=== PATIENT | female | born 1945 | race Caucasian/White ===

== ENCOUNTER 2018-07-13 00:43 | Outpatient (CLI) | payer BC, SELFPAY ==
--- NOTE | 2018-07-13 13:26 | DI.RAD_ITS ---
SYMPTOMS/DIAGNOSIS: RIGHT HIP PAIN, DJD FLUOROSCOPIC-GUIDED JOINT INJECTION: Fluoroscopy Time: 1 sec A frontal image of the right hip demonstrates needle placement in the right hip joint in conjunction with a joint injection carried out by Dr. Cummings. Please see the procedure report for further information.
--- NOTE | 2018-07-13 17:22 | ROE_ITS ---
DATE OF PROCEDURE: July 13, 2018 PROCEDURE: Injection right hip under fluoroscopy. SURGEON: Robert Cummings M.D. INDICATIONS: This patient has had chronic problems with her lower back as well as pain in her right hip area radiating occasionally into her groin. Radiographs showed significant degenerative arthriti s of the spine, but also some evidence of early degenerative changes in the right hip joint. It was very difficult to separate out the symptom complex coming from her back versus from her hip. In orde r to try to define this I recommended an injection of the right hip under fluoroscopy. If the patien t had a good result from the Marcaine anesthetic and/or the Depo-Medrol then I would think that a hip replacement would benefit her. If she had only limited relief or incomplete relief then I would con tinue to focus her efforts at getting her back better. I reviewed this with her in detail in the [facility] oroscopy suite. PROCEDURE: The patient was placed in the supine position. The anterolateral portion of her thigh wa s exposed. Betadine was used to prep the skin. Lidocaine 1% was used to create an anesthetic wheal over the proposed injection site. After waiting an appropriate amount of time, a 22 gauge spinal nee dle was inserted under fluoroscopic control without difficulty into the right hip. The needle was fe lt to penetrate the capsule and then hit lightly the bone of the femoral head. This was confirmed wi th fluoroscopy. I then injected the hip joint with 5 cc's of 0.5% Marcaine plain and 80 mg of Depo-M edrol. The patient tolerated the procedure well. She noted immediately that she could do things suc h as warp picker her right leg while standing on her left and it didn't cause pain. She is encouraged to keep a pain diary for the next 5 to 12 hours while the Marcaine is in effect. She is informed that she can anticipate some groin and hip discomfort for 24-48 hours after the Marcaine has worn off and before the Depo-Medrol has taken effect. If this is effective for her then she may benefit from a to mayda hip arthroplasty. cc: Joycelyn Will M.D.
== END 2018-07-13 01:03 ==
PROVIDERS: PCP Family Medicine; Visit Provider Orthopaedic Surgery
DX: M25.551 Pain in right hip (principal); M16.11 Unilateral primary osteoarthritis, right hip
CPT/HCPCS: 20610; 77002

== ENCOUNTER 2018-08-08 18:26 | Emergency (ER) | payer BC, SELFPAY ==
[2018-08-08 18:38] VITALS: BP 159/69; PULSE 72; RESP 16; TEMP 36.6; O2SAT 99
[2018-08-08] MEDS: Cyclobenzaprine 10 MG TAB PO ×2 (19:01)
--- NOTE | 2018-08-08 19:02 | ED.GENADUL_ITS ---
Discharge Plan Disposition Patient Disposition: HOME Condition: Stable Discharge Details Chief Complaint: Orthopedic Clinical Impression: Left leg pain Primary Care Provider: Joycelyn Will ED Provider: Adalberto Lin Home Meds and New Rx's Prescriptions: New cyclobenzaprine 10 mg tablet 10 mg PO TID PRN (Reason: pain) Qty: 20 RF: 0 Continue aspirin [Aspirin Low-Strength] 81 MG tablet,chewable 81 mg PO DAILY RF: 0 estradiol [Estring] 1 EACH ring 1 ea VG Q3MOS Qty: 1 RF: 4 acetaminophen [Tylenol] 325 MG tablet 650 mg PO Q6H PRN RF: 0 ibuprofen 200 MG tablet 400 mg PO BID PRNRF: 0 cholecalciferol (vitamin D3) 1,000 UNIT capsule 1,000 unit PO DAILY RF: 0 atenolol 25 MG tablet 25 mg PO DAILY Qty: 90 RF: 4 esomeprazole magnesium [Nexium] 20 MG capsule,delayed release(DR/EC) 20 mg PO DAILY Qty: 90 RF: 12 rosuvastatin [Crestor] 5 MG tablet 5 mg PO DAILY Qty: 90 RF: 12 multivitamin 1 EACH capsule 1 ea PO DAILY RF: 0 glucosam-chondr msm6-manganese 467-438-0.7 mg Capsule 2 tab PO DAILY RF: 0 turmeric 400 mg Capsule 1 tab PO DAILY RF: 0 gabapentin 300 MG capsule 600 mg PO HS RF: 0 Discharge Instructions Additional Instructions: Your pain is likely from a muscle spasm or strain. It could also be nerve pain from your chronic arthritis you should be contacted with an appointment for an ultrasound tomorrow. follow up with your primary care provider within a week you can take 1000mg tylenol and 600mg ibuprofen every 6 hours for pain as needed if you have fevers, inability to urinate or feel the leg is becoming cold to touch return to the emergency department Discharge Data Discharge Physician: Adalberto Lin Medical Decision Making 73 yo female with hx of chronic back pain and right leg pain comes in with diffsue left leg pain since yesterday. Denies any trauma or falls. HAs no fevers or leg swelling on exam HAs no crepitus, warmth or reddness, no difficulty urinating and no saddle anesthesia with normal distal pulses on exam and sensation. I suspect the patient's pain is likely from a muscle spasm, less likely sciatica. No evidnece at this time to suggest infectious etiology or nec fasc, no findings to suggest cauda equina or sea. Given the diffuse pain and despite her leg not appearing swollen she feels it is more swollen than normal so will order an u/s for tomorrow morning to eval for dvt. Normal pulses and sensation so doubt dissection or arterial occlusion. Return precautions given, will d/c home with muscle relaxers Differential Diagnosis muscle spasm, sciatica, dvt HPI General Mode of arrival: wheelchair . Date/Time Provider Initiated Documentation: 08/08/18 18:41 . Limitations to Documentation: no limitations . Information obtained by: patient . History of Present Illness 73 year old F presents to the emergency department with the chief complaint of left leg pain, described as moderate, with intensity rated at 7. Quality is described as aching and sharp, and is localized to the left. Patient reports no radiation. Patient started experiencing this day(s) (1) and it has been constant. No relieving factors improve symptom(s), No exacerbating factors reported . Patient notes no other symptoms.. Patient did receive the following treatments prior to arrival, none Related Data Home Medications Medication Instructions Recorded Confirmed aspirin [Aspirin Low-Strength] 81 mg PO DAILY tab-cap 01/06/13 08/08/18 multivitamin 1 ea PO DAILY 08/31/14 08/08/18 estradiol [Estring] 1 ea VG Q3MOS #1 vag.ring 08/18/17 08/08/18 acetaminophen [Tylenol] 650 mg PO Q6H PRN tab-cap 12/03/17 08/08/18 ibuprofen 400 mg PO BID PRN tab-cap 12/03/17 08/08/18 cholecalciferol (vitamin D3) 1,000 unit PO DAILY 01/06/18 08/08/18 atenolol 25 mg PO DAILY #90 tab 04/02/18 08/08/18 esomeprazole magnesium [Nexium] 20 mg PO DAILY #90 tab-cap 04/02/18 08/08/18 rosuvastatin [Crestor] 5 mg PO DAILY #90 tab-cap 04/02/18 08/08/18 cyclobenzaprine 10 mg PO TID PRN #20 tab 08/08/18 gabapentin 600 mg PO HS 08/08/18 08/08/18 glucosam-chondr msm6-manganese 2 tab PO DAILY 08/08/18 08/08/18 turmeric 1 tab PO DAILY 08/08/18 08/08/18 Previous Rx's Medication Instructions Recorded estradiol [Estring] 1 ea VG Q3MOS #1 vag.ring 08/18/17 atenolol 25 mg PO DAILY #90 tab 04/02/18 esomeprazole magnesium [Nexium] 20 mg PO DAILY #90 tab-cap 04/02/18 rosuvastatin [Crestor] 5 mg PO DAILY #90 tab-cap 04/02/18 cyclobenzaprine 10 mg PO TID PRN #20 tab 08/08/18 Allergies Allergy/AdvReac Type Severity Reaction Status Date / Time Penicillins Allergy RASH/BREATHING Unverified 08/08/18 18:42 PROBLEMS atorvastatin calcium AdvReac Intermediate LEG CRAMPS Unverified 08/08/18 18:42 [From Lipitor] General Stated Complaint: Orthopedic NESS: 3 Review of Systems Review of Systems All systems reviewed & are unremarkable except as noted in HPI and below Constitutional Denies chills, Denies fever(s) and Denies weakness Eyes Denies loss of vision ENT Denies change in voice Cardiovascular Denies chest pain and Denies dyspnea Respiratory Denies dyspnea Gastrointestinal Denies abdominal pain, Denies nausea and Denies vomiting Genitourinary Denies dysuria Musculoskeletal Denies joint swelling Integumentary/Breasts Denies rash Neurologic Denies loss of vision and Denies weakness Psychiatric Denies depression Endocrine Denies cold intolerance and Denies heat intolerance Allergic/Immunologic Reports urticaria PFSH Family History Mother Alzheimer's disease Heart disease Neoplasm Father Neoplasm Sister Heart disease Hyperlipidemia Neoplasm Sister Neoplasm Brother Essential hypertension Heart disease Hyperlipidemia Brother Essential hypertension Heart disease Hyperlipidemia Brother Neoplasm Grandfather Heart disease Grandfather Neoplasm Grandmother No problems noted. Grandmother Heart disease Neoplasm FAMILY HISTORY Aneurysm Hyperlipidemia Neoplasm IBS (irritable bowel syndrome) Medical History Anxiety Esophagitis Essential hypertension GERD (gastroesophageal reflux disease) Hiatal hernia Hyperlipidemia Nasal congestion Peripheral neuralgia Sleep apnea Vitamin D deficiency supraventricular reflux disease Social History Smoking/Tobacco Use Status: Former Tobacco Use Surgical History CYSTECTOMY (~1971) Cholecystectomy (~2004) EGD - IV Sedation (08/17/13) EGD - MAC (06/02/17) ENDOMETRIAL SURGERY PROCEDURES Reduction mammoplasty (~2001) colonoscopy Exam Const General: no acute distress Orientation: alert HENAZ Head: normal to inspection Ears: external ears normal General nose exam: external nose normal Mouth: moist mucous membranes Eyes General: appearance normal, both eyes and all related structures Neck Neck: normal visual inspection Resp Effort & Inspection: normal respiratory effort and able to speak in complete sentences Cardio Rate: regular rate Skin General skin exam: no rashes or lesions noted Neuro General: alert and oriented x3 Extrem General: normal to inspection Psych Mental Status: mental status grossly normal Course Vital Signs Temperature 36.6 C 08/08/18 18:38 Pulse 72 08/08/18 18:38 Respiratory Rate 16 08/08/18 18:38 Blood Pressure 159/69 H 08/08/18 18:38 Pulse Oximetry 99 08/08/18 18:38 Temperature 36.6 C 08/08/18 18:38 Temperature Source Temporal Artery Scan 08/08/18 18:38 Pulse 72 08/08/18 18:38 Respiratory Rate 16 08/08/18 18:38 Respiratory Effort Non-Labored 08/08/18 18:40 Blood Pressure 159/69 H 08/08/18 18:38 Blood Pressure Position Sitting 08/08/18 18:38 Pulse Oximetry 99 08/08/18 18:38 Oxygen Delivery Method Room Air 08/08/18 18:38 Oxygen Flow Rate 0 08/08/18 18:38 Pain Level 10 08/08/18 18:38
== END 2018-08-08 19:15 | disposition home or self-care (01) ==
LOC: ER 19:13
PROVIDERS: Emergency Provider Emergency Medicine; PCP Family Medicine
DX: M79.662 Pain in left lower leg (principal)
CPT/HCPCS: 99283

== ENCOUNTER 2018-08-09 10:44 | Outpatient (CLI) | payer BC, SELFPAY ==
--- NOTE | 2018-08-09 12:48 | DI.US_ITS ---
SYMPTOM/DIAGNOSIS: LT LEG PAIN DUPLEX VENOUS ULTRASOUND LEFT LOWER EXTREMITY: The study was carried out according to the usual protocol. The superficial, femoral, popliteal and proximal trifurcation in the superior portion of the leg are well seen. Good compressibility is noted throughout. Flow is demonstrated and flow augmentation was easily elicited with calf compression. SUMMARY: There is no evidence of DVT.
== END 2018-08-09 11:04 ==
PROVIDERS: PCP Family Medicine; Visit Provider Emergency Medicine
DX: M79.605 Pain in left leg (principal)
CPT/HCPCS: 93971

== ENCOUNTER 2018-08-09 13:13 | Emergency (ER) | payer BC, SELFPAY ==
[2018-08-09 13:27] VITALS: BP 149/60; PULSE 54; RESP 16; TEMP 36.5; O2SAT 98
[2018-08-09] MEDS: predniSONE 20 MG TAB 60 MG PO (14:29)
--- NOTE | 2018-08-09 14:31 | ED.GENADUL_ITS ---
Discharge Plan Disposition Patient Disposition: HOME Condition: Improving Discharge Details Chief Complaint: Recheck Clinical Impression: Left sided sciatica Reason For Visit: left leg pain Primary Care Provider: Joycelyn Will ED Provider: Tucker Jones Home Meds and New Rx's Prescriptions: New prednisone 20 mg tablet 40 mg PO DAILY 5 Days Qty: 10 RF: 0 Continue aspirin [Aspirin Low-Strength] 81 MG tablet,chewable 81 mg PO DAILY RF: 0 estradiol [Estring] 1 EACH ring 1 ea VG Q3MOS Qty: 1 RF: 4 acetaminophen [Tylenol] 325 MG tablet 650 mg PO Q6H PRN RF: 0 ibuprofen 200 MG tablet 400 mg PO BID PRNRF: 0 cholecalciferol (vitamin D3) 1,000 UNIT capsule 1,000 unit PO DAILY RF: 0 atenolol 25 MG tablet 25 mg PO DAILY Qty: 90 RF: 4 esomeprazole magnesium [Nexium] 20 MG capsule,delayed release(DR/EC) 20 mg PO DAILY Qty: 90 RF: 12 rosuvastatin [Crestor] 5 MG tablet 5 mg PO DAILY Qty: 90 RF: 12 multivitamin 1 EACH capsule 1 ea PO DAILY RF: 0 glucosam-chondr msm6-manganese 467-438-0.7 mg Capsule 2 tab PO DAILY RF: 0 turmeric 400 mg Capsule 1 tab PO DAILY RF: 0 gabapentin 300 MG capsule 600 mg PO HS RF: 0 Discontinued cyclobenzaprine 10 mg tablet 10 mg PO TID PRN (Reason: pain) Qty: 20 RF: 0 Discharge Instructions Instructions: Sciatica (ED) Additional Instructions: Please follow-up in clinic with Dr Will for recheck. Continue the previously prescribed gabapentin as well as Tylenol, ibuprofen, and to julio. Continue your other regular medications. Take prednisone as prescribed. Return to the emergency department for any acute concerns Medical Decision Making 73yof seen yesterday for atraumatic L leg pain. She was referred back for ultrasound this morning after visit in the ED last night. The ultrasound is unremarkable. Her exam today is consistent with acute left-sided sciatica. She does not have motor or sensory compromise. We will place on a burst of steroids. She did not have any improvement from the previous prescribed cyclobenzaprine and we will stop this medication. She will follow-up with Dr. Dobbertin for recheck. HPI General Mode of arrival: ambulatory . Date/Time Provider Initiated Documentation: 08/09/18 14:02 . Limitations to Documentation: no limitations . Information obtained by: patient . History of Present Illness described as moderate and similar to prior episodes, and is localized to the left and lower extremity. Patient started experiencing this day(s) and it has been constant. Rest improves symptom(s), Movement worsens symptoms . HPI Narrative: This is a 73-year-old female who was seen last night for atraumatic left lower extremity pain. She was worked up without finding and referred back for outpatient ultrasound today. Related Data Home Medications Medication Instructions Recorded Confirmed aspirin [Aspirin Low-Strength] 81 mg PO DAILY tab-cap 01/06/13 08/09/18 multivitamin 1 ea PO DAILY 08/31/14 08/09/18 estradiol [Estring] 1 ea VG Q3MOS #1 vag.ring 08/18/17 08/09/18 acetaminophen [Tylenol] 650 mg PO Q6H PRN tab-cap 12/03/17 08/09/18 ibuprofen 400 mg PO BID PRN tab-cap 12/03/17 08/09/18 cholecalciferol (vitamin D3) 1,000 unit PO DAILY 01/06/18 08/09/18 atenolol 25 mg PO DAILY #90 tab 04/02/18 08/09/18 esomeprazole magnesium [Nexium] 20 mg PO DAILY #90 tab-cap 04/02/18 08/09/18 rosuvastatin [Crestor] 5 mg PO DAILY #90 tab-cap 04/02/18 08/09/18 gabapentin 600 mg PO HS 08/08/18 08/09/18 glucosam-chondr msm6-manganese 2 tab PO DAILY 08/08/18 08/09/18 turmeric 1 tab PO DAILY 08/08/18 08/09/18 prednisone 40 mg PO DAILY 5 Days #10 tab 08/09/18 Previous Rx's Medication Instructions Recorded estradiol [Estring] 1 ea VG Q3MOS #1 vag.ring 08/18/17 atenolol 25 mg PO DAILY #90 tab 04/02/18 esomeprazole magnesium [Nexium] 20 mg PO DAILY #90 tab-cap 04/02/18 rosuvastatin [Crestor] 5 mg PO DAILY #90 tab-cap 04/02/18 prednisone 40 mg PO DAILY 5 Days #10 tab 08/09/18 Allergies Allergy/AdvReac Type Severity Reaction Status Date / Time Penicillins Allergy RASH/BREATHING Unverified 08/09/18 13:33 PROBLEMS atorvastatin calcium AdvReac Intermediate LEG CRAMPS Unverified 08/09/18 13:33 [From Lipitor] General Stated Complaint: Recheck NESS: 3 Review of Systems Review of Systems 6 systems reviewed and otherwise neg PFSH Family History Mother Alzheimer's disease Heart disease Neoplasm Father Neoplasm Sister Heart disease Hyperlipidemia Neoplasm Sister Neoplasm Brother Essential hypertension Heart disease Hyperlipidemia Brother Essential hypertension Heart disease Hyperlipidemia Brother Neoplasm Grandfather Heart disease Grandfather Neoplasm Grandmother No problems noted. Grandmother Heart disease Neoplasm FAMILY HISTORY Aneurysm Hyperlipidemia Neoplasm IBS (irritable bowel syndrome) Medical History Anxiety Esophagitis Essential hypertension GERD (gastroesophageal reflux disease) Hiatal hernia Hyperlipidemia Nasal congestion Peripheral neuralgia Sleep apnea Vitamin D deficiency supraventricular reflux disease Social History Smoking/Tobacco Use Status: Former Tobacco Use Surgical History CYSTECTOMY (~1971) Cholecystectomy (~2004) EGD - IV Sedation (08/17/13) EGD - MAC (06/02/17) ENDOMETRIAL SURGERY PROCEDURES Reduction mammoplasty (~2001) colonoscopy Exam Narrative Exam Narrative: GEN: awake, alert, oriented 3. Pleasant, well groomed, interactive. HEAD: Normocephalic, atraumatic NECK: Full ROM, no ANALY, no menigismus EXT: Full ROM, no edema, no rash. Tender at sciatic notch left side. Patient' s motor is 5 out of 5. Saddle distribution sensation as is sensation throughout is intact. Palpable DP bilaterally Neuro: Grossly normal neurologic exam, conversant, interactive. Psych: Speech fluent, thoughts congruent, affect normal Course Vital Signs Temperature 36.5 C 08/09/18 13:27 Pulse 54 L 08/09/18 13:27 Respiratory Rate 16 08/09/18 13:27 Blood Pressure 149/60 H 08/09/18 13:27 Pulse Oximetry 98 08/09/18 13:27 Temperature 36.5 C 08/09/18 13:27 Temperature Source Temporal Artery Scan 08/09/18 13:27 Pulse 54 L 08/09/18 13:27 Respiratory Rate 16 08/09/18 13:27 Respiratory Effort 08/09/18 13:32 Blood Pressure 149/60 H 08/09/18 13:27 Blood Pressure Position Sitting 08/09/18 13:27 Pulse Oximetry 98 08/09/18 13:27 Oxygen Delivery Method Room Air 08/09/18 13:27 Oxygen Flow Rate 0 08/09/18 13:27
== END 2018-08-09 14:50 | disposition home or self-care (01) ==
PROVIDERS: Emergency Provider Emergency Medicine; PCP Family Medicine
DX: M54.32 Sciatica, left side (principal); I10 Essential (primary) hypertension
CPT/HCPCS: 99283; 99282; J7512

== ENCOUNTER 2018-09-22 00:55 | Outpatient (CLI) | payer BC, SELFPAY ==
--- NOTE | 2018-09-22 08:30 | DI.MAMMO_ITS ---
SYMPTOM/DIAGNOSIS: SCREENING, Z12.31 MAMMOGRAMS: Mammograms were interpreted according to the usual protocol including computer analysis with CAD system, tomosynthesis and C view imaging. Comparison is made with exams from 3440-1453. The breasts are composed of scattered fibroglandular densities. No suspicious masses or suspicious microcalcifications are seen. There has been no significant change. IMPRESSION: Category 1B, negative mammogram. Yearly screening mammography is recommended. SA ASSESSMENT OF FINDINGS: Negative. Category 1. Patient will receive a letter notifying them of these results. BI-RADS category B. There are scattered areas of fibroglandular density.
[2018-09-22 10:27] LABS: ALT 15 U/L (12-78); AST 15 U/L (15-37); Albumin 3.5 g/dL (3.4-5.0); Alkaline Phosphatase 103 U/L (46-116); Anion Gap 9.9 mmol/L (3-11); BUN 20 mg/dL (7-18); Bilirubin, Total 0.3 mg/dL (0.2-1.0); CO2 27.1 mmol/L (21.0-32.0); CREATININE 0.85 mg/dL (0.55-1.02); Calcium 9.4 mg/dL (8.5-10.1); Chloride 104 mmol/L (98-107); Cholesterol 185 mg/dL (50-200); Glucose 93 mg/dL (70-100); HDL Cholesterol 62 mg/dL (40-60); LDL CHOLESTEROL 102 mg/dL (<100); Potassium 4.3 mmol/L (3.5-5.1); Sodium 141 mmol/L (136-145); TSH (W/Ref FT4) 2.33 uIU/mL (0.358-3.74); Triglyceride 123 mg/dL (30-150)
== END 2018-09-22 01:15 ==
PROVIDERS: PCP Family Medicine; Visit Provider Family Medicine
DX: E78.00 Pure hypercholesterolemia, unspecified (principal); Z12.31 Encounter for screening mammogram for malignant neoplasm of breast; I47.1 Supraventricular tachycardia; I10 Essential (primary) hypertension; R73.09 Other abnormal glucose; E78.5 Hyperlipidemia, unspecified
CPT/HCPCS: 36415; 77063; 77067; 80053; 80061; 83721; 83036; 84443

== ENCOUNTER → 2019-01-04 | Outpatient (CLI) | payer BC, SELFPAY ==
--- NOTE | 2019-01-04 07:19 | DI.RAD_ITS ---
SYMPTOMS/DIAGNOSIS: RT HIP PAIN, M16.11, DEGENERATIVE JOINT DISEASE RT HIP RIGHT HIP INJECTION: Fluoroscopy Time: 1 sec Fluoroscopy was utilized by Dr. Cummings during the performance of a right hip injection. Please refer to the procedure report for complete details.
--- NOTE | 2019-01-04 16:02 | ROE_ITS ---
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 SURGEON: Robert Cummings M.D. INDICATIONS: This patient was treated by me approximately four months ago with an intraarticular inj ection of Depo-Medrol into her right hip. She had some subtle signs of osteoarthritis on her plain r adiographs manifested by a small osteophyte over the inferomedial aspect of the femoral head and a sm all cyst over the acetabulum and matching cyst in the femoral head. She was having chronic back pain issues and I could not separate out the source of her pain being primarily hip or back. A lot of he r back pain radiated into her left lower extremity but also into the right side. She had an excellen t result from the injection. However, because she has ongoing back issues and her has ongoin g back, shoulder, and hip issues, she wants to delay total hip arthroplasty if at all possible. I re viewed with the patient her clinical findings and discussed them in the Fluoroscopy Suite. She under stood and wished to proceed. PROCEDURE: The patient was placed supine on the fluoroscopic table. The anterolateral aspect of her right thigh was prepped with ChloraPrep. One percent lidocaine was then used to create an anestheti c wheal over the proposed path of the spinal needle. After waiting two minutes, I placed a 22-gauge spinal needle, under fluoroscopic control, into the right hip joint. I then injected the joint with 5 cc of 0.5% Marcaine and 80 mg of Depo-Medrol. The patient noted immediate pain relief. She was ab le to ambulate without pain, which was in contrast to her coming into the fluoroscopic room. I want her to keep a mental diary of how much her back symptomatology has been relieved over the next hour to two to see if this injection has had any positive improvement in her chronic back pain. If it does, then the patient could anticipate some improvement of her chronic low back discomfort with a hip replacement. On the other hand, if she gets minimal back pain relief, then I do not think a tot al hip arthroplasty is going to relieve all of her symptoms. She understood these instructions. She tolerated the procedure well. She will follow up with me as needed.
== END ==
PROVIDERS: PCP Family Medicine; Visit Provider Orthopaedic Surgery
DX: M25.551 Pain in right hip (principal); M16.11 Unilateral primary osteoarthritis, right hip; M54.5 Low back pain; M47.27 Other spondylosis with radiculopathy, lumbosacral region
CPT/HCPCS: 20610; 77002

== ENCOUNTER 2019-02-21 16:51 | Outpatient (CLI) | payer BC, SELFPAY ==
--- NOTE | 2019-02-21 14:40 | DI.RAD_ITS ---
SYMPTOMS/DIAGNOSIS: NECK PAIN, CERVICALGIA, M54.2 CERVICAL SPINE: Odontoid, AP, lateral and bilateral oblique views. The odontoid is intact. The lateral masses appear well aligned. There is straightening of the normal cervical lordosis. There is 1-2 mm of anterior listhesis of C 2 on C 3 and C 3 on C 4. There dis space narrowing at C 5 - 6 and C 6 - 7. Endplate osteophytes are present from C 4 - 5 through C 6 - 7. No acute fractures or subluxations are seen. There is mild neural foraminal narrowing bilaterally at C 5 - 6 and C 6 - 7 left greater than right. The prevertebral soft tissues are unremarkable. IMPRESSION: Degenerative changes of the cervical spine, most marked at C 5 - 6 and C 6 - 7.
== END 2019-02-21 17:11 ==
PROVIDERS: PCP Family Medicine; Visit Provider Nurse Practitioner Family
DX: M54.2 Cervicalgia (principal); M50.322 Other cervical disc degeneration at C5-C6 level; M50.323 Other cervical disc degeneration at C6-C7 level
CPT/HCPCS: 72050

== ENCOUNTER 2019-03-08 07:41 | Outpatient (CLI) | payer BC, SELFPAY ==
[2019-03-08 07:54] VITALS: BP 159/71; PULSE 65; RESP 16; TEMP 35.5; O2SAT 98
--- NOTE | 2019-03-08 08:39 | DI.RAD_ITS ---
SYMPTOMS/DIAGNOSIS: CERVICAL SPONDYLOSIS, CERVICAL MEDIAL BRANCH BLOCK RT C-ARM FLUOROSCOPY OF THE CERVICAL SPINE: Fluoroscopy Time: 29.5 sec 2.48 mGy Fluoroscopy was provided for guidance with cervical spine pain clinic injection. Please see procedure note for details.
--- NOTE | 2019-03-08 08:42 | PDOC.PAIN ---
Pain Clinic Procedure Note Current Active Problems Problem Status Onset Cervical spondylosis without myelopathy Acute CERVICAL MEDIAL BRANCH BLOCKS #1 JULIET NORTON has been referred to the [facility] for cervical medial branch blocks. COMMENTS: I did review the Pain Clinic note from Ms. De La Paz. I added the C3 medial branch to the requested left C4-C6 levels as she has upper neck pain on the leftt as well as middle and lower neck pain and pain into the upper left trapezius muscle area. CIERRA was interviewed and the medical record reviewed. There were no medical, pharmacologic, radiographic or other structural contraindications to attempting fluoroscopically guided local anesthetic cervical medial branch blocks. Risks and expected side effects as well as potential benefit of the procedure were reviewed with CIERRA, and CIERRA's voiced concerns addressed. The printed consent form was signed and witnessed. Standard time-out procedure was performed. CIERRAwas placed in the right lateral decubitus position on the fluoroscopy table and automated blood pressure cuff and pulse oximeter applied. The skin entry points for approaching the anatomic target points of the segmental medial branches of left C3-C6 were identified with fluoroscopy and marked. Following thorough Chlorhexadine preparation of the skin and draping , a 1.5 25 gauge spinal needle was placed under fluoroscopic guidance down on to the target point for each respective segmental medial branch. Position was confirmed in A/P and leteral views with 0.25ml of omnipaque 240 injected at each level. At each point 0.3ml 0.5% bupivicaine was injected. Noemy vital signs were stable throughout the procedure and were as recorded in the docflowsheet by the nursing staff. Follow up plans and appointments were discussed with CIERRA. CIERRA was instructed to keep careful note of how the usual pain was modified by these injections. Specifically, the patient was asked to keep a pain diary for the next 24 hours using a numeric pain scale of 0-10 and report these results at the follow-up visit. Post procedure instruction was given as documented in the nursing documentation and having met discharge criteria, Noemy was discharged from the [facility]. Based on the medial branches blocked today, if they patient has adequate relief and we are able to proceed to radiofrequency ablation, the treatment should result in the denervation of the left C3-C4, C4-C5, and C5-C6 FACET JOINTS. We would expect to denervate a total of 3 facets during the radiofrequency ablation. COMMENTS: She will call back with her 1-4 hour post-procedure pain scores. CC: Joycelyn Will MD, DC
[2019-03-08 08:53] VITALS: BP 156/60; PULSE 71; RESP 13; O2SAT 100
[2019-03-08] MEDS: Bupivacaine 0.5% Pres-Free 10 ML VIAL IJ (08:54)
[2019-03-08] MEDS: Omnipaque 240 MG/ML 50 ML BTL IJ (08:55)
== END 2019-03-08 08:01 ==
PROVIDERS: PCP Family Medicine; Visit Provider Preventive Medicine Occupational Medicine
DX: M47.812 Spondylosis without myelopathy or radiculopathy, cervical region (principal)
CPT/HCPCS: 64490; 64491; 72040; Q9967

== ENCOUNTER 2019-03-22 09:59 | Outpatient (CLI) | payer BC, SELFPAY ==
[2019-03-22 10:55] VITALS: BP 156/72; PULSE 60; RESP 20; TEMP 36.1; O2SAT 99
--- NOTE | 2019-03-22 11:25 | DI.RAD_ITS ---
SYMPTOMS/DIAGNOSIS: CERVICAL SPONDYLOSIS PAIN CLINIC CERVICAL SPINE: Fluoroscopy Time: 44.9 sec Fluoroscopy was utilized by Dr. Villaseñor during the performance of a cervical medial branch block. Please refer to the procedure report for complete details.
[2019-03-22 11:36] VITALS: BP 149/57; PULSE 62; RESP 16; O2SAT 100
[2019-03-22] MEDS: Lidocaine 2% Pres-Free 5 ML VIAL IJ (11:37)
[2019-03-22] MEDS: Omnipaque 240 MG/ML 50 ML BTL IJ (11:37)
--- NOTE | 2019-05-03 09:34 | PDOC.PAIN_ITS ---
Pain Clinic Procedure Note This is for date of service 03/22/2019 Satish Villaseñor DO, MPH CERVICAL MEDIAL BRANCH BLOCKS #2 at left C3-C6 JULIET NORTON has been referred to the [facility] for cervical medial branch blocks. COMMENTS: She did very well with CMBB #1 at left C3-C6 DX: Cervical spondylosis without myelopathy CIERRA was interviewed and the medical record reviewed. There were no medical, pharmacologic, radiographic or other structural contraindications to attempting fluoroscopically guided local anesthetic cervical medial branch blocks. Risks and expected side effects as well as potential benefit of the procedure were reviewed with CIERRA, and CIERRA's voiced concerns addressed. The printed c onsent form was signed and witnessed. Standard time-out procedure was performed. CIERRAwas placed in the Right lateral decubitus position on the fluoroscopy table and automated blood pressure cuff and pulse oximeter applied. The skin entry points for approaching the anatomic target points of the segmental medial branches of Left C3-C6 were identified with fluoroscopy and marked. Following thorough Chlorhexadine preparation of the skin and draping and 1% lidocaine infiltration of the skin entry points and subcutaneous tissues, a 25 gauge spinal needle was placed under fluoroscopic guidance down on to the target point for each respective segmental medial branch. Position was confirmed in A/P and leteral views with 0.25ml of omnipaque 240 injected at each level. At each point 0.3ml 2% Lidocaine was injected. Noemy vital signs were stable throughout the procedure and were as recorded in the docflowsheet by the nursing staff. Follow up plans and appointments were discussed with CIERRA. CIERRA was instructed to keep careful note of how the usual pain was modified by these injections. Specifically, the patient was asked to keep a pain diary for the next 24 hours using a numeric pain scale of 0-10 and report these results at the follow-up visit. Post procedure instruction was given as documented in the nursing documentation and having met discharge criteria, Noemy was discharged from the [facility]. Based on the medial branches blocked today, if they patient has adequate relief and we are able to proceed to radiofrequency ablation, the treatment should result in the denervation of the left C3-C6 FACET JOINTS. We would expect to denervate a total of 3 facets during the radiofrequency ablation. COMMENTS: She will call back with her 1-4 hour post-procedure pain scores for the left side of her neck. CC: Joycelyn Will MD, DC
== END 2019-03-22 10:19 ==
PROVIDERS: PCP Family Medicine; Visit Provider Preventive Medicine Occupational Medicine
DX: M47.812 Spondylosis without myelopathy or radiculopathy, cervical region (principal)
CPT/HCPCS: 64490; 64491; 64492; 72040; Q9967

== ENCOUNTER 2019-03-31 08:02 | Outpatient (CLI) | payer BC, SELFPAY ==
[2019-03-31 07:50] VITALS: BP 133/75; PULSE 62; RESP 20; TEMP 35.7; O2SAT 98
[2019-03-31] MEDS: fentaNYL 100 MCG/2 ML VIAL IVP (08:29)
[2019-03-31] MEDS: Midazolam 2 MG/2 ML VIAL IVP (08:29)
[2019-03-31] MEDS: Lactated Ringers 1,000 ML 80 ML IV (08:31)
[2019-03-31 09:11] VITALS: BP 121/67; PULSE 61; RESP 11; O2SAT 100
--- NOTE | 2019-03-31 09:16 | DI.RAD_ITS ---
SYMPTOM/DIAGNOSIS: CERVICAL SPONDYLOSIS PAIN CLINIC: Fluoroscopy Time: 75.1 sec, 8.16 mGy Fluoroscopy was utilized by Dr. Villaseñor during the performance of a cervical radiofrequency ablation. Please refer to the procedure report for complete details.
--- NOTE | 2019-03-31 09:17 | PDOC.PAIN ---
Pain Clinic Procedure Note Current Active Problems Problem Status Onset Cervical spondylosis without myelopathy Acute CERVICAL MEDIAL BRANCH RADIOFREQUENCY USING THE [employer] MACHINE JULIET NORTON has been referred to the [facility] for radiofrequency treatment of chronic axial neck pain. @caphe@ has had long standing cervical pain thought to be facet joint generated and which has been refractory to other therapies. Local anesthetic medial branch blocks resulted in @m@ @lname@ reporting a greater than 80% reduction of the usual axial component of pain and improved function for at least the duration of the local anesthetic effect. COMMENTS: She did great with the left C3-C6 medial branch blocks.: CIERRA was interviewed and the medical record reviewed. There were no medical, pharmacologic, radiographic or other structural contraindications to attempting fluoroscopically guided radiofrequency treatment. Risks and expected side effects as well as potential benefit of the procedure were reviewed with CIERRA, and CIERRA's voiced concerns addressed. The printed consent form was signed and witnessed. Standard time-out procedure was performed. CIERRA was placed in the prone position on the fluoroscopy table and automated blood pressure cuff and pulse oximeter applied. The skin entry points for approaching the anatomic target points of the segmental medial branches of left C3-C6 were identified with fluoroscopic guidence. Following thorough Chlorhexadine preparation of the skin and draping and 1% lidocaine infiltration of the skin entry points and subcutaneous tissues, a 10cm, 17 guage, 5 mm active tip radiofrequency cannula was placed under fluoroscopic guidance at the anatomic course of each respective segmental medial branch. Each placement was stimulated at 50Hz and up to 1v in attempt to reproduce some component of CIERRA?s usual pain. If this response was accomplished, the cannula was left in place. If it could not be accomplished after multiple attempts, the cannula was placed at what was felt to be the closest anatomic approximation to the segmental medial branch. Each placement was stimulated at 2Hz and up to 3v without any evidence of distal myotomal stimulation. At each placement a continuous mode radiofrequency treatment was done at 80 degrees C for 90secs. I did ablate above and below the left C2-C3 facet joint to maximize the ablation of the left C3 medial branch nerve. This radiofrequency treatment should result in the denervation of the left C3-C4, C4-C5, and C5-C6 FACET JOINTS. A total of 3 facets were expected to be denervated from today's treatment. NORTON's vital signs were stable throughout the procedure and were as recorded in the docflowsheet by the nursing staff. Follow up plans and appointments were discussed with CIERRA. Post procedure instruction was given as documented in the nursing documentation and having met discharge criteria, Noemy was discharged from the [facility]. COMMENTS: If this procedure is effective for at least 6 months, she can have it repeated without repeating the CMBBs. CC: Joycelyn Will MD, DC
[2019-03-31] MEDS: Lidocaine 2% Pres-Free 5 ML VIAL IJ (09:19)
[2019-03-31] MEDS: Bupivacaine 0.5% Pres-Free 10 ML VIAL IJ (09:20)
--- NOTE | 2019-03-31 09:21 | PDOC.PAIN_ITS ---
Pain Clinic Procedure Note Current Active Problems Problem Status Onset Cervical spondylosis without myelopathy Acute CERVICAL MEDIAL BRANCH RADIOFREQUENCY USING THE [employer] MACHINE JULIETVIKAS NORTON has been referred to the [facility] for radiofrequency treatment of chronic axial neck pain. @caphe@ has had long standing cervical pain thought to be facet joint generated and which has been refractory to other therapies. Local anesthetic medial branch blocks resulted in @m@ @lname@ reporting a greater than 80% reduction of the usual axial component of pain and improved function for at least the duration of the local anesthetic effect. COMMENTS: She did great with the left C3-C6 medial branch blocks.: CIERRA was interviewed and the medical record reviewed. There were no medical, pharmacologic, radiographic or other structural contraindications to attempting fluoroscopically guided radiofrequency treatment. Risks and expected side effects as well as potential benefit of the procedure were reviewed with CIERRA, and CIERRA's voiced concerns addressed. The printed consent form was signed and witnessed. Standard time-out procedure was performed. CIERRA was placed in the prone position on the fluoroscopy table and automated blood pressure cuff and pulse oximeter applied. The skin entry points for approaching the anatomic target points of the segmental medial branches of left C3-C6 were identified with fluoroscopic guidence. Following thorough Chlorhexadine preparation of the skin and draping and 1% lidocaine infiltration of the skin entry points and subcutaneous tissues, a 10cm, 17 guage, 5 mm active tip radiofrequency cannula was placed under fluoroscopic guidance at the anatomic course of each respective segmental medial branch. Each placement was stimulated at 50Hz and up to 1v in attempt to reproduce some component of CIERRA?s usual pain. If this response was accomplished, the cannula was left in place. If it could not be accomplished after multiple attempts, the cannula was placed at what was felt to be the closest anatomic approximation to the segmental medial branch. Each placement was stimulated at 2Hz and up to 3v without any evidence of distal myotomal stimulation. At each placement a continuous mode radiofrequency treatment was done at 80 degrees C for 90secs. I did ablate above and below the left C2-C3 facet joint to maximize the ablation of the left C3 medial branch nerve. This radiofrequency treatment should result in the denervation of the left C3- C4, C4-C5, and C5-C6 FACET JOINTS. A total of 3 facets were expected to be d enervated from today's treatment. NORTON's vital signs were stable throughout the procedure and were as recorded in the docflowsheet by the nursing staff. Follow up plans and appointments were discussed with CIERRA. Post procedure instruction was given as documented in the nursing documentation and having met discharge criteria, Noemy was discharged from the [facility]. COMMENTS: If this procedure is effective for at least 6 months, she can have it repeated without repeating the CMBBs. CC: Joycelyn Will MD, DC
[2019-03-31] MEDS: Dexamethasone 10 MG/ML VIAL 15 MG IJ (09:43)
== END 2019-03-31 08:22 ==
PROVIDERS: PCP Family Medicine; Visit Provider Preventive Medicine Occupational Medicine
DX: M47.812 Spondylosis without myelopathy or radiculopathy, cervical region (principal)
CPT/HCPCS: 64633; 64634 ×2; 72040; J1100; J2250; J3010

== ENCOUNTER 2019-07-07 00:56 | Outpatient (CLI) | payer BC, SELFPAY ==
--- NOTE | 2019-07-07 15:50 | DI.RAD_ITS ---
SYMPTOM/DIAGNOSIS: BILATERAL KNEE PAIN LEFT KNEE: The femoral tibial joint spaces are well maintained. There is mild narrowing of the patellofemoral joint near the apex. No joint effusion is seen. IMPRESSION: Mild patellofemoral joint degenerative changes.
--- NOTE | 2019-07-07 15:50 | DI.RAD_ITS ---
SYMPTOM/DIAGNOSIS: HIP PAIN, RT WORSE THAN LT PELVIS: There is mild acetabular spurring of the left hip. The left hip joint space is well maintained. There is moderate joint space narrowing and periarticular spurring at the right hip. There is also periarticular sclerosis. Subchondral cyst is seen in the superior acetabulum. There is mild spurring of both S-I joints. IMPRESSION: Moderate degenerative changes of the right hip.
--- NOTE | 2019-07-07 15:50 | DI.RAD_ITS ---
SYMPTOM/DIAGNOSIS: BILATERAL KNEE PAIN RIGHT KNEE: The femoral tibial joint spaces are well maintained. There is no significant periarticular spurring. The patellofemoral joint also is well maintained and shows no significant spurring. No joint effusion is seen. IMPRESSION: Negative right knee.
== END 2019-07-07 01:16 ==
PROVIDERS: PCP Family Medicine; Visit Provider Chiropractor Orthopedic
DX: M25.551 Pain in right hip (principal); M25.552 Pain in left hip; M16.11 Unilateral primary osteoarthritis, right hip; M53.3 Sacrococcygeal disorders, not elsewhere classified; M25.561 Pain in right knee; M25.562 Pain in left knee; M17.12 Unilateral primary osteoarthritis, left knee
CPT/HCPCS: 72170; 73564

== ENCOUNTER 2019-11-28 01:36 | Outpatient (CLI) | payer BC, MEDICARE, SELFPAY ==
--- NOTE | 2019-11-28 10:06 | DI.MAMMO_ITS ---
EXAM: MG MAMMO SCREENING CLINICAL HISTORY: screening Z12.39. TECHNIQUE: Bilateral full field digital CC and MLO mammographic images were obtained with 3D tomosyn thesis and utilizing computer aided detection (CAD). COMPARISON: Available for comparison. FINDINGS: Masses/Architectural Distortion: None seen. Stable nodular densities are seen in the breasts. Microcalcifications: No suspicious pleomorphic-type are seen. Skin Thickening/Nipple Retraction: None. IMPRESSION: 1. No significant interval change with no specific features of malignancy noted. 2. Unless there is more urgent need, screening mammography is recommended, as per [employer] guidelines. ACR BI-RAD Category- 1 Negative Breast Density - Category B - Scattered areas of fibroglandular density A negative radiographic report should not delay biopsy if a dominant or clinically suspicious mass is present. Up to ten percent of cancers are not identified on mammography. A negative report may reinforce clinical impression. Adenosis and dense breasts may obscure an underlying neoplasm. False positive reports average 6 to 10%. Patient will receive a letter notifying them of these results.
== END 2019-11-28 01:56 ==
PROVIDERS: PCP Family Medicine; Visit Provider Family Medicine
DX: Z12.31 Encounter for screening mammogram for malignant neoplasm of breast (principal)
CPT/HCPCS: 77063; 77067

== ENCOUNTER 2019-11-29 09:25 | Outpatient (CLI) | payer BC, SELFPAY ==
--- NOTE | 2019-11-29 09:46 | DI.RAD_ITS ---
EXAM: XR PELVIS AP INDICATION: PREOPERATIVE EXAM. COMPARISON: XR pelvis AP from 07/07/2019 TECHNIQUE: 2D digital imaging was performed. FINDINGS: There are stable degenerative changes of the right hip. Findings include joint space narrowing, subc hondral sclerosis and subchondral cyst formation. Stable mild degenerative changes are seen in the l eft hip. No acute fracture or dislocation is seen. Soft tissues are unremarkable.
== END 2019-11-29 09:45 ==
PROVIDERS: PCP Family Medicine; Visit Provider Physician Assistant
DX: M16.0 Bilateral primary osteoarthritis of hip (principal)
CPT/HCPCS: 72170

== ENCOUNTER 2019-11-30 10:58 | Outpatient (CLI) | payer BC, SELFPAY ==
[2019-11-30 13:34] LABS: HCT 37.1 % (36.0-46.0); HGB 12.2 g/dL (12.0-15.5); Mean Corp. HGB Concentration 32.9 g/dL (32.0-36.0); Mean Corpuscular Hemoglobin 30.5 pg (27.0-33.0); Mean Corpuscular Volume 92.8 fL (80-95); Mean Platelet Volume 10.3 fL (8.0-11.0); Platelet Count 276 x1000/uL (130-400); RBC Distribution Width 12.4 % (11.7-14.6); White Blood Cell Count 6.19 k/cumm (4.4-10.8)
[2019-11-30 13:35] LABS: Anion Gap 6.9 mmol/L (3-11); BUN 19 mg/dL (7-18); CO2 29.1 mmol/L (21.0-32.0); CREATININE 0.89 mg/dL (0.55-1.02); Calcium 8.9 mg/dL (8.5-10.1); Chloride 105 mmol/L (98-107); Glucose 85 mg/dL (74-106); Potassium 4.3 mmol/L (3.5-5.1); Sodium 141 mmol/L (136-145)
== END 2019-11-30 11:18 ==
PROVIDERS: PCP Family Medicine; Visit Provider Student in an Organized Health Care Education/Training Program
DX: M25.551 Pain in right hip (principal); M16.11 Unilateral primary osteoarthritis, right hip; Z01.818 Encounter for other preprocedural examination; Z01.812 Encounter for preprocedural laboratory examination; I10 Essential (primary) hypertension; K21.9 Gastro-esophageal reflux disease without esophagitis
CPT/HCPCS: 36415; 80048; 85027; 86850; 86900; 86901; 93005; 93010

== ENCOUNTER 2019-12-06 05:54 | Inpatient (IN) | payer MEDICARE, BC, SELFPAY ==
[2019-11-29 09:00] VITALS: BP 120/54
[2019-11-30 11:05] VITALS: BP 126/62; PULSE 62; RESP 18; TEMP 36.6; O2SAT 98
[2019-12-06] VITALS (25 sets, daily range): BP systolic 94–142; BP diastolic 41–76; PULSE 44–63; RESP 10–22; TEMP 35.3–36.9; O2SAT 91–100
[2019-12-06] MEDS: Celecoxib 200 MG CAP 400 MG PO (06:35)
[2019-12-06] MEDS: Acetaminophen 500 MG TAB 1000 MG PO ×3 (06:35→20:16)
[2019-12-06] MEDS: Lactated Ringers 1,000 ML 80 ML IV ×3 (06:42→21:47)
--- NOTE | 2019-12-06 07:25 | HOME_ITS ---
Home Ventilator Equipment Home care [employer] [facility] Reason: Make: Respironics Model: REMStar Mask type: Nasal mask Mask size: Mode: CPAP Settings: Auto Min10/ Max 16 on RA Oxygen bleed in (lpm): Condition: Good Date last checked: 12/06/19 Year of last sleep study: Compliance Daily Comments: Pt uses H2O with machine, has sleep apnea
[2019-12-06] MEDS: ceFAZolin 2 GM/50 ML BAG IVPB (07:57)
[2019-12-06] MEDS: Ketorolac 30 MG/ML VIAL (08:46)
[2019-12-06] MEDS: Bupivacaine 0.25% Pres-Free 30 ML VIAL (08:46)
--- NOTE | 2019-12-06 09:50 | DI.RAD_ITS ---
EXAM: XR HIP RT IN OR CLINICAL HISTORY: right total hip in OR. TECHNIQUE: 2D and realtime digital imaging was performed. COMPARISON: No exams were available for comparison FINDINGS: Fluoroscopy was provided in the OR. Hard copy images show placement of a right hip prosthesis. The components appear satisfactorily aligned. FLUORO TIME: 40.3 seconds
--- NOTE | 2019-12-06 09:53 | ROE_ITS ---
Date of service: 12/06/19 Time of Service: 09:53 Operative Note Operative Note DATE OF PROCEDURE: 12/06/19 PRE-OP DIAGNOSIS: Right Hip Osteoarthritis POST-OP DIAGNOSIS: same PROCEDURE: Right Anterior Total Hip Arthroplasty SURGEON: Jonn Parsons MULTIGRAPHER: Sandra Joy ANESTHESIA: GETA ESTIMATED BLOOD LOSS: 300 PATHOLOGY: none sent COMPLICATIONS: None Patient was transported to: PACU Patient's condition: stable Implants: 1. Depuy Alexander Acetabular Component, 48mm 2. Depuy Acetabular Liner, [id number] 3. Depuy Corail Standard Collared Femoral Stem, Size 11 4. Depuy Altrx Ceramic Femoral Head, Size 32+1mm Indications: I have seen Vicky in clinic for symptoms of hip arthritis, confirmed with radiographic findings. She has exhausted nonoperative methods and was having significant limitations in daily function and desired better function and less pain. I discussed the technical details of a hip replacement. I explained the risks of the procedure to include, but not limited to, bleeding, infection, pain, stiffness, fracture, damage to nerves and vessels, damage to muscles and tendons, loosening, instability, leg length inequality, need for repeat procedure, blood clot and cardiopulmonary demise. Despite these risks, Vicky elected to proceed. Findings: There was significant signs of arthritis throughout the hip. There were lateral neck osteophytes and complete loss of femoral head cartilage. Procedure Description: Vicky was greeted in the preoperative holding area where the correct side was identified and marked. The consent was reviewed with the patient and signed. The history and physical was updated. All questions were answered. She was taken back to the operating room. A general anesthetic was administered. The patient was placed into the supine position on the operating room table. The patient was then positioned onto the ARCH table. Both feet were wrapped with Webrill cotton wrap along with Coban. The feet were placed in specialized boots for the ARCH table, well seated within the boot and secured. SCDs were applied. The patient was then slid down onto a peroneal post and the nonoperative leg was secured in a leg petit attached to the table. The operative side was placed into the ARCH table attachment and bed height and positioning was secured. A preoperative AP pelvis was obtained to serve as a reference for determining leg lengths. Prophylactic antibiotics in the form of Cefazolin were administered. 1g of Tranxemic Acid was given intravenously within 30 minutes of incision. The right leg was then prepped with Chloraprep and draped in a standard fashion. A second prep with Chloraprep was performed prior to placement of a shower-curtain type drape with Iodine impregnated skin protection. A timeout to confirm correct identity, side and site, procedure, allergies, anesthesia, and medical concerns was performed. An obliquely oriented incision was made starting lateral to the ASIS and running distal over the Tensor Fascia Tonya (TFL) muscle belly toward the fibular head, approximately 10cm. The skin and soft tissue was dissected sharply, through Debora?s fascia, and to the fascia of the TFL. With the fascia and superior border of the IT band identified, the fascia was incised with a new knife just above any perforators from the IT band. The TFL muscle belly was bluntly dissected away from the fascia and moved laterally. The fat between TFL and rectus was identified to ensure the dissection was not within the TFL. Blunt dissection created space between abductors and the capsule and retractor was shena justin over the lateral femoral neck. The fibers of the rectus femoris tendon were identified and these were freed from the anterior capsule. A second cobra retractor was placed around the medial femoral neck. The TFL was further retracted laterally to show the deep fascia. Careful dissection through this layer identified three main crossing vessels of the lateral femoral circumflex. These were cauterized in multiple locations and then cut without any noticeable bleeding. The TFL was further released bluntly from the deep fascia to expose anterior hip capsule and fat The Yan orthopaedic retractor was then placed beneath the TFL and against sartorius and medial soft tissues to protect and retract the soft tissues. A T-capsulotomy was then performed starting at the superior lateral acetabulum and moving distally to the intertrochanteric ridge. These capsular flaps were tagged with a No. 1 Ethibond and elevated from within. The capsular flaps were released to the shoulder of the lateral neck and to the lesser trochanter to give excellent visualization of the proximal femur. A neck osteotomy was performed using an oscillating saw based on preoperative templates. This cut started in the shoulder and of the lateral neck and exited medially. The saw was at all times directed medially to avoid injury to the greater trochanter. 6cm of traction was applied to the leg and the osteotomy opened. The femoral head was removed with a corkscrew, making sure to protect the TFL on its exit. This was measured on the back table to determing the starting reamer size. Portions of the rectus obscuring visualization were minimally elevated off the superior acetabulum. An anterior retractor was placed over the anterior wall between capsule and labrum and attached to the Gripper retraction system. A posterior retractor was placed similarly. This provided excellent visualization. The contents of the cotyloid fossa were removed with electrocautery and the labrum was removed with a knife. There was a notable floor osteophyte. Acetabular reaming began with a 44mm reamer. This first reaming was directed anterior to posterior and medial to get down to the true floor. This was inspected and reamed until the true floor was reached. I then reamed sequentially up to a 48mm reamer where good fit was obtained. The larger reamers were oriented based on anatomical reference of the anterior and lateral julien to ensure proper abduction and anteversion. Positioning and size was confirmed with the fluoroscopy. A 48mm Depuy Alexander acetabular component was selected. The acetabulum was reamed around the periphery with the selected acetabular size to prevent a rim fit. The deep tissues were irrigated. The acetabular component was then impacted in a position of about 40-45 degrees of abduction and 15-20 degrees of anteversion, using the patient?s anatomy as the ultimate landmark. Fluoroscopy was used to confirm this. There was excellent washer off of the acetabular component and the inserting handle was removed. The acetabular liner, Depuy [id number] polyethylene liner, was inserted and lined up with the tines of the acetabular component. There was no soft tissue interposition. The liner was then impacted into position and confirmed to be well-seated. A portion of the kami-articular cocktail was then injected around the acetabulum into the capsule and periosteum. This cocktail consisted of 50cc of 0.25% Bupivicaine and 20cc of Exparel, expanded to a total of 120cc. Traction was released from the femur. The leg was rotated to 120 degrees. Any remaining medial capsule was released until the lesser trochanter was easily palpable. A Vinson retractor was placed medially. The lateral capsule was further released into the shoulder to allow access to the greater trochanter. A Vinson retractor was placed over the greater trochanter which allowed the trochanter to flip in front of the capsule for excellent exposure. The leg was brought down into maximal extension and 20 degrees of adduction while ensuring there was no impingement on the acetabulum. Any remnant capsule within the trochanter was released. Piriformis and obturator externis were identified and protected. There was excellent access to the proximal femur. The lateral neck remnant was removed with a rongeur. A blunt canal probe was used to identify the canal and trajectory for later broaching. A box osteotome initiated the broach course. A small curved rasp and a curved curette were used to work laterally. Broaching then began with a size 8 Corail broach. This was inserted manually around the trochanter and into the canal before mallet blows. The broach was seated to a few millimeters below the cut level based on the neck cut and the preoperative template. Sequential broaching was continued using the [employer] pneumatic broaching device until a tight fit was obtained with good rotational control of the femur. A trial standard neck was inserted along with a +1 trial head. The leg was brought out of extension and adduction and then reduced with traction and internal rotation. The leg was stable anteriorly in a position of 30 degrees of extension and 90 degrees of external rotation. Fluoroscopy was used to ensure there was no fracture and the stem was seated well. Leg lengths were checked with an AP pelvis and pelvic reference points. Once content with the desired offset and leg lengths, the leg was brought back into extension, external rotation and adduction. The periosteum and surrounding tissue was injected with remaining portion of the kami-articular cocktail. The proximal femur was irrigated as well as the deep tissues. The Depuy Corail standard collared stem, size 11, was then manually inserted into the proximal femur making sure to control rotation. It was then malleted into position with light blows, giving breaks to allow bone expansion and decrease risk of fracture. The selected Depuy Altrx Ceramic Head, size 32+1mm, was then placed onto the clean and dry trunnion and secured with impaction onto the tapered fit. The leg was brought back out of extension and adduction and reduced with traction and internal rotation. Stability was confirmed with no shuck at 90 degrees of external rotation and 30 degrees of extension. No impingement through range of motion arc. Final x-ray images were obtained with fluoroscopy to confirm adequate positioning and no intraoperative fracture. The deep tissues were thoroughly irrigated with Irrisept chlorhexadine solution. The second dose of TXA 1g was administered intravenously.The capsule was then reapproximated with the previously placed Ethibond sutures. The TFL fascia was finally closed with a No. 2 Stratafix, barbed suture. Deep tissues were then reapproximated with 0 Vicryl and a running 2-0 Vicryl. The skin was closed with a running 4-0 Monocryl in a subcuticular fashion. This was reinforced with skin glue. A Mepilex silver dressing was applied. At the end of the case, all counts were correct. Vicky was transferred to the hospital bed without difficulty and suffering no apparent complication. Vicky has a good prognosis. Physical therapy will start today and without restrictions, weight-bearing as tolerated. Aspirin 81mg BID will be used for DVT prophylaxis.
[2019-12-06] MEDS: fentaNYL 100 MCG/2 ML VIAL IVP ×2 (10:10→10:25)
--- NOTE | 2019-12-06 12:10 | IN_ITS ---
Date of service: 12/06/19 Time of Service: 12:10 PT Notes Visit Reasons: (R) HIP DJD Physical Therapy Inpatient Initial Evaluation Date: 12/06/2019 Referring Doctor: Jonn Parsons M.D. PT Orders: PT CONSULT: s/p ortho surgery Precautions: Fall. Standard. Activity as tolerated. Patient Profile/Admitting Diagnosis: Pt is a 74-year-old female presenting status post right total hip arthroplasty on post-operative day 0. 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 Frederick GUZMAN Elevated erythrocyte sedimentation rate (Inactive 01/17/09) Esophagitis Essential hypertension Fatigue (Inactive 07/01/11) GERD (gastroesophageal reflux disease) Hiatal hernia (Chronic 08/17/13) 2005 EGD showing HH, polyps and gastric fundi, non-obstructing ring in the GI junction History of echocardiogram (Inactive) Hyperlipidemia Impacted cerumen of both ears (Inactive) Irritable bowel syndrome (IBS) (Chronic) Pt reported Not on immune modulating medications Mantoux: positive (Chronic) Nasal congestion Nasal obstruction (Inactive 09/12/15) Osteopenia (Chronic) T scores of -1.2, -1.4 Pain of left breast (Inactive 01/05/17) Peripheral neuralgia (Chronic) EMG-01/29; mild slowing of right ulnar @elbow Reflux esophagitis (Chronic 06/02/17) MILD-DR. TEZ GUZMAN Shoulder pain, right (Chronic 08/17/14) Sleep apnea, unspecified (Chronic 09/12/15) supraventricular reflux disease Supraventricular tachycardia (Chronic) on atenolol Trochanteric bursitis, right hip (Acute) Vitamin D deficiency Surgical History (Updated 11/29/19 @ 08:19 by Sandra Joy) Cholecystectomy (~2004) colonoscopy CYSTECTOMY (~1971) EGD - IV Sedation (08/17/13) HIATAL HERNIA EGD - MAC (06/02/17) ENDOMETRIAL SURGERY 1992 History of esophagogastroduodenoscopy (Inactive) History of lumpectomy of both breasts (Acute) PROCEDURES EMG 01/29 with mild swelling of the right ulnar nerve of the elbow Echocardiogram 03/31 showing an ejection fraction of 65% and an upper septal hypertrophy grade 1, Diastolic dysfunction. Repeat echo showing an ejection fraction of 60% and mild MRTR Reduction mammoplasty (~2001) B/L Social History/Home Situation: Retired. Lives at home with her in [place]. Reports that there are 4-5 stairs to enter the home. notes that there is on step that is about 4 inches high to get into the first-floor bedroom. There is an upstairs, but she is not required to use the second floor. Equipment Owned/DME: cane, shower chair, four-wheeled walker, standard walker, raised toilet seat. Subjective: Pt reports that prior to her surgery she was using a cane to walk when she was out of her house. Objective: General Observation: O2 on 1 L/min via nasal cannula. Mepilex dressing over incision. Thromboembolic pumps on bilateral LEs. Ledezma catheter in place. IV line in RUE. Mental Status: alert and oriented x4 Pain: 6/10 ROM: Right Upper Extremity: Shoulder Flexion WFL. Shoulder abduction WFL. Elbow flexion WFL. Wrist flexion WFL. Opening and closing of hand WFL. Left Upper Extremity: Shoulder Flexion WFL. Shoulder abduction WFL. Elbow flexion WFL. Wrist flexion WFL. Opening and closing of hand WFL. Right Lower Extremity: Hip flexion WFL. Hip abduction WFL. Knee flexion WFL. Ankle dorsiflexion WFL. Ankle plantarflexion WFL. Left Lower Extremity: Hip flexion allows up to 90 degrees. Hip abduction allows up to 20 degrees. Knee flexion WFL. Ankle dorsiflexion WFL. Ankle plantarflexion WFL. Strength: Right Upper Extremity: Shoulder flexors 5/5. Shoulder abductors 5/5. Elbow flex ors 5/5. Elbow extensors 5/5. Show Operations Supervisor strong. Left Upper Extremity: Shoulder flexors 5/5. Shoulder abductors 5/5. Elbow flexors 5/5. Elbow extensors 5/5. Show Operations Supervisor strong. Right Lower Extremity: Hip flexors 4/5 (pain in R hip). Hip abductors 5/5. Knee flexors 5/5. Knee extensors 5/5. Ankle dorsiflexors 5/5. Ankle plantarflexors 5/5. Left Lower Extremity: Hip flexors 2+/5. Hip abductors 3-/5. Knee flexors 4-/5. Knee extensors 4-/5. Ankle dorsiflexors 5/5. Ankle plantarflexors 5/5. Sensation: Intact as to pain and pressure on bilateral lower extremities. Bed Mobility/Transfers: Rolling Min A Supine to sit Min A Sit to supine Min A Sit to stand CGA Stand to sit CGA Bed to chair CGA Chair to bed CGA Gait: Pt was able to ambulate 60 feet, WBAT on the R LE, using a front-wheeled walker. CGA provided by PT student with wheelchair follow provided by PT. No oxygen required. Step to gait with decreased step length and height. Pt complained of muscle pain in the her R anterior thigh. Balance: Static Sitting: Normal Dynamic Sitting: Normal Static Standing: Fair Dynamic Standing: Fair Special Tests: Mobility Limitations Standardized Measure [facility]-PAC 6 clicks Basic Mobility Inpatient Short Form: Raw Score: 19 CMS Score: 42% deficit Informed Consent/Education: Patient instructed in purpose of PT consult and plan of care. Assessment: Pt is a 74-year-old female presenting status post right total hip arthroplasty on post-operative day zero. She presents to physical therapy with impairment level findings and functional limitations as listed below. Pt would continue to benefit from skilled physical therapy at this time. Patient presents with clinical signs and symptoms consistent with current/admitting diagnoses that have resulted to mobility limitations, gait instability, generalized weakness, and impairment of motor control as demonstrated by the following impairment level findings: 1. Decreased strength to R hip major muscle groups 2. Impaired standing balance 3. Impaired activity tolerance 4. Limitation of joint range of motion in R hip Impairments are contributing to the following functional limitations: 1. Dependent bed mobility skills 2. Increased dependence with transfers 3. Inability to safely ambulate without assistive device and physical assistance 4. Increase completion time for mobility ADL performance 5. Increased fall risk 6. Inability to negotiate steps alone safely Patient is assessed as a 10432 moderate complexity based on the following: History: She presents to physical therapy with impairment level findings and functional limitations as listed below. AM-PAC raw score of 19 with 42% deficit. Examination: Demonstrable impairment in strength, balance, and range of motion with underlying impairments and functional limitations as documented above Presentation: Evolving Decision Makin moderate complexity Goals: Goals X1 week 1. Supine-Sit independent 2. Sit-Supine independent 3. Sit-Stand independent 4. Stand-Sit independent 5. Bed-Chair independent 6. Chair-Bed independent 7. Independent gait on level surface with use of least restrictive device for at least 300 feet without report of pain nor dyspnea 8. Independent stair negotiation while holding onto bilateral rails for at least 5 steps without report of pain nor dyspnea 9. Independent with home exercise program 10. Good static and dynamic standing balance/tolerance Plan of Care/Treatment Plan: 1-2x/day, 7 days/week x 1 week. Plan of care has been reviewed with the [employer]PER[employer] SPECIALIST providing the service under Physical Therapy direction. Initiate Physical Therapy intervention for strengthening, bed mobility, transfers, gait, stairs, balance training, use of assistive device. DISCHARGE RECOMMENDATIONS: Discharge to home with front-wheeled walker for ambulation. TREATMENT CODE/TIME: 40941 x 25 minutes beginning at 12:10 P.M. Thank you very much for this referral. Kiana Samuels, ТАТЬЯНА Doctor of Physical Therapy Student [facility] Supervision provided by Molly Raines PT, DPT, CLT [facility] [place], [place]
[2019-12-06] MEDS: ceFAZolin 1 GM/50 ML BAG IVPB ×2 (13:13→20:16)
[2019-12-06] MEDS: oxyCODONE 5 MG TAB PO (15:34)
--- NOTE | 2019-12-06 15:37 | PT.INTREAT ---
Date of service: 12/06/19 Time of Service: 15:37 PT Notes Visit Reasons: (R) HIP DJD 12/06/2019 SUBJECTIVE: Pt stating she is feeling quite good. Minimal discomfort seated and upon movement. OBJECTIVE: Seated in recliner. Agreeable to PT treatment. TRANSFERS Sit to stand: CGA Stand to sit: CGA GAIT Device: FWW Weight bearing: AT R Assist: CGA Distance: 60' Deviation: Step to pattern ASSESSMENT: Pt doing well s/p R URIEL performed today. Pain is well controlled. Continue skilled PT treatment for continued gait training and stair management. PLAN: Continue per POC. Treatment time: [id number] Keri Barfield PTA
--- NOTE | 2019-12-06 16:19 | W.PM.DS.N ---
Documented by User: Jonn Parsons MD 12/09/19 07:36 DS: Diagnosis Discharge Diagnosis (1) Degenerative joint disease of right hip: Status: Chronic Discharge Plan Disposition Patient Disposition: HOME Condition: Good Discharge Details Reason For Visit: (R) HIP DJD Admit Date/Time: 12/06/19 05:54 Admit Provider: Jonn Parsons Attending Provider: Jonn Parsons Primary Care Provider: Joycelyn Will [facility] Course Hospital Course: Patient was admitted to the medical/surgical floor following the procedure. It was tolerated well without any notable medical, surgical, or anesthetic complications. Mobilization began postoperatively. The cates catheter was removed and voiding spontaneously. Vitals were stable. Physical therapy worked with the patient and was cleared for discharge home. No acute medical issues. Home Meds and New Rx's Prescriptions: New aspirin 81 mg tablet,delayed release (DR/EC) 81 mg PO BID Qty: 60 RF: 0 acetaminophen 500 mg tablet 1,000 mg PO Q8H PRN (Reason: pain) Qty: 90 RF: 3 oxycodone 5 mg tablet 2.5 - 5 mg PO Q4H Qty: 10 RF: 0 celecoxib 100 mg capsule 100 mg PO BID Qty: 60 RF: 0 Continued esomeprazole magnesium 40 mg capsule,delayed release(DR/EC) 40 mg PO DAILY Qty: 90 RF: 4 Estring 2 mg (7.5 mcg /24 hour) ring 1 vag ring VG Q3MOS Qty: 1 RF: 4 rosuvastatin [Crestor] 5 mg tablet 5 mg PO DAILY Qty: 90 RF: 12 joint repair 2 each PO BID RF: 0 cholecalciferol (vitamin D3) 1,000 unit capsule 1,000 unit PO DAILY RF: 0 atenolol 25 mg tablet 25 mg PO DAILY Qty: 90 RF: 4 gabapentin 300 mg capsule 600 mg PO HS Qty: 180 RF: 4 multivitamin 1 EACH capsule 1 ea PO DAILY RF: 0 Discontinued flu 2018 [id number](PF) 45 mcg (15 mcg x 3)/0.5 mL syringe 45 mcg IM ONCE Qty: 0.5 RF: 0 ibuprofen 200 mg tablet 400 mg PO BID PRNRF: 0 aspirin [Aspirin Low-Strength] 81 MG tablet,chewable 81 mg PO DAILY RF: 0 Discharge Instructions Additional Instructions: Dr. Parsons?s Total Hip Discharge Instructions Activity: The most important activity is to walk. You should try to take short walks a few times a day. You have no restrictions on movement or positioning, but do not try to force what you do. You will find some stiffness and weakness with hip flexion (lifting your knee). Do not try to strengthen this too early, continue to practice walking and stairs and this will come. - Outpatient physical therapy can be helpful to help return you to a normal gait and improve your flexibility and strength. This can start around 2 weeks. For some patients, it?s not necessary. Usually this is determined at the time of discharge or at the first post-operative visit. - You should wear the BLUE hose on both legs for 2 weeks. Dressing: Keep the surgical dressing in place for at least one week. After the first week it may be removed and replace with light gauze and tape or nothing. It may get wet after 3 days but avoid soaking the dressing. If it gets wet, just lightly pat dry. It is important to always keep some gauze between skin folds, especially when you are sitting. Spend some time with the wound exposed when you are lying flat as the incision does wrinkle onto itself. Medications: - You should take Tylenol and an anti-inflammatory Celebrex as your primary pain control medications - You have been prescribed a stronger pain medication Oxycodone for breakthrough pain, take as needed as prescribed. - You will continue your stomach acid reduction agent Esomeprazole to help reduce stomach acid and reflux. - You will be taking Aspirin 81mg twice a day for DVT prevention unless instructed otherwise. - If you have constipation you should take Colace or Miralax (both [id number]). It takes most people 3-4 days to have a bowel movement. Follow-up: 2 weeks Stand Alone Forms: Nursing Discharge Form Referrals: Jonn Parsons MD [ [facility] STAFF PHYSICIAN] - 12/22/19 8:45 am Activity:: Activity as Tolerated Equipment/Supplies:: Walker Diet:: As Tolerated Discharge Orders Discharge Orders: Discharge Order (Routine); Ordered 12/07/19 Ordered By: Sandra Joy Discharge Data Discharge Date/Time-TO BE ENTERED AT DEPARTURE: 12/07/19 16:08 Exam Narrative Exam Narrative: Comfortable. NAD. AAOx3. Right hip dressing is c/d/i. Sensation is intact to the femoral and sciatic nerve. +ADF/APF/EHL/FHL. Foot WWP. DS: Data Vitals/I&O Vitals and I&O: Vital Signs Temperature 36.4 C L 12/06/19 15:12 Temperature Source Tympanic 12/06/19 15:12 Pulse 51 L 12/06/19 15:12 Pulse Rhythm Regular 12/06/19 11:36 Respiratory Rate 17 12/06/19 15:12 Respiratory Effort Non-Labored 12/06/19 11:36 Respiratory Depth Normal 12/06/19 11:36 Respiratory Pattern Normal 12/06/19 11:36 Blood Pressure 129/56 L 12/06/19 15:12 Pulse Oximetry 98 12/06/19 15:12 Respiratory End-tidal CO2 36 12/06/19 10:50 Oxygen Delivery Method Room Air 12/06/19 15:12 Oxygen Flow Rate 0 12/06/19 15:12 Fraction of Inspired Oxygen (FIO2) 21 12/06/19 11:40 Pain Level 6 12/06/19 15:34 Intake & Output 12/05/19 12/06/19 12/06/19 23:59 11:59 23:59 Intake Total 1100.667 / 1100.667 Output Total 300 / 700 400 / 700 Balance 800.667 / 400.667 -400 / 400.667 Weight 78.3 kg Intake: IV 1080.667 / 1080.667 Oral Output: Urine 400 / 400 Estimated Blood Loss 300 / 300 Other: Urine Color Yellow Yellow Urine Appearance Clear Clear Emesis Description None PFSH Medical History Abdominal pain (Inactive) Anxiety Atrophy of vagina (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 Frederick GUZMAN Elevated erythrocyte sedimentation rate (Inactive 01/17/09) Esophagitis Essential hypertension Fatigue (Inactive 07/01/11) GERD (gastroesophageal reflux disease) Hiatal hernia (Chronic 08/17/13) 2005 EGD showing HH, polyps and gastric fundi, non-obstructing ring in the GI junction History of echocardiogram (Inactive) Hyperlipidemia Impacted cerumen of both ears (Inactive) Irritable bowel syndrome (IBS) (Chronic) Pt reported Not on immune modulating medications Mantoux: positive (Chronic) 1999 Nasal congestion Nasal obstruction (Inactive 09/12/15) Osteopenia (Chronic) T scores of -1.2, -1.4 Pain of left breast (Inactive 01/05/17) Peripheral neuralgia (Chronic) EMG-01/29; mild slowing of right ulnar @elbow Reflux esophagitis (Chronic 06/02/17) MILD-DR. TEZ GUZMAN Shoulder pain, right (Chronic 08/17/14) Sleep apnea, unspecified (Chronic 09/12/15) supraventricular reflux disease Supraventricular tachycardia (Chronic) on atenolol Trochanteric bursitis, right hip (Acute) Vitamin D deficiency Surgical History Cholecystectomy (~2004) colonoscopy CYSTECTOMY (~1971) EGD - IV Sedation (08/17/13) HIATAL HERNIA EGD - MAC (06/02/17) ENDOMETRIAL SURGERY 1992 History of esophagogastroduodenoscopy (Inactive) History of lumpectomy of both breasts (Acute) PROCEDURES EMG 01/29 with mild swelling of the right ulnar nerve of the elbow Echocardiogram 03/31 showing an ejection fraction of 65% and an upper septal hypertrophy grade 1, Diastolic dysfunction. Repeat echo showing an ejection fraction of 60% and mild MRTR Reduction mammoplasty (~2001) B/L Family History Mother , age 87 Alzheimer's disease Heart disease Uterine cancer Father , age 67 Leukemia Sister Heart disease Hyperlipidemia Breast cancer Sister , BACTERIAL DISEASE at age 3. Cancer Brother , age 43 Essential hypertension Heart disease Hyperlipidemia Brother , age 67 Essential hypertension Heart disease Hyperlipidemia Brother , age 66 Pancreatic cancer Maternal Grandfather Heart disease Paternal Grandfather Pancreatic cancer Maternal Grandmother No problems noted. Paternal Grandmother Heart disease Cancer FAMILY HISTORY Aneurysm Hyperlipidemia Neoplasm IBS (irritable bowel syndrome) Social History Smoking/Tobacco Use Status: Former Tobacco Use Quit Date: 10/26/69 Second Hand Exposure: Yes Alcohol Intake: never Drug use: Never Caregiver/Support person: Yes Household members: spouse Housing: house Pets and animals: Yes Pets and animals: dog(s) Do you think of yourself as: straight/heterosexual Current gender identity: female What is your relationship status?: How often do you talk on the phone with friends or family?: decline to answer How often do you get together with friends or relatives?: decline to answer How often do you attend taoist or voodoo services?: decline to answer Do you belong to any clubs or organized social groups?: decline to answer Panel score (0-1 are the most socially isolated patients): 1 What type of physical activity do you participate in: decline to answer Duration: decline to answer Frequency: decline to answer Radha/Hindu: Oriental Orthodox Special radha needs: No Seatbelt use: always Drive intox 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 scoop driver: No Do you feel safe in your relationship?: Yes Documented by User: Sandra Joy 12/07/19 14:47 Discharge Plan Disposition Patient Disposition: HOME Condition: Good Discharge Details Reason For Visit: (R) HIP DJD Admit Date/Time: 12/06/19 05:54 Admit Provider: Jonn Parsons Attending Provider: Jonn Parsons Primary Care Provider: Joycelyn Will Hospital Course Hospital Course: Patient was admitted to the medical/surgical floor following the procedure. It was tolerated well without any notable medical, surgical, or anesthetic complications. Mobilization began postoperatively. The cates catheter was removed and voiding spontaneously. Vitals were stable. Physical therapy worked with the patient and was cleared for discharge home. No acute medical issues. Home Meds and New Rx's Prescriptions: New aspirin 81 mg tablet,delayed release (DR/EC) 81 mg PO BID Qty: 60 RF: 0 acetaminophen 500 mg tablet 1,000 mg PO Q8H PRN (Reason: pain) Qty: 90 RF: 3 oxycodone 5 mg tablet 2.5 - 5 mg PO Q4H Qty: 10 RF: 0 celecoxib 100 mg capsule 100 mg PO BID Qty: 60 RF: 0 Continued esomeprazole magnesium 40 mg capsule,delayed release(DR/EC) 40 mg PO DAILY Qty: 90 RF: 4 Estring 2 mg (7.5 mcg /24 hour) ring 1 vag ring VG Q3MOS Qty: 1 RF: 4 rosuvastatin [Crestor] 5 mg tablet 5 mg PO DAILY Qty: 90 RF: 12 joint repair 2 each PO BID RF: 0 cholecalciferol (vitamin D3) 1,000 unit capsule 1,000 unit PO DAILY RF: 0 atenolol 25 mg tablet 25 mg PO DAILY Qty: 90 RF: 4 gabapentin 300 mg capsule 600 mg PO HS Qty: 180 RF: 4 multivitamin 1 EACH capsule 1 ea PO DAILY RF: 0 Discontinued flu vac 2019 [id number](PF) 45 mcg (15 mcg x 3)/0.5 mL syringe 45 mcg IM ONCE Qty: 0.5 RF: 0 ibuprofen 200 mg tablet 400 mg PO BID PRNRF: 0 aspirin [Aspirin Low-Strength] 81 MG tablet,chewable 81 mg PO DAILY RF: 0 Discharge Instructions Additional Instructions: Dr. Parsons?s Total Hip Discharge Instructions Activity: The most important activity is to walk. You should try to take short walks a few times a day. You have no restrictions on movement or positioning, but do not try to force what you do. You will find some stiffness and weakness with hip flexion (lifting your knee). Do not try to strengthen this too early, continue to practice walking and stairs and this will come. - Outpatient physical therapy can be helpful to help return you to a normal gait and improve your flexibility and strength. This can start around 2 weeks. For some patients, it?s not necessary. Usually this is determined at the time of discharge or at the first post-operative visit. - You should wear the BLUE hose on both legs for 2 weeks. Dressing: Keep the surgical dressing in place for at least one week. After the first week it may be removed and replace with light gauze and tape or nothing. It may get wet after 3 days but avoid soaking the dressing. If it gets wet, just lightly pat dry. It is important to always keep some gauze between skin folds, especially when you are sitting. Spend some time with the wound exposed when you are lying flat as the incision does wrinkle onto itself. Medications: - You should take Tylenol and an anti-inflammatory Celebrex as your primary pain control medications - You have been prescribed a stronger pain medication Oxycodone for breakthrough pain, take as needed as prescribed. - You will continue your stomach acid reduction agent Esomeprazole to help reduce stomach acid and reflux. - You will be taking Aspirin 81mg twice a day for DVT prevention unless instructed otherwise. - If you have constipation you should take Colace or Miralax (both [id number]). It takes most people 3-4 days to have a bowel movement. Follow-up: 2 weeks Stand Alone Forms: Nursing Discharge Form Referrals: Jonn Parsons MD [ [facility] STAFF PHYSICIAN] - 12/22/19 8:45 am Activity:: Activity as Tolerated Equipment/Supplies:: Walker Diet:: As Tolerated Discharge Orders Discharge Orders: Discharge Order (Routine); Ordered 12/07/19 Ordered By: Sandra Joy Discharge Data Discharge Date/Time-TO BE ENTERED AT DEPARTURE: 12/07/19 16:08 DS: Summary Status at Discharge Functional status at discharge: uses cane/walker Overall status at discharge: patient is back to baseline Mental Status: mental status grossly normal Speech and Movement: speech and movement normal Mood: congruent mood Affect: normal affect Exam Psych Mental Status: mental status grossly normal Speech and Movement: speech and movement normal Mood: congruent mood Affect: normal affect [facility] Medical History Abdominal pain (Inactive) Anxiety 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 Frederick GUZMAN Elevated erythrocyte sedimentation rate (Inactive 01/17/09) Esophagitis Essential hypertension Fatigue (Inactive 07/01/11) GERD (gastroesophageal reflux disease) Hiatal hernia (Chronic 08/17/13) 2005 EGD showing HH, polyps and gastric fundi, non-obstructing ring in the GI junction History of echocardiogram (Inactive) Hyperlipidemia Impacted cerumen of both ears (Inactive) Irritable bowel syndrome (IBS) (Chronic) Pt reported Not on immune modulating medications Mantoux: positive (Chronic) 1999 Nasal congestion Nasal obstruction (Inactive 09/12/15) Osteopenia (Chronic) T scores of -1.2, -1.4 Pain of left breast (Inactive 01/05/17) Peripheral neuralgia (Chronic) EMG-01/29; mild slowing of right ulnar @elbow Reflux esophagitis (Chronic 06/02/17) MILD-DR. TEZ GUZMAN Shoulder pain, right (Chronic 08/17/14) Sleep apnea, unspecified (Chronic 09/12/15) supraventricular reflux disease Supraventricular tachycardia (Chronic) on atenolol Trochanteric bursitis, right hip (Acute) Vitamin D deficiency Surgical History Cholecystectomy (~2004) colonoscopy CYSTECTOMY (~1971) EGD - IV Sedation (08/17/13) HIATAL HERNIA EGD - MAC (06/02/17) ENDOMETRIAL SURGERY 1992 History of esophagogastroduodenoscopy (Inactive) History of lumpectomy of both breasts (Acute) PROCEDURES EMG 01/29 with mild swelling of the right ulnar nerve of the elbow Echocardiogram 03/31 showing an ejection fraction of 65% and an upper septal hypertrophy grade 1, Diastolic dysfunction. Repeat echo 07 showing an ejection fraction of 60% and mild MRTR Reduction mammoplasty (~2001) B/L Family History Mother , age 87 Alzheimer's disease Heart disease Uterine cancer Father , age 67 Leukemia Sister Heart disease Hyperlipidemia Breast cancer Sister , BACTERIAL DISEASE at age 3. Cancer Brother , age 43 Essential hypertension Heart disease Hyperlipidemia Brother , age 67 Essential hypertension Heart disease Hyperlipidemia Brother , age 66 Pancreatic cancer Maternal Grandfather Heart disease Paternal Grandfather Pancreatic cancer Maternal Grandmother No problems noted. Paternal Grandmother Heart disease Cancer FAMILY HISTORY Aneurysm Hyperlipidemia Neoplasm IBS (irritable bowel syndrome) Social History Smoking/Tobacco Use Status: Former Tobacco Use Quit Date: 10/26/69 Second Hand Exposure: Yes Alcohol Intake: never Drug use: Never Caregiver/Support person: Yes Household members: spouse Housing: house Pets and animals: Yes Pets and animals: dog(s) Do you think of yourself as: straight/heterosexual Current gender identity: female What is your relationship status?: How often do you talk on the phone with friends or family?: decline to answer How often do you get together with friends or relatives?: decline to answer How often do you attend taoist or voodoo services?: decline to answer Do you belong to any clubs or organized social groups?: decline to answer Panel score (0-1 are the most socially isolated patients): 1 What type of physical activity do you participate in: decline to answer Duration: decline to answer Frequency: decline to answer Radha/Hindu: Oriental Orthodox Special radha needs: No Seatbelt use: always Drive intox 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 scoop driver: No Do you feel safe in your relationship?: Yes
[2019-12-06] MEDS: Aspirin E.C. 81 MG TABEC PO (20:17)
[2019-12-06] MEDS: Gabapentin 300 MG CAP 600 MG PO (21:45)
[2019-12-07 03:41] VITALS: BP 125/64; PULSE 65; RESP 16; TEMP 36.9; O2SAT 97
[2019-12-07] MEDS: ceFAZolin 1 GM/50 ML BAG IVPB (03:46)
[2019-12-07 07:29] VITALS: BP 139/67; PULSE 67; RESP 17; TEMP 37; O2SAT 97
[2019-12-07] MEDS: Cholecalciferol (Vitamin D3) 1,000 UNIT TAB 1000 UNITS PO (07:59)
[2019-12-07] MEDS: Rosuvastatin 5 MG TAB PO (07:59)
[2019-12-07] MEDS: Multivitamin TAB 1 TAB PO (07:59)
[2019-12-07] MEDS: Aspirin E.C. 81 MG TABEC PO (08:00)
[2019-12-07] MEDS: Acetaminophen 500 MG TAB 1000 MG PO ×2 (08:00→14:45)
[2019-12-07] MEDS: Atenolol 25 MG TAB PO (08:01)
[2019-12-07] MEDS: Esomeprazole 40 MG CAPCR PO (08:01)
[2019-12-07 08:15] VITALS: O2SAT 99
--- NOTE | 2019-12-07 09:48 | PT.INTREAT ---
Date of service: 12/07/19 Time of Service: 09:48 PT Notes Visit Reasons: (R) HIP DJD 12/07/2019 SUBJECTIVE: Venus stating she is going home today. She has many questions for me which are answered. She is having some discomfort in the hip but very tolerable. She notes stiffness initially that improves with ambulation. OBJECTIVE: Seated in her chair. Agreeable to PT treatment. TRANSFERS Sit to stand: S Stand to sit: S GAIT Device: FWW Weight bearing: AT R Assist: S Distance: 120'x2 Deviation: step through pattern STAIRS: Up and down 3-4 steps, 2-6 steps, step to pattern, bilateral rails, supervision ASSESSMENT: Pt tolerates PT well today. Able to increase her gait distance and manage stairs without difficulty. She has a walker at home although without any wheels. She may benefit from walker with front wheels to improve fluency with her gait. PLAN: Pt to be discharged to home with family. See discharge summary. Treatment time: 30' [id number] Keri Barfield, KARELY
[2019-12-07 11:21] VITALS: BP 134/73; PULSE 64; RESP 18; TEMP 36.5; O2SAT 99
--- NOTE | 2019-12-07 15:49 | CHAPLAIN ---
Vicky told me about her surgery and what led up to it. Her goal is to get dancing again. She attends a New Year's dance in [place] with her daughter each year and next year she hopes to be able to dance at it again. She is impressed with how her pain as already improved.
--- NOTE | 2019-12-07 17:36 | INITIAL_ITS ---
- If Service Date Differs Date of service: 12/07/19 Time of Service: 17:36 Care Management Initial Assess REASON FOR HOSPITALIZATION:: R Hip replacement PAST MEDICAL HISTORY/PAST SURGICAL HISTORY:: Medical History (Updated 11/29/19 @ 08:41 by Sandra Joy). Abdominal pain (Inactive). Anxiety. 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 Cervical pain (neck) (Chronic 08/17/14). xr. Chest pain (Inactive 02/01/09). Chronic cystitis (Chronic 09/24/05). seen by urology 2006 due to chronic UTI's. Estrogen [place]. Cough due to bronchospasm (Chronic 02/24/17). Degenerative joint disease of right hip (Chronic). Injections under fluoroscopy x2: 12/2017; 06/2019. Deviated nasal septum (Acute). Diverticula of colon (Chronic). 12/26/15; DR. Frederick GUZMAN. Elevated erythrocyte sedimentation rate (Inactive 01/17/09). Esophagitis. Essential hypertension. Fatigue (Inactive 07/01/11). GERD (gastroesophageal reflux disease). Hiatal hernia (Chronic 08/17/13). 2006 EGD showing HH, polyps and gastric fundi, non- obstructing ring in the GI junction. History of echocardiogram (Inactive). Hyperlipidemia. Impacted cerumen of both ears (Inactive). Irritable bowel syndrome (IBS) (Chronic). Pt reported. Not on immune modulating medications. Mantoux: positive (Chronic). Nasal congestion. Nasal obstruction (Inactive 09/12/15). Osteopenia (Chronic). T scores of -1.2, -1.4. Pain of left breast (Inactive 01/05/17). Peripheral neuralgia (Chronic). EMG-01/29; mild slowing of right ulnar @elbow. Reflux esophagitis (Chronic 06/02/17). MILD-DR. TEZ GUZMAN. Shoulder pain, right (Chronic 08/17/14). Sleep apnea, unspecified (Chronic 09/12/15). supraventricular reflux disease. Supraventricular tachycardia (Chronic). on atenolol. Trochanteric bursitis, right hip (Acute). Vitamin D deficiency. Surgical History (Updated 11/29/19 @ 08:19 by Sandra Joy). Cholecystectomy (~2004). colonoscopy. CYSTECTOMY (~1971). EGD - IV Sedation (08/17/13). HIATAL HERNIA. EGD - MAC (06/02/17). ENDOMETRIAL SURGERY. 1992. History of esophagogastroduodenoscopy (Inactive). History of lumpectomy of both breasts (Acute). PROCEDURES. EMG 01/29 with mild swelling of the right ulnar nerve of the elbow. Echocardiogram 03/31 showing an ejection fra ction of 65% and an upper septal. hypertrophy grade 1, Diastolic dysfunction. Repeat echo showing an ejection fraction of 60% and mild MRTR. Reduction mammoplasty (~2001). B/L. PREVIOUS FUNCTIONAL STATUS/SOCIAL/FAMILY SUPPORTS:: iVcky lives in [place] with her , Tom. They have one adult daughter, Marcia, who lives in [place]. They are very supportive of Vicky. They have 4-5 steps to get into the house, but have a bedroom on the first level. 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 She is independent at baseline and enjoys restoring her home with her . CURRENT FUNCTIONAL STATUS:: Vicky was sitting up in her chair when CM met with her. She reported that she was feeling good today and that she worked well with PT. Per provider, she will be discharged home today. Per PT, she will need a FWW upon discharge. Vicky was very pleasant and engaged during conversation. Her and daughter were in the room, who were also very pleasant. Vicky is agreeable to the plan of returning home today. CM will continue to follow. ADVANCE DIRECTIVES:: On file, Tom listed as agent. Marcia listed as co agent. Has patient been provided with information about the portal?: No Did the patient sign up for the portal?: No CODE STATUS:: Full Code INSURANCE COVERAGE / FINANCIAL ISSUES:: [facility]/ BCBS CURRENT HOME/COMMUNITY SERVICES/EQUIPMENT:: Vicky has a cane, shower chair, 4WW, standard walker and a raised toilet seat. PRIMARY CARE PHYSICIAN:: Joycelyn Will POTENTIAL DISCHARGE NEEDS:: FWW, follow up appointment PATIENT/FAMILY EDUCATION NEEDS:: Review discharge instructions regarding activity levels and medications, discussion of self care including Ask Me Three ANTICIPATED BARRIERS TO DISCHARGE:: None identified at this time. TRANSPORTATION:: Vicky will be driven home via private vehicle by family. PLAN:: Anticipate Vicky will return home when medically cleared with no additional services. CM will coordinate a FWW for her to use at home. Her family will drive her home via private vehicle. She will follow up with Ortho, as recommended. She is agreeable to the plan.
--- NOTE | 2019-12-07 18:12 | PDOC.CMDIS ---
- If Service Date Differs Date of service: 12/07/19 Time of Service: 18:12 LACE Index Scoring Tool - Questions: Length of Stay (in days): 2 Acuity (Admit via E.D.?): No E.D. Visits: 0 - Answers: Total Score: 2 Risk of Readmission: Low Risk Care Management Discharge Reason for Hospitalization: R Hip replacement Discharge Plan: Vicky will return home with no additional services at this time. She has a new FWW, coordinated by CM. She will follow up with Ortho, as recommneded. She is being driven home by family via private vehicle. She is agreeable to the plan. Patient/Family Education Needs: Review discharge instructions regarding activity levels and medications, discussion of self care needs including ask me three
--- NOTE | 2019-12-08 11:12 | PT.INDS ---
Date of service: 12/08/19 Time of Service: 11:12 PT Notes Visit Reasons: (R) HIP DJD Physical Therapy Inpatient Discharge Summary Date: 12/07/2019 Dates of Service: 12/06/2019 through 12/07/2019 This is a clinical summary of care provided on the duration of dates listed above. No charge was made in the completion of this documentation. Referring Doctor: Jonn Parsons M.D. PT Orders: PT CONSULT: s/p ortho surgery Precautions: Fall. Standard. Activity as tolerated. Patient Profile/Admitting Diagnosis: Pt is a 74-year-old female presenting status post right total hip arthroplasty on post-operative day 0. 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 Frederick GUZMAN Elevated erythrocyte sedimentation rate (Inactive 01/17/09) Esophagitis Essential hypertension Fatigue (Inactive 07/01/11) GERD (gastroesophageal reflux disease) Hiatal hernia (Chronic 08/17/13) 2005 EGD showing HH, polyps and gastric fundi, non-obstructing ring in the GI junction History of echocardiogram (Inactive) Hyperlipidemia Impacted cerumen of both ears (Inactive) Irritable bowel syndrome (IBS) (Chronic) Pt reported Not on immune modulating medications Mantoux: positive (Chronic) Nasal congestion Nasal obstruction (Inactive 09/12/15) Osteopenia (Chronic) T scores of -1.2, -1.4 Pain of left breast (Inactive 01/05/17) Peripheral neuralgia (Chronic) EMG-01/29; mild slowing of right ulnar @elbow Reflux esophagitis (Chronic 06/02/17) MILD-DR. TEZ GUZMAN Shoulder pain, right (Chronic 08/17/14) Sleep apnea, unspecified (Chronic 09/12/15) supraventricular reflux disease Supraventricular tachycardia (Chronic) on atenolol Trochanteric bursitis, right hip (Acute) Vitamin D deficiency Surgical History (Updated 11/29/19 @ 08:19 by Sandra Joy) Cholecystectomy (~2004) colonoscopy CYSTECTOMY (~1971) EGD - IV Sedation (08/17/13) HIATAL HERNIA EGD - MAC (06/02/17) ENDOMETRIAL SURGERY 1992 History of esophagogastroduodenoscopy (Inactive) History of lumpectomy of both breasts (Acute) PROCEDURES EMG 01/29 with mild swelling of the right ulnar nerve of the elbow Echocardiogram 03/31 showing an ejection fraction of 65% and an upper septal hypertrophy grade 1, Diastolic dysfunction. Repeat echo showing an ejection fraction of 60% and mild MRTR Reduction mammoplasty (~2001) B/L Social History/Home Situation: Retired. Lives at home with her in [place]. Reports that there are 4-5 stairs to enter the home. notes that there is on step that is about 4 inches high to get into the first-floor bedroom. There is an upstairs, but she is not required to use the second floor. Equipment Owned/DME: cane, shower chair, four-wheeled walker, standard walker, raised toilet seat. Objective: General Observation: O2 on 1 L/min via nasal cannula. Mepilex dressing over incision. Thromboembolic pumps on bilateral LEs. Ledezma catheter in place. IV line in RUE. Pain: 6/10 ROM: Right Upper Extremity: Shoulder Flexion WFL. Shoulder abduction WFL. Elbow flexion WFL. Wrist flexion WFL. Opening and closing of hand WFL. Left Upper Extremity: Shoulder Flexion WFL. Shoulder abduction WFL. Elbow flexion WFL. Wrist flexion WFL. Opening and closing of hand WFL. Right Lower Extremity: Hip flexion WFL. Hip abduction WFL. Knee flexion WFL. Ankle dorsiflexion WFL. Ankle plantarflexion WFL. Left Lower Extremity: Hip flexion WFL. Hip abduction WFL. Knee flexion WFL. Ankle dorsiflexion WFL. Ankle plantarflexion WFL. Strength: Right Upper Extremity: Shoulder flexors 5/5. Shoulder abductors 5/5. Elbow flexors 5/5. Elbow extensors 5/5. Forge Operator Helper strong. Left Upper Extremity: Shoulder flexors 5/5. Shoulder abductors 5/5. Elbow flexors 5/5. Elbow extensors 5/5. Forge Operator Helper strong. Right Lower Extremity: Hip flexors 4/5 (pain in R hip). Hip abductors 5/5. Knee flexors 5/5. Knee extensors 5/5. Ankle dorsiflexors 5/5. Ankle plantarflexors 5/5. Left Lower Extremity: Hip flexors 2+/5. Hip abductors 3-/5. Knee flexors 4-/5. Knee extensors 4-/5. Ankle dorsiflexors 5/5. Ankle plantarflexors 5/5. Sensation: Intact as to pain and pressure on bilateral lower extremities. Bed Mobility/Transfers: Rolling Min A Supine to sit Min A Sit to supine Min A Sit to stand supervision Stand to sit supervision Bed to chair CGA Chair to bed CGA Gait: Pt was able to ambulate 120 feet x 2, WBAT on the R LE, using a front-wheeled walker. Supervision provided by RADIOLOGIST PHYSICIAN. Step to gait with decreased step length and height. Stairs: Pt was able to ascend and descend the 4-inch step x3 and 6-inch step x2 using one rail and single point cane. Step to gait pattern. Supervision provided by RADIOLOGIST PHYSICIAN. Balance: Static Sitting: Normal Dynamic Sitting: Normal Static Standing: Fair Dynamic Standing: Fair Assessment: Pt is a 74-year-old female presenting status post right total hip arthroplasty on post-operative day zero. She presented to physical therapy with impairment level findings and functional limitations as listed below. Pt demonstrated improvements in walking ability as demonstrated through her ability to ambulate a greater distance. She was able to tolerate negotiating stairs with only supervision. She would continue to bene Patient presented with clinical signs and symptoms consistent with current/admitting diagnoses that have resulted to mobility limitations, gait instability, generalized weakness, and impairment of motor control as demonstrated by the following impairment level findings: 1. Decreased strength to R hip major muscle groups 2. Impaired standing balance 3. Impaired activity tolerance 4. Limitation of joint range of motion in R hip Impairments continue to contribute to the following functional limitations: 1. Dependent bed mobility skills 2. Increased dependence with transfers 3. Inability to safely ambulate without assistive device and physical assistance 4. Increase completion time for mobility ADL performance 5. Increased fall risk 6. Inability to negotiate steps alone safely Patient is assessed as a 69223 moderate complexity based on the following: History: She presents to physical therapy with impairment level findings and functional limitations as listed below. AM-PAC raw score of 19 with 42% deficit. Examination: Demonstrable impairment in strength, balance, and range of motion with underlying impairments and functional limitations as documented above Presentation: Evolving Decision Makin moderate complexity Goals: Goals X1 week 1. Supine-Sit independent -NOT MET 2. Sit-Supine independent-NOT MET 3. Sit-Stand independent-NOT MET 4. Stand-Sit independent-NOT MET 5. Bed-Chair independent-NOT MET 6. Chair-Bed independent-NOT MET 7. Independent gait on level surface with use of least restrictive device for at least 300 feet without report of pain nor dyspnea-NOT MET 8. Independent stair negotiation while holding onto bilateral rails for at least 5 steps without report of pain nor dyspnea -MET 9. Independent with home exercise program --NOT MET 10. Good static and dynamic standing balance/tolerance-NOT MET DISCHARGE RECOMMENDATIONS: Discharge to home with family. Recommend a front-wheeled walker for ambulation. Thank you very much for this referral. Kiana Samuels, SPT Doctor of Physical Therapy Student [facility] Supervision provided by Molly Raines PT, DPT, CLT [facility] [place], [place]
== END 2019-12-07 16:08 | disposition home or self-care (01) | DRG 470 ==
LOC: PDS 05:54 → MS 10:40
PROVIDERS: Admitting Provider Student in an Organized Health Care Education/Training Program; PCP Family Medicine; Visit Provider Student in an Organized Health Care Education/Training Program
PROC: 0SR904A Replacement of Right Hip Joint with Ceramic on Polyethylene Synthetic Substitute, Uncemented, Open Approach (ICD-10-PCS; CPT 27130; principal; 2019-12-06 08:15)
DX: M16.11 Unilateral primary osteoarthritis, right hip (principal); M25.551 Pain in right hip; Z96.641 Presence of right artificial hip joint; I50.83 High output heart failure; I10 Essential (primary) hypertension; E78.5 Hyperlipidemia, unspecified; K21.9 Gastro-esophageal reflux disease without esophagitis; G47.33 Obstructive sleep apnea (adult) (pediatric); M85.80 Other specified disorders of bone density and structure, unspecified site
CPT/HCPCS: 27130; 97162; 97530; NC; 73501; J0690; J1100; J1885; J2001; J2250; J2405; J2704; J2710; J3010; J3490

== ENCOUNTER 2019-12-22 08:57 | Outpatient (CLI) | payer BC, SELFPAY ==
--- NOTE | 2019-12-22 08:45 | DI.RAD_ITS ---
EXAM: XR HIP RT COMPLETE AP PELVIS INDICATION: 1ST POST OP R URIEL. COMPARISON: XR PELVIS AP from 11/29/2019 XR HIP RT IN OR from 12/06/2019 TECHNIQUE: 2D digital imaging was performed. FINDINGS: A right hip prosthesis is seen. The alignment is satisfactory. A subchondral cyst is seen in the bravo perior acetabulum which pre-existed the prosthesis. There are moderate degenerative changes in the l eft hip. DATA REPOSITORY: RADIATION DOSE DELIVERED:
== END 2019-12-22 09:17 ==
PROVIDERS: PCP Family Medicine; Visit Provider Student in an Organized Health Care Education/Training Program
DX: Z96.641 Presence of right artificial hip joint (principal); M16.12 Unilateral primary osteoarthritis, left hip; Z47.1 Aftercare following joint replacement surgery
CPT/HCPCS: 73502

== ENCOUNTER 2020-01-01 19:00 | Observation (INO) | payer BC, SELFPAY ==
[2020-01-01 19:27] VITALS: BP 140/54; PULSE 70; RESP 16; TEMP 36.5; O2SAT 98
[2020-01-01 20:15] LABS: Bilirubin Negative (Negative); Blood Small (Negative); Clarity Clear (Clear); Glucose Negative (Negative); Ketones Negative (Negative); Leukocyte Esterase Negative (Negative); Nitrite Negative (Negative); Specific Gravity 1.015 (1.005-1.025); Urobilinogen 0.2 EU/dL (Up TO 0.2)
[2020-01-01] MEDS: Meclizine 25 MG TAB PO (20:30)
[2020-01-01] MEDS: Normal Saline 1,000 ML 1000 ML IV (20:30)
--- NOTE | 2020-01-01 20:30 | DI.RAD_ITS ---
EXAM: XR CHEST 2V PA LATERAL CLINICAL HISTORY: DIZZINESS TECHNIQUE: 2D digital imaging was performed. COMPARISON: CHEST 2 VIEWS PA,LAT from 02/23/2017 FINDINGS: MEDIASTINUM: Normal. Stable calcified right paratracheal lymph node. HEART: Normal. PULMONARY VASCULATURE: Normal. LUNGS: Clear. PLEURAL SPACE: No pleural effusion or pneumothorax. BONE:Normal. OTHER FINDINGS:Normal. IMPRESSION: No acute pulmonary findings. DATA REPOSITORY: RADIATION DOSE DELIVERED:
[2020-01-01 20:32] LABS: Absolute Basophil Count 0.02 k/cumm (0.0-0.2); Absolute Monocyte Count 0.42 k/cumm (0.11-0.7); Absolute Neutrophil Count 2.69 k/cumm (1.2-6.7); Basophils % 0.3; Eosinophils % 3.5; HCT 35.4 % (36.0-46.0); HGB 11.3 g/dL (12.0-15.5); Lymphocytes % 41.9; Mean Corp. HGB Concentration 31.9 g/dL (32.0-36.0); Mean Corpuscular Hemoglobin 30.2 pg (27.0-33.0); Mean Corpuscular Volume 94.7 fL (80-95); Mean Platelet Volume 9.6 fL (8.0-11.0); Monocytes % 7.3; Platelet Count 302 x1000/uL (130-400); RBC 3.74 m/cumm (4.00-5.20); RBC Distribution Width 12.8 % (11.7-14.6); White Blood Cell Count 5.73 k/cumm (4.4-10.8)
[2020-01-01 20:49] LABS: PTT Activated 22.9 sec (21.0-31.4); Prothrombin Time 9.8 sec (9.3-11.0)
[2020-01-01 20:57] LABS: Bacteria Rare HPF (Negative); C & S Indicated? No; Casts Negative LPF (Negative); Crystals Negative HPF (Negative); Epithelial Cells Moderate HPF (Negative); Mucus Negative (Negative); Other Cells Negative (Negative); RBC 0-2 HPF (0-2); WBC 0-2 HPF (0-5)
[2020-01-01 20:59] LABS: ALT 28 U/L (14-59); AST 29 U/L (15-37); Albumin 3.6 g/dL (3.4-5.0); Alkaline Phosphatase 134 U/L (46-116); Anion Gap 8.5 mmol/L (3-11); BUN 19 mg/dL (7-18); Bilirubin, Total 0.3 mg/dL (0.2-1.0); CO2 29.5 mmol/L (21.0-32.0); CREATININE 0.83 mg/dL (0.55-1.02); Calcium 9.1 mg/dL (8.5-10.1); Chloride 106 mmol/L (98-107); Glucose 105 mg/dL (74-106); Magnesium 2.1 mg/dL (1.8-2.4); Potassium 3.8 mmol/L (3.5-5.1); Sodium 144 mmol/L (136-145); TSH 1.37 uIU/mL (0.36-3.74); Total Protein 7.2 g/dL (6.4-8.2)
[2020-01-01 21:00] LABS: Troponin I < 0.05 ng/Ml (<0.06)
--- NOTE | 2020-01-01 21:25 | DI.CT_ITS ---
EXAM: CT HEAD WO CLINICAL HISTORY: ATAXIA. TECHNIQUE: Imaging Protocol: Axial computed tomography images with coronal and sagittal reformatted images were created and reviewed COMPARISON: No exams were available for comparison FINDINGS: Ventricles and Extra axial spaces: Normal in size and morphology for the patient's age. Hemorrhage: None. Cerebral parenchyma: Normal. No evidence of acute territorial infarct. Midline shift: None. Brainstem/Cerebellum: Normal. Calvarium: Normal. Visualized Paranasal sinuses/Mastoids: Clear. IMPRESSION: No acute intracranial process. RADIATION DOSE DELIVERED: DATA REPOSITORY: All CT scans at this facility are submitted to the National Radiology Data Registry (NRDR) Dose Index Registry (DIR) with the [employer] (ACR). RADIATION OPTIMIZATION: All CT scans at this facility use at least one of these dose optimization te chniques: automated exposure control; mA and/or kV adjustment per patient size (includes targeted exa ms where dose is matched to clinical indication); or iterative reconstruction.
--- NOTE | 2020-01-01 21:57 | DI.VRAD_ITS ---
PROCEDURE INFORMATION: Exam: CT Head Without Contrast Exam date and time: 01/01/2020 8:03 PM Age: 74 years old Clinical indication: Patient HX: Dizziness, ataxia TECHNIQUE: Imaging protocol: Computed tomography of the head without contrast. Radiation optimization: All CT scans at this facility use at least one of these dose optimization techniques: automated exposure control; mA and/or kV adjustment per patient size (includes targeted exams where dose is matched to clinical indication); or iterative reconstruction. COMPARISON: No relevant prior studies available. FINDINGS: Brain: There is mild diffuse cerebral atrophy. No acute hemorrhage. No mass, mass effect or midline shift. No extra-axial collection.There are physiologic basal ganglia calcifications. Ventricles: No hydrocephalus. Bones/joints: No acute fracture. No destructive bone lesion. Sinuses: Visualized sinuses are unremarkable. No fluid levels. Mastoid air cells: Visualized mastoid air cells are well aerated. Soft tissues: Unremarkable. Vasculature: There are atherosclerotic vascular calcifications. IMPRESSION: No acute intracranial abnormality. Dictated and Authenticated by: Mark Julian MD. Ordering:JANKI Smith MD
--- NOTE | 2020-01-01 21:59 | DI.VRAD_ITS ---
PROCEDURE INFORMATION: Exam: XR Chest, 2 Views Exam date and time: 01/01/2020 9:31 PM Age: 74 years old Clinical indication: Other: Dizziness TECHNIQUE: Imaging protocol: XR of the chest Views: 2 views. COMPARISON: No relevant prior studies available. FINDINGS: Lungs: No consolidation. Pleural space: No pleural effusion. No pneumothorax. Heart/Mediastinum: Unremarkable. No cardiomegaly. Bones/joints: No acute bony abnormality. IMPRESSION: No acute cardiopulmonary disease. Dictated and Authenticated by: Mark Julian MD. Ordering:JANKI Smith MD
[2020-01-01 22:20] VITALS: BP 147/56; PULSE 59; RESP 16; TEMP 36.6; O2SAT 97
[2020-01-01] MEDS: Aspirin 81 MG CHEW 162 MG CH (22:32)
[2020-01-01] MEDS: Aspirin 81 MG CHEW PO (22:32)
--- NOTE | 2020-01-01 22:37 | W.ED.GENAD ---
Discharge Plan Disposition Patient Disposition: OTHER Condition: Serious Discharge Details Chief Complaint: Dizzy/Sync Clinical Impression: Ataxia Primary Care Provider: Joycelyn Will ED Provider: Luis Pinedo Home Meds and New Rx's Prescriptions: No Action esomeprazole magnesium 40 mg capsule,delayed release(DR/EC) 40 mg PO DAILY Qty: 90 RF: 4 Estring 2 mg (7.5 mcg /24 hour) ring 1 vag ring VG Q3MOS Qty: 1 RF: 4 rosuvastatin [Crestor] 5 mg tablet 5 mg PO DAILY Qty: 90 RF: 12 cholecalciferol (vitamin D3) 1,000 unit capsule 1,000 unit PO DAILY RF: 0 atenolol 25 mg tablet 25 mg PO DAILY Qty: 90 RF: 4 gabapentin 300 mg capsule 600 mg PO HS Qty: 180 RF: 4 multivitamin 1 EACH capsule 1 ea PO DAILY RF: 0 aspirin 81 mg tablet,delayed release (DR/EC) 81 mg PO BID Qty: 60 RF: 0 acetaminophen 500 mg tablet 1,000 mg PO Q8H PRN (Reason: pain) Qty: 90 RF: 3 celecoxib 100 mg capsule 100 mg PO BID Qty: 60 RF: 0 Medical Decision Making This is a 74-year-old female with multiple comorbidities, recent hip replacement last month, presenting to the ER for what she describes as dizziness and feeling off balance all day. Went to bed last night asymptomatic. Woke up around 630 this morning. Has not fallen secondary to her ataxic sensation. Neurologically she is intact, no obvious deficit. I was able to visualize her ambulate, she ambulates slowly but steadily. She and family report that this is not her baseline, she is typically able to ambulate better than this. She does not veer in any direction. Given her age, presentation, and comorbidities, will initiate a cardiac work-up, and obtain a head CT without contrast. Certainly she is outside of any window for active therapy. Differential includes but not excluded to infectious process, TIA, CVA, vertigo, dizziness, dehydration, arrhythmia, thyroid abnormality. Will provide 1 L IV fluid and 25 p.o. meclizine in the meantime CT unremarkable. Laboratory values revealed mild anemia, no obvious infectious process. Upon reevaluation she was noted to ambulate to the restroom although slowly and steadily she reports that she remains ataxic and her symptoms have not been significantly changed with the meclizine. I am concerned about the possibility of a posterior CVA. She was given 3 baby aspirin as she already took one today. Discussed options with patient and family. We discussed their comfort level being discharged home and may setting them up with a outpatient MRI through their primary care provider tomorrow versus the potential of observation admission to our facility. Patient remains anxious, does not feel safe going home in her current condition, and would prefer to be admitted to our facility. She actually brought to my attention that she is concerned that if she is discharged tomorrow under observation status that her insurance will not cover her admission. I explained her that I have no control over this and will certainly work to expedite outpatient care if that is what she chose. She would rather stay in the hospital overnight. Her is in agreement as he reports his mother had similar symptoms, subsequently discharged home, and then had a stroke a short time later. I do believe this to be a reasonable plan. I will discuss the case with our hospitalist team for observation admission and likely MRI tomorrow. Medical Records Medical records reviewed: Yes I reviewed the patient's medical records. Imaging Data Radiologic Study: Imaging: X-Ray Radiologist's impression: Chest x-ray read by virtual radiology as negative Radiologic Study #2: Imaging: CT Scan Radiologist's impression: Head CT without contrast read by virtual radiology as negative Lab Data Lab results reviewed: Yes I reviewed the patient's lab results. Lab results narrative: Laboratory Tests Range/Units 01/01/20 01/01/20 01/01/20 20:00 20:25 20:25 WBC (4.4-10.8) k/cumm 5.73 RBC (4.00-5.20) m/cumm 3.74 L Hgb (12.0-15.5) g/dL 11.3 L Hct (36.0-46.0) % 35.4 L MCV (80-95) fL 94.7 MCH (27.0-33.0) pg 30.2 MCHC (32.0-36.0) g/dL 31.9 L RDW (11.7-14.6) % 12.8 Plt Count (130-400) x1000/uL 302 MPV (8.0-11.0) fL 9.6 Immature Gran % % 0.0 Neutrophils % 47.0 Lymphocytes % 41.9 Monocytes % 7.3 Eosinophils % 3.5 Basophils % 0.3 Absolute Neutrophils (1.2-6.7) k/cumm 2.69 Absolute Lymphocytes (1.2-3.4) k/cumm 2.40 Absolute Monocytes (0.11-0.7) k/cumm 0.42 Absolute Eosinophils (0.0-0.7) k/cumm 0.20 Absolute Basophils (0.0-0.2) k/cumm 0.02 PT (9.3-11.0) sec INR (0.9-1.1) APTT (21.0-31.4) sec Sodium (136-145) mmol/L 144 Potassium (3.5-5.1) mmol/L 3.8 Chloride (98-107) mmol/L 106 Carbon Dioxide (21.0-32.0) mmol/L 29.5 Anion Gap (3-11) mmol/L 8.5 BUN (7-18) mg/dL 19 H Creatinine (0.55-1.02) mg/dL 0.83 Estimated GFR/1.73 m2 (mL/min/1.73m2) >= 60.00 Glucose (74-106) mg/dL 105 Calcium (8.5-10.1) mg/dL 9.1 Magnesium (1.8-2.4) mg/dL 2.1 Total Bilirubin (0.2-1.0) mg/dL 0.3 AST (15-37) U/L 29 ALT (14-59) U/L 28 Alkaline Phosphatase (46-116) U/L 134 H Troponin I (<0.06) ng/Ml < 0.05 Total Protein (6.4-8.2) g/dL 7.2 Albumin (3.4-5.0) g/dL 3.6 TSH (0.36-3.74) uIU/mL 1.37 Urine Color (Yellow) Yellow Urine Clarity (Clear) Clear Urine pH (5-8) 6.0 Ur Specific [place] (1.005-1.025) 1.015 Urine Protein (Negative) mg/dL Negative Urine Ketones (Negative) mg/dL Negative Urine Blood (Negative) Small H Urine Nitrite (Negative) Negative Urine Bilirubin (Negative) Negative Urine Urobilinogen (Up TO 0.2) EU/dL 0.2 Ur Leukocyte Esterase (Negative) Negative Urine RBC (0-2) HPF 0-2 Urine WBC (0-5) HPF 0-2 Ur Epithelial Cells (Negative) HPF Moderate Urine Crystals (Negative) HPF Negative Urine Bacteria (Negative) HPF Rare Urine Casts (Negative) LPF Negative Urine Mucus (Negative) Negative Urine Other (Negative) Negative Ur Culture Indicated? No Urine Glucose (Negative) mg/dL Negative Range/Units 01/01/20 20:25 WBC (4.4-10.8) k/cumm RBC (4.00-5.20) m/cumm Hgb (12.0-15.5) g/dL Hct (36.0-46.0) % MCV (80-95) fL MCH (27.0-33.0) pg MCHC (32.0-36.0) g/dL RDW (11.7-14.6) % Plt Count (130-400) x1000/uL MPV (8.0-11.0) fL Immature Gran % % Neutrophils % Lymphocytes % Monocytes % Eosinophils % Basophils % Absolute Neutrophils (1.2-6.7) k/cumm Absolute Lymphocytes (1.2-3.4) k/cumm Absolute Monocytes (0.11-0.7) k/cumm Absolute Eosinophils (0.0-0.7) k/cumm Absolute Basophils (0.0-0.2) k/cumm PT (9.3-11.0) sec 9.8 INR (0.9-1.1) 1.0 APTT (21.0-31.4) sec 22.9 Sodium (136-145) mmol/L Potassium (3.5-5.1) mmol/L Chloride (98-107) mmol/L Carbon Dioxide (21.0-32.0) mmol/L Anion Gap (3-11) mmol/L BUN (7-18) mg/dL Creatinine (0.55-1.02) mg/dL Estimated GFR/1.73 m2 (mL/min/1.73m2) Glucose (74-106) mg/dL Calcium (8.5-10.1) mg/dL Magnesium (1.8-2.4) mg/dL Total Bilirubin (0.2-1.0) mg/dL AST (15-37) U/L ALT (14-59) U/L Alkaline Phosphatase (46-116) U/L Troponin I (<0.06) ng/Ml Total Protein (6.4-8.2) g/dL Albumin (3.4-5.0) g/dL TSH (0.36-3.74) uIU/mL Urine Color (Yellow) Urine Clarity (Clear) Urine pH (5-8) Ur Specific [place] (1.005-1.025) Urine Protein (Negative) mg/dL Urine Ketones (Negative) mg/dL Urine Blood (Negative) Urine Nitrite (Negative) Urine Bilirubin (Negative) Urine Urobilinogen (Up TO 0.2) EU/dL Ur Leukocyte Esterase (Negative) Urine RBC (0-2) HPF Urine WBC (0-5) HPF Ur Epithelial Cells (Negative) HPF Urine Crystals (Negative) HPF Urine Bacteria (Negative) HPF Urine Casts (Negative) LPF Urine Mucus (Negative) Urine Other (Negative) Ur Culture Indicated? Urine Glucose (Negative) mg/dL ECG Data Attestation: I personally reviewed and interpreted this ECG (s) as follows: Interpretation: EKG performed at 1943 reveals sinus rhythm, ventricular of 60. No acute ST elevation or depression segments. HPI General Mode of arrival: ambulatory. Date/Time Provider Initiated Documentation: 01/01/20 19:20. Limitations to Documentation: no limitations. Information obtained by: patient and family. HPI Narrative: This is a 77-year-old female with a history of a total right hip replacement on 12-06-19, anxiety, hypertension, hyperlipidemia, GERD, esophagitis, SVT, peripheral neuralgia, osteopenia, chronic neck pain, and chronic balance issue who presents with her for ataxia and dizziness that began upon awakening this morning around 6:30 AM. She went to bed last night asymptomatic. She does report that occasionally she does have balance issues and has been worked up for this in the past but this presentation today is much different. She needed to hold onto furniture in order to get around however she did not fall. She reports that her head felt heavy but denied a headache. She reports that last night she had mild GERD but denies any true chest pain or shortness of breath. She denies any visual changes, numbness, tingling, weakness, nausea or vomiting. Patient reports that her symptoms are more of an off-balance feeling rather than the room spinning. She denies recent illness or trauma. She reports that she typically took a baby aspirin daily but since her hip surgery she now takes a baby aspirin in the morning and at night. Denies history of CVA or TIA. She initially tells me that nothing makes her symptoms better or worse but later tells me that bending over or leaning forward does seem to make her symptoms increase. Rapid movement of her eyes does not make symptoms worse Related Data Home Medications Medication Instructions Recorded Confirmed multivitamin 1 ea PO DAILY 08/31/14 01/01/20 atenolol 25 mg tablet 25 mg PO DAILY #90 tab 04/14/19 01/01/20 gabapentin 300 mg capsule 600 mg PO HS #180 cap 08/11/19 01/01/20 cholecalciferol (vitamin D3) 25 1,000 unit PO DAILY 09/08/19 01/01/20 mcg (1,000 unit) capsule esomeprazole magnesium 40 mg 40 mg PO DAILY #90 tab-cap 09/15/19 01/01/20 capsule,delayed release estradiol 1 vag ring VG Q3MOS #1 each 09/15/19 01/01/20 rosuvastatin 5 mg tablet 5 mg PO DAILY #90 tab-cap 09/15/19 01/01/20 acetaminophen 1,000 mg PO Q8H PRN #90 tab 12/06/19 01/01/20 aspirin 81 mg PO BID #60 tab 12/06/19 01/01/20 celecoxib 100 mg PO BID #60 cap 12/06/19 01/01/20 Previous Rx's Medication Instructions Recorded atenolol 25 mg tablet 25 mg PO DAILY #90 tab 04/14/19 gabapentin 300 mg capsule 600 mg PO HS #180 cap 08/11/19 esomeprazole magnesium 40 mg 40 mg PO DAILY #90 tab-cap 09/15/19 capsule,delayed release estradiol 1 vag ring VG Q3MOS #1 each 09/15/19 rosuvastatin 5 mg tablet 5 mg PO DAILY #90 tab-cap 09/15/19 acetaminophen 1,000 mg PO Q8H PRN #90 tab 12/06/19 aspirin 81 mg PO BID #60 tab 12/06/19 celecoxib 100 mg PO BID #60 cap 12/06/19 Allergies Allergy/AdvReac Type Severity Reaction Status Date / Time Penicillins Allergy RASH/BREATHING Verified 01/01/20 20:29 PROBLEMS atorvastatin calcium AdvReac Intermediate LEG CRAMPS Verified 01/01/20 20:29 [From Lipitor] General Stated Complaint: Dizzy/Sync NESS: 3 Review of Systems Constitutional Constitutional: Denies chills, Denies fever(s) and Denies weakness Eyes Eyes: Denies change in vision ENT Ears, Nose, Mouth, and Throat: Denies otalgia Cardiovascular Cardiovascular: Denies chest pain and Denies dyspnea Respiratory Respiratory: Denies cough and Denies dyspnea Gastrointestinal Gastrointestinal: Denies abdominal pain, Denies nausea and Denies vomiting Genitourinary Genitourinary: Denies dysuria Musculoskeletal Musculoskeletal: Denies back pain, Denies muscle weakness, Denies numbness and Denies tingling Integumentary/Breasts Skin/Breast: Denies rash Neurologic Neurologic: Denies numbness, Denies tingling and Denies weakness Hematologic/Lymphatic Hematologic/Lymphatic: Denies easy bleeding [facility] Medical History Abdominal pain (Inactive) Anxiety 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 Frederick GUZMAN Elevated erythrocyte sedimentation rate (Inactive 01/17/09) Esophagitis Essential hypertension Fatigue (Inactive 07/01/11) GERD (gastroesophageal reflux disease) Hiatal hernia (Chronic 08/17/13) 2005 EGD showing HH, polyps and gastric fundi, non-obstructing ring in the GI junction History of echocardiogram (Inactive) Hyperlipidemia Impacted cerumen of both ears (Inactive) Irritable bowel syndrome (IBS) (Chronic) Pt reported Not on immune modulating medications Mantoux: positive (Chronic) 1999 Nasal congestion Nasal obstruction (Inactive 09/12/15) Osteopenia (Chronic) T scores of -1.2, -1.4 Pain of left breast (Inactive 01/05/17) Peripheral neuralgia (Chronic) EMG-01/29; mild slowing of right ulnar @elbow Reflux esophagitis (Chronic 06/02/17) MILD-DR. LUIS GUZMAN Shoulder pain, right (Chronic 08/17/14) Sleep apnea, unspecified (Chronic 09/12/15) supraventricular reflux disease Supraventricular tachycardia (Chronic) on atenolol Trochanteric bursitis, right hip (Acute) Vitamin D deficiency Surgical History Cholecystectomy (~2004) colonoscopy CYSTECTOMY (~1971) EGD - IV Sedation (08/17/13) HIATAL HERNIA EGD - MAC (06/02/17) ENDOMETRIAL SURGERY 1992 History of esophagogastroduodenoscopy (Inactive) History of lumpectomy of both breasts (Acute) PROCEDURES EMG 01/29 with mild swelling of the right ulnar nerve of the elbow Echocardiogram 03/31 showing an ejection fraction of 65% and an upper septal hypertrophy grade 1, Diastolic dysfunction. Repeat echo showing an ejection fraction of 60% and mild MRTR Reduction mammoplasty (~2001) B/L Status post total replacement of right hip (Acute 12/06/19) Family History Mother , age 87 Alzheimer's disease Heart disease Uterine cancer Father , age 67 Leukemia Sister Heart disease Hyperlipidemia Breast cancer Sister , BACTERIAL DISEASE at age 3. Cancer Brother , age 43 Essential hypertension Heart disease Hyperlipidemia Brother , age 67 Essential hypertension Heart disease Hyperlipidemia Brother , age 66 Pancreatic cancer Maternal Grandfather Heart disease Paternal Grandfather Pancreatic cancer Maternal Grandmother No problems noted. Paternal Grandmother Heart disease Cancer FAMILY HISTORY Aneurysm Hyperlipidemia Neoplasm IBS (irritable bowel syndrome) Social History Smoking/Tobacco Use Status: Former Tobacco Use Quit Date: 10/26/69 Second Hand Exposure: Yes Alcohol Intake: never Drug use: Never Caregiver/Support person: Yes Household members: spouse Housing: house Pets and animals: Yes Pets and animals: dog(s) Do you think of yourself as: straight/heterosexual Current gender identity: female What is your relationship status?: How often do you talk on the phone with friends or family?: decline to answer How often do you get together with friends or relatives?: decline to answer How often do you attend holiness or baptist services?: decline to answer Do you belong to any clubs or organized social groups?: decline to answer Panel score (0-1 are the most socially isolated patients): 1 What type of physical activity do you participate in: decline to answer Duration: decline to answer Frequency: decline to answer Radha/Christianity: Jehovah'S Witness Special radha needs: No Seatbelt use: always Drive intox 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 lifter/driver: No Do you feel safe in your relationship?: Yes Exam Const General: cooperative, healthy appearing, comfortable and anxious Orientation: alert, awake and oriented x3 HENMT Head: normal to inspection, no palpable skull fracture, normocephalic and atraumatic Ears: external ears normal, TM's normal bilaterally and EAC's normal Mouth: moist mucous membranes Throat: posterior oropharynx normal Eyes General: appearance normal, both eyes and all related structures Alignment and Position: alignment normal Periorbital: periorbital findings normal Eyelids: eyelids normal Conjunctivae: conjunctivae normal Sclera: sclerae normal Cornea: corneas normal Pupils: PERRL EOM: EOM intact bilaterally and No nystagmus Direct ophthalmoscopy: normal light reflex Neck Neck: normal visual inspection, full ROM, no lymphadenopathy, no meningeal signs, trachea midline and supple Chest Chest: normal palpation of entire chest wall Resp Effort & Inspection: normal respiratory effort and able to speak in complete sentences Auscultation: clear to auscultation bilaterally Cardio Rate: regular rate Rhythm: regular rhythm GI Palpation: soft and nontender Back/Spine/Pelvis Back: No back tenderness Skin General skin exam: no rashes or lesions noted Neuro General: alert, awake, oriented x3, moves all extremities and no focal motor deficits Cranial Nerves: CN's II-XI intact bilaterally and no nystagmus Cognition: normal cognition Speech: speech normal Gait: ataxic (Patient ambulates slowly and steadily. Subjectively she reports ataxia) Motor: muscle tone normal throughout, strength 5/5 throughout and no pronator drift Sensory Exam: no sensory deficits noted Coordination: [id number] test normal Extrem General: normal to inspection, full ROM and normal capillary refill Psych Appearance: grossly normal Mental Status: mental status grossly normal Course Vital Signs Vital signs: Vital Signs Temperature 36.5 C 01/01/20 19:27 Pulse 70 01/01/20 19:27 Respiratory Rate 16 01/01/20 19:27 Blood Pressure 140/54 L 01/01/20 19:27 Pulse Oximetry 98 01/01/20 19:27 Temperature 36.6 C 01/01/20 22:20 Temperature Source Temporal Artery Scan 01/01/20 19:27 Pulse 59 L 01/01/20 22:20 Respiratory Rate 16 01/01/20 22:20 Respiratory Effort 01/01/20 20:33 Respiratory Pattern Normal 01/01/20 20:33 Blood Pressure 147/56 H 01/01/20 22:20 Blood Pressure Position Supine 01/01/20 19:27 Pulse Oximetry 97 01/01/20 22:20 Oxygen Delivery Method Room Air 01/01/20 22:20 Oxygen Flow Rate 0 01/01/20 22:20 Pain Level 0 01/01/20 22:20 Lab/Test Results Lab/Test Results: Laboratory Tests Range/Units 01/01/20 01/01/20 01/01/20 20:00 20:25 20:25 WBC (4.4-10.8) k/cumm 5.73 RBC (4.00-5.20) m/cumm 3.74 L Hgb (12.0-15.5) g/dL 11.3 L Hct (36.0-46.0) % 35.4 L MCV (80-95) fL 94.7 MCH (27.0-33.0) pg 30.2 MCHC (32.0-36.0) g/dL 31.9 L RDW (11.7-14.6) % 12.8 Plt Count (130-400) x1000/uL 302 MPV (8.0-11.0) fL 9.6 Immature Gran % % 0.0 Neutrophils % 47.0 Lymphocytes % 41.9 Monocytes % 7.3 Eosinophils % 3.5 Basophils % 0.3 Absolute Neutrophils (1.2-6.7) k/cumm 2.69 Absolute Lymphocytes (1.2-3.4) k/cumm 2.40 Absolute Monocytes (0.11-0.7) k/cumm 0.42 Absolute Eosinophils (0.0-0.7) k/cumm 0.20 Absolute Basophils (0.0-0.2) k/cumm 0.02 PT (9.3-11.0) sec INR (0.9-1.1) APTT (21.0-31.4) sec Sodium (136-145) mmol/L 144 Potassium (3.5-5.1) mmol/L 3.8 Chloride (98-107) mmol/L 106 Carbon Dioxide (21.0-32.0) mmol/L 29.5 Anion Gap (3-11) mmol/L 8.5 BUN (7-18) mg/dL 19 H Creatinine (0.55-1.02) mg/dL 0.83 Estimated GFR/1.73 m2 (mL/min/1.73m2) >= 60.00 Glucose (74-106) mg/dL 105 Calcium (8.5-10.1) mg/dL 9.1 Magnesium (1.8-2.4) mg/dL 2.1 Total Bilirubin (0.2-1.0) mg/dL 0.3 AST (15-37) U/L 29 ALT (14-59) U/L 28 Alkaline Phosphatase (46-116) U/L 134 H Troponin I (<0.06) ng/Ml < 0.05 Total Protein (6.4-8.2) g/dL 7.2 Albumin (3.4-5.0) g/dL 3.6 TSH (0.36-3.74) uIU/mL 1.37 Urine Color (Yellow) Yellow Urine Clarity (Clear) Clear Urine pH (5-8) 6.0 Ur Specific [place] (1.005-1.025) 1.015 Urine Protein (Negative) mg/dL Negative Urine Ketones (Negative) mg/dL Negative Urine Blood (Negative) Small H Urine Nitrite (Negative) Negative Urine Bilirubin (Negative) Negative Urine Urobilinogen (Up TO 0.2) EU/dL 0.2 Ur Leukocyte Esterase (Negative) Negative Urine RBC (0-2) HPF 0-2 Urine WBC (0-5) HPF 0-2 Ur Epithelial Cells (Negative) HPF Moderate Urine Crystals (Negative) HPF Negative Urine Bacteria (Negative) HPF Rare Urine Casts (Negative) LPF Negative Urine Mucus (Negative) Negative Urine Other (Negative) Negative Ur Culture Indicated? No Urine Glucose (Negative) mg/dL Negative Range/Units 01/01/20 20:25 WBC (4.4-10.8) k/cumm RBC (4.00-5.20) m/cumm Hgb (12.0-15.5) g/dL Hct (36.0-46.0) % MCV (80-95) fL MCH (27.0-33.0) pg MCHC (32.0-36.0) g/dL RDW (11.7-14.6) % Plt Count (130-400) x1000/uL MPV (8.0-11.0) fL Immature Gran % % Neutrophils % Lymphocytes % Monocytes % Eosinophils % Basophils % Absolute Neutrophils (1.2-6.7) k/cumm Absolute Lymphocytes (1.2-3.4) k/cumm Absolute Monocytes (0.11-0.7) k/cumm Absolute Eosinophils (0.0-0.7) k/cumm Absolute Basophils (0.0-0.2) k/cumm PT (9.3-11.0) sec 9.8 INR (0.9-1.1) 1.0 APTT (21.0-31.4) sec 22.9 Sodium (136-145) mmol/L Potassium (3.5-5.1) mmol/L Chloride (98-107) mmol/L Carbon Dioxide (21.0-32.0) mmol/L Anion Gap (3-11) mmol/L BUN (7-18) mg/dL Creatinine (0.55-1.02) mg/dL Estimated GFR/1.73 m2 (mL/min/1.73m2) Glucose (74-106) mg/dL Calcium (8.5-10.1) mg/dL Magnesium (1.8-2.4) mg/dL Total Bilirubin (0.2-1.0) mg/dL AST (15-37) U/L ALT (14-59) U/L Alkaline Phosphatase (46-116) U/L Troponin I (<0.06) ng/Ml Total Protein (6.4-8.2) g/dL Albumin (3.4-5.0) g/dL TSH (0.36-3.74) uIU/mL Urine Color (Yellow) Urine Clarity (Clear) Urine pH (5-8) Ur Specific [place] (1.005-1.025) Urine Protein (Negative) mg/dL Urine Ketones (Negative) mg/dL Urine Blood (Negative) Urine Nitrite (Negative) Urine Bilirubin (Negative) Urine Urobilinogen (Up TO 0.2) EU/dL Ur Leukocyte Esterase (Negative) Urine RBC (0-2) HPF Urine WBC (0-5) HPF Ur Epithelial Cells (Negative) HPF Urine Crystals (Negative) HPF Urine Bacteria (Negative) HPF Urine Casts (Negative) LPF Urine Mucus (Negative) Urine Other (Negative) Ur Culture Indicated? Urine Glucose (Negative) mg/dL
--- NOTE | 2020-01-01 22:40 | W.PM.HP.N ---
Date of service: 01/01/20 Time of Service: 22:40 Assessment and Plan Assessment and plan (1) Vertigo: Status: Acute Assessment and plan: Probably benign paroxysmal positional vertigo. I attempted to perform a modified Barany maneuver but was unable to reproduce nystagmus or vertigo although subjectively she felt a little lightheaded with the maneuver. I will ask P.T. to evaluate her gait, balance and perform vestibular evaluation in the morning. Because of her concerns for stroke and d/t family hx of brain aneursym (sister), I will check MRI of brain to re-assure her that she does not have any posterior circulation abnormalities or strokes. 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 History of Present Illness History of Present Illness Chief Complaint: Dizziness Narrative: 74-year-old female with a past medical history of essential hypertension, hyperlipidemia, obstructive sleep apnea treated with CPAP who recently underwent right total hip replacement December 06, [address] Jonn Parsons. Patient been recovering well from her surgery ambulating with a walker without gait instability. This morning she woke up with acute onset of dizziness. This occurred around 6:30 in the morning. The dizziness she describes as a feeling like her head is spinning. This is not associate with a headache nausea or vomiting no diplopia and no paresthesias or paraparesis. She says it was worse when she tried to sit up in bed or when she change position from sitting up to lying down. She has had no fever chills no chest pain or palpitations and no dyspnea. She thought this was a temporary thing and that it would pass and she waited and did seem to get a little bit better as long as she was lying still. However it is so she tried getting up and ambulating even with the assistance of her she felt off balance. She had trouble walking without her walker and had to hold onto the julien or her to maintain her balance. Evaluation emergency department included a CT scan of her head that showed no acute intracranial abnormalities. CT of the brain show mild diffuse cerebral atrophy. She has physiologic basal ganglier calcifications no hydrocephalus and no hemorrhage or mass or midline shift. Vasculature has atherosclerotic vascular calcifications. Laboratory studies were fairly unremarkable. She has a mild anemia hemoglobin 11.3 g hematocrit 35%. No leukocytosis no leftward shift. CMP is unremarkable. Troponin was less than 0.05. Urinalysis was unremarkable and coag studies were unremarkable. She was treated emergency department with 3 and 24 mg of aspirin and given meclizine 25 mg and given a bolus of saline x1 L. She did get some symptomatic improvement in her vertigo but when the ER staff attempted to ambulate her she felt recurrent lightheadedness although she did not demonstrate any truncal or limb ataxia. Patient did not feel comfortable going home as she has had multiple family members who have had cerebral aneurysms or strokes. Patient is being hospitalized overnight for monitoring of her blood pressure and heart rhythm as well as evaluation by physical therapy in the morning for vertigo. Of note patient's been suffering from intermittent tinnitus for the last several months and her is noticed some appreciable hearing loss. Patient is a client of Dr. Rodriguez but has not been able to get any audiology evaluation since there is been no replacement certified hyperbaric technologist here in [place]. Patient denies any earache or sore throat although said she woke up with some symptoms of stuffiness in her nose like she was getting a cold. 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 Frederick GUZMAN Elevated erythrocyte sedimentation rate (Inactive 01/17/09) Esophagitis Essential hypertension Fatigue (Inactive 07/01/11) GERD (gastroesophageal reflux disease) Hiatal hernia (Chronic 08/17/13) 2005 EGD showing HH, polyps and gastric fundi, non-obstructing ring in the GI junction History of echocardiogram (Inactive) Hyperlipidemia Impacted cerumen of both ears (Inactive) Irritable bowel syndrome (IBS) (Chronic) Pt reported Not on immune modulating medications Mantoux: positive (Chronic) 2000 Nasal congestion Nasal obstruction (Inactive 09/12/15) Osteopenia (Chronic) T scores of -1.2, -1.4 Pain of left breast (Inactive 01/05/17) Peripheral neuralgia (Chronic) EMG-01/29; mild slowing of right ulnar @elbow Reflux esophagitis (Chronic 06/02/17) MILD-DR. LUIS GUZMAN Shoulder pain, right (Chronic 08/17/14) Sleep apnea, unspecified (Chronic 09/12/15) supraventricular reflux disease Supraventricular tachycardia (Chronic) on atenolol Trochanteric bursitis, right hip (Acute) Vitamin D deficiency Surgical History Cholecystectomy (~2004) colonoscopy CYSTECTOMY (~1971) EGD - IV Sedation (08/17/13) HIATAL HERNIA EGD - MAC (06/02/17) ENDOMETRIAL SURGERY 1992 History of esophagogastroduodenoscopy (Inactive) History of lumpectomy of both breasts (Acute) PROCEDURES EMG 01/29 with mild swelling of the right ulnar nerve of the elbow Echocardiogram 03/31 showing an ejection fraction of 65% and an upper septal hypertrophy grade 1, Diastolic dysfunction. Repeat echo showing an ejection fraction of 60% and mild MRTR Reduction mammoplasty (~2001) B/L Status post total replacement of right hip (Acute 12/06/19) Family History Mother , age 87 Alzheimer's disease Heart disease Uterine cancer Father , age 67 Leukemia Sister Heart disease Hyperlipidemia Breast cancer Sister , BACTERIAL DISEASE at age 3. Cancer Brother , age 43 Essential hypertension Heart disease Hyperlipidemia Brother , age 67 Essential hypertension Heart disease Hyperlipidemia Brother , age 66 Pancreatic cancer Maternal Grandfather Heart disease Paternal Grandfather Pancreatic cancer Maternal Grandmother No problems noted. Paternal Grandmother Heart disease Cancer FAMILY HISTORY Aneurysm Hyperlipidemia Neoplasm IBS (irritable bowel syndrome) Social History Smoking/Tobacco Use Status: Former Tobacco Use Quit Date: 10/26/69 Second Hand Exposure: Yes Alcohol Intake: never Drug use: Never Caregiver/Support person: Yes Household members: spouse Housing: house Pets and animals: Yes Pets and animals: dog(s) Do you think of yourself as: straight/heterosexual Current gender identity: female What is your relationship status?: How often do you talk on the phone with friends or family?: decline to answer How often do you get together with friends or relatives?: decline to answer How often do you attend amish or bahai services?: decline to answer Do you belong to any clubs or organized social groups?: decline to answer Panel score (0-1 are the most socially isolated patients): 1 What type of physical activity do you participate in: decline to answer Duration: decline to answer Frequency: decline to answer Radha/Orthodox: Tenriism Special radha needs: No Seatbelt use: always Drive intox 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 Do you feel safe in your relationship?: Yes Meds Home Medications and Allergies Home Medications Medication Instructions Recorded Confirmed Type multivitamin 1 ea PO DAILY 08/31/14 01/01/20 History atenolol 25 mg tablet 25 mg PO DAILY #90 tab 04/14/19 01/01/20 Rx gabapentin 300 mg capsule 600 mg PO HS #180 cap 08/11/19 01/01/20 Rx cholecalciferol (vitamin D3) 25 1,000 unit PO DAILY 09/08/19 01/01/20 History mcg (1,000 unit) capsule esomeprazole magnesium 40 mg 40 mg PO DAILY #90 tab-cap 09/15/19 01/01/20 Rx capsule,delayed release estradiol 1 vag ring VG Q3MOS #1 each 09/15/19 01/01/20 Rx rosuvastatin 5 mg tablet 5 mg PO DAILY #90 tab-cap 09/15/19 01/01/20 Rx acetaminophen 1,000 mg PO Q8H PRN #90 tab 12/06/19 01/01/20 Rx aspirin 81 mg PO BID #60 tab 12/06/19 01/01/20 Rx celecoxib 100 mg PO BID #60 cap 12/06/19 01/01/20 Rx Allergies Allergy/AdvReac Type Severity Reaction Status Date / Time Penicillins Allergy RASH/BREATHING Verified 01/01/20 20:29 PROBLEMS atorvastatin calcium AdvReac Intermediate LEG CRAMPS Verified 01/01/20 20:29 [From Lipitor] Exam Narrative Exam Narrative: Older female lying in semi-fuchs position on [employer] in the emergency department. She is not currently dizzy. HEENT is unremarkable except for some excess cerumen in her left ear canal. Notably there is no nystagmus. Extra ocular motions intact. Visual coles grossly intact. Hearing is intact to whisper as well as to the sound of the ticking of a watch. She has no facial asymmetry no dysarthric speech no numbness over her face. Neck is supple nontender with normal carotid pulses no bruits. There is prominent jugular venous distention to about two thirds of the way up the neck to the angle of her jaw. No thyromegaly no cervical lymphadenopathy. Lungs are clear to auscultation. Heart is regular rate and rhythm with no appreciable murmur rub or gallop. Abdomen soft and nontender with normal active bowel sounds no palpable masses no guarding or tenderness. Lower extremities right hip wound appears to be healing quite well with no erythema or induration. Wound is intact. There is no calf tenderness or swelling. She has normal pedal pulses. Neurologic exam is nonfocal with no gross cranial nerve abnormalities no appreciable motor weakness or sensory loss. Babinski's are absent bilaterally. [id number] testing was intact with no ataxia. Left heel over her right bee revealed no ataxia. She cannot perform this with the right leg because of her right hip replacement. She has normal facial mimetic muscle movement and normal extraocular motion intact. Results Labs Result diagrams: 01/01/20 20:25 01/01/20 20:25 Labs: Laboratory Results - last 24 hr 01/01/20 01/01/20 01/01/20 20:00 20:25 20:25 WBC 5.73 RBC 3.74 L Hgb 11.3 L Hct 35.4 L MCV 94.7 MCH 30.2 MCHC 31.9 L RDW 12.8 Plt Count 302 MPV 9.6 Immature Gran % 0.0 Neutrophils % 47.0 Lymphocytes % 41.9 Monocytes % 7.3 Eosinophils % 3.5 Basophils % 0.3 Absolute Neutrophils 2.69 Absolute Lymphocytes 2.40 Absolute Monocytes 0.42 Absolute Eosinophils 0.20 Absolute Basophils 0.02 PT INR APTT Sodium 144 Potassium 3.8 Chloride 106 Carbon Dioxide 29.5 Anion Gap 8.5 BUN 19 H Creatinine 0.83 Estimated GFR/1.73 m2 >= 60.00 Glucose 105 Calcium 9.1 Magnesium 2.1 Total Bilirubin 0.3 AST 29 ALT 28 Alkaline Phosphatase 134 H Troponin I < 0.05 Total Protein 7.2 Albumin 3.6 TSH 1.37 Urine Color Yellow Urine Clarity Clear Urine pH 6.0 Ur Specific Steele 1.015 Urine Protein Negative Urine Ketones Negative Urine Blood Small H Urine Nitrite Negative Urine Bilirubin Negative Urine Urobilinogen 0.2 Ur Leukocyte Esterase Negative Urine RBC 0-2 Urine WBC 0-2 Ur Epithelial Cells Moderate Urine Crystals Negative Urine Bacteria Rare Urine Casts Negative Urine Mucus Negative Urine Other Negative Ur Culture Indicated? No Urine Glucose Negative 01/01/20 20:25 WBC RBC Hgb Hct MCV MCH MCHC RDW Plt Count MPV Immature Gran % Neutrophils % Lymphocytes % Monocytes % Eosinophils % Basophils % Absolute Neutrophils Absolute Lymphocytes Absolute Monocytes Absolute Eosinophils Absolute Basophils PT 9.8 INR 1.0 APTT 22.9 Sodium Potassium Chloride Carbon Dioxide Anion Gap BUN Creatinine Estimated GFR/1.73 m2 Glucose Calcium Magnesium Total Bilirubin AST ALT Alkaline Phosphatase Troponin I Total Protein Albumin TSH Urine Color Urine Clarity Urine pH Ur Specific Steele Urine Protein Urine Ketones Urine Blood Urine Nitrite Urine Bilirubin Urine Urobilinogen Ur Leukocyte Esterase Urine RBC Urine WBC Ur Epithelial Cells Urine Crystals Urine Bacteria Urine Casts Urine Mucus Urine Other Ur Culture Indicated? Urine Glucose Last Vital Signs Temp 36.6 C 01/01/20 22:20 Pulse 59 L 01/01/20 22:20 Resp 16 01/01/20 22:20 BP 147/56 H 01/01/20 22:20 Pulse Ox 97 01/01/20 22:20
[2020-01-02 00:05] VITALS: BP 158/71; PULSE 54; RESP 16; TEMP 36.2; O2SAT 97
[2020-01-02 00:15] LABS: Troponin I < 0.05 ng/Ml (<0.06)
[2020-01-02 03:30] VITALS: BP 145/63; PULSE 55; RESP 12; TEMP 37.5; O2SAT 97
--- NOTE | 2020-01-02 06:06 | NUR.NOTE ---
Addendum entered by Nereida Willams 01/02/20 06:08: Original Note: Nursing Note: This nurse has been unable to round on the patient due to 1:1 care in another room
--- NOTE | 2020-01-02 06:09 | NUR.NOTE ---
Nursing Note: Charge nurse aware this nurse has been unable to round.
[2020-01-02 06:42] LABS: Platelet Count 265 x1000/uL (130-400)
[2020-01-02 07:45] VITALS: BP 133/65; PULSE 60; RESP 17; TEMP 36.8; O2SAT 96
[2020-01-02] MEDS: Atenolol 25 MG TAB PO (07:48)
[2020-01-02] MEDS: Esomeprazole 40 MG CAPCR PO (07:48)
[2020-01-02] MEDS: Multivitamin w/Minerals TAB 1 TAB PO (07:48)
[2020-01-02] MEDS: Celecoxib 100 MG CAP PO (07:48)
[2020-01-02] MEDS: Aspirin E.C. 81 MG TABEC PO (07:49)
[2020-01-02] MEDS: Cholecalciferol (Vitamin D3) 1,000 UNIT TAB 1000 UNITS PO (07:49)
[2020-01-02] MEDS: Enoxaparin 40 MG/0.4 ML SYR SC (07:49)
--- NOTE | 2020-01-02 10:10 | DI.MRI_ITS ---
EXAM: MR ANGIO BRAIN WO CLINICAL HISTORY: vertigo; family hx of aneurysms. TECHNIQUE: Multiplanar multisequence MRA of the brain was performed. COMPARISON: None. FINDINGS: Carotid Arteries: No aneurysm, occlusion or significant stenosis. Anterior Cerebral Arteries: Right: No aneurysm, occlusion or significant stenosis. Left: No aneurysm, occlusion or significant stenosis. Middle Cerebral Arteries: Right: No aneurysm, occlusion or significant stenosis. Left: No aneurysm, occlusion or significant stenosis. Posterior Cerebral Arteries: Right: No aneurysm, occlusion or significant stenosis. Left: No aneurysm, occlusion or significant stenosis. origin of the left posterior cerebral ar con. Vertebral Arteries: Right: No aneurysm, occlusion or significant stenosis. Left: No aneurysm, occlusion or significant stenosis. Dominant left vertebral artery. Basilar Artery: No aneurysm, occlusion or significant stenosis. IMPRESSION: No evidence of an intracranial aneurysm. DATA REPOSITORY:
--- NOTE | 2020-01-02 10:11 | DI.MRI_ITS ---
EXAM: MR BRAIN WO CLINICAL HISTORY: vertigo TECHNIQUE: Multiplanar multisequence MRI of the brain was performed. COMPARISON: CT HEAD WO from 01/01/2020 FINDINGS: VENTRICLES AND EXTRA AXIAL SPACES: There is prominence of the ventricles and sulci consistent with th e patient's age. MIDLINE SHIFT: None. CEREBRAL PARENCHYMA: No focus of restricted diffusion to suggest acute infarct. No space-occupying le bi identified. There are foci of hyperintense signal in the white matter most consistent with small vessel ischemic disease. HEMORRHAGE: None. BRAINSTEM/CEREBELLUM: Normal. CALVARIUM: Normal. VISUALIZED PARANASAL SINUSES/MASTOIDS:Clear. [place]: Normal flow void. PITUITARY GLAND: Unremarkable. OTHER FINDINGS: None. IMPRESSION: 1. Age-appropriate cerebral atrophy and small vessel ischemic disease. 2. No evidence of intracranial hemorrhage or an acute infarct. DATA REPOSITORY:
--- NOTE | 2020-01-02 12:59 | PT.INIE ---
Date of service: 01/02/20 Time of Service: 10:25 PT Notes Visit Reasons: Vertigo Inpatient Physical Therapy Evaluation Date: 01/02/2020 Referring Doctor: Dr. Tesfaye PT Orders: PT CONSULT: evaluate and treat dizziness; fall safety assessment Precautions: fall, standard Patient Profile/Admitting Diagnosis: Patient admitted on observation status for evaluation of sudden onset dizziness. CT scan and brain MRI were both negative. 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 Frederick GUZMAN Elevated erythrocyte sedimentation rate (Inactive 01/17/09) Esophagitis Essential hypertension Fatigue (Inactive 07/01/11) GERD (gastroesophageal reflux disease) Hiatal hernia (Chronic 08/17/13) 2005 EGD showing HH, polyps and gastric fundi, non-obstructing ring in the GI junction History of echocardiogram (Inactive) Hyperlipidemia Impacted cerumen of both ears (Inactive) Irritable bowel syndrome (IBS) (Chronic) Pt reported Not on immune modulating medications Mantoux: positive (Chronic) 1999 Nasal congestion Nasal obstruction (Inactive 09/12/15) Osteopenia (Chronic) T scores of -1.2, -1.4 Pain of left breast (Inactive 01/05/17) Peripheral neuralgia (Chronic) EMG-01/29; mild slowing of right ulnar @elbow Reflux esophagitis (Chronic 06/02/17) MILD-DR. TEZ GUZMAN Shoulder pain, right (Chronic 08/17/14) Sleep apnea, unspecified (Chronic 09/12/15) supraventricular reflux disease Supraventricular tachycardia (Chronic) on atenolol Trochanteric bursitis, right hip (Acute) Vitamin D deficiency Social History/Home Situation: Patient lives in a multi-level home with her . She is retired. Typically ambulates without AD, although has been using a FWW since anterior URIEL peformed 4 weeks ago. Equipment Owned/DME: FWW, cane Subjective: Venus states that she awoke with sudden onset dizziness yesterday morning. She denies any preceding illness or change in activity. She awoke with a room spinning sensation, which began before she moved to get up out of bed. This persisted throughout the day, largely unaffected by rest, positional change, etc. She admits to chronic tinnitus, as well as a burning sensation and feeling of fullness in her left ear. She also describes a feeling of being off balance, which seems better today. She has not had any episodes of spinning sensation today. Denies visual changes or oscillopsia. Denies hearing loss, nausea and vomiting. Objective: General Observation: Resting comfortably in chair with legs elevated. Telemetry in place, but otherwise, no lines. Mental Status: A&Ox3. Pleasant and cooperative. Pain: denies ROM: Right Upper Extremity: WNL Left Upper Extremity: WNL Right Lower Extremity: Hip ROM not assessed,although she demonstrates full functional ROM of the RLE Left Lower Extremity: grossly WFL Strength: Right Upper Extremity: WFL Left Upper Extremity: WFL Right Lower Extremity: WFL Left Lower Extremity: WFL Bed Mobility/Transfers: Supine-Sit : supervision Sit-Supine : supervision Sit-Stand : supervision Stand-Sit : supervision Bed-Chair : supervision with FWW Chair-Bed : supervision with FWW Gait: Patient ambulates 6' x 2 with supervision and FWW. No ataxia or antalgia noted, although she does report mild light-headedness on second set. Balance: Static Sitting: Normal Dynamic Sitting: normal Static Standing: good Dynamic Standing: fair Special Tests: Patient demonstrates increased posterior sway with rhomberg testing, although she remains standing independently for full test. Tragal test is (-). She has difficulty maintaining visual fixation during thrust testing to the left. Upward gaze is intact. Visual tracking is normal. Coordination is intact with rapid alternating movements of both upper and lower extremities. Oral-Halpike testing is (-) bilaterally. Sustained endrange rotation is non-symptom provoking. Vertebral artery testing is (-). Mobility Limitations Standardized Measure [employer] AM-PAC 6 clicks Basic Mobility Inpatient Short Form: Raw Score: 23 CMS Score: 11% deficit Informed Consent/Education: Patient instructed in purpose of PT consult and plan of care. Assessment: Patient is a 74 year old female referred to physical therapy services with the diagnosis of dizziness. Patient presents with clinical signs and symptoms consistent with acute onset vertigo. Testing for BPPV is (-), and symptoms are suspicious for vestibular neuronitis. Her symptoms have significantly improved since admission, and she's demonstrating good independence with bed mobility and transfers. She does have some limitations in her balance, likely due to a combination of her vestibular dysfunction and her recent hip replacement. She demonstrates sufficient mobility to allow for safe transition back home once medically stable, although would benefit from outpatient PT intervention to address limitations in balance and activity tolernace. She currently demonstrates the following impairment level findings: 1. sudden onset dizziness 2. Decreased activity tolerance Impairments are contributing to the following functional limitations: 1. Decreased tolerance to community distance ambulation 2. decreased balance Patient is assessed as a Moderate [id number] complexity based on the following: History: 74 year old female presenting with sudden onset dizziness. Extensive medical history, and currently undergoing workup to rule out central source of symptoms in acute care setting. Additionally, patient is 4 weeks s/p right URIEL, with associated limitations in mobility. Examination: Functional imitations as noted above Presentation: Evolving Decision Making: Moderate complexity Plan of Care/Treatment Plan: No further PT intervention indicated in acute care setting. Discussed with patient the option of outpatient intervention to address balance deficits and limitations in activity tolerance. She will be considering this. DISCHARGE RECOMMENDATIONS: Home once medically cleared TREATMENT CODE/TIME: 10:25?10:55 ([id number]) Vonda Pereyra, PT, DPT [facility]
--- NOTE | 2020-01-02 13:24 | DSE_ITS ---
Date of service: 01/02/20 Time of Service: 13:24 DS: Diagnosis Discharge Diagnosis (1) Vertigo: Start date: 01/02/20 Start time: 13:24 Status: Acute Asessment and Plan: Tinnitus evidenced by muffling whistling sound in ear. Imaging negative, teley with VARGHESE BETH in 50's. Worked with PT, recommend outpatient PT to help with gait stability. Will discharge home with meclizine, follow up with PCP in 2 weeks. Discharge Plan Disposition Patient Disposition: HOME Condition: Improving Discharge Details Chief Complaint: Dizzy/Sync Clinical Impression: Ataxia Reason For Visit: VERTIGO Admit Date/Time: 01/01/20 22:32 Admit Provider: Luis Tesfaye Attending Provider: Luis Tesfaye Primary Care Provider: Joycelyn Will ED Provider: Luis Pinedo Hospital Course Hospital Course: 74 y.o female with PMH HLD, s/p right hip replacement in [facility] admitted to m/s obs overnight for c/o dizziness. She woke up in the morning feeling dizzy, describing the sensation as though her head is spinning. She did not have a SIFUENTES, or nausea. Family history for stroke, due to this she was kept overnight for imaging. MRI revealing no acute abnormality. Normal aging. MRA negative. CT of the head is negative, CXR negative. PT evaluated her, given her recent hip surgery they recommend outpatient PT for gait stability and balance. She is being discharged home with PT/OT. Take meclizine as needed and follow up with PCP in 2 weeks. Home Meds and New Rx's Prescriptions: New meclizine 25 mg tablet 25 mg PO TID PRN (Reason: dizziness) Qty: 20 RF: 0 ondansetron HCl [Zofran] 4 mg tablet 4 mg PO Q6H PRN (Reason: nausea and vomiting) Qty: 14 RF: 0 Continued esomeprazole magnesium 40 mg capsule,delayed release(DR/EC) 40 mg PO DAILY Qty: 90 RF: 4 Estring 2 mg (7.5 mcg /24 hour) ring 1 vag ring VG Q3MOS Qty: 1 RF: 4 rosuvastatin [Crestor] 5 mg tablet 5 mg PO DAILY Qty: 90 RF: 12 cholecalciferol (vitamin D3) 1,000 unit capsule 1,000 unit PO DAILY RF: 0 atenolol 25 mg tablet 25 mg PO DAILY Qty: 90 RF: 4 gabapentin 300 mg capsule 600 mg PO HS Qty: 180 RF: 4 multivitamin 1 EACH capsule 1 ea PO DAILY RF: 0 aspirin 81 mg tablet,delayed release (DR/EC) 81 mg PO BID Qty: 60 RF: 0 acetaminophen 500 mg tablet 1,000 mg PO Q8H PRN (Reason: pain) Qty: 90 RF: 3 celecoxib 100 mg capsule 100 mg PO BID Qty: 60 RF: 0 Discharge Instructions Instructions: Benign Paroxysmal Positional Vertigo (DC), Dizziness (GEN) Additional Instructions: Take meclizine as needed for dizziness. take zofran if you are feeling nauseated. Follow up with your PCP in 2 weeks. Stand Alone Forms: Nursing Discharge Form Referrals: Joycelyn Will MD, [place] [Primary Care Provider] - Activity:: Activity as Tolerated Equipment/Supplies:: No Equipment Needed Diet:: As Tolerated Discharge Orders Discharge Orders: Discharge Order (Routine); Ordered 01/02/20 Ordered By: Dee Tomlinson DS: Summary Status at Discharge Functional status at discharge: uses cane/walker Overall status at discharge: patient is progressing back to baseline Mental Status: mental status grossly normal Speech and Movement: speech and movement normal Mood: congruent mood Affect: normal affect Exam Narrative Exam Narrative: Older female sitting up in chair. She is not currently dizzy. HEENT is unremarkable except for some excess cerumen in her left ear canal. Notably there is no nystagmus. Extra ocular motions intact. Visual coles grossly intact. Hearing is intact to whisper as well as to the sound of the ticking of a watch. She has no facial asymmetry no dysarthric speech no numbness over her face. Neck is supple nontender with normal carotid pulses no bruits. There is prominent jugular venous distention to about two thirds of the way up the neck to the angle of her jaw. No thyromegaly no cervical lymphadenopathy. Lungs are clear to auscultation. Heart is regular rate and rhythm with no appreciable murmur rub or gallop. Abdomen soft and nontender with normal active bowel sounds no palpable masses no guarding or tenderness. Lower extremities right hip wound appears to be healing quite well with no erythema or induration. Wound is intact. There is no calf tenderness or swelling. She has normal pedal pulses. Neurologic exam is nonfocal with no gross cranial nerve abnormalities no appreciable motor weakness or sensory loss. Babinski's are absent bilaterally. [id number] testing was intact with no ataxia. Left heel over her right bee revealed no ataxia. She cannot perform this with the right leg because of her right hip replacement. She has normal facial mimetic muscle movement and normal extraocular motion intact. Psych Mental Status: mental status grossly normal Speech and Movement: speech and movement normal Mood: congruent mood Affect: normal affect DS: Data Vitals/I&O Vitals and I&O: Vital Signs Temperature 36.8 C 01/02/20 07:45 Temperature Source Tympanic 01/02/20 07:45 Pulse 60 01/02/20 07:45 Pulse Rhythm Regular 01/02/20 08:53 Respiratory Rate 17 01/02/20 07:45 Respiratory Effort 01/02/20 08:53 Respiratory Depth Normal 01/02/20 08:53 Respiratory Pattern Normal 01/02/20 08:53 Blood Pressure 133/65 01/02/20 07:45 Blood Pressure Position Supine 01/01/20 19:27 Pulse Oximetry 96 01/02/20 07:45 Oxygen Delivery Method Room Air 01/02/20 07:45 Oxygen Flow Rate 0 01/02/20 07:45 Pain Level 0 01/02/20 07:45 Intake & Output 01/01/20 01/02/20 01/02/20 23:59 11:59 23:59 Intake Total 240 / 240 Output Total 400 / 400 Balance -400 / -160 240 / -160 Weight 78.471 kg 78.1 kg Intake: Oral 240 / 240 Output: Urine 400 / 400 Other: Urine Color Pale Yellow Urine Appearance Clear Comment Mixed with stool. Voiding Methods Bedside Commode Data Completed and Pending Completed studies during hospitalization [Text1]: Exam(s) PROCEDURE INFORMATION: Exam: CT Head Without Contrast Exam date and time: 01/01/2020 8:03 PM Age: 74 years old Clinical indication: Patient HX: Dizziness, ataxia TECHNIQUE: Imaging protocol: Computed tomography of the head without contrast. Radiation optimization: All CT scans at this facility use at least one of these dose optimization techniques: automated exposure control; mA and/or kV adjustment per patient size (includes targeted exams where dose is matched to clinical indication); or iterative reconstruction. COMPARISON: No relevant prior studies available. FINDINGS: Brain: There is mild diffuse cerebral atrophy. No acute hemorrhage. No mass, mass effect or midline shift. No extra-axial collection.There are physiologic basal ganglia calcifications. Ventricles: No hydrocephalus. Bones/joints: No acute fracture. No destructive bone lesion. Sinuses: Visualized sinuses are unremarkable. No fluid levels. Mastoid air cells: Visualized mastoid air cells are well aerated. Soft tissues: Unremarkable. Vasculature: There are atherosclerotic vascular calcifications. IMPRESSION: No acute intracranial abnormality. PROCEDURE INFORMATION: Exam: XR Chest, 2 Views Exam date and time: 01/01/2020 9:31 PM Age: 74 years old Clinical indication: Other: Dizziness TECHNIQUE: Imaging protocol: XR of the chest Views: 2 views. COMPARISON: No relevant prior studies available. FINDINGS: Lungs: No consolidation. Pleural space: No pleural effusion. No pneumothorax. Heart/Mediastinum: Unremarkable. No cardiomegaly. Bones/joints: No acute bony abnormality. IMPRESSION: No acute cardiopulmonary disease. Exam(s) a MRI:MR angio brain wo EXAM: MR ANGIO BRAIN WO CLINICAL HISTORY: vertigo; family hx of aneurysms. TECHNIQUE: Multiplanar multisequence MRA of the brain was performed. COMPARISON: None. FINDINGS: Carotid Arteries: No aneurysm, occlusion or significant stenosis. Anterior Cerebral Arteries: Right: No aneurysm, occlusion or significant stenosis. Left: No aneurysm, occlusion or significant stenosis. Middle Cerebral Arteries: Right: No aneurysm, occlusion or significant stenosis. Left: No aneurysm, occlusion or significant stenosis. Posterior Cerebral Arteries: Right: No aneurysm, occlusion or significant stenosis. Left: No aneurysm, occlusion or significant stenosis. origin of the left posterior cerebral artery. Vertebral Arteries: Right: No aneurysm, occlusion or significant stenosis. Left: No aneurysm, occlusion or significant stenosis. Dominant left vertebral artery. Basilar Artery: No aneurysm, occlusion or significant stenosis. IMPRESSION: No evidence of an intracranial aneurysm. a MRI:MR brain wo EXAM: MR BRAIN WO CLINICAL HISTORY: vertigo TECHNIQUE: Multiplanar multisequence MRI of the brain was performed. COMPARISON: CT HEAD WO from 01/01/2020 FINDINGS: VENTRICLES AND EXTRA AXIAL SPACES: There is prominence of the ventricles and sulci consistent with the patient's age. MIDLINE SHIFT: None. CEREBRAL PARENCHYMA: No focus of restricted diffusion to suggest acute infarct. No space-occupying lesion identified. There are foci of hyperintense signal in the white matter most consistent with small vessel ischemic disease. HEMORRHAGE: None. BRAINSTEM/CEREBELLUM: Normal. CALVARIUM: Normal. VISUALIZED PARANASAL SINUSES/MASTOIDS:Clear. BURNS PAIUTE OF CHOWDARY: Normal flow void. PITUITARY GLAND: Unremarkable. OTHER FINDINGS: None. IMPRESSION: 1. Age-appropriate cerebral atrophy and small vessel ischemic disease. 2. No evidence of intracranial hemorrhage or an acute infarct Labs on day of discharge: Labs from last 24 hours 01/02/20 01/01/20 01/01/20 06:10 23:45 20:25 WBC RBC Hgb Hct MCV MCH MCHC RDW Plt Count 265 MPV Immature Gran % Neutrophils % Lymphocytes % Monocytes % Eosinophils % Basophils % Absolute Neutrophils Absolute Lymphocytes Absolute Monocytes Absolute Eosinophils Absolute Basophils PT 9.8 INR 1.0 APTT 22.9 Sodium Potassium Chloride Carbon Dioxide Anion Gap BUN Creatinine Estimated GFR/1.73 m2 Glucose Calcium Magnesium Total Bilirubin AST ALT Alkaline Phosphatase Troponin I < 0.05 Total Protein Albumin TSH Urine Color Urine Clarity Urine pH Ur Specific Sneads Urine Protein Urine Ketones Urine Blood Urine Nitrite Urine Bilirubin Urine Urobilinogen Ur Leukocyte Esterase Urine RBC Urine WBC Ur Epithelial Cells Urine Crystals Urine Bacteria Urine Casts Urine Mucus Urine Other Ur Culture Indicated? Urine Glucose 01/01/20 01/01/20 01/01/20 20:25 20:25 20:00 WBC 5.73 RBC 3.74 L Hgb 11.3 L Hct 35.4 L MCV 94.7 MCH 30.2 MCHC 31.9 L RDW 12.8 Plt Count 302 MPV 9.6 Immature Gran % 0.0 Neutrophils % 47.0 Lymphocytes % 41.9 Monocytes % 7.3 Eosinophils % 3.5 Basophils % 0.3 Absolute Neutrophils 2.69 Absolute Lymphocytes 2.40 Absolute Monocytes 0.42 Absolute Eosinophils 0.20 Absolute Basophils 0.02 PT INR APTT Sodium 144 Potassium 3.8 Chloride 106 Carbon Dioxide 29.5 Anion Gap 8.5 BUN 19 H Creatinine 0.83 Estimated GFR/1.73 m2 >= 60.00 Glucose 105 Calcium 9.1 Magnesium 2.1 Total Bilirubin 0.3 AST 29 ALT 28 Alkaline Phosphatase 134 H Troponin I < 0.05 Total Protein 7.2 Albumin 3.6 TSH 1.37 Urine Color Yellow Urine Clarity Clear Urine pH 6.0 Ur Specific Sneads 1.015 Urine Protein Negative Urine Ketones Negative Urine Blood Small H Urine Nitrite Negative Urine Bilirubin Negative Urine Urobilinogen 0.2 Ur Leukocyte Esterase Negative Urine RBC 0-2 Urine WBC 0-2 Ur Epithelial Cells Moderate Urine Crystals Negative Urine Bacteria Rare Urine Casts Negative Urine Mucus Negative Urine Other Negative Ur Culture Indicated? 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 Frederick GUZMAN Elevated erythrocyte sedimentation rate (Inactive 01/17/09) Esophagitis Essential hypertension Fatigue (Inactive 07/01/11) GERD (gastroesophageal reflux disease) Hiatal hernia (Chronic 08/17/13) 2005 EGD showing HH, polyps and gastric fundi, non-obstructing ring in the GI junction History of echocardiogram (Inactive) Hyperlipidemia Impacted cerumen of both ears (Inactive) Irritable bowel syndrome (IBS) (Chronic) Pt reported Not on immune modulating medications Mantoux: positive (Chronic) 1999 Nasal congestion Nasal obstruction (Inactive 09/12/15) Osteopenia (Chronic) T scores of -1.2, -1.4 Pain of left breast (Inactive 01/05/17) Peripheral neuralgia (Chronic) EMG-01/29; mild slowing of right ulnar @elbow Reflux esophagitis (Chronic 06/02/17) MILD-DR. LUIS GUZMAN Shoulder pain, right (Chronic 08/17/14) Sleep apnea, unspecified (Chronic 09/12/15) supraventricular reflux disease Supraventricular tachycardia (Chronic) on atenolol Trochanteric bursitis, right hip (Acute) Vitamin D deficiency Surgical History Cholecystectomy (~2004) colonoscopy CYSTECTOMY (~1971) EGD - IV Sedation (08/17/13) HIATAL HERNIA EGD - MAC (06/02/17) ENDOMETRIAL SURGERY 1992 History of esophagogastroduodenoscopy (Inactive) History of lumpectomy of both breasts (Acute) PROCEDURES EMG 01/29 with mild swelling of the right ulnar nerve of the elbow Echocardiogram 03/31 showing an ejection fraction of 65% and an upper septal hypertrophy grade 1, Diastolic dysfunction. Repeat echo 07 showing an ejection fraction of 60% and mild MRTR Reduction mammoplasty (~2001) B/L Status post total replacement of right hip (Acute 12/06/19) Family History Mother , age 87 Alzheimer's disease Heart disease Uterine cancer Father , age 67 Leukemia Sister Heart disease Hyperlipidemia Breast cancer Sister , BACTERIAL DISEASE at age 3. Cancer Brother , age 43 Essential hypertension Heart disease Hyperlipidemia Brother , age 67 Essential hypertension Heart disease Hyperlipidemia Brother , age 66 Pancreatic cancer Maternal Grandfather Heart disease Paternal Grandfather Pancreatic cancer Maternal Grandmother No problems noted. Paternal Grandmother Heart disease Cancer FAMILY HISTORY Aneurysm Hyperlipidemia Neoplasm IBS (irritable bowel syndrome) Social History Smoking/Tobacco Use Status: Former Tobacco Use Quit Date: 10/26/69 Second Hand Exposure: Yes Alcohol Intake: never Drug use: Never Caregiver/Support person: Yes Household members: spouse Housing: house Pets and animals: Yes Pets and animals: dog(s) Do you think of yourself as: straight/heterosexual Current gender identity: female What is your relationship status?: How often do you talk on the phone with friends or family?: decline to answer How often do you get together with friends or relatives?: decline to answer How often do you attend anglican or confucianism services?: decline to answer Do you belong to any clubs or organized social groups?: decline to answer Panel score (0-1 are the most socially isolated patients): 1 What type of physical activity do you participate in: decline to answer Duration: decline to answer Frequency: decline to answer Radha/Roman Catholic: Nondenominational Special radha needs: No Seatbelt use: always Drive intox 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 truss driver helper: No Do you feel safe in your relationship?: Yes
--- NOTE | 2020-01-02 13:40 | PDOC.HHF2F_ITS ---
Home Health Certification Home Health Certification: 1. Encounter Date and Reason I certify that JULIET NORTON was seen by Dee Tomlinson on 01/02/20 and that I had a [id number] encounter with this patient that meets the physician face to face encounter requirements. 2. Clinical Findings Supporting Skilled Need and Homebound Status I certify that home health services are medically necessary, include either intermittent intermediate and/or physical/speech therapy, and that this rachid ent is homebound in that absences from the home require considerable and taxing effort and are infrequent or of short duration, or are attributable to the need to receive medical care. [X] (a) Attached documentation from encounter provides clinical findings supporting skilled need and homebound status (including what assistance patient requires to leave the home). The encounter with the patient was in whole, or in part, for the following medical condition, which is the primary reason for home health care: VERTIGO Mcc: Physical Therapy: Patient would benefit from PT/OT for gait instability and balance. Speech Therapy: Homebound: Patient is unable to leave house unassisted. 3. Certification and Authentication I certify that I composed the above information based on my clinical judgement relating to this patient's medical condition and, if applicable, clinical findings communicated to me by the NPP or inpatient physician who performed the Home Health Referral. All further orders will be obtained through ____Joycelyn Hemphill (Community Based Physician - PCP)
--- NOTE | 2020-01-02 14:00 | W.NUTCONSULT ---
Date of service: 01/02/20 Time of Service: 14:00 Nutritional Consult ASSESSMENT: 74 year old female admitted with syncope, ataxia, s/p right hip repair (12/06/19). PMH: Vit D Def, GERD, HTN, Hx of diverticulitis. Meds include ASA, Vit D, MVI, MOM, Crestor. Labs indicate mildy elevated BUN (19). Following Heart Healthy Diet with > 75% of meals completed. BUN wnl for age. Not considered at nutritional risk at this time. MONITORING AND EVALUATION: weight, po intake, labs Time Spent in Nutritional Counseling and Treatment: 5 min spent face to face
--- NOTE | 2020-01-02 15:34 | PDOC.CMDIS ---
- If Service Date Differs Date of service: 01/02/20 Time of Service: 15:34 LACE Index Scoring Tool - Questions: Length of Stay (in days): 1 Acuity (Admit via E.D.?): Yes E.D. Visits: 1 - Answers: Total Score: 5 Risk of Readmission: Low Risk Care Management Discharge Reason for Hospitalization: Vertigo Discharge Plan: Vicky will be discharged home with no new services. She will follow up with her PCP and discharge plan of care. CM will continue to support patient, family and discharge planning needs.
--- NOTE | 2020-01-02 15:38 | PDOC.CMIN ---
- If Service Date Differs Date of service: 01/02/20 Time of Service: 10:30 Care Management Initial Assess REASON FOR HOSPITALIZATION:: Vertigo PAST MEDICAL HISTORY/PAST SURGICAL HISTORY:: Medical History . Abdominal pain (Inactive). Anxiety. 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 Cervical pain (neck) (Chronic 08/17/14). xr. Chest pain (Inactive 02/01/09). Chronic cystitis (Chronic 09/24/05). seen by urology 2006 due to chronic UTI's. Estrogen TX. Cough due to bronchospasm (Chronic 02/24/17). Degenerative joint disease of right hip (Resolved). Injections under fluoroscopy x2: 12/2017; 06/2019. s/p Anterior R URIEL: 12/06/19. Deviated nasal septum (Acute). Diverticula of colon (Chronic). 12/26/15; DR. Frederick GUZMAN. Elevated erythrocyte sedimentation rate (Inactive 01/17/09). Esophagitis. Essential hypertension. Fatigue (Inactive 07/01/11). GERD (gastroesophageal reflux disease). Hiatal hernia (Chronic 08/17/13). 2005 EGD showing HH, polyps and gastric fundi, non-obstructing ring in the GI junction. History of echocardiogram (Inactive). Hyperlipidemia. Impacted cerumen of both ears (Inactive). Irritable bowel syndrome (IBS) (Chronic). Pt reported. Not on immune modulating medications. Mantoux: positive (Chronic). 1999. Nasal congestion. Nasal obstruction (Inactive 09/12/15). Osteopenia (Chronic). T scores of -1.2, -1.4. Pain of left breast (Inactive 01/05/17). Peripheral neuralgia (Chronic). EMG-01/29; mild slowing of right ulnar @elbow. Reflux esophagitis (Chronic 06/02/17). MILD-DR. LUIS GUZMAN. Shoulder pain, right (Chronic 08/17/14). Sleep apnea, unspecified (Chronic 09/12/15). supraventricular reflux disease. Supraventricular tachycardia (Chronic). on atenolol. Trochanteric bursitis, right hip (Acute). Vitamin D deficiency. Surgical History . Cholecystectomy (~2004). colonoscopy. CYSTECTOMY (~1971). EGD - IV Sedation (08/17/13). HIATAL HERNIA. EGD - MAC (06/02/17). ENDOMETRIAL SURGERY. 1992. History of esophagogastroduodenoscopy (Inactive). History of lumpectomy of both breasts (Acute). PROCEDURES. EMG 01/29 with mild swelling of the right ulnar nerve of the elbow. Echocardiogram 03/31 showing an ejection fraction of 65% and an upper septal. hypertrophy grade 1, Diastolic dysfunction. Repeat echo showing an ejection fraction of 60% and mild MRTR. Reduction mammoplasty (~2001). B/L. Status post total replacement of right hip (Acute 12/06/19) PREVIOUS FUNCTIONAL STATUS/SOCIAL/FAMILY SUPPORTS:: Alisha lives in [place] with her , Tom. They have one adult daughter, Marcia, who lives in [place]. They are very supportive of Alisha. They have 4-5 steps to get into the house, but have a bedroom on the first level. 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 She is independent at baseline and enjoys restoring her home with her . CURRENT FUNCTIONAL STATUS:: Alisha was sitting up in a chair when CM met with her. She was very pleasant and open to conversation. alisha shared stories of her career and interactions with children and families with challenges. Alisha expects to be discharged home today.
== END 2020-01-02 14:44 | disposition home or self-care (01) ==
LOC: ER 22:57 → MS 23:58
PROVIDERS: Admitting Provider Internal Medicine; Emergency Provider Physician Assistant; PCP Family Medicine; Visit Provider Internal Medicine
DX: R27.0 Ataxia, unspecified (principal); H93.19 Tinnitus, unspecified ear; D64.9 Anemia, unspecified; R42 Dizziness and giddiness; Z96.641 Presence of right artificial hip joint; F41.9 Anxiety disorder, unspecified; I10 Essential (primary) hypertension; E78.5 Hyperlipidemia, unspecified; K21.0 Gastro-esophageal reflux disease with esophagitis; I47.1 Supraventricular tachycardia; M85.80 Other specified disorders of bone density and structure, unspecified site; G89.29 Other chronic pain; M54.2 Cervicalgia; M79.2 Neuralgia and neuritis, unspecified; Z87.440 Personal history of urinary (tract) infections; K44.9 Diaphragmatic hernia without obstruction or gangrene; K58.9 Irritable bowel syndrome, unspecified; G47.30 Sleep apnea, unspecified; E55.9 Vitamin D deficiency, unspecified
CPT/HCPCS: 36415; 70544; 80053; 93005; 96360; 96361; 97162; 99220; 99239; 99285; J1650; 70450; 70551; 71046; 81003; 81015; 83735; 84443; 84484; 85025; 85049; 85610; 85730; 93010; 99217; G0378

== ENCOUNTER 2020-01-03 11:05 | Outpatient (CLI) | payer BC, SELFPAY ==
[2020-01-03 12:49] LABS: ALT 28 U/L (14-59); AST 25 U/L (15-37); Albumin 3.6 g/dL (3.4-5.0); Alkaline Phosphatase 116 U/L (46-116); Anion Gap 8.5 mmol/L (3-11); BUN 20 mg/dL (7-18); Bilirubin, Total 0.4 mg/dL (0.2-1.0); CO2 29.5 mmol/L (21.0-32.0); Calcium 9.3 mg/dL (8.5-10.1); Calculated LDL 92 mg/dL (<100); Chloride 104 mmol/L (98-107); Cholesterol 188 mg/dL (<200); Glucose 81 mg/dL (74-106); HDL Cholesterol 67 mg/dL (40-60); Potassium 4.5 mmol/L (3.5-5.1); Sodium 142 mmol/L (136-145); Triglyceride 147 mg/dL (<150)
[2020-01-03 12:53] LABS: Hemoglobin A1C 5.8 % (3.8-5.6)
== END 2020-01-03 11:25 ==
PROVIDERS: PCP Family Medicine; Visit Provider Family Medicine
DX: E11.9 Type 2 diabetes mellitus without complications (principal); I10 Essential (primary) hypertension
CPT/HCPCS: 36415; 80053; 80061; 83036

== ENCOUNTER 2020-04-04 01:20 | Outpatient (CLI) | payer BC, SELFPAY ==
[2020-04-04 16:01] LABS: Vitamin B12 305 pg/mL (193-986)
[2020-04-04 16:18] LABS: Folate > 20.0 ng/mL (8.6-20.0)
== END 2020-04-04 01:40 ==
PROVIDERS: PCP Family Medicine; Visit Provider Otolaryngology Otolaryngology/Facial Plastic Surgery
DX: R42 Dizziness and giddiness (principal); I10 Essential (primary) hypertension; E55.9 Vitamin D deficiency, unspecified; H90.3 Sensorineural hearing loss, bilateral; H93.13 Tinnitus, bilateral
CPT/HCPCS: 36415; 82607; 82746

== ENCOUNTER 2020-06-13 13:52 | Outpatient (REF) | payer BC, SELFPAY ==
[2020-06-13 14:10] LABS: ALT 17 U/L (14-59); AST 15 U/L (15-37); Albumin 3.7 g/dL (3.4-5.0); Alkaline Phosphatase 103 U/L (46-116); BUN 18 mg/dL (7-18); Bilirubin, Total 0.4 mg/dL (0.2-1.0); CREATININE 0.85 mg/dL (0.55-1.02); Calcium 9.4 mg/dL (8.5-10.1); Chloride 106 mmol/L (98-107); Glucose 100 mg/dL (74-106); Potassium 4.4 mmol/L (3.5-5.1); Sodium 142 mmol/L (136-145); Total Protein 7.2 g/dL (6.4-8.2)
[2020-06-13 14:54] LABS: ESR 38 mm/hr (0-30)
== END 2020-06-13 14:12 ==
LOC: LBN 13:52
PROVIDERS: PCP Family Medicine; Visit Provider Physician Assistant
DX: R60.9 Edema, unspecified (principal); R51 Headache
CPT/HCPCS: 80053; 85652

== ENCOUNTER 2020-10-22 14:02 | Outpatient (CLI) | payer BC, SELFPAY ==
--- NOTE | 2020-10-22 13:45 | DI.RAD_ITS ---
EXAM: XR HIP RT COMPLETE AP PELVIS CLINICAL HISTORY: right anterior thigh discomfort. TECHNIQUE: 2D digital imaging was performed. COMPARISON: CR XR HIP RT COMPLETE AP PELVIS from 12/22/2019 FINDINGS: Again noted is a right hip prosthesis. Components appear to be in satisfactory position alignment. No fracture or loosening. Incidentally noted is barium within multiple diverticuli in the sigmoid an d also within the appendix in the right iliac fossa. The opposite-left hip continues to appear unrem arkable. IMPRESSION: Stable appearance of right hip prosthesis. Sigmoid diverticulosis. Hip unremarkable. DATA REPOSITORY: RADIATION DOSE DELIVERED:
--- NOTE | 2020-10-22 13:45 | DI.RAD_ITS ---
EXAM: XR LUMBAR SPINE COMPLETE CLINICAL HISTORY: right leg weakness. TECHNIQUE: 2D digital imaging was performed. COMPARISON: CR LUMBAR SPINE COMPLETE from 01/14/2013 FINDINGS: Mild scoliosis convex left again noted. There has been progression of disc height loss at L2-3. Als o mild retrolisthesis of L2 upon L3. Also moderate disc space narrowing at L3-4. L4-5 and L5-S1 lev els exhibit normal height. Degenerative changes in the facet joints at lower 3 levels again noted, w ith slight progression. Sacroiliac joints appear unremarkable. No osseous lesions. There is now a right hip prosthesis which was not evident in 2012. IMPRESSION: Mild further progression of disc space narrowing as described above, most evident at L2-3 level. Right hip prosthesis now evident. DATA REPOSITORY: RADIATION DOSE DELIVERED:
== END 2020-10-22 14:22 ==
PROVIDERS: PCP Family Medicine; Referring Provider Family Medicine; Visit Provider Physician Assistant
DX: Z96.641 Presence of right artificial hip joint (principal); M48.061 Spinal stenosis, lumbar region without neurogenic claudication; M43.16 Spondylolisthesis, lumbar region; M51.36 Other intervertebral disc degeneration, lumbar region; K57.30 Diverticulosis of large intestine without perforation or abscess without bleeding; M79.651 Pain in right thigh
CPT/HCPCS: 72110; 73502

== ENCOUNTER 2020-11-14 02:34 | Outpatient (CLI) | payer BC, SELFPAY ==
--- NOTE | 2020-11-14 06:45 | DI.MRI_ITS ---
EXAM: MR LUMBAR SPINE WO CLINICAL HISTORY: RT LEG WEAKNESS,BACK PAIN,LUMBAR RADICULOPATHY,M54.16,R29.898. TECHNIQUE: Multiplanar multisequence MRI of the Lumbar spine was performed. COMPARISON: MR MRI - LUMBAR SPINE WO CONTRAST from 01/11/2018 FINDINGS: Bones: The last intervertebral disc space is designated the L5/S1 level for the numbering purpose of this examination. The vertebral body heights are well maintained. There is stable mild left convex scoliosis. There is hyperintense signal on the T1 and T2 weighted images in several of the visualize d lower thoracic vertebral bodies consistent with hemangioma. Degenerative endplate signal changes a re seen at L1-2 and L2-L3. Cord: The conus tip ends at the L1 level. It is of normal size and signal intensity. T12-L1: No disc herniations or bulges are present. No central spinal canal or neural foraminal stenos is. L1-2: No disc herniations or bulges are present. No central spinal canal or neural foraminal stenosis . L2-3: There is a diffuse disc bulge. There is stable mild narrowing of the central spinal canal. Hy pertrophic changes of the facets are present. There is mild left and moderate right neural foraminal stenosis. L3-4: There is a mild diffuse disc bulge resulting in mild to moderate narrowing of the central spina l canal. Hypertrophic changes of the facets are present. There is mild bilateral neural foraminal n arrowing. L4-5: There is a mild diffuse disc bulge. This results in [id number] narrowing of the central spinal canal. Degenerative changes of the facets are seen with mild hypertrophy of the ligamentum fl avum. There is milder at bilateral neural foraminal narrowing. L5-S1: There is a mild diffuse disc bulge. There are degenerative changes of the facets and ligament um flavum. Very mild narrowing of the central spinal canal is noted. Moderate left and mild right n eural foraminal narrowing is present. Soft tissues: The visualized SI joints and sacrum are well maintained. The paraspinal soft tissues ar e unremarkable. IMPRESSION: No significant change in appearance of the lumbar spine is noted since the prior examination. Multil evel central spinal canal and neural foraminal stenosis is noted as described above. DATA REPOSITORY:
== END 2020-11-14 02:54 ==
PROVIDERS: PCP Family Medicine; Visit Provider Student in an Organized Health Care Education/Training Program
DX: M48.061 Spinal stenosis, lumbar region without neurogenic claudication (principal); M54.16 Radiculopathy, lumbar region; R29.898 Other symptoms and signs involving the musculoskeletal system
CPT/HCPCS: 72148

== ENCOUNTER 2020-11-29 03:59 | Outpatient (CLI) | payer BC, SELFPAY ==
[2020-11-29 10:14] LABS: ALT 15 U/L (14-59); AST 13 U/L (15-37); Albumin 3.3 g/dL (3.4-5.0); Alkaline Phosphatase 97 U/L (46-116); Anion Gap 7.9 mmol/L (3-11); BUN 14 mg/dL (7-18); Bilirubin, Total 0.3 mg/dL (0.2-1.0); CO2 29.1 mmol/L (21.0-32.0); CREATININE 0.9 mg/dL (0.55-1.02); Calcium 9.2 mg/dL (8.5-10.1); Calculated LDL 69 mg/dL (<100); Chloride 106 mmol/L (98-107); Cholesterol 161 mg/dL (<200); Glucose 92 mg/dL (74-106); HDL Cholesterol 69 mg/dL (40-60); Potassium 4.2 mmol/L (3.5-5.1); Sodium 143 mmol/L (136-145); Total Protein 6.7 g/dL (6.4-8.2); Triglyceride 117 mg/dL (<150)
[2020-11-29 10:22] LABS: C-Reactive Protein 0.14 mg/dL (0.0-0.3)
[2020-11-30 07:42] LABS: ESR 35 mm/hr (<30)
== END 2020-11-29 04:00 | disposition home or self-care (01) ==
LOC: LBO 03:59
PROVIDERS: PCP Family Medicine; Visit Provider Student in an Organized Health Care Education/Training Program
DX: I10 Essential (primary) hypertension (principal); R29.898 Other symptoms and signs involving the musculoskeletal system; Z96.641 Presence of right artificial hip joint
CPT/HCPCS: 36415; 80053; 80061; 85652; 86140

== ENCOUNTER 2020-12-13 02:38 | Outpatient (CLI) | payer BC, SELFPAY ==
[2020-12-14 15:34] LABS: COVID-19 RT-PCR UVMMC Result Negative (Negative)
== END 2020-12-13 02:39 | disposition home or self-care (01) ==
LOC: LBO 02:38
PROVIDERS: PCP Family Medicine; Visit Provider Surgery
DX: Z20.822 Contact with and (suspected) exposure to COVID-19 (principal); Z01.818 Encounter for other preprocedural examination
CPT/HCPCS: U0003

== ENCOUNTER 2020-12-17 11:06 | Day surgery (SDC) | payer BC, SELFPAY ==
--- NOTE | 2020-12-17 06:55 | W.COLOREPORT ---
Date of service: 12/17/20 Time of Service: 11:55 Colonoscopy Report Date of procedure: 12/17/20 Pre-op diagnosis general: Hx of colon polyps Post-op diagnosis procedure note: same (diverticulosis and polyps) Procedure: Colonoscopy with polypectomy Surgeon: Imelda Mohr Anesthesia proc note operative: other (General/ASA 2/Satish King, ARI) Estimated blood loss (mL): 3 Pathology: other (cecal polyp, ascending polyp) Complications: None Disposition: same day Indications: The patient is here for Colonoscopy pre-op. 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 She has no family history of colon cancer. She has not had any bowel habit changes. -Discussed colonoscopy bowel prep as well as the procedure. Discussed possible complications of the procedure to include bleeding, pain, perforation, missed small lesion/polyp, sore throat, aspiration and adverse reaction to the medications. Questions were answered to patient?s satisfaction. No guarantees were implied or given Prep: Miralax/Dulcolax Procedure Start Time: 11:55 Procedure End Time: 12:28 Retraction Time: 24 minutes Findings: 2 polyps Diverticulosis Procedure Description: After informed consent was obtained the patient was taken to the procedure room and placed in a left decubitous position. Monitors were applied and a time out was done. The patients name, date of , procedure, allergies to medications and metal in their body was reviewed. The patient was then sedated. Once sedated and comfortable a rectal exam was done. External exam was normal. Internal exam revealed a normal sphincter tone and no palpable masses. The scope was then introduced and retro-flexed. No internal hemorrhoids, polyps or masses were identified on retro-flexion. The scope was then advanced to the cecum with some difficulty. The ileocecal vlave and appendiceal orifice were identified. The prep was adequate. The scope was then slowly retracted over 24 minutes back into the rectum. Polyps were removed with cold forceps in the cecum and ascending colon. There was moderate diverticulosis of the descending and sigmoid colon noted. The scope was removed and the patient was woken up and taken back to Same day surgery in stable condition. The patient tolerated the procedure well and there were no immediate complications. Follow up: The patient should follow up in 3-5 years unless they develop changes in bowel habits or other new gastrointestinal complaints.
--- NOTE | 2020-12-17 06:56 | W.PM.DSUDISC ---
Discharge Plan Disposition Patient Disposition: HOME Condition: Good Discharge Details Reason For Visit: Colonoscopy Attending Provider: Imelda Mohr Primary Care Provider: Joycelyn Will Home Meds and New Rx's Prescriptions: Continued cholecalciferol (vitamin D3) 1,000 unit capsule 1,000 unit PO DAILY RF: 0 gabapentin 300 mg capsule 600 mg PO HS Qty: 180 RF: 4 aspirin [Adult Aspirin Regimen] 81 mg tablet,delayed release (DR/EC) 81 mg PO DAILY RF: 0 alprazolam 0.5 mg tablet 0.5 mg PO ONCE PRN (Reason: claustrophobia) Qty: 2 RF: 0 atenolol 25 mg tablet 25 mg PO DAILY Qty: 90 RF: 4 Estring 2 mg (7.5 mcg /24 hour) ring 1 vag ring VG Q3MOS Qty: 1 RF: 4 esomeprazole magnesium 40 mg capsule,delayed release(DR/EC) 40 mg PO DAILY Qty: 90 RF: 4 rosuvastatin [Crestor] 5 mg tablet 5 mg PO DAILY Qty: 90 RF: 12 multivitamin 1 EACH capsule 1 ea PO DAILY RF: 0 acetaminophen 500 mg tablet 1,000 mg PO Q8H PRN (Reason: pain) Qty: 90 RF: 3 Discontinued polyethylene glycol 3350 17 gram/dose powder 238 g PO ONCE Qty: 238 RF: 0 bisacodyl [Dulcolax (bisacodyl)] 5 mg tablet,delayed release (DR/EC) 5 mg PO ONCE Qty: 4 RF: 0 Discharge Instructions Instructions: Diverticulosis (DC), Colorectal Polyps (DC) Additional Instructions: Findings: diverticulosis and polyps Follow up: 3 to 5 years Please call if you develop: fevers >101.5 Nausea or Vomiting Abdominal pain that is not transient DAY SURGERY UNIT POST ENDOSCOPY INSTRUCTIONS 1. Because there will be medication in your system for the next 24 hours, you may feel a little sleepy. Your coordination will be affected. Therefore: a. Do not drive or operate dangerous equipment for 24 hours. b. Do not drink alcohol beverages for 24 hours (not even beer). c. Plan to go home and rest for the day. 2. Generally there are no restrictions on your activity after a day or so has gone by, but you may feel a bit fatigued for a few days. 3 After you arrive home you may have a light meal and return to a normal diet as you can tolerate it without feeling sick to your stomach. 4. After surgery, you may feel pain or discomfort. This should be only transient, but if it persists please contact your doctor. 5. If there are any questions regarding the findings of your procedure, please feel free to contact your doctor. 6. If you are unable to contact your doctor with a problem, contact the hospital at [phone]. 7. Continue all your regular medications unless directed otherwise. I understand the above instructions and have no questions. Signature of Patient or Responsible Adult Escort Date/Time Name of Responsible Adult Escort Signature of Nurse Date/Time Activity:: Activity as Tolerated Diet:: high fiber diet Discharge Orders Discharge Orders: Discharge Order (Routine); Ordered 12/17/20 Ordered By: Imelda Mohr
[2020-12-17 11:31] VITALS: BP 149/72; PULSE 73; RESP 18; TEMP 36.5; O2SAT 97
[2020-12-17] MEDS: Lactated Ringers 1,000 ML 80 ML IV (11:36)
--- NOTE | 2020-12-17 12:06 | BOWEL_PTH ---
PATIENT: Vicky Goel LOC: [facility] U#:[id number] AGE/SX: 75/F ROOM: RE12/17/[address]: Imelda Mohr MD : 1945 BED: DIS: 12/17/2020 SPEC #: [id number] RECD: 12/17/20 17:43 STATUS: JOSR REAnnette #: [id number] BOBBY: 12/17/20 12:[address]: Imelda Mohr DEPT: Surgical Specimen RECD BY: Sherie Sanchez ENTERED: 12/17/20 17:44 SP TYPE: Bowel OTHR DR: Joycelyn Will MD, DC Tissues: 1 - BIOPSY BOWEL 2 - BIOPSY BOWEL Procedures: GROSS AND MICRO LEVEL 4 Comments: [id number]
[2020-12-17 13:15] VITALS: BP 150/71; PULSE 53; RESP 14; TEMP 36.3; O2SAT 99
== END 2020-12-17 14:15 | disposition home or self-care (01) ==
LOC: SUR 11:06
PROVIDERS: PCP Family Medicine; Visit Provider Surgery
PROC: 0DJD8ZZ Inspection of Lower Intestinal Tract, Via Natural or Artificial Opening Endoscopic (ICD-10-PCS; CPT 45378; principal; 2020-12-17 12:00)
DX: Z12.11 Encounter for screening for malignant neoplasm of colon (principal); D12.2 Benign neoplasm of ascending colon; D12.0 Benign neoplasm of cecum; Z86.010 Personal history of colon polyps
CPT/HCPCS: 45380; 88305; J2001

== ENCOUNTER 2021-01-20 00:10 | Emergency (ER) | payer BC, SELFPAY ==
[2021-01-20] VITALS (19 sets, daily range): BP systolic 135–183; BP diastolic 59–106; PULSE 54–69; RESP 14–27; TEMP 36.5; O2SAT 93–100
--- NOTE | 2021-01-20 00:15 | RT.EKG_ITS ---
APPROVED REPORT Exam: Resting ECG Patient Location: E HR:76 bpm ECG Measurements Heart Rate 76 AXIS VT 189 P 55 QRSd 85 QRS 44 QT 400 T 63 QTc 449 Conclusion Sinus rhythm...normal P axis, V-rate 60- 99 Physician: no stemi
--- NOTE | 2021-01-20 00:30 | DI.CT_ITS ---
EXAM: CT THORAX ABDOMEN CTA CLINICAL HISTORY: chest to back pain, fhx of aneurysm. TECHNIQUE: Imaging Protocol: Axial CT angiography was performed with multi-slice acquisition and m ulti-planar and/or 3D reconstructions. CONTRAST MATERIAL: Intravenous: Omnipaque 350 Contrast volume:100 ml Oral: None COMPARISON: CT CTA THORAX from 01/13/2017 FINDINGS: CHEST: AORTA: The aortic arch anatomy is conventional. Thoracic aortic size is upper normal. No evidence o f aortic dissection. No pericardial effusion. No significant atherosclerotic disease in the ascendi ng thoracic aorta. Descending thoracic aorta exhibits upper limits normal diameter. Is no evidence of abdominal aortic aneurysm. Maximum external diameter of the abdominal aorta in the abdomen is 1.7 cm. This is at the level of the inferior mesenteric artery where there is some atherosclerotic invo lvement. There is a there is no evidence of tight stenosis at the origin of the celiac and superior mesenteric arteries. No embolus within the SMA. There is calcified plaque at the origin of the righ t renal artery. Inferior mesenteric artery is patent. Aortic bifurcation is patent and without sign ificant stenosis. No stenosis nor aneurysmal dilatation of the iliac visualized aspects of both comm on iliac arteries. PULMONARY ARTERIES: There are no intra-arterial filling defects to suggest the presence of acute pulm onary emboli. LUNGS: There is no evidence of pulmonary infarction. There are no pleural effusions. MEDIASTINUM: There is no hilar nor mediastinal adenopathy. Visualized thyroid unremarkable. CARDIAC: Heart size is normal. There is no pericardial effusion. There is no significant shift of t he interventricular septum.Caliber of the thoracic aorta is within normal limits. OSSEOUS: No significant osseous lesions.. ABDOMEN: There is no ascites. LIVER: There are no focal hepatic lesions nor dilatation of intrahepatic ducts. GALLBLADDER/BILIARY: The gallbladder surgically absent. CBD is not dilated. PANCREAS: No evidence of pancreatic mass nor dilatation of the pancreatic duct. SPLEEN: Spleen is multilobulated somewhat peculiar in appearance but unchanged from 2017. ADRENALS: There are no significant adrenal masses. KIDNEYS: No calculi nor hydronephrosis. No solid renal masses. ABDOMINAL AORTA: Abdominal aorta is not enlarged. LYMPH NODES: There is no retroperitoneal or para-aortic adenopathy. ABDOMINAL WALL/GI: There is a fat containing small anterior abdominal wall umbilical hernia. There i s no bowel obstruction. OSSEOUS: No lytic osseous lesions. Intraosseous benign hemangiomas are noted in thoracic vertebrae. IMPRESSION: 1. No evidence of acute pulmonary emboli nor pulmonary infarction. No pulmonary infiltrates nor pleu ral effusions and no intrathoracic adenopathy. 2. No evidence of aortic dissection nor significant aneurysm. No pericardial effusion 3. Gallbladder surgically absent. The biliary tree is not dilated. RADIATION DOSE DELIVERED: 668.24mGy.cm Total DLP 668.24mGy.cm Total DLP DATA REPOSITORY: All CT scans at this facility are submitted to the National Radiology Data Registry (NRDR) Dose Index Registry (DIR) with the [employer] ([employer]). RADIATION OPTIMIZATION: All CT scans at this facility use at least one of these dose optimization te chniques: automated exposure control; mA and/or kV adjustment per patient size (includes targeted exa ms where dose is matched to clinical indication); or iterative reconstruction.
--- NOTE | 2021-01-20 00:35 | ED.GENADUL_ITS ---
Discharge Plan Disposition Patient Disposition: HOME Condition: Good Discharge Details Clinical Impression: Chest pain Primary Care Provider: Joycelyn Will ED Provider: Jeremias Sullivan Home Meds and New Rx's Prescriptions: Continued cholecalciferol (vitamin D3) 1,000 unit capsule 1,000 unit PO DAILY RF: 0 gabapentin 300 mg capsule 600 mg PO HS Qty: 180 RF: 4 aspirin [Adult Aspirin Regimen] 81 mg tablet,delayed release (DR/EC) 81 mg PO DAILY RF: 0 atenolol 25 mg tablet 25 mg PO DAILY Qty: 90 RF: 4 Estring 2 mg (7.5 mcg /24 hour) ring 1 vag ring VG Q3MOS Qty: 1 RF: 4 esomeprazole magnesium 40 mg capsule,delayed release(DR/EC) 40 mg PO DAILY Qty: 90 RF: 4 rosuvastatin [Crestor] 5 mg tablet 5 mg PO DAILY Qty: 90 RF: 12 multivitamin 1 EACH capsule 1 ea PO DAILY RF: 0 acetaminophen 500 mg tablet 1,000 mg PO Q8H PRN (Reason: pain) Qty: 90 RF: 3 Discharge Instructions Instructions: Chest Pain (ED) Additional Instructions: At this time your CAT scan shows no signs of aneurysm or dissection of your aorta. Currently you show no evidence of a heart attack on your work-up or EKG. Your symptoms may be secondary to gastric irritation or muscle spasms. However it is still very important to follow-up closely with your family doctor to set up outpatient stress testing. If you notice any worsening of your symptoms, or any new symptoms such as vomiting, diarrhea, fever, chills, shortness of breath, chest pain, numbness, weakness, or fainting , please return immediately to the emergency department for reevaluation. Please follow up with your primary care provider as soon as possible for reassessment and reevaluation. As always, it was a pleasure participating in your medical care today. Referrals: Joycelyn Will MD, [place] [Primary Care Provider] - Medical Decision Making 75-year-old female with a past medical history of high cholesterol, hypertension, presents today for evaluation of chest and back pain. Patient states that 2 days ago she had notable chest pain which she described as a pressure that radiated to her back. It eventually went away on its own. Then this evening at about 8 PM which was 4 hours prior to arrival she had repeat onset of notable chest pain and pressure while at rest, directly radiating to her back. She denies any tearing or ripping sensation. She felt that it did take her breath away and had some mild shortness of breath with a chronic cough. Symptoms were unchanged with exertion or activity, and symptoms have been unchanged recently for her normal exercise capabilities and she has had no pain with exercise recently. She has had both of her Covid shot so far. Family history is positive for aneurysms, as well as notable cardiac disease and MO. Patient has no history of myocardial infarction. Patient denies any urinary complaints, abdominal pain, or other abnormalities. She did have a colonoscopy a few weeks ago. She has no history of pulmonary emboli. No other complaints at this time. Physical exam is notably unremarkable, capillary refill, pulses, are normal. Lung sounds are clear, no abdominal pain. Vital signs stable. With the patient's family history, differential is certainly concerning for aneurysm versus dissection. Cardiac etiology/ACS is of concern. Will get CTA of the chest abdomen pelvis, monitor closely gently rehydrate and reassess. EKG unremarkable. 3:[address] scan negative for aneurysm dissection or other abnormality per virtual radiology. Laboratory work-up notably unremarkable, serial troponins unremarkable. EKG unremarkable. Renal function good, proBNP shows no signs of significant strain, TSH slightly elevated at 4.55, free T4 is 0.83. Urinalysis unremarkable. Patient has complete resolution of her symptoms and feels well. At this time symptoms are inconsistent with ACS, dissection, or aneurysm. Symptoms appearing consistent clinically with PE. At this time with the patient's resolution of her symptoms, reassuring work-up, feel she can be discharged. Symptoms may be secondary to mild gastric irritation but otherwise appearing consistent at this time with acute life-threatening etiology. With the prolonged duration of her symptoms over the last few days her symptoms appear notably inconsistent with a significant ACS etiology. Will recommend close follow-up with her PCP as well as potential further outpatient stress testing on a nonemergent basis. I have extensively reviewed the treatment plan and discharge instructions with the patient and their family. I have addressed all patient concerns at this time. The patient and family was made aware of what symptoms to monitor for that would warrant a return to the emergency department. Discussed the plan with the patient and family, they demonstrate verbal understanding and agreement with our assessment and plan at this time. The documentation in this chart was dictated using Zondle dictation software. Please excuse any dictation errors. FINDINGS: Pulmonary arteries: There is no evidence for PE. Aorta: There is no evidence for thoracic aortic aneurysm or dissection. Lungs: Unremarkable. No consolidation. No masses. Pleural spaces: Unremarkable. No pneumothorax. No pleural effusion. Heart: Unremarkable. No cardiomegaly. No pericardial effusion. Lymph nodes: Unremarkable. No enlarged lymph nodes. Bones/joints: Unremarkable. No acute fracture. Soft tissues: Unremarkable. IMPRESSION: There is no evidence for thoracic aortic aneurysm or dissection. FINDINGS: Aorta: There is no evidence for abdominal aortic aneurysm or dissection Celiac trunk and mesenteric arteries: No occlusion or significant stenosis. Renal arteries: No occlusion or significant stenosis. Liver: Normal. No mass. Gallbladder and bile ducts: Normal. No calcified stones. No ductal dilation. Pancreas: Normal. No ductal dilation. Spleen: Normal. No splenomegaly. Adrenals: Normal. No mass. Kidneys and ureters: Normal. No hydronephrosis. Stomach and bowel: Unremarkable. No obstruction. No mucosal thickening. Lymph nodes: Unremarkable. No enlarged lymph nodes. Intraperitoneal space: Unremarkable. No free air. No significant fluid collection. Bones/joints: Unremarkable. No acute fracture. No dislocation. Soft tissues: Unremarkable. IMPRESSION: There is no evidence for abdominal aortic aneurysm or dissection Thank you for allowing us to participate in the care of your patient. Dictated and Authenticated by: Codey Vincent MD 01/20/2021 2:25 AM Eastern Time ([place] & [place]) HPI General Date/Time Provider Initiated Documentation: 01/20/21 00:22 . HPI Narrative: 75-year-old female with a past medical history of high cholesterol, hypertension, presents today for evaluation of chest and back pain. Patient states that 2 days ago she had notable chest pain which she described as a pressure that radiated to her back. It eventually went away on its own. Then this evening at about 8 PM which was 4 hours prior to arrival she had repeat onset of notable chest pain and pressure while at rest, directly radiating to her back. She denies any tearing or ripping sensation. She felt that it did take her breath away and had some mild shortness of breath with a chronic cough. Symptoms were unchanged with exertion or activity, and symptoms have been unchanged recently for her normal exercise capabilities and she has had no pain with exercise recently. She has had both of her Covid shot so far. Family history is positive for aneurysms, as well as notable cardiac disease and MO. Patient has no history of myocardial infarction. Patient denies any urinary complaints, abdominal pain, or other abnormalities. She did have a colonoscopy a few weeks ago. She has no history of pulmonary emboli. No other complaints at this time. Related Data Home Medications Medication Instructions Recorded Confirmed multivitamin 1 ea PO DAILY 08/31/14 12/17/20 cholecalciferol (vitamin D3) 25 1,000 unit PO DAILY 09/08/19 12/17/20 mcg (1,000 unit) capsule acetaminophen 1,000 mg PO Q8H PRN #90 tab 12/06/19 12/17/20 atenolol 25 mg tablet 25 mg PO DAILY #90 tab 04/05/20 12/17/20 esomeprazole magnesium 40 mg 40 mg PO DAILY #90 tab-cap 09/14/20 12/17/20 capsule,delayed release estradiol 1 vag ring VG Q3MOS #1 each 09/14/20 12/17/20 rosuvastatin 5 mg tablet 5 mg PO DAILY #90 tab-cap 09/14/20 12/17/20 gabapentin 300 mg capsule 600 mg PO HS #180 cap 09/18/20 12/17/20 aspirin 81 mg tablet,delayed 81 mg PO DAILY 12/06/20 12/17/20 release Previous Rx's Medication Instructions Recorded acetaminophen 1,000 mg PO Q8H PRN #90 tab 12/06/19 atenolol 25 mg tablet 25 mg PO DAILY #90 tab 04/05/20 esomeprazole magnesium 40 mg 40 mg PO DAILY #90 tab-cap 09/14/20 capsule,delayed release estradiol 1 vag ring VG Q3MOS #1 each 09/14/20 rosuvastatin 5 mg tablet 5 mg PO DAILY #90 tab-cap 09/14/20 gabapentin 300 mg capsule 600 mg PO HS #180 cap 09/18/20 Allergies Allergy/AdvReac Type Severity Reaction Status Date / Time Penicillins Allergy RASH/BREATHING Verified 12/26/20 10:00 PROBLEMS atorvastatin calcium AdvReac Intermediate LEG CRAMPS Verified 12/26/20 10:00 [From Lipitor] General NESS: 3 Review of Systems All systems reviewed & are unremarkable except as noted in HPI and below PFSH Medical History Abdominal pain Abnormal auditory perception Anxiety Atrophy of vagina (01/19/17) Cervical pain (neck) (08/17/14) xr Chest pain (02/01/09) Pt. states this wasn't related to her heart but her esophagitis Chronic cystitis (09/24/05) seen by urology 2006 due to chronic UTI's Estrogen [place] Chronic GERD Cough due to bronchospasm (02/24/17) Degenerative joint disease of right hip Injections under fluoroscopy x2: 12/2017; 06/2019 s/p Anterior R URIEL: 12/06/19 Deviated nasal septum Diverticula of colon 12/26/15; DR. Frederick GUZMAN Dry lips Elevated erythrocyte sedimentation rate (01/17/09) Esophagitis Esophagitis Essential hypertension Fatigue (07/01/11) GERD (gastroesophageal reflux disease) Herpes zoster without complication (12/10/15) Hiatal hernia (08/17/13) 2005 EGD showing HH, polyps and gastric fundi, non-obstructing ring in the GI junction History of echocardiogram Hyperlipidemia Impacted cerumen of both ears Irritable bowel syndrome (IBS) Pt reported Not on immune modulating medications Mantoux: positive 1999 Meralgia paresthetica of right side (08/18/17) Nasal congestion Nasal obstruction (09/12/15) Neoplasm of unspecified behavior of bone, soft tissue, and skin saw ENT states was benign Osteopenia T scores of -1.2, -1.4 Pain of left breast (01/05/17) Peripheral neuralgia EMG-01/29; mild slowing of right ulnar @elbow Reflux esophagitis (06/02/17) MILD-DR. TEZ GUZMAN Shoulder pain, right (08/17/14) Skin tags, multiple acquired Sleep apnea, unspecified (09/12/15) supraventricular reflux disease Supraventricular tachycardia on atenolol Trochanteric bursitis, right hip Vitamin D deficiency Surgical History Cholecystectomy (~2004) colonoscopy CYSTECTOMY (~1971) EGD - IV Sedation (08/17/13) HIATAL HERNIA EGD - MAC (06/02/17) ENDOMETRIAL SURGERY 1992 History of esophagogastroduodenoscopy History of lumpectomy of both breasts PROCEDURES EMG 01/29 with mild swelling of the right ulnar nerve of the elbow Echocardiogram 03/31 showing an ejection fraction of 65% and an upper septal hypertrophy grade 1, Diastolic dysfunction. 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 Cancer Brother , age 43 Essential hypertension Heart disease Hyperlipidemia Brother , age 67 Essential hypertension Heart disease Hyperlipidemia Brother , age 66 Pancreatic cancer Maternal Grandfather Heart disease Paternal Grandfather Pancreatic cancer Maternal Grandmother Cerebral hemorrhage Paternal Grandmother Heart disease Cancer FAMILY HISTORY Aneurysm Hyperlipidemia Neoplasm IBS (irritable bowel syndrome) Social History Smoking/Tobacco Use Status: Former Tobacco Use Quit Date: 10/26/69 Tobacco: How many years used: 5 Second Hand Exposure: Yes Smoking risk assessment performed?: Yes Alcohol Intake: never Drug use: Never Substance use type: does not use Caregiver/Support person: No Household members: spouse Housing: house Communication Needs: None Do you need help understanding health information?: Never current occupation: Retired Pets and animals: Yes Pets and animals: dog(s) Do you think of yourself as: straight/heterosexual Current gender identity: female What is your relationship status?: How often do you talk on the phone with friends or family?: twice per week How often do you get together with friends or relatives?: decline to answer How often do you attend bahai or buddhism services?: decline to answer Do you belong to any clubs or organized social groups?: no Panel score (0-1 are the most socially isolated patients): 1 What type of physical activity do you participate in: none and decline to answer Frequency: does not exercise Radha/Alevism: Shinto Special radha needs: No Seatbelt use: always Drive intox 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 dinkey driver: No Do you feel safe at home: Yes Do you feel safe in your relationship?: Yes Would you like helpful sources: No Exam Narrative Exam Narrative: 1.Const: Well-nourished, Well-developed, appearing stated age 2.Eyes: PERRL, no conjunctival injection, and symmetrical lids. 3.ENT: Atraumatic external nose and ears. Moist MM. Neck: Symmetric, trachea midline, No thyromegaly. 4.CVS: +S1/S2, No murmurs or gallops. Peripheral pulses 2+ and equal in all extremities. Brisk capillary refill in all extremities. Radial pulses +2 bilaterally. No reproducible chest pain. No epigastric tenderness. 5.RESP: Unlabored respiratory effort. Clear to auscultation bilaterally. No wheezes rales or rhonchi 6.GI: Soft, Nontender/Nondistended, No hepatosplenomegaly. No guarding or rebound. 7.MSK: Normocephalic/Atraumatic, Extremities w/o deformity or ttp No cyanosis or clubbing, Normal movement of all extremities. Mild medial calf tenderness bilaterally, no significant edema, no asymmetric swelling. Pulses intact 8.Skin: Warm, Dry. No rashes or lesions. 9.Neuro: insulation board head saw operator II-XII grossly intact. Sensation grossly intact, no focal neurologic deficits. 10.Psych: (AAO) x3. Appropriate mood and affect
[2021-01-20 00:49] LABS: Abs Immature Grans 0.03 10^3/uL (0.0-0.06); Absolute Basophil Count 0.04 10^3/uL (0.0-0.2); Absolute Eosinophil Count 0.27 10^3/uL (0.0-0.7); Absolute Lymphocyte Count 2.29 10^3/uL (1.2-3.4); Absolute Monocyte Count 0.71 10^3/uL (0.1-0.8); Absolute Neutrophil Count 4.97 10^3/uL (1.2-6.7); Basophils % 0.5; Eosinophils % 3.2; HGB 12.8 g/dL (11.2-15.7); Immature Grans % 0.4; Lymphocytes % 27.6; MCH 30.2 pg (27.0-33.0); MCHC 32.8 % (32.0-36.0); MPV 9.6 fL (8.0-11.0); Monocytes % 8.5; Neutrophils % 59.8; Nucleated RBC 0 %; Platelet Count 258 10^3/uL (130-400); RBC 4.24 10^6/uL (3.93-5.22); RDW 12.2 % (11.7-14.6); RDW-SD 41.3 fL; WBC 8.31 10^3/uL (4.4-10.8)
[2021-01-20 01:01] LABS: Bilirubin Negative (Negative); Blood Small (Negative); Clarity Clear (Clear); Glucose Negative (Negative); Ketones Negative (Negative); Leukocyte Esterase Trace (Negative); Nitrite Negative (Negative); Specific Gravity <= 1.005 (1.005-1.025); Urobilinogen 0.2 EU/dL (Up TO 0.2); pH 6.5 (5-8)
[2021-01-20 01:05] LABS: Prothrombin Time 9.8 sec (9.3-11.0)
[2021-01-20 01:06] LABS: Bacteria Moderate HPF (Negative); C & S Indicated? No/Sq. Contamination; Casts Negative LPF (Negative); Crystals Negative HPF (Negative); Epithelial Cells Moderate HPF (Negative); Mucus Negative (Negative)
[2021-01-20] MEDS: Normal Saline 500 ML IV (01:06)
[2021-01-20 01:10] LABS: ALT 28 U/L (14-59); AST 21 U/L (15-37); Albumin 3.7 g/dL (3.4-5.0); Alkaline Phosphatase 109 U/L (46-116); Anion Gap 10.2 mmol/L (3-11); BUN 19 mg/dL (7-18); Bilirubin, Total 0.2 mg/dL (0.2-1.0); CO2 26.8 mmol/L (21.0-32.0); CREATININE 0.9 mg/dL (0.55-1.02); Calcium 9.5 mg/dL (8.5-10.1); Chloride 104 mmol/L (98-107); Glucose 108 mg/dL (74-106); Lipase 105 U/L (73-393); NT-proBNP 308 pg/mL (<300); Potassium 3.4 mmol/L (3.5-5.1); Sodium 141 mmol/L (136-145); TSH (W/Ref FT4) 4.55 uIU/mL (0.36-3.74); Total Protein 7.9 g/dL (6.4-8.2); Troponin I < 0.05 ng/mL (<0.06)
[2021-01-20 01:26] LABS: FREE T4 0.83 ng/dL (0.76-1.46)
[2021-01-20] MEDS: Omnipaque 350 MG/ML 100 ML BTL IJ (01:44)
[2021-01-20] MEDS: Normal Saline - Diluent 50 ML VIAL IV (01:44)
--- NOTE | 2021-01-20 02:25 | DI.VRAD_ITS ---
PROCEDURE INFORMATION: Exam: CT Angiography Chest With Contrast Exam date and time: 01/20/2021 12:36 AM Age: 75 years old Clinical indication: Chest pain; Radiating; Other: Fam HX aneurysm; Patient HX: Chest to back pain, fam HX of aneurysm TECHNIQUE: Imaging protocol: Computed tomographic angiography of the chest with contrast. 3D rendering (Not supervised by radiologist): MIP and/or 3D reconstructed images were created by the technologist. COMPARISON: CTA THORAX 01/13/2017 9:21 AM FINDINGS: Pulmonary arteries: There is no evidence for PE. Aorta: There is no evidence for thoracic aortic aneurysm or dissection. Lungs: Unremarkable. No consolidation. No masses. Pleural spaces: Unremarkable. No pneumothorax. No pleural effusion. Heart: Unremarkable. No cardiomegaly. No pericardial effusion. Lymph nodes: Unremarkable. No enlarged lymph nodes. Bones/joints: Unremarkable. No acute fracture. Soft tissues: Unremarkable. IMPRESSION: There is no evidence for thoracic aortic aneurysm or dissection. PROCEDURE INFORMATION: Exam: CT Angiography Abdomen With Contrast Exam date and time: 01/20/2021 12:36 AM Age: 75 years old Clinical indication: Chest pain; Radiating; Other: Fam HX aneurysm; Patient HX: Chest to back pain, fam HX of aneurysm TECHNIQUE: Imaging protocol: Computed tomographic angiography images of the abdomen with intravenous contrast material. 3D rendering (Not supervised by radiologist): MIP and/or 3D reconstructed images were created by the technologist. COMPARISON: CTA THORAX 01/13/2017 9:21 AM FINDINGS: Aorta: There is no evidence for abdominal aortic aneurysm or dissection Celiac trunk and mesenteric arteries: No occlusion or significant stenosis. Renal arteries: No occlusion or significant stenosis. Liver: Normal. No mass. Gallbladder and bile ducts: Normal. No calcified stones. No ductal dilation. Pancreas: Normal. No ductal dilation. Spleen: Normal. No splenomegaly. Adrenals: Normal. No mass. Kidneys and ureters: Normal. No hydronephrosis. Stomach and bowel: Unremarkable. No obstruction. No mucosal thickening. Lymph nodes: Unremarkable. No enlarged lymph nodes. Intraperitoneal space: Unremarkable. No free air. No significant fluid collection. Bones/joints: Unremarkable. No acute fracture. No dislocation. Soft tissues: Unremarkable. IMPRESSION: There is no evidence for abdominal aortic aneurysm or dissection Dictated and Authenticated by: Codey Vincent MD. Ordering:GRACE Mcdowell MD
[2021-01-20 03:36] LABS: Troponin I < 0.05 ng/mL (<0.06)
== END 2021-01-20 04:05 | disposition home or self-care (01) ==
PROVIDERS: Emergency Provider Student in an Organized Health Care Education/Training Program; PCP Family Medicine
DX: R07.89 Other chest pain (principal); M54.6 Pain in thoracic spine; R06.02 Shortness of breath
CPT/HCPCS: 36415; 71275; 74175; 80053; 83690; 93005; 96361; 96374; 99285; 81003; 81015; 83880; 84439; 84443; 84484; 85025; 85610; 85730; 93010; J3490

== ENCOUNTER 2021-01-29 07:40 | Outpatient (CLI) | payer BC, SELFPAY ==
--- NOTE | 2021-01-29 06:00 | DI.RAD_ITS ---
EXAM: XR PAIN CLINIC LUMBAR SP 2V CLINICAL HISTORY: Dx: Lumbar Radiculopathy TECHNIQUE: 2D and realtime digital imaging was performed. COMPARISON: No exams were available for comparison FINDINGS: Vicky isadora is C-arm fluoroscopy on January 29 C-arm fluoroscopy was utilized by Dr. Guerrero during report ed transforaminal injection. Hard copies show transforaminal injection on the right at what appears to be the L 3 4 level. Fluoro time, 36.7 seconds. IMPRESSION: RADIATION DOSE DELIVERED: Total DLP
[2021-01-29 07:56] VITALS: BP 146/62; PULSE 60; RESP 18; TEMP 37; O2SAT 98
--- NOTE | 2021-01-29 08:51 | PDOC.PAIN_ITS ---
Pain Clinic Procedure Note Procedure Note Procedure Note: PROCEDURE NOTE Transforaminal Epidural Steroid Injection with Fluoroscopic Guidance at right L3 TFESI Chief Complaint: right anterior-lateral leg pain. Pre-operative diagnosis: lumbar radiculopathy Post-operative diagnosis: same as above JULIET NORTON has [facility]bar Transforaminal Epidural Steroid Injection right anterior-lateral leg. COMMENTS: Referring provider: Ms Sravanthi De La Paz APRN Allergies: PCN Pre-procedure VAS: 4/10 to the right leg. Follow up plan: if this provides significant pain relief, injection can be repeated up to three times per 12 months, if this fails to achieve any therapeutic pain reduction, then should proceed to follow up with Ms Sravanthi De La Paz to rule out other possible pain generators. Comment: patient is status post right total hip arthroplasty in 11/2019, started to c/o right anterior leg tinging/numbness for the past 3-4 months. MRI L spine reviewed JULIET NORTON was greeted by the nurse who verified patients name and . Patient was then taken to the fluoroscopy suite. JULIET was interviewed and the medical record reviewed. There were no medical, pharmacologic, radiographic or other structural contraindications to attempting fluoroscopically guided transforaminal lumbar epidural steroid injection. The risks, benefits, and potential side effects were reviewed with the patient. Risk include, but not limited to, post dural puncture, headache, infection, nerve injury, allergic reaction, possible increase in symptoms over the ensuing 24 to 48 hours, and paralysis. The patient appeared to understand, questions were answered and the patient agreed to proceed. Once I obtained informed verbal consent, the printed consent form was signed by the patient and myself. Standard time-out procedure was performed. TECHNIQUE: After informed written consent was obtained the patient was placed in the prone position. The lumbar spine was prepped with chloraprep and draped. Sterile technique was observed during the entire procedure ( cap, gloves, and mask were worn). Vitals signs were monitored throughout the procedure. The right side was marked with a radioopaque marker. The skin and subcutaneous structures were anesthetized with lidocaine 1% to a total volume of 3 ML at each level. Under fluoroscopic guidance, in ipsilateral oblique view, co-axial approach, 22 gauge 3.5'' quincke spinal needle(s) were advanced to the base of the L3 pedicle(s). The needle(s) were advanced to the superio-posterior aspect of the neural foramen under lateral view. Oblique and AP views were rechecked. Under AP view Omnipaque 240 1 cc's was injected while visualized with fluoroscopy. There was no evidence of intravascular uptake, the epidural space was delineated. 15 mg Dexamethasone was injected after negative aspiration, at each level, followed by lidocaine 1% 0.5-ML at each level. (49 cc of Omnipaque was wasted) Outcome: The patient tolerated the procedure well and had stable vital signs. The patient noted after getting up after the procedure that their right leg pain was at a 2 out of 10 level. Follow up plans and appointments were discussed with JULIET . The patient was observed in the pain clinic and then discharged after having met discharge criteria to the care of a shag truck driver. The patient received written instructions as documented in nursing records. Disposition: JULIET was discharged from the procedure suite without new ne urological complaints. Follow-up: Follow up with as scheduled or PRN. I personally performed the entire procedure. Yvette Guerrero MD ABPN-subspecialty board certification in Pain Medicine Attending Physician-Pain Management
[2021-01-29 08:55] VITALS: BP 168/64; PULSE 60; RESP 21; O2SAT 100
[2021-01-29] MEDS: Dexamethasone Sod. Phos./Pres-Free 10 MG/ML VIAL IJ (08:56)
[2021-01-29] MEDS: Omnipaque 240 MG/ML 50 ML BTL IJ (08:56)
== END 2021-01-29 07:41 | disposition home or self-care (01) ==
LOC: PC 07:41
PROVIDERS: PCP Family Medicine; Visit Provider Internal Medicine
DX: M54.16 Radiculopathy, lumbar region (principal)
CPT/HCPCS: 64483; 72100; Q9967

== ENCOUNTER 2021-03-06 02:13 | Outpatient (CLI) | payer BC, SELFPAY ==
--- NOTE | 2021-03-06 15:00 | DI.MRI_ITS ---
Exam(s) MR LOWER JOINT LT WO EXAM: MR LOWER JOINT LT WO CLINICAL HISTORY: COMPLEX TEAR MEDIAL MENISCUS LT KNEE,S83.232A TECHNIQUE: Multiplanar multisequence MRI of the knee was performed. COMPARISON: No prior studies of the left knee available. FINDINGS: EFFUSION: There is a moderate-sized joint effusion. There is no Rachel cyst in the popliteal fossa. No obvious loose intra-articular body. MARROW:There is no evidence of fracture but there is bone contusion signal in the medial tibial plate au subjacent to the posterior horn medial meniscus. There is also an adjacent degenerative subarticu lar cyst in the inner aspect of the medial tibial plateau which measures 5 x 4 millimeters.. There i s very mild bone edema noted in the subarticular medial femoral condyle. There are no significant os seous lesions. PATELLOFEMORAL COMPARTMENT: The quadriceps tendon is intact. The patellar ligament is intact. Subcu taneous soft tissue edema is noted anterior to the lower patella and entire length of the patellar li gament. However, there is no tear of this structure. There is significant thinning of the retropatellar cartilage over both facets but full-thickness thin reza over the mid and medial facets with mild subarticular intraosseous signal in the posterior juan la at this level.There is no intraosseous signal to suggest recent patellar dislocation. There are no patellar retinacular tears. CRUCIATE LIGAMENTS: The anterior cruciate ligament is intact.The posterior cruciate ligament is intac t. MEDIAL COMPARTMENT/MEDIAL MENISCUS: There is a complex tear of the posterior horn of the medial menis cus. However, the root appears intact. There is mild meniscal extrusion. Tear extends towards the junction of the anterior posterior horns. There is subarticular edema in the medial tibial plateau s ubjacent to the tear. Also my mild Harrison cartilage loss over the medial femoral condyle. Small m arginal osteophytes off the inner and outer aspects of the medial femoral condyle.. MEDIAL COLLATERAL LIGAMENT: Some increased signal at the menisco capsular junction. No high-grade te ar. LATERAL COMPARTMENT/LATERAL MENISCUS: There is no evidence of lateral meniscal tear.Minimal degenerat kirby changes the Harrison cartilage of the lateral compartment. No osteochondral defects. No osteoph ytes. No subarticular edema. ILIOTIBIAL BAND: Intact LATERAL COLLATERAL LIGAMENT COMPLEX: The fibular collateral ligament is intact. The biceps femoris t endon is intact.Popliteus muscle and tendon are intact. IMPRESSION: 1. There is complex tear of the posterior horn of the medial meniscus with extension towards the ante rior horn and with mild meniscal extrusion. There is mild-moderate loss of Harrison cartilage over t he medial femoral condyle at this level and mild subarticular edema in the femoral condyle. More pro minent intraosseous edema is seen subjacent to the posterior horn tear in the posterior aspect of the medial tibial plateau. Small marginal osteophytes are seen in the medial compartment. 2. There are no tears of the lateral meniscus. Only mild degenerative changes in the lateral compart ment. 3. Cruciate ligaments are intact, as is the iliotibial band. Mild increased signal in the MCL. LCL complex is intact. 4. Significant thinning of the retropatellar cartilage, most prominent central medially where this is almost full-thickness thinning and there is also mild degenerative intraosseous signal in the patients transporter ior subarticular patella at this level. Also noted is subcutaneous edema anterior to the lower patella and patellar ligament but no evidence of patellar fracture nor tear of the patellar ligament. DATA REPOSITORY:
== END 2021-03-06 02:33 ==
PROVIDERS: PCP Family Medicine; Visit Provider Orthopaedic Surgery
DX: M25.562 Pain in left knee (principal); S83.232A Complex tear of medial meniscus, current injury, left knee, initial encounter; R60.0 Localized edema
CPT/HCPCS: 73721

== ENCOUNTER 2021-03-21 01:44 | Outpatient (CLI) | payer BC, SELFPAY ==
--- NOTE | 2021-03-21 06:45 | DI.MAMMO_ITS ---
Exam(s) MAMMO SCREENING EXAM: MAMMO SCREENING CLINICAL HISTORY: screening,Z12.39. TECHNIQUE: Bilateral full field digital CC and MLO mammographic images were obtained with 3D tomosyn thesis and utilizing computer aided detection (CAD). COMPARISON: Prior mammograms dating back to 2011, the most recent being November 2019. This patient has apparently undergone prior reduction surgery. FINDINGS: Unchanged benign-appearing nodules posteriorly in the right breast are again noted. Probably lymph n odes. Asymmetric density lateral central left breast is also unchanged on 3D imaging from the prior studies . There are no new spiculated masses nor malignant appearing microcalcification groups. There is no significant architectural distortion nor skin thickening-retraction. IMPRESSION: Benign findings. No radiographic evidence of malignancy. BI-RADS Category 2 - Benign Findings Breast Density - Category B - Scattered areas of fibroglandular density Breast density Category C or D implies that the patient has dense breast tissue. Dense breast tissue can make it harder to find cancer on a mammogram. Dense breast tissue is also associated with an incr eased risk of breast cancer. This information about the result of the mammogram report was provided to the patient to raise their awareness. Use this report when you speak with the patient about their risks for breast cancer, which includes their family history. At that time, you may recommend additional screening tests (Ultrasoun d or MRI) as these tests may add significant information. A negative radiographic report should not delay biopsy if a dominant or clinically suspicious mass is present. Up to ten percent of cancers are not identified on mammography. A negative report may reinforce clinical impression. Adenosis and dense breasts may obscure an underlying neoplasm. False positive reports average 6 to 10%. Patient will receive a letter notifying them of these results.
== END 2021-03-21 02:04 ==
PROVIDERS: PCP Family Medicine; Visit Provider Family Medicine
DX: Z12.31 Encounter for screening mammogram for malignant neoplasm of breast (principal)
CPT/HCPCS: 77063; 77067

== ENCOUNTER 2021-07-10 02:50 | Outpatient (CLI) | payer BC, SELFPAY ==
[2021-07-10 11:44] LABS: ALT 18 U/L (14-59); AST 13 U/L (15-37); Albumin 3.6 g/dL (3.4-5.0); Alkaline Phosphatase 99 U/L (46-116); Anion Gap 9.5 mmol/L (3-11); BUN 18 mg/dL (7-18); Bilirubin, Total 0.4 mg/dL (0.2-1.0); CO2 27.5 mmol/L (21.0-32.0); Calcium 9.2 mg/dL (8.5-10.1); Calculated LDL 89 mg/dL (<100); Chloride 107 mmol/L (98-107); Cholesterol 186 mg/dL (<200); Estimated GFR 53.91 (mL/min/1.73m2); Glucose 107 mg/dL (74-106); HDL Cholesterol 74 mg/dL (40-60); Potassium 4.1 mmol/L (3.5-5.1); Sodium 144 mmol/L (136-145); TSH (W/Ref FT4) 1.58 uIU/mL (0.36-3.74); Total Protein 7.1 g/dL (6.4-8.2); Triglyceride 118 mg/dL (<150)
== END 2021-07-10 02:51 | disposition home or self-care (01) ==
LOC: LBO 02:50
PROVIDERS: PCP Family Medicine; Visit Provider Family Medicine
DX: F41.9 Anxiety disorder, unspecified; R73.09 Other abnormal glucose; I10 Essential (primary) hypertension
CPT/HCPCS: 36415; 80053; 80061; 84443

== ENCOUNTER 2021-07-12 16:08 | Outpatient (CLI) | payer BC, SELFPAY ==
--- NOTE | 2021-07-12 | DI.RAD_ITS ---
Exam(s) XR SHOULDER LT COMPLETE 2+V EXAM: XR SHOULDER LT COMPLETE 2+V CLINICAL HISTORY: PAIN LT SHOULDER M25.512. TECHNIQUE: 2D digital imaging was performed of the left shoulder. Five images were obtained. AP in ternal rotation, AP external rotation, Grashey, Y-view and axillary views were obtained. COMPARISON: No exams were available for comparison FINDINGS: BONES: No acute fracture is present. No bony destructive lesion is seen. JOINTS: No dislocation present. SOFT TISSUE: Normal. IMPRESSION: Unremarkable radiographs of the left shoulder. DATA REPOSITORY: RADIATION DOSE DELIVERED:
== END 2021-07-12 16:28 ==
PROVIDERS: PCP Family Medicine; Visit Provider Physician Assistant Medical
DX: M25.512 Pain in left shoulder (principal)
CPT/HCPCS: 73030

== ENCOUNTER 2021-09-26 00:11 | Outpatient (CLI) | payer BC, SELFPAY ==
--- NOTE | 2021-09-26 | DI.US_ITS ---
Exam(s) US PAIN CLINIC NEEDLE GUIDANCE EXAM: R L3 RADICULOPATHY VS MERALGIA,PARESTHESIA,ULTRASOUND GUIDED NERVE BLOCK COMPARISON: US US LOWER EXTREMITY VENOUS RT from 12/18/2020 TECHNIQUE: Ultrasound guidance performed or right lateral femoral cutaneous nerve block. FINDINGS: As above. See procedure report for details. IMPRESSION: DATA REPOSITORY:
[2021-09-26 07:59] VITALS: BP 148/71; PULSE 60; RESP 18; TEMP 36.6; O2SAT 97
[2021-09-26 08:38] VITALS: PULSE 64; RESP 18; O2SAT 99
--- NOTE | 2021-09-26 08:38 | PDOC.PAIN ---
Pain Clinic Procedure Note Procedure Note Procedure Note: ULTRASOUND GUIDED RIGHT LATERAL FEMORAL CUTANEOUS NERVE BLOCK Pre-Procedural Evaluation: Vicky Goel has been referred to the [facility] for an Ultrasound Guided right lateral femoral cutaneous nerve block for a chief complaint of right anterior thigh pain. Pre-procedure Pain Score: 3/10 DX: Meralgia Peresthetica Patient was interviewed and the medical record reviewed. There were no medical, pharmacologic, radiographic, or other structural contraindications to preforming an ultrasound guided injection. Risks and expected side effects as well as potential benefits of the procedure were reviewed. The patient consent form was signed and witnessed. Standard time-out procedure was performed. The use of direct ultrasound visualization of the needle (rather than a non-guided injection) was required to increase patient safety by excluding inadvertent intramuscular, intratendinous, or intraneural needle placement and minimizing bleeding by avoiding osteochondral or vascular injury from the needle. Additionally, the increased accuracy of placement may increase clinical effectiveness and will allow higher diagnostic specificity when evaluating effectiveness of this injection. Procedure Description: The patient was placed in the supine position and automated blood pressure cuff and pulse oximeter applied for monitoring during the procedure and recorded in the medical record. Pre-injection ultrasound scanning of the area of interest was performed using a linear transducer, identifying relevant anatomy, landmarks, and neurovascular structures allowing for optimal needle path. The site was then prepared in the usual sterile fashion, using thorough Chlorhexadine preparation of the skin and sterile draping. The same ultrasound transducer was then passed into the sterile field using sterile probe cover and sterile ultrasound gel. The injection target was again visualized. Skin and subcutaneous tissues were anesthetized with 2 mL of 1% Lidocaine. A 21 guage 3.5 Pajunk ultrasound needle was placed under live ultrasound guidance, using an in-plane approach, to the target area. After visualization of the needle tip at the target area, 4 mL Depomedrol ( 40 mg/cc) and flushed with 4 cc of 2% Lidocaine, totaling 5 mL of injectate was delivered after negative aspiration for blood. The needle was removed without difficulty. Ultrasound images were captured and stored for documentation purposes. Post-procedure Pain Score:0/10 Vital signs were stable throughout the procedure and were as recorded in the docflowsheet by the nursing staff. Follow up plans and appointments were discussed with the patient.Post procedure instruction was given as documented in nursing documentation and having met discharge criteria, they were discharged from the [facility] Management [facility]. COMMENTS: She did well with this procedure. This procedure can be completed up to 3 times per 12 months if it is helpful. Satish Villaseñor DO, MPH [facility] - Pain Management
[2021-09-26 08:50] VITALS: BP 154/80; PULSE 58; RESP 18; TEMP 36.6; O2SAT 96
[2021-09-26] MEDS: methylPREDNISolone ACETATE 40 MG/ML VIAL IJ (08:58)
[2021-09-26] MEDS: Lidocaine 2% Pres-Free 5 ML VIAL IJ (08:58)
[2021-09-26 09:05] VITALS: BP 156/79; PULSE 60; RESP 18; TEMP 36.7; O2SAT 98
== END 2021-09-26 00:31 ==
PROVIDERS: PCP Family Medicine; Visit Provider Preventive Medicine Occupational Medicine
DX: G57.11 Meralgia paresthetica, right lower limb (principal)
CPT/HCPCS: 64447; 76942; J1030

== ENCOUNTER 2021-12-13 10:32 | Outpatient (CLI) | payer BC, SELFPAY ==
--- NOTE | 2021-12-13 10:15 | DI.RAD_ITS ---
Exam(s) XR KNEE LT 2V AP,LAT EXAM: XR KNEE LT 2V AP,LAT CLINICAL HISTORY: left knee pain. TECHNIQUE: 2D digital imaging was performed of the left knee. Three images were obtained. AP and l ateral views were obtained. COMPARISON: CR XR knee LT 4V AP,lat,ximena,pat from 07/07/2019 FINDINGS: BONES: No acute fracture is present. No bony destructive lesion is seen. JOINTS: The knee is normally aligned. No joint effusion is seen. Mild joint space narrowing and peria rticular spurring is seen in the medial joint compartment. SOFT TISSUE: Normal. IMPRESSION: Mild degenerative changes of the knee. DATA REPOSITORY: RADIATION DOSE DELIVERED:
== END 2021-12-13 10:33 | disposition home or self-care (01) ==
LOC: DIORS 10:32
PROVIDERS: PCP Family Medicine; Referring Provider Family Medicine; Visit Provider Student in an Organized Health Care Education/Training Program
DX: M25.562 Pain in left knee (principal); M17.12 Unilateral primary osteoarthritis, left knee
CPT/HCPCS: 73560

== ENCOUNTER 2021-12-26 04:23 | Outpatient (CLI) | payer BC, SELFPAY ==
[2021-12-26 11:23] LABS: Abs Immature Grans 0.01 10^3/uL (0.0-0.06); Absolute Basophil Count 0.03 10^3/uL (0.0-0.2); Absolute Eosinophil Count 0.21 10^3/uL (0.0-0.7); Absolute Lymphocyte Count 2.52 10^3/uL (1.2-3.4); Absolute Monocyte Count 0.39 10^3/uL (0.1-0.8); Absolute Neutrophil Count 4.23 10^3/uL (1.2-6.7); Basophils % 0.4; Eosinophils % 2.8; HCT 39.7 % (36.0-46.0); HGB 12.7 g/dL (11.2-15.7); Immature Grans % 0.1; Lymphocytes % 34.1; MCV 93.9 fL (80-95); Monocytes % 5.3; Neutrophils % 57.3; Nucleated RBC 0 %; Platelet Count 238 10^3/uL (130-400); RBC 4.23 10^6/uL (3.93-5.22); RDW 12.3 % (11.7-14.6); RDW-SD 42.8 fL; WBC 7.39 10^3/uL (4.4-10.8)
[2021-12-26 11:27] LABS: ESR 24 mm/hr (0-30)
[2021-12-26 12:30] LABS: ALT 16 U/L (14-59); AST 15 U/L (15-37); Albumin 3.7 g/dL (3.4-5.0); Alkaline Phosphatase 90 U/L (46-116); Anion Gap 8.6 mmol/L (3-11); BUN 16 mg/dL (7-18); Bilirubin, Total 0.3 mg/dL (0.2-1.0); CO2 27.4 mmol/L (21.0-32.0); CREATININE 0.9 mg/dL (0.55-1.02); Calcium 9.2 mg/dL (8.5-10.1); Chloride 105 mmol/L (98-107); Glucose 108 mg/dL (74-106); Potassium 3.8 mmol/L (3.5-5.1); Sodium 141 mmol/L (136-145); TSH (W/Ref FT4) 2.34 uIU/mL (0.36-3.74); Total Protein 7.1 g/dL (6.4-8.2)
== END 2021-12-26 04:24 | disposition home or self-care (01) ==
LOC: LBO 04:23
PROVIDERS: PCP Family Medicine; Visit Provider Family Medicine
DX: R63.4 Abnormal weight loss (principal); E11.9 Type 2 diabetes mellitus without complications
CPT/HCPCS: 36415; 80053; 85652; 83036; 84443; 85025

== ENCOUNTER 2022-01-03 02:43 | Outpatient (CLI) | payer BC, SELFPAY ==
--- NOTE | 2022-01-03 10:15 | DI.RAD_ITS ---
Exam(s) XR CHEST 2V PA LATERAL EXAM: XR CHEST 2V PA LATERAL CLINICAL HISTORY: weight loss,r63.4. TECHNIQUE: 2D digital imaging was performed. COMPARISON: CR,XR XR CHEST 2V PA LATERAL from 01/01/2020 FINDINGS: Heart size is normal. The mediastinum is not widened. Lungs are clear. No infiltrates nor pleural effusions. Calcified right paratracheal azygos lymph node is again noted. IMPRESSION: No acute pulmonary findings.Calcified right paratracheal lymph node is unchanged Incidentally noted is a metallic staple in the lateral left breast, unchanged from 01/01/2020. DATA REPOSITORY: RADIATION DOSE DELIVERED:
== END 2022-01-03 03:03 ==
PROVIDERS: PCP Family Medicine; Visit Provider Family Medicine
DX: R63.4 Abnormal weight loss (principal)
CPT/HCPCS: 71046

== ENCOUNTER 2022-03-12 13:48 | Outpatient (CLI) | payer BC, SELFPAY ==
--- NOTE | 2022-03-12 06:00 | DI.RAD_ITS ---
Exam(s) XR PAIN CLINIC LUMBAR SP 2V EXAM: XR PAIN CLINIC LUMBAR SP 2V CLINICAL HISTORY: DX: Lumbar Spondylosis TECHNIQUE: 2D and realtime digital imaging was performed. Radiologist not present. CONTRAST MATERIAL: None. COMPARISON: No exams were available for comparison FINDINGS: Fluoroscopy was provided for pain management therapy. Please refer to procedure report or details. Cumulative dose: Ka,r=4.97 mGy IMPRESSION: RADIATION DOSE DELIVERED:
[2022-03-12 13:59] VITALS: BP 160/66; PULSE 63; RESP 18; TEMP 36.5; O2SAT 97
--- NOTE | 2022-03-12 14:34 | PDOC.PAIN ---
Pain Clinic Procedure Note Procedure Note Procedure Note: Lumbar/Sacral Medial Branch Blocks Vicky Goel has been referred to the [facility] Management [facility] for lumbar/sacral medial branch blocks. COMMENTS: I previously evaluated her in the clinic. Pre-procedure pain VAS = 6/10. DX: Lumbosacral spondylosis without myelopathy Patient was interviewed and the medical record reviewed. There were no medical, pharmacologic, radiographic or other structural contraindications to attempting fluoroscopically guided local anesthetic lumbar/sacral medial branch blocks. Risks and expected side effects as well as potential benefit of the procedure were reviewed and voiced concerns addressed. The printed consent form was signed and witnessed. Standard time-out procedure was performed. Patient was placed in the prone position on the fluoroscopy table and automated blood pressure cuff and pulse oximeter applied. The skin entry points for approaching the anatomic target points of the segmental medial branches of bilateral L3-L5 were identified with anfluoroscopy and marked. Following thorough Chlorhexadine preparation of the skin and draping and 1% lidocaine infiltration of the skin entry points and subcutaneous tissues, a 22 gauge spinal needle was placed under fluoroscopic guidance down on to the target point for each respective segmental medial branch.Position was confirmed in A/P, oblique and lateral views. At this point I injected 0.5ml of 0.5% Bupivacaine at each segmental nerve. Vital signs were stable throughout the procedure and were as recorded in the docflowsheet by the nursing staff. Follow up plans and appointments were discussed and was instructed to keep careful note of how the usual pain was modified by these injections. Specifically was asked to keep a pain diary for the next 24 hours using a numeric pain scale of 0-10 and report these results at the follow-up visit. Post procedure instruction was given as documented in the nursing documentation and having met discharge criteria. Patient was discharged from the Pain Management Center. Based on the medial branches blocked today, if the patient has adequate relief and we are able to proceed to radiofrequency ablation, the treatment should result in the denervation of the bilateral L4-L5 and L5-S1 FACET JOINTS. We would expect to denervate a total of 4 facets during the radiofrequency ablation. COMMENTS: She tolerated the procedure well. Post procedure pain VAS was 1/10. Satish Villaseñor DO, MPH [facility]-Pain Management [facility] CC: Joycelyn Will MD, DC
[2022-03-12 14:51] VITALS: BP 177/62; PULSE 67; RESP 16; O2SAT 100
[2022-03-12] MEDS: Bupivacaine 0.5% Pres-Free 10 ML VIAL IJ (14:53)
== END 2022-03-12 13:49 | disposition home or self-care (01) ==
LOC: PC 13:48
PROVIDERS: PCP Family Medicine; Visit Provider Preventive Medicine Occupational Medicine
DX: M47.817 Spondylosis without myelopathy or radiculopathy, lumbosacral region (principal)
CPT/HCPCS: 64493; 64494; 72100

== ENCOUNTER 2022-04-01 02:11 | Outpatient (CLI) | payer BC, SELFPAY ==
[2022-04-01] MEDS: Albuterol HFA 18 GM 200 PUFF INH IH (14:20)
[2022-04-01] MEDS: Inhaler, Assist Device 1 EACH MC (14:21)
--- NOTE | 2022-04-02 07:22 | W.PFT ---
Date of service: 04/01/22 Time of Service: 12:53 Pulmonary Function Test Result Requesting Provider Duchene Indications: Chronic cough Interpretation Spirometry: There is no airflow limitation. There is no significant bronchodilator response. Lung Volumes: Lung volumes are within normal limits. Diffusion Capacity: Diffusion is normal. Airway Pressure: Normal airway resistance. Impression Normal pulmonary function testing. Clinical Correlation therefore is recommended.
== END 2022-04-01 02:12 | disposition home or self-care (01) ==
LOC: RT 02:14
PROVIDERS: PCP Family Medicine; Visit Provider Student in an Organized Health Care Education/Training Program
DX: R05.3 Chronic cough (principal)
CPT/HCPCS: 94060; 94726; 94729

== ENCOUNTER 2022-06-19 03:43 | Outpatient (CLI) | payer BC, SELFPAY ==
[2022-06-19] MEDS: Albuterol HFA 18 GM 200 PUFF INH IH (12:19)
[2022-06-19] MEDS: Inhaler, Assist Device 1 EACH MC (12:20)
[2022-06-19] MEDS: Methacholine 100 MG VIAL IH (12:23)
--- NOTE | 2022-06-22 11:56 | W.PFT ---
Date of service: 06/19/22 Time of Service: 10:04 Pulmonary Function Test Result Requesting Provider Zainab Indications: Coughing Interpretation Spirometry: There was a 10% decrease in FEV1% with administration of 16mg/mL methacholine. Impression Negative methacholine challenge test. Clinical Correlation therefore is recommended.
== END 2022-06-19 03:44 | disposition home or self-care (01) ==
LOC: RT 03:43
PROVIDERS: PCP Family Medicine; Visit Provider Student in an Organized Health Care Education/Training Program
DX: R05.8 Other specified cough (principal)
CPT/HCPCS: 94060; 94070; J7674

== ENCOUNTER 2022-07-16 08:03 | Outpatient (CLI) | payer BC, SELFPAY ==
[2022-07-16 08:27] VITALS: BP 145/65; PULSE 56; RESP 14; TEMP 36.7; O2SAT 98
--- NOTE | 2022-07-16 09:10 | PDOC.PAIN_ITS ---
Pain Clinic Procedure Note Procedure Note Procedure Note: Lumbar/Sacral Medial Branch Blocks #2 Vicky Goel has been referred to the Pain Management Center for lumbar/sacral medial branch blocks. COMMENTS: She did well with her first LMBBs. Pre-procedure pain VAS was 6/10. Dx: Lumbosacral spondylosis without myelopathy Patient was interviewed and the medical record reviewed. There were no medical, pharmacologic, radiographic or other structural contraindications to attempting fluoroscopically guided local anesthetic lumbar/sacral medial branch blocks. Risks and expected side effects as well as potential benefit of the procedure were reviewed and voiced concerns addressed. The printed consent form was signed and witnessed. Standard time-out procedure was performed. Patient was placed in the prone position on the fluoroscopy table and automated blood pressure cuff and pulse oximeter applied. The skin entry points for approaching the anatomic target points of the segmental medial branches of the bilateral L3-L5 were identified with anfluoroscopy and marked. Following thorough Chlorhexadine preparation of the skin and draping, a 25 gauge 3.5 spinal needle was placed under fluoroscopic guidance down on to the target point for each respective segmental medial branch.Position was confirmed in A/P, oblique and lateral views with 0.25ml of omnipaque 240. At this point I injected 0.5ml of 0.5% Bupivacaine at each segmental sensory nerve. Vital signs were stable throughout the procedure and were as recorded in the docflowsheet by the nursing staff. Follow up plans and appointments were discussed and was instructed to keep careful note of how the usual pain was modified by these injections. Specifically was asked to keep a pain diary for the next 24 hours using a numeric pain scale of 0-10 and report these results at the follow-up visit. Post procedure instruction was given as documented in the nursing documentation and having met discharge criteria. Patient was discharged from the Pain Management Center. Based on the medial branches blocked today, if the patient has adequate relief and we are able to proceed to radiofrequency ablation, the treatment should result in the denervation of the bilateral L4-L5 and L5-S1. We would expect to denervate a total of 4 facets during the radiofrequency ablation. COMMENTS: Post-procedure pain VAS 0/10. Satish Villaseñor DO, MPH [facility]-Pain Management [facility]-Center for Pain Management CC: Joycelyn Will MD, DC
[2022-07-16 09:14] VITALS: BP 164/60; PULSE 65; RESP 20; O2SAT 99
[2022-07-16] MEDS: Lidocaine 2% Pres-Free 5 ML VIAL IJ (09:29)
[2022-07-16] MEDS: Omnipaque 240 MG/ML 50 ML BTL IJ (09:29)
--- NOTE | 2022-07-16 09:41 | DI.RAD_ITS ---
Exam(s) XR PAIN CLINIC LUMBAR SP 2V EXAM: XR PAIN CLINIC LUMBAR SP 2V CLINICAL HISTORY: Dx: Lumbar Spondylosis TECHNIQUE: 2D and realtime digital imaging was performed. Radiologist not present. CONTRAST MATERIAL: None. COMPARISON: No exams were available for comparison FINDINGS: Fluoroscopy was provided for pain management therapy. Please refer to procedure report or details. Cumulative dose: Ka,r=8.48 mGy IMPRESSION: RADIATION DOSE DELIVERED:
== END 2022-07-16 08:04 | disposition home or self-care (01) ==
LOC: PC 08:04
PROVIDERS: PCP Family Medicine; Visit Provider Preventive Medicine Occupational Medicine
DX: M47.817 Spondylosis without myelopathy or radiculopathy, lumbosacral region (principal)
CPT/HCPCS: 64493; 64494; 72100; Q9967

== ENCOUNTER 2022-07-31 08:49 | Outpatient (CLI) | payer BC, SELFPAY ==
--- NOTE | 2022-07-31 06:00 | DI.RAD_ITS ---
Exam(s) XR PAIN CLINIC LUMBAR SP 2V EXAM: XR PAIN CLINIC LUMBAR SP 2V CLINICAL HISTORY: Dx: Lumbar Spondylosis TECHNIQUE: 2D and realtime digital imaging was performed. COMPARISON: No exams were available for comparison FINDINGS: C-arm fluoroscopy was utilized by Dr. Villaseñor during reported lumbar medial branch block. Hard copy keyshawn w needle placement bilaterally at what appear to be the L3-4, L4-5, and L5-S1 levels. IMPRESSION: RADIATION DOSE DELIVERED: camille Simon= 22.7 mGy
[2022-07-31 09:11] VITALS: BP 159/65; PULSE 59; RESP 20; TEMP 36.5; O2SAT 98
[2022-07-31] MEDS: fentaNYL 100 MCG/2 ML VIAL IVP (09:52)
[2022-07-31] MEDS: Midazolam 2 MG/2 ML VIAL IVP (09:52)
[2022-07-31 10:37] VITALS: BP 139/66; PULSE 60; RESP 20; O2SAT 99
[2022-07-31] MEDS: Lidocaine 2% Pres-Free 5 ML VIAL IJ (10:41)
[2022-07-31] MEDS: Bupivacaine 0.5% Pres-Free 10 ML VIAL IJ (10:42)
[2022-07-31] MEDS: methylPREDNISolone ACETATE 40 MG/ML VIAL IJ (10:42)
--- NOTE | 2022-07-31 10:54 | PDOC.PAIN_ITS ---
Pain Clinic Procedure Note Procedure Note Procedure Note: Bilateral Lumbar Radiofrequency with Coolief Machine PROCEDURE NOTE Date of Service: July 31, 2022 Patient: Vicky Goel Provider: , MPH Pre Operative Diagnosis: Lumbosacral Spondylosis without Myelopathy Post Operative Diagnosis: Same Pre- procedure pain; VAS= 8/10 PROCEDURE: Radiofrequency Ablation of medial branches - Bilateral L3 L4 L5 and lateral branches of bilateral S1. Vicky Goel was brought into the fluoroscopy suite and positioned into the prone position on the fluoroscopy table and allowed to adjust to a position of comfort. A grounding pad was placed on the [right/left] thigh. The lumbar region was widely prepped with a chloraprep solution, allowed to air dry and draped in standard sterile surgical fashion. Local anesthesia was provided by 4 mL of 2% Lidocaine delivered with a 25g needle. A 17g 100 mm radiofrequency introducer needle was placed to the planned anatomic targets guided with intermittent fluoroscopy with a perpendicular approach to terminally place at the junction of the superior articular process and the transverse process of the bilateral L4 L5, the base of the sacral ala on the bilateral for the L5 medial branch nerve and the area between base of the sacral ala to the S1 foramen bilaterally. The stylets were removed and radiofrequency probes with a 4mm active tip were then inserted. Needle tip position of the probes was verified in the AP, oblique, and lateral views. At each site, the medial branch nerve was stimulated at 2 Hz to a maximum 1-2 volts determined to finalize safe needle and electrode placement. The patient was awake and responsive during this portion of the procedure. Each target was anesthetized with 1-2 mL of 2% Lidocaine for anesthesia for lesioning and then each target was lesioned at 80 degrees Celsius for 2 minutes and 30 seconds. Tissue impedences were noted to be between 250 and 500 Ohms. I then injected 1/4 cc of Depomedrol (40 mg/cc) followed by 1 cc of 0.5% Bupivacaine to each segmental sensory nerve. Electrodes and needles were then removed and bandages placed over the needle placement sites, the patient then returned to the supine position on a stretcher and transported to the recovery room without hemodynamic, neurologic, or allergic reactions. Fluoroscopic images were printed for hard copy recording and digitally archived. POST PROCEDURE EVALUATION: IMPRESSION: 1. Summary of procedure. Medication given is documented in the MAR. 2. The patient will be contacted in 1-3 weeks 3. Estimated Blood Loss: <5 mls 4. Fluoroscopy time: Documented in the EMR. Follow up plans and appointments were discussed with the Vicky . Post procedure instruction was given as documented in nursing documentation and having met discharge criteria, Vicky was discharged from the Pain Management Center. COMMENTS: No apparent complications. Post-procedure pain: VAS= 4/10. F/U with our office as needed. Satish Villaseñor DO, MPH [facility]-Pain Management [facility]-Center for Pain Management
== END 2022-07-31 08:50 | disposition home or self-care (01) ==
LOC: PC 08:52
PROVIDERS: PCP Family Medicine; Visit Provider Preventive Medicine Occupational Medicine
DX: M47.817 Spondylosis without myelopathy or radiculopathy, lumbosacral region (principal)
CPT/HCPCS: 64635; 64636; 72100; J1030; J2250; J3010

== ENCOUNTER → 2022-09-02 02:35 | Outpatient (CLI) | payer BC, SELFPAY ==
--- NOTE | 2022-09-02 06:45 | DI.MAMMO_ITS ---
Exam(s) MAMMO SCREENING EXAM: MAMMO SCREENING CLINICAL HISTORY: screening,z12.39 TECHNIQUE: Bilateral full field digital CC and MLO mammographic images were obtained with 3D tomosyn thesis and utilizing computer aided detection (CAD). COMPARISON: Available for comparison. FINDINGS: Masses/Architectural Distortion: No suspicious masses or areas of architectural distortion are seen. The patient has had a prior breast reduction. There is a stable nodule in the posterior right breas t seen on the CC view. Microcalcifications: No suspicious pleomorphic-type are seen. Skin Thickening/Nipple Retraction: None. IMPRESSION: 1. No significant interval change with no specific features of malignancy noted. 2. Unless there is more urgent need, screening mammography is recommended, as per [employer] guidelines. BI-RADS Category 2 - Benign Findings Breast Density - Category B - Scattered areas of fibroglandular density Breast density category C or D implies that the patient has dense breast tissue. Dense breast tissue is very common and is not abnormal but dense breast tissue can make it harder to find cancer on a ma mmogram. Also, dense breast tissue may increase their breast cancer risk. This information about the result of the mammogram report was provided to the patient to raise their awareness. Use this report when you speak with the patient about their risks for breast cancer, which includes their family hist ory. At that time, you may recommend for more screening tests (Ultrasound or MRI) as they might be us eful based on their risk. A negative radiographic report should not delay biopsy if a dominant or clinically suspicious mass is present. Up to ten percent of cancers are not identified on mammography. A negative report may reinforce clinical impression. Adenosis and dense breasts may obscure an underlying neoplasm. False positive reports average 6 to 10%. Patient will receive a letter notifying them of these results.
== END ==
PROVIDERS: PCP Family Medicine; Visit Provider Family Medicine
DX: Z12.31 Encounter for screening mammogram for malignant neoplasm of breast (principal)
CPT/HCPCS: 77063; 77067

== ENCOUNTER 2022-09-28 09:08 | Emergency (ER) | payer BC, SELFPAY ==
[2022-09-28] VITALS (25 sets, daily range): BP systolic 139–154; BP diastolic 49–61; PULSE 50–71; RESP 11–24; TEMP 36.5; O2SAT 95–100
--- NOTE | 2022-09-28 09:00 | RT.EKG_ITS ---
APPROVED REPORT Exam: Resting ECG Reason for Exam: SOB Patient Location: E HR:56 bpm ECG Measurements Heart Rate 56 AXIS NJ 201 P 44 QRSd 92 QRS 36 QT 437 T 62 QTc 421 Conclusion Sinus bradycardia...rate< 60 st elevation inferior leads
--- NOTE | 2022-09-28 09:30 | DI.CT_ITS ---
Exam(s) CT CHEST PE CTA EXAM: CT CHEST PE CTA CLINICAL HISTORY: chest pain, cough. TECHNIQUE: Imaging Protocol: Axial CT angiography was performed with multi-slice acquisition and mu lti-planar and/or 3D reconstructions. CONTRAST MATERIAL: Intravenous: Omnipaque 350 Contrast volume:structured data in ml COMPARISON: CT CT THORAX ABDOMEN CTA from 01/20/2021 FINDINGS: CT angiography of the chest was performed with intravenous infusion of 100 cc of Omnipaque 350. The lungs are clear. No pleural effusion. Tracheobronchial tree appears intact. No evidence of pulmonary embolic disease. Thoracic aorta is of normal diameter, no thoracic aortic an eurysm or dissection, major branch vessels appear intact. No mediastinal or hilar adenopathy. Images obtained through the upper abdomen show unremarkable appearance of the visualized portions of the liver, spleen, pancreas, adrenals, and kidneys. IMPRESSION: Negative CT angiogram of the chest. No evidence of pulmonary embolic disease. RADIATION DOSE DELIVERED: 344.21mGy.cm Total DLP 344.21mGy.cm Total DLP DATA REPOSITORY: All CT scans at this facility are submitted to the National Radiology Data Registry (NRDR) Dose Index Registry (DIR) with the [employer] (A[employer]). RADIATION OPTIMIZATION: All CT scans at this facility use at least one of these dose optimization te chniques: automated exposure control; mA and/or kV adjustment per patient size (includes targeted exa ms where dose is matched to clinical indication); or iterative reconstruction.
[2022-09-28 09:49] LABS: Abs Immature Grans 0.01 10^3/uL (0.0-0.06); Absolute Basophil Count 0.06 10^3/uL (0.0-0.2); Absolute Eosinophil Count 0.52 10^3/uL (0.0-0.7); Absolute Lymphocyte Count 2.16 10^3/uL (1.2-3.4); Absolute Monocyte Count 0.45 10^3/uL (0.1-0.8); Absolute Neutrophil Count 2.72 10^3/uL (1.2-6.7); Eosinophils % 8.8; HCT 36.5 % (36.0-46.0); HGB 11.9 g/dL (11.2-15.7); Immature Grans % 0.2; Lymphocytes % 36.5; MCH 30.1 pg (27.0-33.0); MCHC 32.6 % (32.0-36.0); MCV 92 fL (80-95); MPV 9.8 fL (8.0-11.0); Monocytes % 7.6; Neutrophils % 45.9; Platelet Count 238 10^3/uL (130-400); RBC 3.96 10^6/uL (3.93-5.22); RDW 11.9 % (11.7-14.6); RDW-SD 40.5 fL; WBC 5.92 10^3/uL (4.4-10.8)
[2022-09-28 10:08] LABS: ALT 14 U/L (14-59); AST 17 U/L (15-37); Albumin 3.5 g/dL (3.4-5.0); Alkaline Phosphatase 82 U/L (46-116); Anion Gap 9.8 mmol/L (3-11); BUN 20 mg/dL (7-18); Bilirubin, Total 0.4 mg/dL (0.2-1.0); CO2 27.2 mmol/L (21.0-32.0); CREATININE 0.9 mg/dL (0.55-1.02); Calcium 9.2 mg/dL (8.5-10.1); Chloride 106 mmol/L (98-107); Estimated GFR 65.84 (mL/min/1.73m2); Glucose 99 mg/dL (74-106); Magnesium 1.9 mg/dL (1.8-2.4); NT-proBNP 309 pg/mL (<300); Potassium 4.1 mmol/L (3.5-5.1); Sodium 143 mmol/L (136-145); Total Protein 7.1 g/dL (6.4-8.2); Troponin I < 50 ng/L (<or=60)
[2022-09-28 10:25] LABS: COVID-19 PCR Negative (Negative); Influenza A PCR Negative (Negative); Influenza B PCR Negative (Negative); RSV PCR Negative (Negative)
[2022-09-28 10:30] LABS: Source Nasopharynx
--- NOTE | 2022-09-28 10:48 | W.ED.GENAD ---
Discharge Plan Disposition Patient Disposition: Home Condition: Stable Discharge Details Clinical Impression: Cough, Abnormal ECG, Coronary artery calcification seen on CAT scan Primary Care Provider: Joycelyn Will ED Provider: Yemi Hoang Home Meds and New Rx's Prescriptions: Continued cholecalciferol (vitamin D3) 1,000 unit capsule 1,000 unit PO DAILY Estring 2 mg (7.5 mcg /24 hour) ring 1 vag ring VG Q3MOS Qty: 1 4RF (DME) Aerochamber MV Spacer See Rx Instructions .Route Qty: 2 1RF Rx Instructions: As directed esomeprazole magnesium 40 mg capsule,delayed release(DR/EC) 40 mg PO BID Qty: 180 4RF rosuvastatin [Crestor] 5 mg tablet 5 mg PO DAILY Qty: 90 12RF atenolol 25 mg tablet 25 mg PO DAILY Qty: 90 3RF multivitamin 1 EACH capsule 1 ea PO DAILY acetaminophen 500 mg tablet 1,000 mg PO Q8H PRN (Reason: pain) Qty: 90 3RF aspirin 81 mg Capsule 81 mg PO DAILY Discharge Instructions Instructions: Acute Cough (ED) Additional Instructions: CT imaging today did not reveal any abnormal findings in your lungs. CT imaging did reveal calcifications of your coronary arteries. ECG today revealed findings and were not present on prior ECG. 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 Diagnostic laboratory work-up was unremarkable. New as omeprazole as prescribed. Start Pepcid at night. Dose according to label. Please contact your primary care physician to arrange follow-up. Return to the ER immediately for any worsening or new concerning symptoms. Referrals: Joycelyn Will MD, [place] [Primary Care Provider] - Medical Decision Making 1050 --77-year-old female here with cough for the past 2 months, worse over the past week with intermittent fits. No associated fever. She has had associated unintentional weight loss recently. Patient is saturating well in no respiratory distress. Patient has had pleuritic chest discomfort. No chest pain at this time Consider pneumonia versus neoplasm versus pulmonary embolism versus other. Screening EKG was reviewed and interpreted by me: Very subtle ST elevation noted 1, 2, 3 and aVF. I compared this to prior EKG from 01-20-2021 and this was not present at that time. I will send troponin. -- CTA of the chest with contrast interpreted by radiology: Lungs unremarkable, no consolidation, no masses. Pulmonary arteries with no evidence of pulmonary embolism to the segmental level. Aorta without aneurysm or dissection. Patient does have coronary artery calcifications. Labs reviewed and unremarkable. Unclear etiology for patient's symptoms. I suspect GERD contributing. Patient is on esomeprazole. I have recommended that she take Pepcid at night in addition to this. Coronary artery calcification on CT in addition to EKG changes, I will have her follow-up for stress test and advised her to discuss with her juice packaging machines setter SURESH. Plan for discharge with outpatient follow-up. All results were discussed with the patient as well as discharge treatment plan. Lab Data Lab results reviewed: Yes I reviewed the patient's lab results. Labs: Laboratory Tests Range/Units 09/28/22 09/28/22 09/28/22 09:38 09:38 09:38 WBC (4.4-10.8) 10^3/uL 5.92 RBC (3.93-5.22) 10^6/uL 3.96 Hgb (11.2-15.7) g/dL 11.9 Hct (36.0-46.0) % 36.5 MCV (80-95) fL 92 MCH (27.0-33.0) pg 30.1 MCHC (32.0-36.0) % 32.6 RDW (11.7-14.6) % 11.9 Plt Count (130-400) 10^3/uL 238 MPV (8.0-11.0) fL 9.8 Immature Gran % 0.2 Neutrophils % 45.9 Lymphocytes % 36.5 Monocytes % 7.6 Eosinophils % 8.8 Basophils % 1.0 Nucleated RBC % (0.0-0.3) % 0.0 Absolute Neutrophils (1.2-6.7) 10^3/uL 2.72 Absolute Lymphocytes (1.2-3.4) 10^3/uL 2.16 Absolute Monocytes (0.1-0.8) 10^3/uL 0.45 Absolute Eosinophils (0.0-0.7) 10^3/uL 0.52 Absolute Basophils (0.0-0.2) 10^3/uL 0.06 Sodium (136-145) mmol/L 143 Potassium (3.5-5.1) mmol/L 4.1 Chloride (98-107) mmol/L 106 Carbon Dioxide (21.0-32.0) mmol/L 27.2 Anion Gap (3-11) mmol/L 9.8 BUN (7-18) mg/dL 20 H Creatinine (0.55-1.02) mg/dL 0.9 Est GFR (CKD-EPI 2020) (mL/min/1.73m2) 65.84 Glucose (74-106) mg/dL 99 Calcium (8.5-10.1) mg/dL 9.2 Magnesium (1.8-2.4) mg/dL 1.9 Total Bilirubin (0.2-1.0) mg/dL 0.4 AST (15-37) U/L 17 ALT (14-59) U/L 14 Alkaline Phosphatase (46-116) U/L 82 Troponin I (<or=60) ng/L < 50 NT-Pro-B Natriuret Pep (<300) pg/mL 309 H Total Protein (6.4-8.2) g/dL 7.1 Albumin (3.4-5.0) g/dL 3.5 COVID-19 Source Nasopharynx SARS-CoV-2 (PCR) (Negative) Negative Influenza Type A (PCR) (Negative) Negative Influenza Type B (PCR) (Negative) Negative RSV (PCR) (Negative) Negative Range/Units 09/28/22 12:31 WBC (4.4-10.8) 10^3/uL RBC (3.93-5.22) 10^6/uL Hgb (11.2-15.7) g/dL Hct (36.0-46.0) % MCV (80-95) fL MCH (27.0-33.0) pg MCHC (32.0-36.0) % RDW (11.7-14.6) % Plt Count (130-400) 10^3/uL MPV (8.0-11.0) fL Immature Gran % Neutrophils % Lymphocytes % Monocytes % Eosinophils % Basophils % Nucleated RBC % (0.0-0.3) % Absolute Neutrophils (1.2-6.7) 10^3/uL Absolute Lymphocytes (1.2-3.4) 10^3/uL Absolute Monocytes (0.1-0.8) 10^3/uL Absolute Eosinophils (0.0-0.7) 10^3/uL Absolute Basophils (0.0-0.2) 10^3/uL Sodium (136-145) mmol/L Potassium (3.5-5.1) mmol/L Chloride (98-107) mmol/L Carbon Dioxide (21.0-32.0) mmol/L Anion Gap (3-11) mmol/L BUN (7-18) mg/dL Creatinine (0.55-1.02) mg/dL Est GFR (CKD-EPI 2020) (mL/min/1.73m2) Glucose (74-106) mg/dL Calcium (8.5-10.1) mg/dL Magnesium (1.8-2.4) mg/dL Total Bilirubin (0.2-1.0) mg/dL AST (15-37) U/L ALT (14-59) U/L Alkaline Phosphatase (46-116) U/L Troponin I (<or=60) ng/L Cancelled NT-Pro-B Natriuret Pep (<300) pg/mL Total Protein (6.4-8.2) g/dL Albumin (3.4-5.0) g/dL COVID-19 Source SARS-CoV-2 (PCR) (Negative) Influenza Type A (PCR) (Negative) Influenza Type B (PCR) (Negative) RSV (PCR) (Negative) Sign Out No HPI General Mode of arrival: ambulatory. Date/Time Provider Initiated Documentation: 09/28/22 09:31. Limitations to Documentation: no limitations. Information obtained by: patient. HPI Narrative: 77-year-old female presents with chief complaint of cough. Patient notes dry, harsh cough that she has been experiencing over the past few months. Cough is been worse over the past 1 week. She states last night she was unable to sleep because she was coughing in fits. Patient notes she feels like she has to get something out and has trouble doing it. She was able to produce some phlegm this morning. She does note feeling some crackles in her chest last night. She has some associated chest discomfort when she coughs. No chest pain at this time. Related Data Home Medications Medication Instructions Recorded Confirmed multivitamin 1 ea PO DAILY 08/31/14 09/28/22 cholecalciferol (vitamin D3) 25 1,000 unit PO DAILY 09/08/19 09/28/22 mcg (1,000 unit) capsule acetaminophen 500 mg tablet 1,000 mg PO Q8H PRN pain #90 tabs 12/06/19 09/28/22 esomeprazole magnesium 40 mg 40 mg PO BID #180 tab-caps 10/28/21 09/28/22 capsule,delayed release rosuvastatin 5 mg tablet (Crestor) 5 mg PO DAILY #90 tab-caps 10/28/21 09/28/22 estradiol 2 mg (7.5 mcg/24 hour) 1 vag ring vaginal Q3MOS #1 ea 01/16/22 09/28/22 vaginal ring (Estring) inhalational spacing device #2 ea 02/17/22 09/22/22 (Aerochamber MV spacer) aspirin 81 mg capsule 81 mg PO DAILY 03/12/22 09/28/22 atenolol 25 mg tablet 25 mg PO DAILY #90 tabs 07/30/22 09/28/22 Previous Rx's Medication Instructions Recorded acetaminophen 500 mg tablet 1,000 mg PO Q8H PRN pain #90 tabs 12/06/19 esomeprazole magnesium 40 mg 40 mg PO BID #180 tab-caps 10/28/21 capsule,delayed release rosuvastatin 5 mg tablet (Crestor) 5 mg PO DAILY #90 tab-caps 10/28/21 estradiol 2 mg (7.5 mcg/24 hour) 1 vag ring vaginal Q3MOS #1 ea 01/16/22 vaginal ring (Estring) inhalational spacing device #2 ea 02/17/22 (Aerochamber MV spacer) atenolol 25 mg tablet 25 mg PO DAILY #90 tabs 07/30/22 Allergies Allergy/AdvReac Type Severity Reaction Status Date / Time Penicillins Allergy RASH/BREATHING Verified 09/28/22 09:27 PROBLEMS atorvastatin calcium AdvReac Intermediate LEG CRAMPS Verified 09/28/22 09:27 [From Lipitor] General Stated Complaint: RespSymp NESS: 3 Review of Systems Narrative: recent 20lb weight loss All systems reviewed & are unremarkable except as noted in HPI and below Constitutional Constitutional: Denies fever(s) Respiratory Respiratory: Reports as per HPI PFSH All Active Problems (Updated 09/28/22 @ 11:40 by Yemi Hoang MD) Cough (Acute) Abnormal ECG (Acute) Coronary artery calcification seen on CAT scan (Acute) Breast pain in female (Acute) Vertigo (Acute) Cough (Acute) Post-nasal drip (Acute) Weight loss (Acute) Arthritis of left knee (Acute) DEPO MEDROL 03/20/22 Meralgia paresthetica of right side (Acute) Lumbosacral spondylosis without myelopathy (Acute) Tear of medial meniscus of left knee (Acute) Acute low back pain due to spinal disorder (Acute) Chest pain (Acute) Serrated adenoma of colon (Acute ~11/2020) Leg pain, right (Acute) Anxiety (Chronic 01/17/09) Essential hypertension (Chronic 09/05/13) Hyperlipidemia (Chronic 01/11/09) Vitamin D deficiency (Chronic 07/01/11) 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) Cervical spondylosis without myelopathy (Acute) Temporomandibular joint disorder (Acute 07/24/16) Sacroiliac joint pain (Acute) Balance problem (Acute 09/24/06) Endometriosis (Acute) Tinnitus, bilateral (Acute) Vertigo (Acute) Elevated glucose (Acute) Sensorineural hearing loss of both ears (Acute) Obstructive sleep apnea (adult) (pediatric) (Acute) Disequilibrium (Acute) Globus sensation (Acute) Temporal pain (Acute) Peripheral edema (Acute) Right leg weakness (Acute) Right lumbar radiculopathy (Acute) Status post total replacement of right hip (Acute 12/06/19) Trochanteric bursitis, right hip (Acute) Supraventricular tachycardia (Chronic) on atenolol Sleep apnea, unspecified (Chronic 09/12/15) Shoulder pain, right (Chronic 08/17/14) Reflux esophagitis (Chronic 06/02/17) MILD-DR. TEZ GUZMAN Peripheral neuralgia (Chronic) EMG-01/29; mild slowing of right ulnar @elbow Osteopenia (Chronic) T scores of -1.2, -1.4 Mantoux: positive (Chronic) 1999 Hiatal hernia (Chronic 08/17/13) 2005 EGD showing HH, polyps and gastric fundi, non-obstructing ring in the GI junction Diverticula of colon (Chronic) 12/26/15; DR. 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 states this wasn't related to her heart but her esophagitis Chronic GERD Cough due to bronchospasm (02/24/17) Degenerative joint disease of right hip Injections under fluoroscopy x2: 12/2017; 06/2019 s/p Anterior R URIEL: 12/06/19 Deviated nasal septum Dry lips Elevated erythrocyte sedimentation rate (01/17/09) Esophagitis Esophagitis Essential hypertension Fatigue (07/01/11) GERD (gastroesophageal reflux disease) Herpes zoster without complication (12/10/15) History of echocardiogram Hyperlipidemia Impacted cerumen of both ears Irritable bowel syndrome (IBS) Pt reported Not on immune modulating medications Meralgia paresthetica of right side (08/18/17) Nasal congestion Nasal obstruction (09/12/15) Neoplasm of unspecified behavior of bone, soft tissue, and skin saw ENT states was benign Pain of left breast (01/05/17) Skin tags, multiple acquired supraventricular reflux disease Vitamin D deficiency Surgical History Cholecystectomy (~2004) colonoscopy CYSTECTOMY (~1971) EGD - IV Sedation (08/17/13) HIATAL HERNIA EGD - MAC (06/02/17) ENDOMETRIAL SURGERY 1992 History of esophagogastroduodenoscopy History of lumpectomy of both breasts PROCEDURES EMG 01/29 with mild swelling of the right ulnar nerve of the elbow Echocardiogram 03/31 showing an ejection fraction of 65% and an upper septal hypertrophy grade 1, Diastolic dysfunction. Repeat echo 07 showing an ejection fraction of 60% and mild MRTR Reduction mammoplasty (~2001) B/L Family History Mother , age 87 Alzheimer's disease Heart disease Uterine cancer Father , age 67 Leukemia Sister Heart disease Hyperlipidemia Breast cancer Sister , BACTERIAL DISEASE at age 3. Cancer Brother , age 43 Essential hypertension Heart disease Hyperlipidemia Brother , age 67 Essential hypertension Heart disease Hyperlipidemia Brother , age 66 Pancreatic cancer Maternal Grandfather Heart disease Paternal Grandfather Pancreatic cancer Maternal Grandmother Cerebral hemorrhage Paternal Grandmother Heart disease Cancer FAMILY HISTORY Aneurysm Hyperlipidemia Neoplasm IBS (irritable bowel syndrome) Social History Smoking/Tobacco Use Status: Former Tobacco Use tobacco type: cigarettes Quit Date: 10/26/69 Tobacco: How many years used: 5 Second Hand Exposure: Yes Smoking risk assessment performed?: Yes Alcohol Intake: current Alcohol Intake frequency: holidays/special occasions only Alcohol type: wine Drug use: Never Substance use type: does not use Caregiver/Support person: No Household members: spouse Do you need help understanding health information?: Never current occupation: Retired Pets and animals: No Do you think of yourself as: straight/heterosexual Current gender identity: female What is your relationship status?: How often do you talk on the phone with friends or family?: once per week How often do you get together with friends or relatives?: decline to answer How often do you attend christianity or mormon services?: decline to answer Do you belong to any clubs or organized social groups?: no Panel score (0-1 are the most socially isolated patients): 1 Radha/Christian: Pentecostalism Seatbelt use: always Drive intox 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 auto driver: No Do you feel safe at home: Yes Do you feel safe in your relationship?: Yes Would you like helpful sources: No Exam Const General: cooperative and no acute distress HENMT Mouth: moist mucous membranes Eyes Conjunctivae: normal conjunctivae Sclera: normal sclerae Neck Neck: trachea midline and supple Resp Auscultation: clear to auscultation bilaterally, no rales, no rhonchi and no wheezes Cardio Rate: regular rate and not tachycardic Rhythm: regular rhythm GI Palpation: soft, not firm, no guarding, no masses, not rigid and nontender Skin General skin exam: no rashes or lesions noted Neuro General: patient alert, patient awake and tone normal Extrem General: no edema Psych Appearance: grossly normal Mental Status: mental status grossly normal Course Vital Signs Vital signs: Vital Signs Respiratory Rate 24 09/28/22 09:18 Pulse Oximetry 99 09/28/22 09:18 Temperature 36.5 C 09/28/22 09:23 Temperature Source Skin 09/28/22 09:23 Pulse 50 L 09/28/22 10:32 Pulse 51 L 09/28/22 10:30 Respiratory Rate 12 09/28/22 10:30 Respiratory Effort Non-Labored 09/28/22 09:49 Respiratory Depth Normal 09/28/22 09:49 Blood Pressure 150/49 H 09/28/22 10:32 Blood Pressure Mean 75 09/28/22 10:32 Blood Pressure Position Sitting 09/28/22 09:23 Pulse Oximetry 98 09/28/22 10:30 Oxygen Delivery Method Room Air 09/28/22 09:23 Oxygen Flow Rate 0 09/28/22 09:23 Pain Level 5 09/28/22 09:23 Lab/Test Results Lab/Test Results: Laboratory Tests Range/Units 09/28/22 09/28/22 09/28/22 09:38 09:38 09:38 WBC (4.4-10.8) 10^3/uL 5.92 RBC (3.93-5.22) 10^6/uL 3.96 Hgb (11.2-15.7) g/dL 11.9 Hct (36.0-46.0) % 36.5 MCV (80-95) fL 92 MCH (27.0-33.0) pg 30.1 MCHC (32.0-36.0) % 32.6 RDW (11.7-14.6) % 11.9 Plt Count (130-400) 10^3/uL 238 MPV (8.0-11.0) fL 9.8 Immature Gran % 0.2 Neutrophils % 45.9 Lymphocytes % 36.5 Monocytes % 7.6 Eosinophils % 8.8 Basophils % 1.0 Nucleated RBC % (0.0-0.3) % 0.0 Absolute Neutrophils (1.2-6.7) 10^3/uL 2.72 Absolute Lymphocytes (1.2-3.4) 10^3/uL 2.16 Absolute Monocytes (0.1-0.8) 10^3/uL 0.45 Absolute Eosinophils (0.0-0.7) 10^3/uL 0.52 Absolute Basophils (0.0-0.2) 10^3/uL 0.06 Sodium (136-145) mmol/L 143 Potassium (3.5-5.1) mmol/L 4.1 Chloride (98-107) mmol/L 106 Carbon Dioxide (21.0-32.0) mmol/L 27.2 Anion Gap (3-11) mmol/L 9.8 BUN (7-18) mg/dL 20 H Creatinine (0.55-1.02) mg/dL 0.9 Est GFR (CKD-EPI 2020) (mL/min/1.73m2) 65.84 Glucose (74-106) mg/dL 99 Calcium (8.5-10.1) mg/dL 9.2 Magnesium (1.8-2.4) mg/dL 1.9 Total Bilirubin (0.2-1.0) mg/dL 0.4 AST (15-37) U/L 17 ALT (14-59) U/L 14 Alkaline Phosphatase (46-116) U/L 82 Troponin I (<or=60) ng/L < 50 NT-Pro-B Natriuret Pep (<300) pg/mL 309 H Total Protein (6.4-8.2) g/dL 7.1 Albumin (3.4-5.0) g/dL 3.5 COVID-19 Source Nasopharynx SARS-CoV-2 (PCR) (Negative) Negative Influenza Type A (PCR) (Negative) Negative Influenza Type B (PCR) (Negative) Negative RSV (PCR) (Negative) Negative
--- NOTE | 2022-09-28 11:17 | DI.VRAD_ITS ---
PROCEDURE INFORMATION: Exam: CTA Chest With Contrast Exam date and time: 09/28/2022 10:52 AM Age: 77 years old Clinical indication: Other: Chest pain, cough TECHNIQUE: Imaging protocol: Computed tomographic angiography of the chest with contrast. 3D rendering (Not supervised by radiologist): MIP and/or 3D reconstructed images were created by the technologist. Contrast material: OMNIPAQUE 350; Contrast volume: 100 ml; Contrast route: INTRAVENOUS (IV); COMPARISON: CT THORAX ABDOMEN CTA 01/20/2021 1:20 AM FINDINGS: Pulmonary arteries: No evidence of pulmonary embolus to the segmental level. Aorta: No aneurysm of the aorta. No dissection of the aorta. Lungs: Unremarkable. No consolidation. No masses. Pleural spaces: Unremarkable. No pneumothorax. No pleural effusion. Heart: Coronary artery calcifications may indicate coronary artery disease. Lymph nodes: Unremarkable. No enlarged lymph nodes. Bones/joints: Unremarkable. No acute fracture. Soft tissues: Unremarkable. IMPRESSION: 1. No evidence of pulmonary embolus to the segmental level. 2. No aneurysm of the aorta. 3. No dissection of the aorta. Dictated and Authenticated by: Maxim Zayas MD. Ordering:MASOOD Bragg MD
== END 2022-09-28 11:40 | disposition home or self-care (01) ==
PROVIDERS: Emergency Provider Student in an Organized Health Care Education/Training Program; PCP Family Medicine
DX: I25.10 Atherosclerotic heart disease of native coronary artery without angina pectoris (principal); R05.9 Cough, unspecified; R94.31 Abnormal electrocardiogram [ECG] [EKG]; I10 Essential (primary) hypertension; Z79.82 Long term (current) use of aspirin; Z20.822 Contact with and (suspected) exposure to COVID-19; Z87.891 Personal history of nicotine dependence; Z90.49 Acquired absence of other specified parts of digestive tract
CPT/HCPCS: 71275; 80053; 87637; 93005; 99285; 83735; 83880; 84484; 85025; 93010

== ENCOUNTER 2023-01-05 01:20 | Outpatient (CLI) | payer BC, SELFPAY ==
--- NOTE | 2023-01-05 07:00 | DI.NM_ITS ---
APPROVED REPORT Exam: Exercise Treadmill Patient Location: Out-Patient Room/Bed: Stress Nurse: Sirena Solis RN Ordering Provider:JOSE COOK, Contact Number: [phone] BMI: 26.77 Baseline Rhythm: Sinus Rhythm Comment: PAC's Indications: Chest pain, abnormal EKG Medical History Medical History: HTN, anxiety, HLD, balance problems, ataxia, vertigo, SRINIVAS, peripheral edema, SVT, CA calcification, GERD Cardiac Medications: Atenolol, rosuvastatin, aspirin, rosuvastatin, esomeprazole Allergies: Penicillins, Atorvastatin Cardiac Risk Factors: Family hx, HTN, HLD Previous Cardiac Procedures: None Pretest Chest Pain Characteristics: None Exercise History: Indeterminate Physical Disabilities: right hip replacement, hx knee discomfort Lung Sounds: Clear, Clear to auscultation Heart Sounds: Regular Stress Test Details Test: Exercise stress testing was performed using a Caleb protocol. Reason for pharmacologic stress test: Per physcian order. Nuclear Acquisition: Rest Tc-99m/Stress Tc-99m 1 day Rest Isotope: Tc-99m Sestamibi. Dose: 9.0 Date: 01/05/2023 Injection Time: 0920 Stress Isotope: Tc-99m Sestamibi. Dose: 31 Date: 01/05/2023 Injection Time: 1040 HR Resting HR Supine: 69 bpm Max Heart Rate (APMHR): 143.273913 bpm Resting HR Standin bpm Target HR (85% APMHR): 121.303714 bpm Max HR Achieved: 132 bpm % of APMHR: 92.31 Recovery HR: 81 bpm HR response to stress: Normal HR response to stress Comment: Patient held beta serina per MD order for 72 hours prior to test BP Resting BP Supine: 120/70 mmHg Resting BP Standin/74 mmHg Max BP: 198/90 mmHg Recovery BP: 142/84 mmHg BP response to stress: Normal blood pressure response to stress. ECG Resting ECG: Sinus Rythm with PAC's Ectopy: PAC's Stress ECG: Sinus Tachycardia ST Change: No significant ST segment changes noted Recovery ECG: Sinus rythm with PVC's Recovery ST Change: No significant ST segment changes noted Recovery Arrhythmia: PVC's Clinical Reason for Termination: Fatigue Stress Symptoms: General Fatigue, shoulder blade pain during recovery Exercise duration: 4 min44 sec Highest Stage Reached: Stage 2: 2.5 mph at 12% grade. Exercise capacity: 6.7 METs Angina Score: None Acosta Treadmill Score: 4.4 Rate Pressure Product: [id number] Stress ECG Conclusion 1. Resting electrocardiogram was within normal limits 2. Patient underwent exercise testing using a Caleb protocol and completed a workload of 6.7 METS 3. Normal heart rate and blood pressure response to exercise. The patient achieved 92% of predicted heart rate for age 4. There was no electrocardiographic evidence of myocardial ischemia 5. Atrial and ventricular ectopic beats were noted 6. See MPI report Acosta Treadmill Score is 4.4 which is Moderate risk. Stress Test Summary STAGE Time (mins) Speed (mph) Grade (%) HR BP SpO2 SYMPTOMS METS Supine 69 120/70 Standing 76 140/74 1 3 1.7 10 106 144/80 4.5 2 6 2.5 12 132 7 1 min recovery 103 198/90 Pain between shoulder blades 9/10 when supine 3 min recovery 73 162/68 Pain between shoulder blades 4/10 6 min recovery 81 142/84 Pain 0/10 by 4.5 minutes into recovery Patient asymptomatic during exercise. Post test when returned to stretcher, verbalized pain between s houlder blades 9/10. Patient repositioned, provided with water and engaging in conversation. Within 2 minutes of recovery patient verbalized pain starting to decrease, within 3 minutes into recovery nancy n was 4/10 and by 4.5 minutes pain had resolved. MPI Conclusion Myocardial perfusion is normal. There is no evidence of ischemia or prior infarction EF is 71% with normal wall motion Radiologist Interpretation Radiologist agrees with [employer] Representative's Interpretation. Radiologist Interpretation by: Kim Galeas MD Interpretation Date/Time: 01/06/2023 16:26:38
== END 2023-01-05 01:40 ==
PROVIDERS: PCP Family Medicine; Visit Provider Family Medicine
DX: I25.10 Atherosclerotic heart disease of native coronary artery without angina pectoris (principal); R07.9 Chest pain, unspecified; R94.31 Abnormal electrocardiogram [ECG] [EKG]
CPT/HCPCS: 78452; 93017

== ENCOUNTER 2023-01-12 12:35 | Outpatient (CLI) | payer BC, SELFPAY ==
--- NOTE | 2023-01-12 14:45 | DI.RAD_ITS ---
Exam(s) XR KNEE RT 3V AP,LAT,BRUCE EXAM: XR KNEE RT 3V AP,LAT,BRUCE CLINICAL HISTORY: right knee pain. TECHNIQUE: 2D digital imaging was performed. COMPARISON: CR XR KNEE LT 2V AP,LAT from 12/13/2021 FINDINGS: 3 views No evidence of fracture nor prominent joint effusion. Minimal degenerative changes. Bone density ag e-appropriate. IMPRESSION: As above. DATA REPOSITORY: RADIATION DOSE DELIVERED:
== END 2023-01-12 12:36 | disposition home or self-care (01) ==
LOC: DIORS 06-23 12:36
PROVIDERS: PCP Family Medicine; Visit Provider Student in an Organized Health Care Education/Training Program
DX: M79.604 Pain in right leg (principal)
CPT/HCPCS: 73562

== ENCOUNTER 2023-02-20 00:46 | Outpatient (CLI) | payer BC, SELFPAY ==
--- NOTE | 2023-02-20 06:45 | DI.RAD_ITS ---
Exam(s) XR SHOULDER LT COMPLETE 2+V EXAM: XR SHOULDER LT COMPLETE 2+V CLINICAL HISTORY: l shoulder pain,M25.512. TECHNIQUE: 2D digital imaging was performed. Three views. COMPARISON: CR XR SHOULDER LT COMPLETE 2+V from 07/12/2021 FINDINGS: BONES: No acute fracture is present. No bony destructive lesion is seen. JOINTS: No dislocation present. No significant periarticular spurring. No significant glenohumeral joint space narrowing. SOFT TISSUE: Normal. IMPRESSION: Unremarkable radiographs of the left shoulder. DATA REPOSITORY: RADIATION DOSE DELIVERED:
== END 2023-02-20 01:06 ==
LOC: DI 00:46
PROVIDERS: PCP Family Medicine; Visit Provider Family Medicine
DX: M25.512 Pain in left shoulder (principal)
CPT/HCPCS: 73030

== ENCOUNTER → 2023-07-08 01:22 | Outpatient (CLI) | payer BC, SELFPAY ==
--- NOTE | 2023-07-08 15:04 | DI.RAD_ITS ---
Exam(s) XR FOOT RT COMPLETE EXAM: XR FOOT RT COMPLETE CLINICAL HISTORY: 5th toe Right pain after stubbing it,m79.024. TECHNIQUE: 2D digital imaging was performed. COMPARISON: No exams were available for comparison FINDINGS: No evidence of acute fracture or diastasis of the Lisfranc joint. Bone density age-appropriate. No osseous lesions. No erosions. Mild hallux valgus. No narrowing of the great toe metatarsophalangea l joint evident. No pes planus. No inferior calcaneal spur. No osseous tarsal coalition. There appears to be mild degenerative change at the 3rd tarsometatarsal joint. IMPRESSION: Mild findings as above. DATA REPOSITORY: RADIATION DOSE DELIVERED:
== END ==
PROVIDERS: PCP Family Medicine; Visit Provider Family Medicine
DX: M79.674 Pain in right toe(s) (principal)
CPT/HCPCS: 73630

== ENCOUNTER → 2023-07-16 02:56 | Outpatient (CLI) | payer BC, SELFPAY ==
--- NOTE | 2023-07-16 07:30 | DI.CT_ITS ---
Exam(s) CT ABDOMEN PELVIS W EXAM: CT ABDOMEN PELVIS W CLINICAL HISTORY: chronic abd/pelvic pain,wt loss,hiatal hernia,r63.4,r10.9 TECHNIQUE: Imaging Protocol: Axial computed tomography images with coronal and sagittal reformatted images were created and reviewed CONTRAST MATERIAL: Intravenous: Omnipaque 350 Contrast volume:100 mL Oral: Yes COMPARISON: CT CT THORAX ABDOMEN CTA from 01/20/[address] CHEST PE CTA from 09/28/2022 CT,NM,TMT NM MPI REST STRESS GRP from 01/05/2023 FINDINGS: ABDOMEN: Lung Bases: There is a new 3 mm nodule in the right lower lobe. There is a small pericardial effusio n. Liver: Normal density. No measurable mass. Portal, Superior Mesenteric, and Splenic Veins: Unremarkable. Gallbladder and Biliary Tract: Status post cholecystectomy. No significant biliary ductal dilatation is seen in this post cholecystectomy patient. It is unchanged compared to prior examinations. Pancreas: Normal density, no abnormal calcifications or inflammatory process. Spleen: Normal. Adrenals: No masses seen. Kidneys: Normal size, contour and axis. No radiodense stones or obstructive uropathy. No masses seen. Abdominal Aorta: Abdominal portion non-dilated. Atherosclerosis. Bowel: No obstruction or bowel wall thickening. Appendix is unremarkable. There is diverticulosis of the colon, but no evidence of acute diverticulitis. Peritoneal Cavity: No ascites, collection or mesenteric inflammatory response. No free air. Lymph Nodes: Within normal limits. Bones: Within normal limits for the patient's age. The patient has a right total hip replacement. Soft Tissues: Unremarkable. PELVIS: Bladder: Symmetric distention, no gross wall thickening. Reproductive Organs: Unremarkable as visualized. There is a pessary in place. Lymph Nodes: Within normal limits. Bones: Within normal limits for the patient's age. IMPRESSION: 1. No acute abdominal or pelvic process. 2. No evidence of an abdominal mass or adenopathy. 3. Colonic diverticulosis without evidence of acute diverticulitis. 4. 3 mm right lower lobe pulmonary nodule. Nonemergent CT scan of the chest is recommended for [facility] evaluation. RADIATION DOSE DELIVERED: 816.37mGy.cm Total DLP DATA REPOSITORY: All CT scans at this facility are submitted to the National Radiology Data Registry (NRDR) Dose Index Registry (DIR) with the [employer] (A[employer]). RADIATION OPTIMIZATION: All CT scans at this facility use at least one of these dose optimization te chniques: automated exposure control; mA and/or kV adjustment per patient size (includes targeted exa ms where dose is matched to clinical indication); or iterative reconstruction.
[2023-07-16 08:41] LABS: CREATININE 0.9 mg/dL (0.55-1.02); Estimated GFR 65.44 (mL/min/1.73m2)
[2023-07-16] MEDS: Normal Saline - Diluent 50 ML VIAL IJ (10:19)
[2023-07-16] MEDS: Omnipaque 350 MG/ML 500 ML BTL-Imaging package IJ (10:20)
== END ==
PROVIDERS: PCP Family Medicine; Visit Provider Family Medicine
DX: Z01.812 Encounter for preprocedural laboratory examination (principal); K57.30 Diverticulosis of large intestine without perforation or abscess without bleeding; R91.1 Solitary pulmonary nodule
CPT/HCPCS: 74177; 82565

== ENCOUNTER 2024-01-14 10:47 | Outpatient (REF) | payer BC, SELFPAY ==
[2024-01-14 12:13] LABS: Abs Immature Grans 0.01 10^3/uL (0.0-0.06); Absolute Basophil Count 0.06 10^3/uL (0.0-0.2); Absolute Lymphocyte Count 1.09 10^3/uL (1.2-3.4); Absolute Monocyte Count 0.41 10^3/uL (0.1-0.8); Absolute Neutrophil Count 3.76 10^3/uL (1.2-6.7); Eosinophils % 11.6; HCT 35.9 % (36.0-46.0); HGB 11.8 g/dL (11.2-15.7); Immature Grans % 0.2; Lymphocytes % 18.1; MCH 31.1 pg (27.0-33.0); MCHC 32.9 % (32.0-36.0); MCV 95 fL (80-95); MPV 10.1 fL (8.0-11.0); Monocytes % 6.8; Neutrophils % 62.3; Platelet Count 224 10^3/uL (130-400); RDW 12.8 % (11.7-14.6); RDW-SD 44.5 fL; WBC 6.03 10^3/uL (4.4-10.8)
[2024-01-14 13:28] LABS: Anion Gap 8.5 mmol/L (3-11); BUN 14 mg/dL (7-18); CO2 27.5 mmol/L (21.0-32.0); CREATININE 0.8 mg/dL (0.55-1.02); Calcium 9.1 mg/dL (8.5-10.1); Chloride 108 mmol/L (98-107); Estimated GFR 75.37 (mL/min/1.73m2); Glucose 88 mg/dL (74-106); NT-proBNP 467 pg/mL (<300); Potassium 4.1 mmol/L (3.5-5.1); Sodium 144 mmol/L (136-145)
== END 2024-01-14 10:48 | disposition home or self-care (01) ==
LOC: LBN 10:47
PROVIDERS: PCP Family Medicine; Visit Provider Nurse Practitioner Family
DX: R05.8 Other specified cough (principal); R06.89 Other abnormalities of breathing; R07.81 Pleurodynia
CPT/HCPCS: 80048; 83880; 85025

== ENCOUNTER 2024-02-26 23:01 | Emergency (ER) | payer BC, SELFPAY ==
[2024-02-26] VITALS (9 sets, daily range): BP systolic 177–214; BP diastolic 60–65; PULSE 57–72; RESP 12–17; TEMP 36.4; O2SAT 99–100
--- NOTE | 2024-02-26 23:00 | RT.EKG_ITS ---
APPROVED REPORT Exam: Resting ECG Reason for Exam: chest pain Patient Location: E HR:64 bpm ECG Measurements Heart Rate 64 AXIS MO 200 P 58 QRSd 83 QRS 31 QT 424 T 55 QTc 436 Conclusion Sinus rhythm...normal P axis, V-rate 60- [address] segment or T wave abnormalities to suggest occlusive [place]
[2024-02-26 23:28] LABS: Bilirubin Negative (Negative); Blood Trace-intact (Negative); Clarity Clear (Clear); Glucose Negative (Negative); Ketones Negative (Negative); Leukocyte Esterase Negative (Negative); Nitrite Negative (Negative); Urobilinogen 0.2 mg/dL (Up to 0.2); pH 6.5 (5-8)
[2024-02-26 23:30] LABS: Lactate 0.5 mmol/L (0.6-1.4)
[2024-02-26 23:31] LABS: Abs Immature Grans 0.01 10^3/uL (0.0-0.06); Absolute Basophil Count 0.02 10^3/uL (0.0-0.2); Absolute Lymphocyte Count 3.91 10^3/uL (1.2-3.4); Absolute Monocyte Count 0.55 10^3/uL (0.1-0.8); Absolute Neutrophil Count 3.45 10^3/uL (1.2-6.7); Basophils % 0.2 %; Eosinophils % 3.6 %; Immature Grans % 0.1 %; Lymphocytes % 47.5 %; MCH 31.3 pg (27.0-33.0); MCHC 33.3 % (32.0-36.0); MCV 94 fL (80-95); MPV 9.6 fL (8.0-11.0); Monocytes % 6.7 %; Neutrophils % 41.9 %; Platelet Count 227 10^3/uL (130-400); RBC 3.83 10^6/uL (3.93-5.22); RDW 12.2 % (11.7-14.6); RDW-SD 42.4 fL; WBC 8.24 10^3/uL (4.4-10.8)
[2024-02-26 23:41] LABS: Bacteria Rare HPF (Negative); C & S Indicated? No; Casts Negative LPF (Negative); Crystals Negative HPF (Negative); Epithelial Cells Few HPF (Negative); Mucus Negative (Negative); RBC 0-2 HPF (0-2); WBC Negative HPF (0-5)
[2024-02-26 23:52] LABS: ALT 17 U/L (14-59); AST 14 U/L (15-37); Albumin 3.4 g/dL (3.4-5.0); Alkaline Phosphatase 81 U/L (46-116); Anion Gap 4.4 mmol/L (3-11); BUN 16 mg/dL (7-18); Bilirubin, Total 0.3 mg/dL (0.2-1.0); CO2 31.6 mmol/L (21.0-32.0); CREATININE 0.9 mg/dL (0.55-1.02); Calcium 8.9 mg/dL (8.5-10.1); Chloride 106 mmol/L (98-107); Estimated GFR 65.44 (mL/min/1.73m2); Glucose 82 mg/dL (74-106); Lipase 64 U/L (16-77); Magnesium 2.1 mg/dL (1.8-2.4); Potassium 3.4 mmol/L (3.5-5.1); Sodium 142 mmol/L (136-145); Total Protein 6.8 g/dL (6.4-8.2); Troponin I < 50 ng/L (< or =60)
[2024-02-27] VITALS (30 sets, daily range): BP systolic 156–181; BP diastolic 40–112; PULSE 51–68; RESP 11–25; O2SAT 96–100
--- NOTE | 2024-02-27 | DI.CT_ITS ---
Exam(s) CT THORAX CTA EXAM: CT THORAX CTA CLINICAL HISTORY: chest pain radiating into back, hypertensive. TECHNIQUE: Imaging Protocol: Axial CT angiography was performed with multi-slice acquisition and mu lti-planar reconstructions as well as axial, coronal and sagittal MIP reconstructions. CONTRAST MATERIAL: Intravenous: Omnipaque 350 Contrast volume:100 ml COMPARISON: CT CT CHEST WO from 01/14/[address] ABDOMEN PELVIS W from 02/27/2024 FINDINGS: Pulmonary Arteries: No evidence of filling defect to suggest pulmonary emboli. Tracheobronchial tree: No mucous plugging. Mediastinum and Sue: No dominant adenopathy or fluid collection. Pulmonary parenchyma: Evaluation limited due to expiratory changes no consolidation or dominant measu rable mass. Pleura: No effusion or pneumothorax. Heart: The heart is mildly dilated. No coronary artery calcifications are seen. Aorta: Thoracic aorta non-dilated. No dissection. Minimal atherosclerotic changes. Upper abdomen: No acute findings. Bones: Unremarkable for age. Tubes, Catheters, and Lines: None Soft tissues: Unremarkable. IMPRESSION: No evidence of pulmonary embolism or aortic dissection. No acute pulmonary findings. RADIATION DOSE DELIVERED: Total DLP DATA REPOSITORY: All CT scans at this facility are submitted to the National Radiology Data Registry (NRDR) Dose Index Registry (DIR) with the [employer] (ACR). RADIATION OPTIMIZATION: All CT scans at this facility use at least one of these dose optimization te chniques: automated exposure control; mA and/or kV adjustment per patient size (includes targeted exa ms where dose is matched to clinical indication); or iterative reconstruction.
--- NOTE | 2024-02-27 | DI.CT_ITS ---
Exam(s) CT ABDOMEN PELVIS W EXAM: CT ABDOMEN PELVIS W CLINICAL HISTORY: abdominal pain. TECHNIQUE: Imaging Protocol: Axial computed tomography images with coronal and sagittal reformatted images were created and reviewed CONTRAST MATERIAL: Intravenous: Omnipaque 350 Contrast volume:100 ml Oral: no COMPARISON: CT CT ABDOMEN PELVIS W from 07/16/2023 FINDINGS: ABDOMEN and PELVIS: Lung Bases: No acute findings. Liver: Normal density. No suspicious mass. Gallbladder and biliary tract: Status post cholecystectomy. No radiodense calculus. Stable mild danilo iary dilation. Pancreas: Normal density. No abnormal calcifications or inflammatory process. No evidence of mass. Spleen: Normal. Kidneys: Normal size, contour and axis. No radiodense stones. No obstructive uropathy. No suspicious masses seen. Adrenal glands: No masses seen. Vasculature: Abdominal aorta non-dilated. Soft tissues: Unremarkable. Bladder: No gross wall thickening. No calculi.No focal mass. Bowel: No obstruction. Diverticulosis. No evidence of diverticulitis. Appendix normal. Peritoneal cavity: No ascites. No focal collection. No mesenteric inflammatory response. Bones: Right hip prosthesis creates mild artifact in the level of the pelvis. Reproductive organs: Pessary. Uterus and ovaries unremarkable. Lymph nodes: No pathologically enlarged lymph nodes. IMPRESSION:: No acute abnormality in the abdomen or pelvis. RADIATION DOSE DELIVERED: Total DLP DATA REPOSITORY: All CT scans at this facility are submitted to the National Radiology Data Registry (NRDR) Dose Index Registry (DIR) with the [employer] (ACR). RADIATION OPTIMIZATION: All CT scans at this facility use at least one of these dose optimization te chniques: automated exposure control; mA and/or kV adjustment per patient size (includes targeted exa ms where dose is matched to clinical indication); or iterative reconstruction.
[2024-02-27] MEDS: Omnipaque 350 MG/ML 100 ML BTL IJ (00:19)
[2024-02-27] MEDS: Normal Saline - Diluent 50 ML VIAL IJ (00:19)
--- NOTE | 2024-02-27 00:40 | DI.VRAD_ITS ---
PROCEDURE INFORMATION: Exam: CT Abdomen And Pelvis With Contrast Exam date and time: 02/27/2024 00:00 Age: 78 years old Clinical indication: Abdominal pain TECHNIQUE: Imaging protocol: Computed tomography of the abdomen and pelvis with contrast. Contrast material: OMNI 350; Contrast volume: 100 ml; Contrast route: INTRAVENOUS (IV); COMPARISON: CT ABDOMEN PELVIS W 07/16/2023 10:21 FINDINGS: Liver: No hepatic masses. Gallbladder and bile ducts: Cholecystectomy. Mild intrahepatiic and extrahepatic biliary dilation most compatible with benign so-called reservoir effect in the setting of cholecystectomy. Pancreas: No ductal dilation. No masses. Spleen: No splenomegaly or focal lesions. Adrenal glands: No mass. Kidneys and ureters: Minor prominence of right and left ureter without mackenzie hydronephrosis bilaterally. No renal masses. Stomach and bowel: Colonic diverticulosis without diverticulitis. No focal pathology in the small bowel. Appendix: No evidence of appendicitis. Intraperitoneal space: Sliver free fluid in the pelvic cul-de-sac is new. No abscess or free air. Vasculature: No abdominal aortic aneurysm. Lymph nodes: No significantly enlarged lymph nodes. Urinary bladder: Unremarkable as visualized. Reproductive: Pessary in the vagina. Endometrium appears upper limits of normal for age. Bones/joints: Chronic bony changes with no acute fracture. Right total hip arthroplasty, intact as visualized. Soft tissues: No suspicious lesions. IMPRESSION: 1. Sliver free fluid in the pelvic cul-de-sac is new. 2. Incidental findings as described. Dictated and Authenticated by: Nicolasa Echeverria MD. Ordering:MILES Madera MD
--- NOTE | 2024-02-27 00:40 | DI.VRAD_ITS ---
PROCEDURE INFORMATION: Exam: CTA Chest With Contrast Exam date and time: 02/27/2024 00:00 Age: 78 years old Clinical indication: Other: Chest pain radiating into back, hypertensive TECHNIQUE: Imaging protocol: Computed tomographic angiography of the chest with contrast. Exam focused on the arteries. 3D rendering (Not supervised by radiologist): MIP and/or 3D reconstructed images were created by the technologist. Contrast material: OMNI 350; Contrast volume: 100 ml; Contrast route: INTRAVENOUS (IV); COMPARISON: CT CHEST PE CTA 09/28/2022 10:52 FINDINGS: Pulmonary arteries: No pulmonary emboli. Aorta: No aortic aneurysm. No aortic dissection. Trachea: Scattered air trapping in the lungs likely small airways disease.Scattered microatelectasis. Lungs: No airspace consolidation. Pleural spaces: No pneumothorax. No pleural effusion. Heart: Moderate cardiomegaly appears slightly more pronounced. Lymph nodes: No enlarged lymph nodes. Bones/joints: No acute fracture or subluxation. Soft tissues: No suspicious lesions. IMPRESSION: 1. No pulmonary emboli are seen. 2. Incidental findings as described. Dictated and Authenticated by: Nicolasa Echeverria MD. Ordering:MILES Madera MD
--- NOTE | 2024-02-27 01:05 | W.ED.GENAD ---
Discharge Plan Disposition Patient Disposition: Home Condition: Good Discharge Details Clinical Impression: Chest pain Primary Care Provider: Joycelyn Will ED Provider: Cassy Hickman Home Meds and New Rx's Prescriptions: Continued cholecalciferol (vitamin D3) 1,000 unit capsule 1,000 unit PO DAILY atenolol 25 mg tablet 25 mg PO DAILY Qty: 90 3RF esomeprazole magnesium 40 mg capsule,delayed release(DR/EC) 40 mg PO BID Qty: 180 4RF Estring 2 mg (7.5 mcg /24 hour) ring 1 vag ring VG Q3MOS Qty: 1 4RF rosuvastatin [Crestor] 5 mg tablet 5 mg PO DAILY Qty: 90 12RF benzonatate 200 mg capsule 200 mg PO TID Qty: 30 0RF multivitamin 1 EACH capsule 1 ea PO DAILY acetaminophen 500 mg tablet 1,000 mg PO Q8H PRN (Reason: pain) Qty: 90 3RF aspirin 81 mg Capsule 81 mg PO DAILY Discharge Instructions Instructions: Chest Pain (ED) Additional Instructions: Call your primary care doctor on Thursday to schedule an appointment for early this week to followup on your visit here. Return to the emergency department for new or worsening sytmpoms including new/different/worse chest pain, vomiting, feeling like you are going to pass out, trouble breathing, or if you have any other concerns. Referrals: Joycelyn Will MD, [place] [Primary Care Provider] - [facility] General Date/Time Provider Initiated Documentation: 02/26/24 23:16. Limitations to Documentation: no limitations. Information obtained by: patient. HPI Narrative: 78yo F with hx HTN, HLD, SRINIVAS, SVT, GERD, IBS, resenting for abdominal, chest, and back pain. Abdominal pain started yesterday and has been intermittent since then, dull, diffuse, moderate, non-radiating. Did improve with tylenol but has continued to return intermittently. Back pain is chronic, dull knot, constant but waxing and waning in severity, located in the mid-thoracic region. New this afternoon is chest pain, onset around 4pm, dull, substernal, seems to radiate into her back where the back pain is located. Was at one point severe but has been improving; when pain was severe she had some shortness of breath assoicated with it. Began to improve on the way to the ED and is currently minimal and breathing feels normal. She is otherwise in her usual state of health with no fevers, chills, rash, nausea, vomiting, lightheadedness, numbness, tingling, weakness, dysuria, hematuria, or other concerns. Related Data Home Medications Medication Instructions Recorded Confirmed multivitamin 1 ea PO DAILY 08/31/14 02/26/24 cholecalciferol (vitamin D3) 25 1,000 unit PO DAILY 09/08/19 02/26/24 mcg (1,000 unit) capsule acetaminophen 500 mg tablet 1,000 mg (2 x 500 mg) PO Q8H PRN 12/06/19 02/26/24 pain #90 tabs aspirin 81 mg capsule 81 mg PO DAILY 03/12/22 02/26/24 atenolol 25 mg tablet 25 mg PO DAILY #90 tabs 02/02/24 02/26/24 esomeprazole magnesium 40 mg 40 mg PO BID #180 tab-caps 02/02/24 02/26/24 capsule,delayed release estradiol 2 mg (7.5 mcg/24 hour) 1 vag ring vaginal Q3MOS #1 ea 02/02/24 02/26/24 vaginal ring (Estring) rosuvastatin 5 mg tablet (Crestor) 5 mg PO DAILY #90 tab-caps 02/02/24 02/26/24 benzonatate 200 mg capsule 200 mg PO TID #30 caps 02/17/24 02/26/24 Previous Rx's Medication Instructions Recorded acetaminophen 500 mg tablet 1,000 mg (2 x 500 mg) PO Q8H PRN 12/06/19 pain #90 tabs atenolol 25 mg tablet 25 mg PO DAILY #90 tabs 02/02/24 esomeprazole magnesium 40 mg 40 mg PO BID #180 tab-caps 02/02/24 capsule,delayed release estradiol 2 mg (7.5 mcg/24 hour) 1 vag ring vaginal Q3MOS #1 ea 02/02/24 vaginal ring (Estring) rosuvastatin 5 mg tablet (Crestor) 5 mg PO DAILY #90 tab-caps 02/02/24 benzonatate 200 mg capsule 200 mg PO TID #30 caps 02/17/24 Allergies Allergy/AdvReac Type Severity Reaction Status Date / Time Penicillins Allergy RASH/BREATHING Verified 02/26/24 23:18 PROBLEMS atorvastatin calcium AdvReac Intermediate LEG CRAMPS Verified 02/26/24 23:18 [From Lipitor] General Stated Complaint: Chest Pain NESS: 3 Review of Systems Narrative: see HPI Exam Narrative Exam Narrative: General: Alert, well appearing, well nourished, in no acute distress. Head: Normocephalic, atraumatic Neck: Trachea midline, ?Neck supple. ENT: ?MMM.? No oropharygeal lesions or exudate. Cardiac: ?RRR, no murmurs appreciated Resp: No respiratory distress. CTAB. Abd: ?Soft, non-distended, nontender : ?No suprapubic tenderness. No CVA tenderness. Extremities: ?No deformities.? No peripheral edema. Neurologic: GCS 15. ? Moves all extremities freely against gravity Course Vital Signs Vital signs: Vital Signs Temperature 36.4 C L 02/26/24 23:08 Pulse 72 02/26/24 23:08 Respiratory Rate 16 02/26/24 23:08 Blood Pressure 214/64 H 02/26/24 23:08 Pulse Oximetry 100 02/26/24 23:08 Temperature 36.4 C L 02/26/24 23:08 Temperature Source Temporal Artery Scan 02/26/24 23:08 Pulse 57 L 02/27/24 00:46 Pulse 58 L 02/27/24 00:50 Respiratory Rate 14 02/27/24 00:50 Respiratory Effort Normal, Non-Labored 02/26/24 23:13 Respiratory Depth Normal 02/26/24 23:13 Respiratory Pattern Normal 02/26/24 23:13 Blood Pressure 181/49 H 02/27/24 00:46 Blood Pressure Mean 96 02/27/24 00:46 Blood Pressure Position Sitting 02/26/24 23:08 Pulse Oximetry 99 02/27/24 00:50 Oxygen Delivery Method Room Air 02/26/24 23:08 Oxygen Flow Rate 0 02/26/24 23:08 Pain Level 3 02/26/24 23:13 Lab/Test Results Lab/Test Results: Laboratory Tests Range/Units 02/26/24 02/26/24 23:15 23:25 WBC (4.4-10.8) 10^3/uL 8.24 RBC (3.93-5.22) 10^6/uL 3.83 L Hgb (11.2-15.7) g/dL 12.0 Hct (36.0-46.0) % 36.0 MCV (80-95) fL 94 MCH (27.0-33.0) pg 31.3 MCHC (32.0-36.0) % 33.3 RDW (11.7-14.6) % 12.2 Plt Count (130-400) 10^3/uL 227 MPV (8.0-11.0) fL 9.6 Immature Gran % % 0.1 Neutrophils % % 41.9 Lymphocytes % % 47.5 Monocytes % % 6.7 Eosinophils % % 3.6 Basophils % % 0.2 Nucleated RBC % (0.0-0.3) % 0.0 Absolute Neutrophils (1.2-6.7) 10^3/uL 3.45 Absolute Lymphocytes (1.2-3.4) 10^3/uL 3.91 H Absolute Monocytes (0.1-0.8) 10^3/uL 0.55 Absolute Eosinophils (0.0-0.7) 10^3/uL 0.30 Absolute Basophils (0.0-0.2) 10^3/uL 0.02 VBG Lactate (0.6-1.4) mmol/L 0.5 L Sodium (136-145) mmol/L 142 Potassium (3.5-5.1) mmol/L 3.4 L Chloride (98-107) mmol/L 106 Carbon Dioxide (21.0-32.0) mmol/L 31.6 Anion Gap (3-11) mmol/L 4.4 BUN (7-18) mg/dL 16 Creatinine (0.55-1.02) mg/dL 0.9 Est GFR (CKD-EPI 2020) (mL/min/1.73m2) 65.44 Glucose (74-106) mg/dL 82 Calcium (8.5-10.1) mg/dL 8.9 Magnesium (1.8-2.4) mg/dL 2.1 Total Bilirubin (0.2-1.0) mg/dL 0.3 AST (15-37) U/L 14 L ALT (14-59) U/L 17 Alkaline Phosphatase (46-116) U/L 81 Troponin I (< or =60) ng/L < 50 Total Protein (6.4-8.2) g/dL 6.8 Albumin (3.4-5.0) g/dL 3.4 Lipase (16-77) U/L 64 Urine Color (Yellow) Yellow Urine Clarity (Clear) Clear Urine pH (5-8) 6.5 Ur Specific [place] (1.005-1.025) 1.010 Urine Protein (Neg-Trace) mg/dL Negative Urine Ketones (Negative) mg/dL Negative Urine Blood (Negative) Trace-intact H Urine Nitrite (Negative) Negative Urine Bilirubin (Negative) Negative Urine Urobilinogen (Up to 0.2) mg/dL 0.2 Ur Leukocyte Esterase (Negative) Negative Urine RBC (0-2) HPF 0-2 Urine WBC (0-5) HPF Negative Ur Epithelial Cells (Negative) HPF Few Urine Crystals (Negative) HPF Negative Urine Bacteria (Negative) HPF Rare Urine Casts (Negative) LPF Negative Urine Mucus (Negative) Negative Ur Culture Indicated? No Urine Glucose (Negative) mg/dL Negative Medical Decision Making 78yo F with hx HTN, HLD, SRINIVAS, SVT, GERD, IBS, resenting for abdominal, chest, and back pain. Abdominal pain started yesterday and has been intermittent since then; back pain is chronic, mid-thoracic, waxing and waning in severity; new this afternoon is chest pain, onset around 4pm, dull, substernal, seems to radiate into her back. Began to improve on the way to the ED and is currently minimal and breathing feels normal. Hypertensive on arrival 214/64, vital signs otherwise reassuring. Not septic. Benign physical exam with clear lungs, no edema, and equal radial pulses. EKG on arrival SR, appropriate intervals, no ST segment or T wave abnormalities to suggest occlusive MS. Aortic dissection is possible; will evaluate with CT as well as CT abd for emergent/surgical intraabdominal pathology. No focal lower abdominal/pelvic pain to suggest ovarian or uterine pathology; would not transfer for ultrasound. Labs reviewed as below, CBC reassuring with no leukocytosis or anemia, CMP with very mild hypokalemia (oral replacement ordered) reassuring with no LFT elevations to suggest cholecystitis/choledocolithiasis/etc, lipase normal (not pancreatitis), lactate normal, initial troponin negative UA not suggestive of infection. CTs independently reviewed, no aortic dissection or bowel obstruction on my view, agree with radiology read below. Tiny amount of free fluid in the pelvis non-specific and patient with no tenderness on my exam, unclear significance, appropriate for PCP followup. On reassessment she remains pain free, well appearing, wtih reassuring vital signs. Repeat troponin negative, reassuring against ACS. Unclear etiology of symptoms but with reassuring workup here no indication for hospital admission at this time. Advised close PCP followup. Discharged home; discharge instructions and return precautions were reviewed with patient who verbalized understanding. All questions were answered and she is in full agreement with the plan. Imaging Data Radiologic Study: Imaging: CT Scan Radiologist's impression: Chest; IMPRESSION: 1. No pulmonary emboli are seen. 2. Incidental findings as described. Abd/pelv: IMPRESSION: 1. Sliver free fluid in the pelvic cul-de-sac is new. 2. Incidental findings as described. Lab Data Lab results reviewed: Yes I reviewed the patient's lab results. Labs: Laboratory Tests Range/Units 02/26/24 02/26/24 23:15 23:25 WBC (4.4-10.8) 10^3/uL 8.24 RBC (3.93-5.22) 10^6/uL 3.83 L Hgb (11.2-15.7) g/dL 12.0 Hct (36.0-46.0) % 36.0 MCV (80-95) fL 94 MCH (27.0-33.0) pg 31.3 MCHC (32.0-36.0) % 33.3 RDW (11.7-14.6) % 12.2 Plt Count (130-400) 10^3/uL 227 MPV (8.0-11.0) fL 9.6 Immature Gran % % 0.1 Neutrophils % % 41.9 Lymphocytes % % 47.5 Monocytes % % 6.7 Eosinophils % % 3.6 Basophils % % 0.2 Nucleated RBC % (0.0-0.3) % 0.0 Absolute Neutrophils (1.2-6.7) 10^3/uL 3.45 Absolute Lymphocytes (1.2-3.4) 10^3/uL 3.91 H Absolute Monocytes (0.1-0.8) 10^3/uL 0.55 Absolute Eosinophils (0.0-0.7) 10^3/uL 0.30 Absolute Basophils (0.0-0.2) 10^3/uL 0.02 VBG Lactate (0.6-1.4) mmol/L 0.5 L Sodium (136-145) mmol/L 142 Potassium (3.5-5.1) mmol/L 3.4 L Chloride (98-107) mmol/L 106 Carbon Dioxide (21.0-32.0) mmol/L 31.6 Anion Gap (3-11) mmol/L 4.4 BUN (7-18) mg/dL 16 Creatinine (0.55-1.02) mg/dL 0.9 Est GFR (CKD-EPI 2020) (mL/min/1.73m2) 65.44 Glucose (74-106) mg/dL 82 Calcium (8.5-10.1) mg/dL 8.9 Magnesium (1.8-2.4) mg/dL 2.1 Total Bilirubin (0.2-1.0) mg/dL 0.3 AST (15-37) U/L 14 L ALT (14-59) U/L 17 Alkaline Phosphatase (46-116) U/L 81 Troponin I (< or =60) ng/L < 50 Total Protein (6.4-8.2) g/dL 6.8 Albumin (3.4-5.0) g/dL 3.4 Lipase (16-77) U/L 64 Urine Color (Yellow) Yellow Urine Clarity (Clear) Clear Urine pH (5-8) 6.5 Ur Specific [place] (1.005-1.025) 1.010 Urine Protein (Neg-Trace) mg/dL Negative Urine Ketones (Negative) mg/dL Negative Urine Blood (Negative) Trace-intact H Urine Nitrite (Negative) Negative Urine Bilirubin (Negative) Negative Urine Urobilinogen (Up to 0.2) mg/dL 0.2 Ur Leukocyte Esterase (Negative) Negative Urine RBC (0-2) HPF 0-2 Urine WBC (0-5) HPF Negative Ur Epithelial Cells (Negative) HPF Few Urine Crystals (Negative) HPF Negative Urine Bacteria (Negative) HPF Rare Urine Casts (Negative) LPF Negative Urine Mucus (Negative) Negative Ur Culture Indicated? No Urine Glucose (Negative) mg/dL Negative Quality:SDOH Health Related Social Needs: No Data to Display PFSH All Active Problems (Updated 05/04/24 @ 03:21 by Cassy Hickman MD) Chest pain (Acute) Incidental lung nodule, > 3mm and < 8mm (Acute) Abdominal pain (Acute) Toe pain, right (Acute) Arthritis of left glenohumeral joint (Acute) Shoulder pain, left (Acute) Osteoarthritis of right knee (Acute) Depo-medrol injection: 01/12/23 Breast pain in female (Acute) Vertigo (Acute) Cough (Acute) Post-nasal drip (Acute) Weight loss (Acute) Arthritis of left knee (Acute) DEPO MEDROL 03/20/22 Meralgia paresthetica of right side (Acute) Lumbosacral spondylosis without myelopathy (Acute) Tear of medial meniscus of left knee (Acute) Acute low back pain due to spinal disorder (Acute) Chest pain (Acute) Serrated adenoma of colon (Acute ~11/2020) Leg pain, right (Acute) Anxiety (Chronic 01/17/09) Essential hypertension (Chronic 09/05/13) Hyperlipidemia (Chronic 01/11/09) Vitamin D deficiency (Chronic 07/01/11) 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) Cervical spondylosis without myelopathy (Acute) Temporomandibular joint disorder (Acute 07/24/16) Sacroiliac joint pain (Acute) Balance problem (Acute 09/24/06) Endometriosis (Acute) Tinnitus, bilateral (Acute) Vertigo (Acute) Elevated glucose (Acute) Sensorineural hearing loss of both ears (Acute) Obstructive sleep apnea (adult) (pediatric) (Acute) Disequilibrium (Acute) Globus sensation (Acute) Temporal pain (Acute) Peripheral edema (Acute) Right leg weakness (Acute) Right lumbar radiculopathy (Acute) Status post total replacement of right hip (Acute 12/06/19) Trochanteric bursitis, right hip (Acute) Supraventricular tachycardia (Chronic) on atenolol Sleep apnea, unspecified (Chronic 09/12/15) Shoulder pain, right (Chronic 08/17/14) Reflux esophagitis (Chronic 06/02/17) MILD-DR. TEZ GUZMAN Peripheral neuralgia (Chronic) EMG-01/29; mild slowing of right ulnar @elbow Osteopenia (Chronic) T scores of -1.2, -1.4 Mantoux: positive (Chronic) 2000 Hiatal hernia (Chronic 08/17/13) 2006 EGD showing HH, polyps and gastric fundi, non-obstructing ring in the GI junction Diverticula of colon (Chronic) 12/26/15; DR. 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 states this wasn't related to her heart but her esophagitis Elevated erythrocyte sedimentation rate (01/17/09) Fatigue (07/01/11) Herpes zoster without complication (12/10/15) Meralgia paresthetica of right side (08/18/17) Nasal obstruction (09/12/15) Pain of left breast (01/05/17) Cough due to bronchospasm (02/24/17) supraventricular reflux disease Vitamin D deficiency Esophagitis GERD (gastroesophageal reflux disease) Nasal congestion Hyperlipidemia Anxiety Essential hypertension Surgical History History of lumpectomy of both breasts History of esophagogastroduodenoscopy colonoscopy PROCEDURES EMG 01/29 with mild swelling of the right ulnar nerve of the elbow Echocardiogram 03/31 showing an ejection fraction of 65% and an upper septal hypertrophy grade 1, Diastolic dysfunction. Repeat echo 07 showing an ejection fraction of 60% and mild MRTR ENDOMETRIAL SURGERY 1992 EGD - MAC (06/02/17) EGD - IV Sedation (08/17/13) HIATAL HERNIA Cholecystectomy (~2004) CYSTECTOMY (~1971) Reduction mammoplasty (~2001) B/L Family History Mother , age 87 Alzheimer's disease Heart disease Uterine cancer Father , age 67 Leukemia Sister Heart disease Hyperlipidemia Breast cancer Sister , BACTERIAL DISEASE at age 3. Cancer Brother , age 43 Essential hypertension Heart disease Hyperlipidemia Brother , age 67 Essential hypertension Heart disease Hyperlipidemia Brother , age 66 Pancreatic cancer Maternal Grandfather Heart disease Paternal Grandfather Pancreatic cancer Maternal Grandmother Cerebral hemorrhage Paternal Grandmother Heart disease Cancer FAMILY HISTORY Aneurysm Hyperlipidemia Neoplasm IBS (irritable bowel syndrome) Social History Smoking/Tobacco Use Status: Former Tobacco Use tobacco type: cigarettes Quit Date: 10/26/69 Tobacco: How many years used: 5 Second Hand Exposure: Yes Smoking risk assessment performed?: Yes Alcohol Intake: never Drug use: Never Substance use type: does not use Caregiver/Support person: No Household members: spouse Housing: house Do you need help understanding health information?: Never current occupation: Retired Pets and animals: Yes Pets and animals: dog(s) Do you think of yourself as: straight/heterosexual Current gender identity: female What is your relationship status?: How often do you talk on the phone with friends or family?: once per week How often do you get together with friends or relatives?: decline to answer How often do you attend restorationist or samaritan services?: decline to answer Do you belong to any clubs or organized social groups?: no Panel score (0-1 are the most socially isolated patients): 1 What type of physical activity do you participate in: none Frequency: does not exercise Radha/Mandaen: [employer] Special radha needs: No Seatbelt use: always Drive 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
[2024-02-27] MEDS: Potassium Chloride 20 MEQ TABCR PO (01:34)
[2024-02-27 02:49] LABS: Troponin I < 50 ng/L (< or =60)
== END 2024-02-27 03:31 | disposition home or self-care (01) ==
PROVIDERS: Emergency Provider Student in an Organized Health Care Education/Training Program; PCP Family Medicine
DX: R07.9 Chest pain, unspecified (principal); R10.9 Unspecified abdominal pain; M54.6 Pain in thoracic spine; I10 Essential (primary) hypertension; E78.5 Hyperlipidemia, unspecified; Z79.82 Long term (current) use of aspirin; Z87.891 Personal history of nicotine dependence; Z90.49 Acquired absence of other specified parts of digestive tract
CPT/HCPCS: 71275; 80053; 83690; 93005; 99285; 74177; 81003; 81015; 83605; 83735; 84484; 85025; 93010; 99284; J3490

== ENCOUNTER 2024-04-06 01:47 | Outpatient (CLI) | payer BC, SELFPAY ==
[2024-04-06 09:43] LABS: Hemoglobin A1C 5.9 % (<5.7)
[2024-04-06 09:54] LABS: Calculated LDL 74 mg/dL (<100); Cholesterol 172 mg/dL (<200); HDL Cholesterol 82 mg/dL (40-60); TSH (W/Ref FT4) 2.05 uIU/mL (0.36-3.74); Triglyceride 80 mg/dL (<150)
== END 2024-04-06 01:48 | disposition home or self-care (01) ==
LOC: LBO 01:47
PROVIDERS: PCP Family Medicine; Visit Provider Family Medicine
DX: E03.9 Hypothyroidism, unspecified (principal); E11.9 Type 2 diabetes mellitus without complications
CPT/HCPCS: 36415; 80061; 83036; 84443

== ENCOUNTER 2024-07-18 09:04 | Day surgery (SDC) | payer BC, SELFPAY ==
[2024-07-18 09:45] VITALS: BP 169/59; PULSE 63; RESP 16; TEMP 36.5; O2SAT 99
--- NOTE | 2024-07-18 09:56 | W.ANESPRE ---
General Info Date of Service Date Performed: 07/18/24 Height: 5 ft 3 in Weight: 64.7 kg Body Mass Index (BMI): 25.2 Surgical Procedure: Operation Date: 07/18/24 10:20 Proposed Procedure Side Surgeon p Colonoscopy/Gastroscopy Codey Cm MD Meds Allergies and Home Medications Allergies Allergy/AdvReac Type Severity Reaction Status Date / Time Penicillins Allergy RASH/BREATHING Verified 07/18/24 09:38 PROBLEMS atorvastatin calcium (From AdvReac Intermediate LEG CRAMPS Verified 07/18/24 09:38 Lipitor) Home Medication ?Medication ?Instructions ?Recorded multivitamin 1 ea PO DAILY 08/31/14 cholecalciferol (vitamin D3) 25 1,000 unit PO DAILY 09/08/19 mcg (1,000 unit) capsule acetaminophen 500 mg tablet 1,000 mg (2 x 500 mg) PO Q8H PRN 12/06/19 pain #90 tabs aspirin 81 mg capsule 81 mg PO DAILY 03/12/22 atenolol 25 mg tablet 25 mg PO DAILY #90 tabs 02/02/24 esomeprazole magnesium 40 mg 40 mg PO BID #180 tab-caps 02/02/24 capsule,delayed release rosuvastatin 5 mg tablet (Crestor) 5 mg PO DAILY #90 tab-caps 02/02/24 estradiol 2 mg (7.5 mcg/24 hour) 1 vag ring vaginal Q3MOS #1 ea 03/10/24 vaginal ring (Estring) bisacodyl 5 mg tablet,delayed 5 mg PO ONCE #4 tabs 07/07/24 release (Dulcolax (bisacodyl)) polyethylene glycol 3350 17 17 g PO ONCE #238 grams 07/07/24 gram/dose oral powder Current Visit Medications: Current Medications Generic Name Dose Route Start Last Admin Trade Name Freq PRN Reason Stop Dose Admin Ringer's Solution 1,000 mls @ 80 mls/hr 07/18/24 06:00 IV 07/18/24 23:59 INFUSION VALENTÍN IV Miscellaneous Supplies 1 each 07/18/24 06:00 Iv Access IV 07/18/24 23:59 DIRECTED VALENTÍN Sodium Chloride 0 ml 07/18/24 06:00 Normal Saline Flush 10 Ml Syr IV 07/18/24 23:59 PRN PRN Sodium Chloride 0 ml 07/18/24 06:00 Normal Saline 10 Ml Vial IJ 07/18/24 23:59 DIRECTED PRN Sterile Water 0 ml 07/18/24 06:00 Water,Injection,Sterile 10 Ml Vial IJ 07/18/24 23:59 DIRECTED PRN PFSH Active Problems Active Problems: Problem Status Onset Code Incidental lung nodule, > 3mm and < 8mm Acute R91.1 Abdominal pain Acute R10.9 Toe pain, right Acute M79.674 Arthritis of left glenohumeral joint Acute M19.012 Shoulder pain, left Acute M25.512 Osteoarthritis of right knee Acute M17.11 Breast pain in female Acute N64.4 Vertigo Acute R42 Cough Acute R05.9 Post-nasal drip Acute R09.82 Weight loss Acute R63.4 Arthritis of left knee Acute M17.12 Meralgia paresthetica of right side Acute G57.11 Lumbosacral spondylosis without myelopathy Acute M47.817 Tear of medial meniscus of left knee Acute S83.242A Acute low back pain due to spinal disorder Acute M54.5, M53.9 Chest pain Acute R07.9 Serrated adenoma of colon Acute ~11/2020 D12.6 Leg pain, right Acute M79.604 Anxiety Chronic 01/17/09 F41.9 Essential hypertension Chronic 09/05/13 I10 Hyperlipidemia Chronic 01/11/09 E78.5 Vitamin D deficiency Chronic 07/01/11 E55.9 Tubulovillous adenoma Chronic 12/26/15 D36.9 Cervical spondylosis without myelopathy Acute M47.812 Temporomandibular joint disorder Acute 07/24/16 M26.609 Sacroiliac joint pain Acute M53.3 Balance problem Acute 09/24/06 R26.89 Endometriosis Acute N80.9 Tinnitus, bilateral Acute H93.13 Vertigo Acute R42 Elevated glucose Acute R73.09 Sensorineural hearing loss of both ears Acute H90.3 Obstructive sleep apnea (adult) (pediatric) Acute G47.33 Disequilibrium Acute R42 Globus sensation Acute R09.89 Temporal pain Acute R51 Peripheral edema Acute R60.9 Right leg weakness Acute R29.898 Right lumbar radiculopathy Acute M54.16 Status post total replacement of right hip Acute 12/06/19 Z96.641 Trochanteric bursitis, right hip Acute M70.61 Supraventricular tachycardia Chronic I47.1 Sleep apnea, unspecified Chronic 09/12/15 G47.30 Shoulder pain, right Chronic 08/17/14 M25.511 Reflux esophagitis Chronic 06/02/17 K21.0 Peripheral neuralgia Chronic M79.2 Osteopenia Chronic M85.80 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 Hiatal hernia Chronic 08/17/13 K44.9 Diverticula of colon Chronic K57.30 Chronic cystitis Chronic 09/24/05 N30.20 Cervical pain (neck) Chronic 08/17/14 M54.2 Atrophy of vagina Chronic 01/19/17 N95.2 Medical History Medical History Dry lips Irritable bowel syndrome (IBS) Pt reported Not on immune modulating medications Deviated nasal septum Esophagitis Degenerative joint disease of right hip Injections under fluoroscopy x2: 12/2017; 06/2019 s/p Anterior R URIEL: 12/06/19 Skin tags, multiple acquired Abnormal auditory perception Impacted cerumen of both ears Neoplasm of unspecified behavior of bone, soft tissue, and skin saw ENT states was benign Chronic GERD History of echocardiogram Chest pain (02/01/09) Pt. states this wasn't related to her heart but her esophagitis Elevated erythrocyte sedimentation rate (01/17/09) Fatigue (07/01/11) Herpes zoster without complication (12/10/15) Meralgia paresthetica of right side (08/18/17) Nasal obstruction (09/12/15) Pain of left breast (01/05/17) Cough due to bronchospasm (02/24/17) supraventricular reflux disease Vitamin D deficiency Esophagitis GERD (gastroesophageal reflux disease) Nasal congestion Hyperlipidemia Anxiety Essential hypertension Medical History Comments:: SRINIVAS -no CPAP, Surgical History Surgical History History of total hip replacement History of colonoscopy History of lumpectomy of both breasts History of esophagogastroduodenoscopy colonoscopy PROCEDURES EMG 01/29 with mild swelling of the right ulnar nerve of the elbow Echocardiogram 03/31 showing an ejection fraction of 65% and an upper septal hypertrophy grade 1, Diastolic dysfunction. Repeat echo 07 showing an ejection fraction of 60% and mild MRTR ENDOMETRIAL SURGERY 1992 EGD - MAC (06/02/17) EGD - IV Sedation (08/17/13) HIATAL HERNIA Cholecystectomy (~2004) CYSTECTOMY (~1971) Reduction mammoplasty (~2001) B/L Tobacco Smoking/Tobacco Use Status: Former Tobacco Use Passive smoking exposure: Yes Second hand exposure: Yes Alcohol Alcohol Intake: never Substance Use Substance use: Never Substance use type: does not use Vital Signs and Lab Results Vital Signs Most Recent Vital Signs in EMR: Most Recent Vital Signs Temp Pulse Resp BP Pulse Ox 36.5 C 63 16 169/59 H 99 07/18/24 09:45 07/18/24 09:45 07/18/24 09:45 07/18/24 09:45 07/18/24 09:45 Lab Results Blood Type / Crossmatch: No Data to Display Complete Blood Count: No Data to Display Complete Metabolic Panel: No Data to Display Liver Function Panel: No Data to Display Coagulation Panel: No Data to Display Cardiac Panel: No Data to Display Arterial Blood Gas: No Data to Display Venous Blood Gas: No Data to Display Pancreas Panel: No Data to Display Thyroid Panel: No Data to Display Infectious Disease: No Data to Display Blood Cultures: No Data to Display Toxicology Panel: No Data to Display Imaging and Studies Imaging and Studies Study information below may be from another EMR and interpreted by another provider. Please see original notes in EMR for more complete details. EKG Summary: EKG PATIENT NAME: Vicky Goel UNIT #: [id number] ORDERING PROVIDER: Cassy Hickman M.D. PRIMARY CARE PROVIDER: JOYCELYN WILL MD, DC DATE/TIME OF SERVICE: 02/26/242308 : 1945 PERFORMING LOCATION: ER APPROVED REPORT Exam: Resting ECG Reason for Exam: chest pain Patient Location: E HR:64 bpm ECG Measurements Heart Rate 64 AXIS NM 200 P 58 QRSd 83 QRS 31 QT 424 T55 QTc 436 Conclusion Sinus rhythm...normal P axis, V-rate 60- [address] segment or T wave abnormalities to suggest occlusive PR <Electronically signed by Cassy Hickman M.D. in OV> E-Sign Date: 02/27/24 E-Sign Time: 205 ADDENDUM APPROVED REPORT Exam: Resting ECG Reason for Exam: chest pain Patient Location: E HR:64 bpm ECG Measurements Heart Rate 64 AXIS NM 200 P 58 QRSd 83 QRS 31 QT 424 T55 QTc 436 Conclusion Sinus rhythm...normal P axis, V-rate 60- [address] segment or T wave abnormalities to suggest occlusive PR Normal Electrocardiogram Electronically signed by: <Electronically signed by Mohini Vallecillo M.D. in OV> 02/29/24 0829 Cosigned by: Stress Test Summary: Patient Name: Vicky Goel Unit #: [id number] Loc: Ordering Provider: Joycelyn Will M.D., DC Status: [facility] Primary Care Provider: Joycelyn Will M.D., DC Date of Exam: 01/05/23 Sex: F Admission Date: 01/05/23 : 1945 Age: 77 APPROVED REPORT Exam: Exercise Treadmill Patient Location: Out-Patient Room/Bed: Stress Nurse: Sirena Solis RN Ordering Provider:JOYCELYN WILL, Contact Number: [phone] BMI: 26.77 Baseline Rhythm: Sinus Rhythm Comment: PAC's Indications: Chest pain, abnormal EKG Medical History Medical History: HTN, anxiety, HLD, balance problems, ataxia, vertigo, SRINIVAS, peripheral edema, SVT, CA calcification, GERD Cardiac Medications: Atenolol, rosuvastatin, aspirin, rosuvastatin, esomeprazole Allergies: Penicillins, Atorvastatin Cardiac Risk Factors: Family hx, HTN, HLD Previous Cardiac Procedures: None Pretest Chest Pain Characteristics: None Exercise History: Indeterminate Physical Disabilities: right hip replacement, hx knee discomfort Lung Sounds: Clear, Clear to auscultation Heart Sounds: Regular Stress Test Details Test: Exercise stress testing was performed using a Caleb protocol. Reason for pharmacologic stress test: Per physcian order. Nuclear Acquisition: Rest Tc-99m/Stress Tc-99m 1 day Rest Isotope: Tc-99m Sestamibi. Dose: 9.0 Date: 01/05/2023 Injection Time: 0920 Stress Isotope: Tc-99m Sestamibi. Dose: 31 Date: 01/05/2023 Injection Time: 1040 HR Resting HR Supine: 69 bpmMax Heart Rate (APMHR): 143.732555 bpm Resting HR Standin bpmTarget HR (85% APMHR): 121.657209 bpm Max HR Achieved: 132 bpm % of APMHR: 92.31 Recovery HR: 81 bpm HR response to stress: Normal HR response to stress Comment: Patient held beta serina per MD order for 72 hours prior to test BP Resting BP Supine: 120/70 mmHg Resting BP Standin/74 mmHg Max BP: 198/90 mmHg Recovery BP: 142/84 mmHg BP response to stress: Normal blood pressure response to stress. ECG Resting ECG: Sinus Rythm with PAC's Ectopy: PAC's Stress ECG: Sinus Tachycardia ST Change: No significant ST segment changes noted Recovery ECG: Sinus rythm with PVC's Recovery ST Change: No significant ST segment changes noted Recovery Arrhythmia: PVC's Clinical Reason for Termination: Fatigue Stress Symptoms: General Fatigue, shoulder blade pain during recovery Exercise duration: 4 min44 sec Highest Stage Reached: Stage 2: 2.5 mph at 12% grade. Exercise capacity: 6.7 METs Angina Score: None Acosta Treadmill Score: 4.4 Rate Pressure Product: 92038 Stress ECG Conclusion 1. Resting electrocardiogram was within normal limits 2. Patient underwent exercise testing using a Caleb protocol and completed a workload of 6.7 METS 3. Normal heart rate and blood pressure response to exercise. The patient achieved 92% of predicted heart rate for age 4. There was no electrocardiographic evidence of myocardial ischemia 5. Atrial and ventricular ectopic beats were noted 6. See MPI report Acosta Treadmill Score is 4.4 which is Moderate risk. Stress Test Summary STAGETime (mins)Speed (mph)Grade (%)[id number] [id number]/70 Aoehayug01747/74 [id number]/804.5 [id number] 1 min [id number]/90Pain between shoulder blades 9/10 when supine 3 min [id number]/68Pain between shoulder blades 4/10 6 min [id number]/84Pain 0/10 by 4.5 minutes into recovery Patient asymptomatic during exercise. Post test when returned to stretcher, verbalized pain between shoulder blades 9/10. Patient repositioned, provided with water and engaging in conversation. Within 2 minutes of recovery patient verbalized pain starting to decrease, within 3 minutes into recovery pain was 4/10 and by 4.5 minutes pain had resolved. MPI Conclusion Myocardial perfusion is normal. There is no evidence of ischemia or prior infarction EF is 71% with normal wall motion Radiologist Interpretation Radiologist agrees with Manager Leadership Development's Interpretation. Radiologist Interpretation by: Kim Galeas MD Interpretation Date/Time: 01/06/2023 16:26:38 Ordered By: Joycelyn Will M.D., DC CC: JULIANA VEGA,MOHINI STEINBERG Dictated By: Mohini Vallecillo M.D. 01/05/23 1112 <Electronically signed by Mohini Vallecillo M.D. in OV> 01/08/23 0809 Transcribed By: Mohini Vallecillo MD This is privileged, confidential information intended only for the provider named. Any use or distribution by any person other than this provider is strictly prohibited. If you receive this report in error, please notify us immediately at [phone] and return the original report to us at the address above. Thank-you. Pulmonary Function Summary: Pulmonary Function Test PATIENT NAME: Vicky Goel UNIT #: [id number] ADMITTING PROVIDER: Amy Lamb M.D. PRIMARY CARE PROVIDER: JOEY VEGA DC JOYCELYN DATE OF ADMIT: 06/19/22 : 1945 Date of service: 06/19/22 Time of Service: 10:04 Pulmonary Function Test Result Requesting Provider Zainab Indications: Coughing Interpretation Spirometry: There was a 10% decrease in FEV1% with administration of 16mg/mL methacholine. Impression Negative methacholine challenge test. Clinical Correlation therefore is recommended. cc: Dictated by: AMY LAMB MD Dictated: 06/22/22 Time: 1156 <Electronically signed by Amy Lamb M.D.> Date: 06/22/221156 Date: Date: Transcribed Date: 06/22/22 Transcribed Time: 115 By: DONIS This is privileged, confidential information, intended only for the provider named. Any use or distribution by any person other than this provider is strictly prohibited. If you receive this report in error, please notify us immediately at [phone] and return the original report to us at the address above. Thank you. Anesthesia Assessment and Plan Anesthesia History Personal History: No History of Anesthesia Complications Family History: No Family History of Anesthesia Complications Exercise Tolerance Exercise Tolerance: Metabolic Equivalents>4 Pertinent Negatives Pertinent Negatives: No History of CVA/TIA Cardiac & Pulmonary Exam Cardiac Exam: Normal S1/S2 Heart Sounds Pulmonary Exam: Clear Bilateral Breath Sounds Implantable Cardiac Device Does patient have a Pacemaker or an ICD?: No Airway Exam Known Difficult Airway: No Mallampati Class: 3 Mouth Opening: Normal (> 3cm) Thyromental Distance: Greater than 3 cm Neck Range of Motion: Full ROM Neck Circumference: Normal Teeth Condition: Normal Dentition ASA Classification ASA Score: ASA 2 Emergency Case?: No NPO Status NPO Status: NPO Clears >2 hours, Solids >8 hours Anesthesia Plan Resuscitation Status: Full Code Anesthesia Technique: General Anesthesia Airway Planned: Natural Airway Monitors Used: Standard Monitors
[2024-07-18] MEDS: Lactated Ringers 1,000 ML 80 ML IV (09:59)
--- NOTE | 2024-07-18 10:37 | BOWEL_PTH ---
PATIENT: Vicky Goel LOC: [facility] U#:[id number] AGE/SX: 79/F ROOM: RE07/18/[address]: Codey Cm : 1945 BED: DIS: 07/18/2024 SPEC #: [id number] RECD: 07/18/24 13:10 STATUS: [facility] #: [id number] BOBBY: 07/18/24 10:[address]: Codey Cm DEPT: Surgical Specimen RECD BY: Sherie Sanchez ENTERED: 07/18/24 13:11 SP TYPE: Bowel OTHR DR: Joycelyn Will MD, DC Tissues: 1 - STOMACH BIOPSY 2 - STOMACH BIOPSY 3 - ESOPHAGUS BIOPSY 4 - BIOPSY BOWEL 5 - BIOPSY BOWEL 6 - BIOPSY BOWEL Procedures: GROSS AND MICRO LEVEL 4 Comments: [id number]
[2024-07-18 11:12] VITALS: BMI 25.2
[2024-07-18 11:15] VITALS: BP 124/50; PULSE 61; RESP 16; TEMP 36; O2SAT 100
--- NOTE | 2024-07-18 11:17 | W.COLOREPORT ---
Date of service: 07/18/24 Time of Service: 11:17 Colonoscopy Report Procedure Description: PROCEDURES PERFORMED: 1. Colonoscopy with cold forceps polypectomy x3 PREOPERATIVE DIAGNOSIS: Surveillance colonoscopy, colorectal polyps POSTOPERATIVE DIAGNOSIS: Colon polyps, sigmoid diverticulosis, internal and external hemorrhoids SURGEON: Radha Cm MD INDICATION for procedure: The patient is a 79-year-old woman who has a personal history of previous high?risk polyps (sessile serrated/tubulovillous) but no family history of colon cancer and no acute symptoms/changes. (Long?standing history of IBS.) FINDINGS: The terminal ileum was normal. In the proximal transverse colon a 2-3 mm sessile polyp was removed with cold forceps technique. In the descending colon another 2-3 mm sessile polyp was removed with cold forceps technique. In the sigmoid colon yet another 3-5 mm flat polyp was removed with cold forceps technique(this 1 appeared hyperplastic possibly). In the sigmoid colon there is extensive diverticular changes. No active diverticulitis, no stricture, no notable fibrosis either. The alpha-looping that naturally forms in her sigmoid colon causes significant vagus?induced bradycardia. SURVEILLANCE interval/FOLLOW-UP: Another colonoscopy can be considered in 3 years if the pathology/histology is sessile serrated or villous. If simple adenomas or hyperplastic, then another colonoscopy can be considered in 5 years if she still is a good life expectancy at that time. SPECIMENS: yes EBL: Minimal COMPLICATIONS: None QUALITY of prep: Excellent Procedure in detail: The patient gave written consent and was in agreement with the indications, the potential risks as well as the benefits of the procedure. She was turned from upper endoscopy (see separate procedure note) and kept in the same position and anesthesia was continued. I started the colonoscopy portion of the procedure. Digital rectal and visual examination was performed and mild?moderate external hemorrhoids were noted. A well-lubricated flexible colonoscope was then introduced and passed without any notable difficulty all the way to the cecum identified by the ileocecal valve and the appendiceal orifice. The terminal ileum was intubated and looked normal. The scope was then slowly withdrawn with the above-noted findings. The patient tolerated the procedure well and was taken to the PACU in hemodynamically stable condition.
--- NOTE | 2024-07-18 11:17 | W.PM.ENDDOP ---
Date of service: 07/18/24 Time of Service: 11:17 Endoscopy Report PROCEDURE DESCRIPTION: PROCEDURES PERFORMED: 1. EGD with biopsies 2. Cold forceps polypectomy PREOPERATIVE DIAGNOSIS: Erosive gastritis POSTOPERATIVE DIAGNOSIS: Stomach polyposis, small(~1cm) type I hiatal hernia SURGEON: Radha Cm MD INDICATION FOR PROCEDURE: 79-year-old woman who has chronic GERD and esophagitis symptoms. She had an EGD done a few years back that showed erosive gastritis. She has never had a follow-up. She has been on a PPI for a long time. FINDINGS: D2/D3 = normal D1/bulb = normal - no ulcers or inflammation Pylorus = normal Antrum = normal appearance, no ulcers, cold forceps biopsies were taken to rule out H. pylori routinely Body = normal appearance, biopsies taken with cold forceps technique routinely Fundus = there is polyposis in the fundus. At least 40 or 50 polyps to my estimate. The largest 3 polyps identified I sampled with cold forceps technique. Cardia = normal Hiatus = small (1 cm) type I sliding hiatal hernia. Hill grade 2 defect. Distal esophagus = no obvious inflammation or esophagitis, no Bolden's, no stricture. Because of her longstanding symptoms I took biopsies with cold forceps technique. Mid esophagus = normal Proximal esophagus/hypopharynx/vocal cords = normal SURVEILLANCE-INTERVAL/FOLLOW-UP: She can follow-up with me in the office to discuss gastric polyposis and PPI therapy and management strategies. Ultimately she will need to follow-up with her PCP to decide best course of action. Specimens: Yes EBL: Minimal COMPLICATIONS: None Procedure in detail: The patient gave written consent and was in agreement with the indications, the potential risks as well as the benefits of the procedure. The patient was taken to the endoscopy suite and laid on their left side. Anesthesia was given which was tolerated well. We performed a timeout and we are in agreement I started the procedure. A well-lubricated endoscope was gently and carefully advanced down the esophagus, into the stomach the scope was and through the pylorus into the duodenum. The scope was then slowly withdrawn with the above-noted findings/interventions. The patient tolerated the procedure well and was then turned for colonoscopy (see separate procedure note).
--- NOTE | 2024-07-18 11:17 | W.PM.DSUDISC ---
Date of service: 07/18/24 Time of Service: 11:17 Discharge Plan Disposition Patient Disposition: Home Condition: Good Discharge Details Attending Provider: Codey Cm Primary Care Provider: Joycelyn Will Home Meds and New Rx's Prescriptions: No Action cholecalciferol (vitamin D3) 1,000 unit capsule 1,000 unit PO DAILY atenolol 25 mg tablet 25 mg PO DAILY Qty: 90 3RF esomeprazole magnesium 40 mg capsule,delayed release(DR/EC) 40 mg PO BID Qty: 180 4RF rosuvastatin [Crestor] 5 mg tablet 5 mg PO DAILY Qty: 90 12RF bisacodyl [Dulcolax (bisacodyl)] 5 mg tablet,delayed release (DR/EC) 5 mg PO ONCE Qty: 4 0RF Rx Instructions: Take per colonoscopy instructions provided by ordering providers office polyethylene glycol 3350 17 gram/dose powder 17 g PO ONCE Qty: 238 0RF Rx Instructions: Take per colonoscopy instructions provided by ordering providers office Estring 2 mg (7.5 mcg /24 hour) ring 1 vag ring VG Q3MOS Qty: 1 4RF multivitamin 1 EACH capsule 1 ea PO DAILY acetaminophen 500 mg tablet 1,000 mg PO Q8H PRN (Reason: pain) Qty: 90 3RF aspirin 81 mg Capsule 81 mg PO DAILY Discharge Instructions Additional Instructions: FINDINGS: On your upper endoscopy some stomach polyps were found. These are very common, benign and nothing you need to worry about. However, you may need to stop some of your medications that could be causing these. We will discuss further in the office in a couple of weeks. On your colonoscopy, some new polyps were found and removed. Again, nothing to worry about. You probably need to do another colonoscopy in 3 years because of finding them. Come to the office in 2 to 4 weeks to discuss next steps in management strategy. Again, nothing to worry about. Stand Alone Forms: Colonoscopy Post Instructions Activity:: Activity as Tolerated Diet:: As Tolerated
[2024-07-18 11:56] VITALS: BP 164/58; PULSE 56; RESP 19; TEMP 36; O2SAT 98
--- NOTE | 2024-07-18 12:10 | W.ANESPOSTOP ---
Postoperative Evaluation Date, Time and Location Date Performed: 07/18/24 Time Performed: 12:11 Patient Location: Day Surgery Unit Vital Signs Most Recent Imported Vital Signs: Most Recent Vital Signs Temp Pulse Resp BP Pulse Ox 36.0 C L 56 L 19 164/58 H 98 07/18/24 11:56 07/18/24 11:56 07/18/24 11:56 07/18/24 11:56 07/18/24 11:56 Pain Score Most Recent Pain Score: Most Recent Pain Score Pain Level 0 07/18/24 09:45 Assessment Mental Status: Awake (Alert & Oriented to Patient Baseline) Airway and Respiratory Function: Patent airway with normal (patient baseline) respiratory exam Cardiovascular Function: Hemodynamically Stable Hydration Status: Adequately Hydrated Nausea & Vomiting: No Nausea or Vomiting Pain: Pt. Denies Any Pain Peripheral Nerve Block: Patient did not receive a nerve block
== END 2024-07-18 12:20 | disposition home or self-care (01) ==
PROVIDERS: PCP Family Medicine; Visit Provider Student in an Organized Health Care Education/Training Program
PROC: (CPT 45380; principal; 2024-07-18 10:15)
DX: Z12.11 Encounter for screening for malignant neoplasm of colon (principal); K44.9 Diaphragmatic hernia without obstruction or gangrene; K31.7 Polyp of stomach and duodenum; K21.9 Gastro-esophageal reflux disease without esophagitis; D12.3 Benign neoplasm of transverse colon; K64.8 Other hemorrhoids; D12.4 Benign neoplasm of descending colon
CPT/HCPCS: 45380; 43239; 00123; 88305; J2001; J2704

== ENCOUNTER 2024-08-01 16:17 | Outpatient (CLI) | payer BC, SELFPAY ==
--- NOTE | 2024-08-01 16:15 | RT.EKG_ITS ---
APPROVED REPORT Exam: Resting ECG Reason for Exam: chest discomfort Patient Location: O HR:55 bpm ECG Measurements Heart Rate 55 AXIS VT 199 P 70 QRSd 84 QRS 45 QT 445 T 68 QTc 426 Conclusion Sinus rhythm...normal P axis, V-rate 50- 99 Normal Electrocardiogram
== END 2024-08-01 16:18 | disposition home or self-care (01) ==
LOC: DI.CM 16:17
PROVIDERS: PCP Family Medicine; Visit Provider Physician Assistant
DX: R07.89 Other chest pain (principal)
CPT/HCPCS: 93010

== ENCOUNTER 2024-08-01 17:23 | Emergency (ER) | payer BC, SELFPAY ==
--- NOTE | 2024-08-01 17:15 | RT.EKG_ITS ---
APPROVED REPORT Exam: Resting ECG Reason for Exam: cp Patient Location: E HR:58 bpm ECG Measurements Heart Rate 58 AXIS OK 188 P 48 QRSd 84 QRS 54 QT 431 T 63 QTc 422 Conclusion Sinus bradycardia 58 no stemi
[2024-08-01 17:26] VITALS: BP 173/77; PULSE 58; RESP 14; TEMP 36.8; O2SAT 97
[2024-08-01 17:51] LABS: Bilirubin Negative (Negative); Blood Moderate (Negative); Clarity Clear (Clear); Glucose Negative (Negative); Ketones Negative (Negative); Leukocyte Esterase Trace (Negative); Nitrite Negative (Negative); Specific Gravity 1.015 (1.005-1.025); Urobilinogen 0.2 mg/dL (Up to 0.2); pH 5.5 (5-8)
[2024-08-01 17:59] LABS: Abs Immature Grans 0.01 10^3/uL (0.0-0.06); Absolute Basophil Count 0.04 10^3/uL (0.0-0.2); Absolute Eosinophil Count 0.34 10^3/uL (0.0-0.7); Absolute Lymphocyte Count 1.82 10^3/uL (1.2-3.4); Absolute Neutrophil Count 2.47 10^3/uL (1.2-6.7); Basophils % 0.8 %; Eosinophils % 6.6 %; HCT 40.6 % (36.0-46.0); Immature Grans % 0.2 %; Lymphocytes % 35.1 %; MCH 30.4 pg (27.0-33.0); MCV 95 fL (80-95); MPV 9.8 fL (8.0-11.0); Monocytes % 9.7 %; Neutrophils % 47.6 %; Platelet Count 224 10^3/uL (130-400); RBC 4.27 10^6/uL (3.93-5.22); RDW 12.1 % (11.7-14.6); RDW-SD 42.1 fL; WBC 5.18 10^3/uL (4.4-10.8)
[2024-08-01 18:00] LABS: Bacteria Moderate HPF (Negative); Epithelial Cells Moderate HPF (Negative)
[2024-08-01 18:01] LABS: C & S Indicated? No
[2024-08-01 18:24] LABS: ALT 15 U/L (14-59); AST 17 U/L (15-37); Albumin 3.7 g/dL (3.4-5.0); Alkaline Phosphatase 94 U/L (46-116); Anion Gap 12.1 mmol/L (3-11); BUN 16 mg/dL (7-18); Bilirubin, Total 0.23 mg/dL (0.2-1.0); CO2 28.9 mmol/L (21.0-32.0); CREATININE 1.1 mg/dL (0.55-1.02); Calcium 9.4 mg/dL (8.5-10.1); Chloride 104 mmol/L (98-107); Estimated GFR 51.11 (mL/min/1.73m2); Glucose 109 mg/dL (74-106); Magnesium 2.3 mg/dL (1.8-2.4); Potassium 3.4 mmol/L (3.5-5.1); Sodium 145 mmol/L (136-145); TSH 2.38 uIU/Ml (0.36-3.74); Total Protein 8.1 g/dL (6.4-8.2); Troponin I 4 ng/L (<or=51)
[2024-08-01] MEDS: Omnipaque 350 MG/ML 100 ML BTL IJ (18:42)
[2024-08-01] MEDS: Normal Saline - Diluent 50 ML VIAL IJ (18:43)
[2024-08-01] MEDS: Normal Saline Flush 10 ML SYR IVP (18:43)
[2024-08-01 19:14] VITALS: PULSE 59; RESP 17; O2SAT 99
--- NOTE | 2024-08-01 19:18 | DI.CT_ITS ---
Exam(s) CT THORAX ABD/PEL CTA EXAM: CT THORAX ABD/PEL CTA CLINICAL HISTORY: eval aorta. TECHNIQUE: Imaging Protocol: Axial computed tomography images with coronal and sagittal reformatted images were created and reviewed CONTRAST MATERIAL: Intravenous: Omnipaque 350 Contrast volume:100 ml Oral: None COMPARISON: No exams were available for comparison FINDINGS: CHEST: AORTA: There is no aneurysmal dilatation of the ascending thoracic aorta nor of the arch and no evide nce of dissection.. There is mild calcified plaque at the origin of the left subclavian artery off o f arch. Arch anatomy is conventional. Diameter of the descending thoracic aorta is normal. There i s no evidence of abdominal aortic aneurysm. Aortic bifurcation is patent. Common and external iliac arteries appear unremarkable as do the common femoral arteries. There is no evidence of aneurysms o f the internal iliac arteries. Some plaque is noted in the renal arteries. Also some plaque at the origin of the celiac artery. No significant narrowing at the origin of the superior mesenteric artery. The inferior mesenteric caroline ry is also patent. LUNGS: No infiltrates nor pleural effusions. No significant pulmonary nodules.. MEDIASTINUM: There is no hilar nor mediastinal adenopathy. Visualized thyroid unremarkable. CARDIAC: Heart size is normal. There is no pericardial effusion. ABDOMEN: There is no ascites. LIVER: There are no focal hepatic lesions nor dilatation of intrahepatic ducts. GALLBLADDER/BILIARY: GALLBLADDER SURGICALLY ABSENT. CBD is not dilated. PANCREAS: No evidence of pancreatic mass nor dilatation of the pancreatic duct. SPLEEN: Spleen is not enlarged. There are no intrasplenic lesions. Splenic and portal veins are martinez nt. ADRENALS: There are no significant adrenal masses. KIDNEYS: No cysts evident. No calculi nor hydronephrosis. No solid renal masses. ABDOMINAL AORTA: The abdominal aorta is not enlarged. LYMPH NODES: There is no retroperitoneal nor para-aortic adenopathy. No obvious mesenteric masses. ABDOMINAL WALL: No evidence of significant anterior abdominal wall hernia. GI: There is no evidence of bowel obstruction, free air, nor abscess. PELVIS: LYMPH NODES: There is no intrapelvic nor inguinal adenopathy. GI: No evidence of appendicitis.There is extensive sigmoid diverticulosis. no obvious acute divertic ulitis although part of the sigmoid is obscured by beam hardening artifact from a right hip listhesis . URINARY BLADDER: No obvious abnormalities, but evaluation somewhat limited by beam hardening artifact from right hip prosthesis. REPRODUCTIVE: Uterus and adnexal regions unremarkable. A ground pessary device is noted in the upper vagina OSSEOUS: Right hip prosthesis. No fractures nor significant osseous lesions. Advanced disc space na rrowing at L2-3 level noted. There is a tiny amount of free fluid in the dependent aspect of the pelvis. IMPRESSION: 1. No evidence of aortic aneurysm nor aortic dissection. Heart size normal. No pericardial effusion . 2. No significant pulmonary findings. No pleural effusions 3. There is a tiny amount of free fluid in the dependent aspect of the pelvis. This is not a normal finding in a 79-year-old female patient. Appropriate follow-up recommended. There are no adnexal ma sses. 4. Sigmoid diverticulosis without evidence of obvious acute diverticulitis although please note that part of the sigmoid is obscured by beam hardening artifact from the presence of a right hip prosthesi s. Given the small amount of free fluid in the dependent aspect of the pelvis cannot exclude subtle case of diverticulitis of the sigmoid which is obscured by the beam hardening artifact from the right hip prosthesis 5. Previous cholecystectomy. Biliary tree is not dilated. RADIATION DOSE DELIVERED: 535.45mGy.cm Total DLP DATA REPOSITORY: All CT scans at this facility are submitted to the National Radiology Data Registry (NRDR) Dose Index Registry (DIR) with the [employer] (ACR). RADIATION OPTIMIZATION: All CT scans at this facility use at least one of these dose optimization te chniques: automated exposure control; mA and/or kV adjustment per patient size (includes targeted exa ms where dose is matched to clinical indication); or iterative reconstruction.
[2024-08-01 19:20] VITALS: PULSE 60; RESP 14; O2SAT 98
[2024-08-01 19:30] VITALS: PULSE 56; RESP 17; O2SAT 98
--- NOTE | 2024-08-01 20:22 | ED.GENADUL_ITS ---
Discharge Plan Disposition Patient Disposition: Home Condition: Stable Discharge Details Clinical Impression: Near syncope Primary Care Provider: Joycelyn Will ED Provider: Amelia Jasmine Home Meds and New Rx's Prescriptions: No Action cholecalciferol (vitamin D3) 1,000 unit capsule 1,000 unit PO DAILY atenolol 25 mg tablet 25 mg PO DAILY Qty: 90 3RF esomeprazole magnesium 40 mg capsule,delayed release(DR/EC) 40 mg PO BID Qty: 180 4RF rosuvastatin [Crestor] 5 mg tablet 5 mg PO DAILY Qty: 90 12RF bisacodyl [Dulcolax (bisacodyl)] 5 mg tablet,delayed release (DR/EC) 5 mg PO ONCE Qty: 4 0RF Rx Instructions: Take per colonoscopy instructions provided by ordering providers office Estring 2 mg (7.5 mcg /24 hour) ring 1 vag ring VG Q3MOS Qty: 1 4RF multivitamin 1 EACH capsule 1 ea PO DAILY acetaminophen 500 mg tablet 1,000 mg PO Q8H PRN (Reason: pain) Qty: 90 3RF aspirin 81 mg Capsule 81 mg PO DAILY Discharge Instructions Instructions: Near Fainting (DC) Additional Instructions: * Blood work and CT imaging are within normal limits today. * Please monitor your symptoms and follow-up with your PCP if you have recurrent episodes of dizziness or near passing out HPI General Date/Time Provider Initiated Documentation: 08/01/24 17:38 . Limitations to Documentation: no limitations . Information obtained by: patient . HPI Narrative: 79-year-old female with past medical history of chronic back pain, hypertension, presents for evaluation of a near syncopal episode. She reports that yesterday she was in the kitchen making dinner when she started to feel very dizzy. She felt very nauseated. She did not have chest pain. She did not lose consciousness, but she laid herself on the ground. She laid there for about 30 minutes before she got up. She states that she did have some chest pressure and to her usual back pain. She did not seek medical care at that time, but she went to urgent care today and they referred her here to the emergency department. She reports that she is just felt very tired all day. Denies any persistent chest pain or shortness of breath, no additional nausea. Related Data Home Medications ?Medication ?Instructions ?Recorded ?Confirmed multivitamin 1 ea PO DAILY 08/31/14 08/01/24 cholecalciferol (vitamin D3) 25 1,000 unit PO DAILY 09/08/19 08/01/24 mcg (1,000 unit) capsule acetaminophen 500 mg tablet 1,000 mg (2 x 500 mg) PO Q8H PRN 12/06/19 08/01/24 pain #90 tabs aspirin 81 mg capsule 81 mg PO DAILY 03/12/22 08/01/24 atenolol 25 mg tablet 25 mg PO DAILY #90 tabs 02/02/24 08/01/24 esomeprazole magnesium 40 mg 40 mg PO BID #180 tab-caps 02/02/24 08/01/24 capsule,delayed release rosuvastatin 5 mg tablet (Crestor) 5 mg PO DAILY #90 tab-caps 02/02/24 08/01/24 estradiol 2 mg (7.5 mcg/24 hour) 1 vag ring vaginal Q3MOS #1 ea 03/10/24 08/01/24 vaginal ring (Estring) bisacodyl 5 mg tablet,delayed 5 mg PO ONCE #4 tabs 07/07/24 08/01/24 release (Dulcolax (bisacodyl)) Previous Rx's ?Medication ?Instructions ?Recorded acetaminophen 500 mg tablet 1,000 mg (2 x 500 mg) PO Q8H PRN 12/06/19 pain #90 tabs atenolol 25 mg tablet 25 mg PO DAILY #90 tabs 02/02/24 esomeprazole magnesium 40 mg 40 mg PO BID #180 tab-caps 02/02/24 capsule,delayed release rosuvastatin 5 mg tablet (Crestor) 5 mg PO DAILY #90 tab-caps 02/02/24 estradiol 2 mg (7.5 mcg/24 hour) 1 vag ring vaginal Q3MOS #1 ea 03/10/24 vaginal ring (Estring) bisacodyl 5 mg tablet,delayed 5 mg PO ONCE #4 tabs 07/07/24 release (Dulcolax (bisacodyl)) Allergies Allergy/AdvReac Type Severity Reaction Status Date / Time Penicillins Allergy RASH/BREATHING Verified 08/01/24 17:33 PROBLEMS atorvastatin calcium (From AdvReac Intermediate LEG CRAMPS Verified 08/01/24 17:33 Lipitor) General Stated Complaint: [id number] NESS: 3 Exam Narrative Exam Narrative: Review of Systems: All systems reviewed & are unremarkable except as noted in HPI and below Well-developed, no acute distress NCAT PERRL, normal conjunctiva RRR no murmur Unlabored respiratory effort clear bilaterally Nondistended abdomen soft nontender Extremities w/o no edema no focal neurologic deficits Course Vital Signs Vital signs: Vital Signs Temperature 36.8 C 08/01/24 17:26 Pulse 58 L 08/01/24 17:26 Respiratory Rate 14 08/01/24 17:26 Blood Pressure 173/77 H 08/01/24 17:26 Pulse Oximetry 97 08/01/24 17:26 Temperature 36.8 C 08/01/24 17:26 Temperature Source Oral 08/01/24 17:26 Pulse 58 L 08/01/24 17:26 Pulse 56 L 08/01/24 19:30 Respiratory Rate 17 08/01/24 19:30 Respiratory Effort Normal, Non-Labored 08/01/24 19:37 Respiratory Depth Normal 08/01/24 19:37 Respiratory Pattern Normal 08/01/24 19:37 Blood Pressure 173/77 H 08/01/24 17:26 Blood Pressure Position Sitting 08/01/24 17:26 Pulse Oximetry 98 08/01/24 19:30 Oxygen Delivery Method Room Air 08/01/24 17:26 Oxygen Flow Rate 0 08/01/24 17:26 Pain Level 0 08/01/24 17:26 Lab/Test Results Lab/Test Results: Laboratory Tests Range/Units 08/01/24 08/01/24 17:38 17:52 WBC (4.4-10.8) 10^3/uL 5.18 RBC (3.93-5.22) 10^6/uL 4.27 Hgb (11.2-15.7) g/dL 13.0 Hct (36.0-46.0) % 40.6 MCV (80-95) fL 95 MCH (27.0-33.0) pg 30.4 MCHC (32.0-36.0) % 32.0 RDW (11.7-14.6) % 12.1 Plt Count (130-400) 10^3/uL 224 MPV (8.0-11.0) fL 9.8 Immature Gran % % 0.2 Neutrophils % % 47.6 Lymphocytes % % 35.1 Monocytes % % 9.7 Eosinophils % % 6.6 Basophils % % 0.8 Nucleated RBC % (0.0-0.3) % 0.0 Absolute Neutrophils (1.2-6.7) 10^3/uL 2.47 Absolute Lymphocytes (1.2-3.4) 10^3/uL 1.82 Absolute Monocytes (0.1-0.8) 10^3/uL 0.50 Absolute Eosinophils (0.0-0.7) 10^3/uL 0.34 Absolute Basophils (0.0-0.2) 10^3/uL 0.04 Sodium (136-145) mmol/L 145 Potassium (3.5-5.1) mmol/L 3.4 L Chloride (98-107) mmol/L 104 Carbon Dioxide (21.0-32.0) mmol/L 28.9 Anion Gap (3-11) mmol/L 12.1 H BUN (7-18) mg/dL 16 Creatinine (0.55-1.02) mg/dL 1.1 H Est GFR (CKD-EPI 2020) (mL/min/1.73m2) 51.11 Glucose (74-106) mg/dL 109 H Calcium (8.5-10.1) mg/dL 9.4 Magnesium (1.8-2.4) mg/dL 2.3 Total Bilirubin (0.2-1.0) mg/dL 0.23 AST (15-37) U/L 17 ALT (14-59) U/L 15 Alkaline Phosphatase (46-116) U/L 94 Troponin I (<or=51) ng/L 4 Total Protein (6.4-8.2) g/dL 8.1 Albumin (3.4-5.0) g/dL 3.7 TSH (0.36-3.74) uIU/Ml 2.38 Urine Color (Yellow) Yellow Urine Clarity (Clear) Clear Urine pH (5-8) 5.5 Ur Specific Justin (1.005-1.025) 1.015 Urine Protein (Neg-Trace) mg/dL Negative Urine Ketones (Negative) mg/dL Negative Urine Blood (Negative) Moderate H Urine Nitrite (Negative) Negative Urine Bilirubin (Negative) Negative Urine Urobilinogen (Up to 0.2) mg/dL 0.2 Ur Leukocyte Esterase (Negative) Trace H Urine RBC (0-2) HPF 3-5 H Urine WBC (0-5) HPF 5-10 Ur Epithelial Cells (Negative) HPF Moderate Urine Crystals Not Applicable Urine Bacteria (Negative) HPF Moderate Urine Mucus Not Applicable Ur Culture Indicated? No Urine Glucose (Negative) mg/dL Negative Medical Decision Making Emergent evaluation of near syncope that occurred 24 hours ago. Patient is noted to be bradycardic, but otherwise hemodynamically stable. She is on a beta-serina so the bradycardia is not significantly concerning. EKG reviewed and independently interpreted. Sinus bradycardia 58, normal axis, no acute ST segment changes. She is asymptomatic at this time. Her symptoms yesterday do sound concerning. Consider vasovagal episode, syncope, cardiac dysrhythmia. ACS also considered. The patient's lab work was obtained. White blood cell count is 5, no anemia. Cr slightly elevated at baseline. Her troponin is negative. She does have some hematuria, but no evidence of urinary tract infection. Given the near syncope and chest discomfort and back pain, consider dissection so CTA was obtained. CTA does not demonstrate any acute aortic pathology. The patient has not had any additional symptoms for over 24 hours a nd at this point she is stable for discharge home. Recommend follow-up with her PCP for reevaluation if symptoms recur or she has any other issues or concerns. Quality:[facility] Health Related Social Needs: No Data to Display PFSH All Active Problems (Updated 08/01/24 @ 20:48 by Amelia Jasmine MD) Near syncope (Acute) Incidental lung nodule, > 3mm and < 8mm (Acute) Abdominal pain (Acute) Toe pain, right (Acute) Arthritis of left glenohumeral joint (Acute) Shoulder pain, left (Acute) Osteoarthritis of right knee (Acute) Depo-medrol injection: 01/12/23 Breast pain in female (Acute) Vertigo (Acute) Cough (Acute) Post-nasal drip (Acute) Weight loss (Acute) Arthritis of left knee (Acute) DEPO MEDROL 03/20/22 Meralgia paresthetica of right side (Acute) Lumbosacral spondylosis without myelopathy (Acute) Tear of medial meniscus of left knee (Acute) Acute low back pain due to spinal disorder (Acute) Chest pain (Acute) Serrated adenoma of colon (Acute ~11/2020) Leg pain, right (Acute) Anxiety (Chronic 01/17/09) Essential hypertension (Chronic 09/05/13) Hyperlipidemia (Chronic 01/11/09) Vitamin D deficiency (Chronic 07/01/11) 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) Cervical spondylosis without myelopathy (Acute) Temporomandibular joint disorder (Acute 07/24/16) Sacroiliac joint pain (Acute) Balance problem (Acute 09/24/06) Endometriosis (Acute) Tinnitus, bilateral (Acute) Vertigo (Acute) Elevated glucose (Acute) Sensorineural hearing loss of both ears (Acute) Obstructive sleep apnea (adult) (pediatric) (Acute) Disequilibrium (Acute) Globus sensation (Acute) Temporal pain (Acute) Peripheral edema (Acute) Right leg weakness (Acute) Right lumbar radiculopathy (Acute) Status post total replacement of right hip (Acute 12/06/19) Trochanteric bursitis, right hip (Acute) Supraventricular tachycardia (Chronic) on atenolol Sleep apnea, unspecified (Chronic 09/12/15) Shoulder pain, right (Chronic 08/17/14) Reflux esophagitis (Chronic 06/02/17) MILD-DR. TEZ GUZMAN Peripheral neuralgia (Chronic) EMG-01/29; mild slowing of right ulnar @elbow Osteopenia (Chronic) T scores of -1.2, -1.4 Mantoux: positive (Chronic) 1999 Hiatal hernia (Chronic 08/17/13) 2005 EGD showing HH, polyps and gastric fundi, non-obstructing ring in the GI junction Diverticula of colon (Chronic) 12/26/15; DR. 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 states this wasn't related to her heart but her esophagitis Elevated erythrocyte sedimentation rate (01/17/09) Fatigue (07/01/11) Herpes zoster without complication (12/10/15) Meralgia paresthetica of right side (08/18/17) Nasal obstruction (09/12/15) Pain of left breast (01/05/17) Cough due to bronchospasm (02/24/17) supraventricular reflux disease Vitamin D deficiency Esophagitis GERD (gastroesophageal reflux disease) Nasal congestion Hyperlipidemia Anxiety Essential hypertension Surgical History History of colonoscopy with polypectomy (~06/2024) History of total hip replacement History of colonoscopy History of lumpectomy of both breasts History of esophagogastroduodenoscopy (~06/2024) colonoscopy PROCEDURES EMG 01/29 with mild swelling of the right ulnar nerve of the elbow Echocardiogram 03/31 showing an ejection fraction of 65% and an upper septal hypertrophy grade 1, Diastolic dysfunction. Repeat echo showing an ejection fraction of 60% and mild MRTR ENDOMETRIAL SURGERY 1992 EGD - MAC (06/02/17) EGD - IV Sedation (08/17/13) HIATAL HERNIA Cholecystectomy (~2004) CYSTECTOMY (~1971) Reduction mammoplasty (~2001) B/L Family History Mother , age 87 Alzheimer's disease Heart disease Uterine cancer Father , age 67 Leukemia Sister Heart disease Hyperlipidemia Breast cancer Sister , BACTERIAL DISEASE at age 3. Cancer Brother , age 43 Essential hypertension Heart disease Hyperlipidemia Brother , age 67 Essential hypertension Heart disease Hyperlipidemia Brother , age 66 Pancreatic cancer Maternal Grandfather Heart disease Paternal Grandfather Pancreatic cancer Maternal Grandmother Cerebral hemorrhage Paternal Grandmother Heart disease Cancer FAMILY HISTORY Aneurysm Hyperlipidemia Neoplasm IBS (irritable bowel syndrome) Social History Smoking/Tobacco Use Status: Former Tobacco Use tobacco type: cigarettes Quit Date: 10/26/69 Tobacco: How many years used: 5 Second Hand Exposure: Yes Smoking risk assessment performed?: Yes Alcohol Intake: never Drug use: Never Substance use type: does not use Adopted: No Caregiver/Support person: No Household members: spouse Housing: house Number of Children: 1 Communication Needs: None Education Level: master's degree Do you need help understanding health information?: Never current occupation: Retired Pets and animals: Yes Pets and animals: dog(s) Sexually active: No Do you think of yourself as: straight/heterosexual Current gender identity: female What is your relationship status?: How often do you talk on the phone with friends or family?: once per week How often do you get together with friends or relatives?: decline to answer How often do you attend gnosticism or sikhism services?: decline to answer Do you belong to any clubs or organized social groups?: no Panel score (0-1 are the most socially isolated patients): 1 What type of physical activity do you participate in: none Frequency: does not exercise Radha/Mosque: Congregational Special radha needs: No Seatbelt use: always Drive intox 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 cryogenic transport driver: No Firearms in home: No Do you feel safe at home: Yes Do you feel safe in your relationship?: Yes Victim of physical abuse: No Victim of emotional abuse: No Victim of sexual abuse: No Would you like helpful sources: No
--- NOTE | 2024-08-01 20:40 | DI.VRAD_ITS ---
PROCEDURE INFORMATION: Exam: CTA Chest With Contrast CTA Abdomen and Pelvis With Contrast Exam date and time: 08/01/2024 6:58 PM Age: 79 years old Clinical indication: Other: Eval aorta; Prior surgery; Surgery date: 6+ months; Surgery type: R hip TECHNIQUE: Imaging protocol: Computed tomographic angiography of the chest with contrast. Exam focused on the arteries. Computed tomographic angiography of the abdomen and pelvis with contrast. Exam focused on the arteries. 3D rendering (Not supervised by radiologist): MIP and/or 3D reconstructed images were created by the technologist. Radiation optimization: All CT scans at this facility use at least one of these dose optimization techniques: automated exposure control; mA and/or kV adjustment per patient size (includes targeted exams where dose is matched to clinical indication); or iterative reconstruction. Contrast material: OMNIPAQUE 350; Contrast volume: 70 ml; Contrast route: INTRAVENOUS (IV); COMPARISON: CT THORAX CTA 02/27/2024 12:00 AM FINDINGS: VASCULATURE: Pulmonary arteries: Normal. No pulmonary emboli. Aorta: Mild atherosclerotic calcification in the abdominal aorta. Aorta is normal in caliber. No evidence aortic dissection or acute injury. Celiac trunk and mesenteric arteries: No occlusion or significant stenosis. Renal arteries: No occlusion or significant stenosis. Right iliac arteries: No occlusion or significant stenosis. Left iliac arteries: No occlusion or significant stenosis. CHEST: Lungs: Unremarkable. No consolidation. No masses. Pleural spaces: Unremarkable. No pneumothorax. No pleural effusion. Heart: Unremarkable. No cardiomegaly. No pericardial effusion. ABDOMEN AND PELVIS: Liver: No mass. Gallbladder and biliary ducts: Gallbladder is surgically absent. No significant biliary ductal dilation. Pancreas: Unremarkable. No mass. No ductal dilation. Spleen: Unremarkable. No splenomegaly. Adrenal glands: Unremarkable. No mass. Kidneys and ureters: Unremarkable. No solid mass. No hydronephrosis. Stomach and bowel: Moderate sigmoid diverticulosis. No bowel wall thickening or evidence of bowel obstruction. Appendix: No evidence of appendicitis. Intraperitoneal space: Unremarkable. No free air. No significant fluid collection. Urinary bladder: Unremarkable. No mass. Reproductive: Pessary device noted in the vaginal canal. Uterus and adnexal regions appear unremarkable Lymph nodes: Unremarkable. No enlarged lymph nodes. Bones/joints: Moderate degenerative changes in the lumbar spine. No vertebral body compression or acute fracture. Right hip prosthesis in place. Soft tissues: Unremarkable. IMPRESSION: No significant aortic pathology. No acute abnormality. Incidental findings as noted. Dictated and Authenticated by: Jigar Kinney MD. Ordering:TIFFANY Moreno MD
== END 2024-08-01 21:18 | disposition home or self-care (01) ==
PROVIDERS: Emergency Provider Emergency Medicine; PCP Family Medicine
DX: R55 Syncope and collapse (principal); I10 Essential (primary) hypertension; E78.5 Hyperlipidemia, unspecified; F41.9 Anxiety disorder, unspecified; Z79.82 Long term (current) use of aspirin; Z87.891 Personal history of nicotine dependence
CPT/HCPCS: 71275; 80053; 93005; 99285; 74174; 81003; 81015; 83735; 84443; 84484; 85025; 93010; 99284; J3490

== ENCOUNTER 2024-09-08 01:06 | Outpatient (CLI) | payer BC, SELFPAY ==
--- NOTE | 2024-09-08 09:15 | DI.MAMMO_ITS ---
Exam(s) MAMMO SCREENING EXAM: MAMMO SCREENING CLINICAL HISTORY: screening,z12.39 TECHNIQUE: Mammograms were interpreted according to the usual protocol including computer analysis w [employer]ble CAD system, tomosynthesis and C-view imaging. COMPARISON: 2014 through 2021 FINDINGS: The breasts are composed of scattered fibroglandular densities, Breast Density category B. No suspicious masses or suspicious microcalcifications are seen. Mild scarring related to breast red uction surgery. Stable nodule in the posterior right breast. No skin thickening or abnormal axillary lymph nodes are seen. There has been no significant change from prior exams. IMPRESSION: BI-RADS Category 2 - Benign Findings Yearly screening mammography is recommended. Breast Density - Category B, scattered fibroglandular densities. A negative radiographic report should not delay biopsy if a dominant or clinically suspicious mass is present. Up to ten percent of cancers are not identified on mammography. A negative report may reinforce clinical impression. Adenosis and dense breasts may obscure an underlying neoplasm. False positive reports average 6 to 10%. Patient will receive a letter notifying them of these results.
== END 2024-09-08 01:26 ==
LOC: DI 01:07
PROVIDERS: PCP Family Medicine; Visit Provider Family Medicine
DX: Z78.0 Asymptomatic menopausal state (principal); Z12.31 Encounter for screening mammogram for malignant neoplasm of breast; R92.323 Mammographic fibroglandular density, bilateral breasts; D24.1 Benign neoplasm of right breast
CPT/HCPCS: 77063; 77067

== ENCOUNTER 2024-10-03 01:40 | Outpatient (CLI) | payer BC, SELFPAY ==
--- NOTE | 2024-10-03 | DI.DEXA_ITS ---
Exam(s) XR DEXA BONE DENSITY W/WO AARTI EXAM: XR DEXA BONE DENSITY W/WO AARTI CLINICAL HISTORY: SCRENING FOR OSTEOPOROSIS IN POSTMENOPAUSAL STATUS,Z78.0 TECHNIQUE: Routine DEXA evaluation of the lumbar spine, hip, or forearm. COMPARISON: Prior DEXA scan 2007 FINDINGS: Performed on a [employer] unit. Lateral image: No compression fracture evident. Lumbar Spine total T-score: -1.9. Prior reading in 2007 -1.5. Hip total T-score:-1.5. Prior reading in 2008 was -0.9 Independent reading at the level of the femoral neck yields T-score of -1.2 Forearm total T-score: -3.3. This is in the osteoporosis range IMPRESSION: Bone mineral density measures in the osteopenia range for the lumbar spine and hip. Fracture risk is moderate. Bone mineral density measures in the osteoporosis range for the forearm-chest and at this level fracture risk is high. Note: Any spine fracture indicates 5x risk for subsequent spine fracture and 2x risk for subsequent h ip fracture. World Health Organization criteria for BMD interpretation classify patients: Normal...... T- Score at or above -1.0 Osteopenic... T- Score between -1.0 and -2.5 Osteoporosis... T-Score at or below -2.5
== END 2024-10-03 02:00 ==
LOC: DI 01:41
PROVIDERS: PCP Family Medicine; Visit Provider Family Medicine
DX: Z13.820 Encounter for screening for osteoporosis (principal); Z78.0 Asymptomatic menopausal state; M85.89 Other specified disorders of bone density and structure, multiple sites
CPT/HCPCS: 77080

== ENCOUNTER 2024-12-29 08:18 | Outpatient (CLI) | payer BC, SELFPAY ==
--- NOTE | 2024-12-29 08:15 | RT.EKG_ITS ---
APPROVED REPORT Exam: Resting ECG Reason for Exam: SVT Patient Location: O HR:57 bpm ECG Measurements Heart Rate 57 AXIS CO 202 P 67 QRSd 96 QRS 42 QT 458 T 61 QTc 446 Conclusion Sinus rhythm...normal P axis, V-rate 50- 99 Normal Electrocardiogram
== END 2024-12-29 08:19 | disposition home or self-care (01) ==
LOC: DI.CARD 08:19
PROVIDERS: PCP Family Medicine; Visit Provider Internal Medicine Cardiovascular Disease
DX: I47.10 Supraventricular tachycardia, unspecified (principal)
CPT/HCPCS: 93010

== ENCOUNTER 2025-01-03 02:42 | Outpatient (RCR) | payer BC, SELFPAY ==
[2025-01-03] MEDS: Denosumab 60 MG/ML SYR SC (10:23)
== END 2025-01-23 23:59 | disposition home or self-care (01) ==
LOC: INF 02:42
PROVIDERS: PCP Family Medicine; Visit Provider Family Medicine
DX: M81.0 Age-related osteoporosis without current pathological fracture
CPT/HCPCS: 96372; J0897

== ENCOUNTER 2025-02-28 06:54 | Day surgery (SDC) | payer BC, SELFPAY ==
[2025-02-28 07:23] VITALS: BP 181/73; PULSE 60; RESP 16; TEMP 36.4; O2SAT 99
[2025-02-28] MEDS: Lactated Ringers 1,000 ML 80 ML IV (07:38)
--- NOTE | 2025-02-28 07:55 | W.ANESPRE ---
General Info Date of Service Date Performed: 02/28/25 Height: 5 ft 3 in Weight: 65.7 kg Body Mass Index (BMI): 25.6 Surgical Procedure: Operation Date: 02/28/25 08:20 Proposed Procedure Side Surgeon p Gastroscopy Codey Cm MD Meds Allergies and Home Medications Allergies Allergy/AdvReac Type Severity Reaction Status Date / Time Penicillins Allergy RASH/BREATHING Verified 02/28/25 07:19 PROBLEMS atorvastatin calcium (From AdvReac Intermediate LEG CRAMPS Verified 02/28/25 07:19 Lipitor) Home Medication ?Medication ?Instructions ?Recorded multivitamin 1 ea PO DAILY 08/31/14 cholecalciferol (vitamin D3) 25 1,000 unit PO DAILY 09/08/19 mcg (1,000 unit) capsule acetaminophen 500 mg tablet 1,000 mg (2 x 500 mg) PO Q8H PRN 12/06/19 pain #90 tabs aspirin 81 mg capsule 81 mg PO DAILY 03/12/22 estradiol 2 mg (7.5 mcg/24 hour) 1 vag ring vaginal Q3MOS #1 ea 03/10/24 vaginal ring (Estring) famotidine 20 mg tablet (Pepcid) 20 mg PO DAILY 12/29/24 atenolol 25 mg tablet 25 mg PO DAILY #90 tabs 02/10/25 rosuvastatin 5 mg tablet (Crestor) 5 mg PO DAILY #90 tab-caps 02/10/25 Current Visit Medications: Current Medications Generic Name Dose Route Start Last Admin Trade Name Freq PRN Reason Stop Dose Admin Ringer's Solution 1,000 mls @ 80 mls/hr 02/28/25 06:00 02/28/25 07:38 IV 02/28/25 23:59 80 mls/hr INFUSION VALENTÍN Administration IV Miscellaneous Supplies 1 each 02/28/25 06:00 Iv Access IV 02/28/25 23:59 DIRECTED VALENTÍN Sodium Chloride 0 ml 02/28/25 06:00 Normal Saline Flush 10 Ml Syr IV 02/28/25 23:59 PRN PRN Sodium Chloride 0 ml 02/28/25 06:00 Normal Saline 10 Ml Vial IJ 02/28/25 23:59 DIRECTED PRN Sterile Water 0 ml 02/28/25 06:00 Water,Injection,Sterile 10 Ml Vial IJ 02/28/25 23:59 DIRECTED PRN PFSH Active Problems Active Problems: Problem Status Onset Code Gastric polyposis Acute K31.7 Incidental lung nodule, > 3mm and < 8mm Acute R91.1 Abdominal pain Acute R10.9 Toe pain, right Acute M79.674 Arthritis of left glenohumeral joint Acute M19.012 Shoulder pain, left Acute M25.512 Osteoarthritis of right knee Acute M17.11 Breast pain in female Acute N64.4 Vertigo Acute R42 Cough Acute R05.9 Post-nasal drip Acute R09.82 Weight loss Acute R63.4 Arthritis of left knee Acute M17.12 Meralgia paresthetica of right side Acute G57.11 Lumbosacral spondylosis without myelopathy Acute M47.817 Tear of medial meniscus of left knee Acute S83.242A Acute low back pain due to spinal disorder Acute M54.5, M53.9 Chest pain Acute R07.9 Serrated adenoma of colon Acute ~11/2020 D12.6 Leg pain, right Acute M79.604 Anxiety Chronic 01/17/09 F41.9 Essential hypertension Chronic 09/05/13 I10 Hyperlipidemia Chronic 01/11/09 E78.5 Vitamin D deficiency Chronic 07/01/11 E55.9 Tubulovillous adenoma Chronic 12/26/15 D36.9 Cervical spondylosis without myelopathy Acute M47.812 Temporomandibular joint disorder Acute 07/24/16 M26.609 Sacroiliac joint pain Acute M53.3 Balance problem Acute 09/24/06 R26.89 Endometriosis Acute N80.9 Tinnitus, bilateral Acute H93.13 Vertigo Acute R42 Elevated glucose Acute R73.09 Sensorineural hearing loss of both ears Acute H90.3 Obstructive sleep apnea (adult) (pediatric) Acute G47.33 Disequilibrium Acute R42 Globus sensation Acute R09.89 Temporal pain Acute R51 Peripheral edema Acute R60.9 Right leg weakness Acute R29.898 Right lumbar radiculopathy Acute M54.16 Status post total replacement of right hip Acute 12/06/19 Z96.641 Trochanteric bursitis, right hip Acute M70.61 Supraventricular tachycardia Chronic I47.1 Sleep apnea, unspecified Chronic 09/12/15 G47.30 Shoulder pain, right Chronic 08/17/14 M25.511 Reflux esophagitis Chronic 06/02/17 K21.0 Peripheral neuralgia Chronic M79.2 Osteopenia Chronic M85.80 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 Hiatal hernia Chronic 08/17/13 K44.9 Diverticula of colon Chronic K57.30 Chronic cystitis Chronic 09/24/05 N30.20 Cervical pain (neck) Chronic 08/17/14 M54.2 Atrophy of vagina Chronic 01/19/17 N95.2 Medical History Medical History Dry lips Irritable bowel syndrome (IBS) Pt reported Not on immune modulating medications Deviated nasal septum Esophagitis Degenerative joint disease of right hip Injections under fluoroscopy x2: 12/2017; 06/2019 s/p Anterior R URIEL: 12/06/19 Skin tags, multiple acquired Abnormal auditory perception Impacted cerumen of both ears Neoplasm of unspecified behavior of bone, soft tissue, and skin saw ENT states was benign Chronic GERD History of echocardiogram Chest pain (02/01/09) Pt. states this wasn't related to her heart but her esophagitis Elevated erythrocyte sedimentation rate (01/17/09) Fatigue (07/01/11) Herpes zoster without complication (12/10/15) Meralgia paresthetica of right side (08/18/17) Nasal obstruction (09/12/15) Pain of left breast (01/05/17) Cough due to bronchospasm (02/24/17) supraventricular reflux disease Vitamin D deficiency Esophagitis GERD (gastroesophageal reflux disease) Nasal congestion Hyperlipidemia Anxiety Essential hypertension Medical History Comments:: SRINIVAS -no CPAP, Surgical History Surgical History History of colonoscopy with polypectomy (~06/2024) History of total hip replacement History of colonoscopy History of lumpectomy of both breasts History of esophagogastroduodenoscopy (~06/2024) colonoscopy PROCEDURES EMG 01/29 with mild swelling of the right ulnar nerve of the elbow Echocardiogram 03/31 showing an ejection fraction of 65% and an upper septal hypertrophy grade 1, Diastolic dysfunction. Repeat echo 07 showing an ejection fraction of 60% and mild MRTR ENDOMETRIAL SURGERY 1992 EGD - MAC (06/02/17) EGD - IV Sedation (08/17/13) HIATAL HERNIA Cholecystectomy (~2004) CYSTECTOMY (~1971) Reduction mammoplasty (~2001) B/L Tobacco Smoking/Tobacco Use Status: Former Tobacco Use Passive smoking exposure: Yes Second hand exposure: Yes Alcohol Alcohol Intake: never Substance Use Substance use: Never Substance use type: does not use Vital Signs and Lab Results Vital Signs Most Recent Vital Signs in EMR: Most Recent Vital Signs Temp Pulse Resp BP Pulse Ox 36.4 C L 60 16 181/73 H 99 02/28/25 07:23 02/28/25 07:23 02/28/25 07:23 02/28/25 07:23 02/28/25 07:23 Lab Results Blood Type / Crossmatch: No Data to Display Complete Blood Count: No Data to Display Complete Metabolic Panel: No Data to Display Liver Function Panel: No Data to Display Coagulation Panel: No Data to Display Cardiac Panel: No Data to Display Arterial Blood Gas: No Data to Display Venous Blood Gas: No Data to Display Pancreas Panel: No Data to Display Thyroid Panel: No Data to Display Infectious Disease: No Data to Display Blood Cultures: No Data to Display Toxicology Panel: No Data to Display Imaging and Studies Imaging and Studies Study information below may be from another EMR and interpreted by another provider. Please see original notes in EMR for more complete details. EKG Summary: EKG PATIENT NAME: Vicky Goel UNIT #: [id number] ORDERING PROVIDER: Cassy Hickman M.D. PRIMARY CARE PROVIDER: JOYCELYN WILL MD, DC DATE/TIME OF SERVICE: 02/26/242308 : 1945 PERFORMING LOCATION: ER APPROVED REPORT Exam: Resting ECG Reason for Exam: chest pain Patient Location: E HR:64 bpm ECG Measurements Heart Rate 64 AXIS NJ 200 P 58 QRSd 83 QRS 31 QT 424 T55 QTc 436 Conclusion Sinus rhythm...normal P axis, V-rate 60- [address] segment or T wave abnormalities to suggest occlusive ME <Electronically signed by Cassy Hickman M.D. in OV> E-Sign Date: 02/27/24 E-Sign Time: 020 ADDENDUM APPROVED REPORT Exam: Resting ECG Reason for Exam: chest pain Patient Location: E HR:64 bpm ECG Measurements Heart Rate 64 AXIS NJ 200 P 58 QRSd 83 QRS 31 QT 424 T55 QTc 436 Conclusion Sinus rhythm...normal P axis, V-rate 60- [address] segment or T wave abnormalities to suggest occlusive ME Normal Electrocardiogram Electronically signed by: <Electronically signed by Mohini Vallecillo M.D. in OV> 02/29/24 0829 Cosigned by: Stress Test Summary: Patient Name: Vicky Goel Unit #: [id number] Loc: Ordering Provider: Joycelyn Will M.D., DC Status: [facility] Primary Care Provider: Joycelyn Will M.D., DC Date of Exam: 01/05/23 Sex: F Admission Date: 01/05/23 : 1945 Age: 77 APPROVED REPORT Exam: Exercise Treadmill Patient Location: Out-Patient Room/Bed: Stress Nurse: Sirena Solis RN Ordering Provider:JOYCELYN WILL, Contact Number: [phone] BMI: 26.77 Baseline Rhythm: Sinus Rhythm Comment: PAC's Indications: Chest pain, abnormal EKG Medical History Medical History: HTN, anxiety, HLD, balance problems, ataxia, vertigo, SRINIVAS, peripheral edema, SVT, CA calcification, GERD Cardiac Medications: Atenolol, rosuvastatin, aspirin, rosuvastatin, esomeprazole Allergies: Penicillins, Atorvastatin Cardiac Risk Factors: Family hx, HTN, HLD Previous Cardiac Procedures: None Pretest Chest Pain Characteristics: None Exercise History: Indeterminate Physical Disabilities: right hip replacement, hx knee discomfort Lung Sounds: Clear, Clear to auscultation Heart Sounds: Regular Stress Test Details Test: Exercise stress testing was performed using a Caleb protocol. Reason for pharmacologic stress test: Per physcian order. Nuclear Acquisition: Rest Tc-99m/Stress Tc-99m 1 day Rest Isotope: Tc-99m Sestamibi. Dose: 9.0 Date: 01/05/2023 Injection Time: 0920 Stress Isotope: Tc-99m Sestamibi. Dose: 31 Date: 01/05/2023 Injection Time: 1040 HR Resting HR Supine: 69 bpmMax Heart Rate (APMHR): 143.735526 bpm Resting HR Standin bpmTarget HR (85% APMHR): 121.245715 bpm Max HR Achieved: 132 bpm % of APMHR: 92.31 Recovery HR: 81 bpm HR response to stress: Normal HR response to stress Comment: Patient held beta serina per MD order for 72 hours prior to test BP Resting BP Supine: 120/70 mmHg Resting BP Standin/74 mmHg Max BP: 198/90 mmHg Recovery BP: 142/84 mmHg BP response to stress: Normal blood pressure response to stress. ECG Resting ECG: Sinus Rythm with PAC's Ectopy: PAC's Stress ECG: Sinus Tachycardia ST Change: No significant ST segment changes noted Recovery ECG: Sinus rythm with PVC's Recovery ST Change: No significant ST segment changes noted Recovery Arrhythmia: PVC's Clinical Reason for Termination: Fatigue Stress Symptoms: General Fatigue, shoulder blade pain during recovery Exercise duration: 4 min44 sec Highest Stage Reached: Stage 2: 2.5 mph at 12% grade. Exercise capacity: 6.7 METs Angina Score: None Acosta Treadmill Score: 4.4 Rate Pressure Product: 26532 Stress ECG Conclusion 1. Resting electrocardiogram was within normal limits 2. Patient underwent exercise testing using a Caleb protocol and completed a workload of 6.7 METS 3. Normal heart rate and blood pressure response to exercise. The patient achieved 92% of predicted heart rate for age 4. There was no electrocardiographic evidence of myocardial ischemia 5. Atrial and ventricular ectopic beats were noted 6. See MPI report Acosta Treadmill Score is 4.4 which is Moderate risk. Stress Test Summary STAGETime (mins)Speed (mph)Grade (%)[id number] Borwqp27926/70 Alsheggy29441/74 [id number]/804.5 [id number] 1 min [id number]/90Pain between shoulder blades 9/10 when supine 3 min pogthfib39635/68Pain between shoulder blades 4/10 6 min dveamtdh33246/84Pain 0/10 by 4.5 minutes into recovery Patient asymptomatic during exercise. Post test when returned to stretcher, verbalized pain between shoulder blades 9/10. Patient repositioned, provided with water and engaging in conversation. Within 2 minutes of recovery patient verbalized pain starting to decrease, within 3 minutes into recovery pain was 4/10 and by 4.5 minutes pain had resolved. MPI Conclusion Myocardial perfusion is normal. There is no evidence of ischemia or prior infarction EF is 71% with normal wall motion Radiologist Interpretation Radiologist agrees with Planer Setup Operator's Interpretation. Radiologist Interpretation by: Kim Galeas MD Interpretation Date/Time: 01/06/2023 16:26:38 Ordered By: Joycelyn Will M.D., DC CC: JULIANA VEGA,MOHINI STEINBERG Dictated By: Mohini Vallecillo M.D. 01/05/23 1112 <Electronically signed by Mohini Vallecillo M.D. in OV> 01/08/23 0809 Transcribed By: Mohini Vallecillo MD This is privileged, confidential information intended only for the provider named. Any use or distribution by any person other than this provider is strictly prohibited. If you receive this report in error, please notify us immediately at [phone] and return the original report to us at the address above. Thank-you. Pulmonary Function Summary: Pulmonary Function Test PATIENT NAME: Vicky Goel UNIT #: [id number] ADMITTING PROVIDER: Amy Lamb M.D. PRIMARY CARE PROVIDER: JOYCELYN WILL MD, DC DATE OF ADMIT: 06/19/22 : 1945 Date of service: 06/19/22 Time of Service: 10:04 Pulmonary Function Test Result Requesting Provider Zainab Indications: Coughing Interpretation Spirometry: There was a 10% decrease in FEV1% with administration of 16mg/mL methacholine. Impression Negative methacholine challenge test. Clinical Correlation therefore is recommended. cc: Dictated by: AMY LAMB MD Dictated: 06/22/22 Time: 1156 <Electronically signed by Amy Lamb M.D.> Date: 06/22/221156 Date: Date: Transcribed Date: 06/22/22 Transcribed Time: 115 By: DONIS This is privileged, confidential information, intended only for the provider named. Any use or distribution by any person other than this provider is strictly prohibited. If you receive this report in error, please notify us immediately at [phone] and return the original report to us at the address above. Thank you. Anesthesia Assessment and Plan Anesthesia History Personal History: No History of Anesthesia Complications Family History: Family History Unknown Exercise Tolerance Exercise Tolerance: Metabolic Equivalents>4 Pertinent Negatives Pertinent Negatives: No Symptoms of GERD, No Major Cardiovascular Symptoms or Complaints and No History of CVA/TIA Cardiac & Pulmonary Exam Cardiac Exam: Normal S1/S2 Heart Sounds Pulmonary Exam: Clear Bilateral Breath Sounds Implantable Cardiac Device Does patient have a Pacemaker or an ICD?: No Airway Exam Known Difficult Airway: No Mallampati Class: 3 Mouth Opening: Normal (> 3cm) Thyromental Distance: Less than 3 cm Neck Range of Motion: Full ROM Neck Circumference: Normal Teeth Condition: Normal Dentition ASA Classification ASA Score: ASA 2 Emergency Case?: No NPO Status NPO Status: NPO Clears >2 hours, Solids >8 hours Anesthesia Plan Resuscitation Status: Full Code Anesthesia Technique: General Anesthesia Airway Planned: Natural Airway Monitors Used: Standard Monitors
[2025-02-28 07:57] VITALS: BMI 25.6
--- NOTE | 2025-02-28 08:03 | SCONE_ITS ---
Date of service: 02/28/25 Time of Service: 08:03 Assessment and Plan Assessment and plan (1) Gastric polyposis: Status: Acute Assessment and plan: 79-year-old woman due for repeat EGD surveillance to ensure her gastric polyposis is regressing now that she has been off of PPI therapy. Overall plan: EGD: History of Present Illness Narrative: 79-year-old woman is well-known really from prior EGD. Gastric polyposis in setting of PPI. PFSH All Active Problems Gastric polyposis (Acute) Incidental lung nodule, > 3mm and < 8mm (Acute) Abdominal pain (Acute) Toe pain, right (Acute) Arthritis of left glenohumeral joint (Acute) Shoulder pain, left (Acute) Osteoarthritis of right knee (Acute) Depo-medrol injection: 01/12/23 Breast pain in female (Acute) Vertigo (Acute) Cough (Acute) Post-nasal drip (Acute) Weight loss (Acute) Arthritis of left knee (Acute) DEPO MEDROL 03/20/22 Meralgia paresthetica of right side (Acute) Lumbosacral spondylosis without myelopathy (Acute) Tear of medial meniscus of left knee (Acute) Acute low back pain due to spinal disorder (Acute) Chest pain (Acute) Serrated adenoma of colon (Acute ~11/2020) Leg pain, right (Acute) Anxiety (Chronic 01/17/09) Essential hypertension (Chronic 09/05/13) Hyperlipidemia (Chronic 01/11/09) Vitamin D deficiency (Chronic 07/01/11) 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) Cervical spondylosis without myelopathy (Acute) Temporomandibular joint disorder (Acute 07/24/16) Sacroiliac joint pain (Acute) Balance problem (Acute 09/24/06) Endometriosis (Acute) Tinnitus, bilateral (Acute) Vertigo (Acute) Elevated glucose (Acute) Sensorineural hearing loss of both ears (Acute) Obstructive sleep apnea (adult) (pediatric) (Acute) Disequilibrium (Acute) Globus sensation (Acute) Temporal pain (Acute) Peripheral edema (Acute) Right leg weakness (Acute) Right lumbar radiculopathy (Acute) Status post total replacement of right hip (Acute 12/06/19) Trochanteric bursitis, right hip (Acute) Supraventricular tachycardia (Chronic) on atenolol Sleep apnea, unspecified (Chronic 09/12/15) Shoulder pain, right (Chronic 08/17/14) Reflux esophagitis (Chronic 06/02/17) MILD-DR. TEZ GUZMAN Peripheral neuralgia (Chronic) EMG-01/29; mild slowing of right ulnar @elbow Osteopenia (Chronic) T scores of -1.2, -1.4 Mantoux: positive (Chronic) 1999 Hiatal hernia (Chronic 08/17/13) 2005 EGD showing HH, polyps and gastric fundi, non-obstructing ring in the GI junction Diverticula of colon (Chronic) 12/26/15; DR. 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 states this wasn't related to her heart but her esophagitis Elevated erythrocyte sedimentation rate (01/17/09) Fatigue (07/01/11) Herpes zoster without complication (12/10/15) Meralgia paresthetica of right side (08/18/17) Nasal obstruction (09/12/15) Pain of left breast (01/05/17) Cough due to bronchospasm (02/24/17) supraventricular reflux disease Vitamin D deficiency Esophagitis GERD (gastroesophageal reflux disease) Nasal congestion Hyperlipidemia Anxiety Essential hypertension Surgical History History of colonoscopy with polypectomy (~06/2024) History of total hip replacement History of colonoscopy History of lumpectomy of both breasts History of esophagogastroduodenoscopy (~06/2024) colonoscopy PROCEDURES EMG 01/29 with mild swelling of the right ulnar nerve of the elbow Echocardiogram 03/31 showing an ejection fraction of 65% and an upper septal hypertrophy grade 1, Diastolic dysfunction. Repeat echo showing an ejection fraction of 60% and mild MRTR ENDOMETRIAL SURGERY 1992 EGD - MAC (06/02/17) EGD - IV Sedation (08/17/13) HIATAL HERNIA Cholecystectomy (~2004) CYSTECTOMY (~1971) Reduction mammoplasty (~2001) B/L Family History Mother , age 87 Alzheimer's disease Heart disease Uterine cancer Father , age 67 Leukemia Sister Heart disease Hyperlipidemia Breast cancer Sister , BACTERIAL DISEASE at age 3. Cancer Brother , age 43 Essential hypertension Heart disease Hyperlipidemia Brother , age 67 Essential hypertension Heart disease Hyperlipidemia Brother , age 66 Pancreatic cancer Maternal Grandfather Heart disease Paternal Grandfather Pancreatic cancer Maternal Grandmother Cerebral hemorrhage Paternal Grandmother Heart disease Cancer FAMILY HISTORY Aneurysm Hyperlipidemia Neoplasm IBS (irritable bowel syndrome) Social History Smoking/Tobacco Use Status: Former Tobacco Use tobacco type: cigarettes Quit Date: 10/26/69 Tobacco: How many years used: 5 Second Hand Exposure: Yes Smoking risk assessment performed?: Yes Alcohol Intake: never Drug use: Never Substance use type: does not use Adopted: No Caregiver/Support person: No Household members: spouse Housing: house Number of Children: 1 Communication Needs: None Education Level: master's degree Do you need help understanding health information?: Never current occupation: Retired Pets and animals: Yes Pets and animals: dog(s) Sexually active: No Do you think of yourself as: straight/heterosexual Current gender identity: female What is your relationship status?: How often do you talk on the phone with friends or family?: once per week How often do you get together with friends or relatives?: decline to answer How often do you attend anglican or cheondoism services?: decline to answer Do you belong to any clubs or organized social groups?: no Panel score (0-1 are the most socially isolated patients): 1 What type of physical activity do you participate in: none Frequency: does not exercise Radha/Restorationism: Religious Special radha needs: No Seatbelt use: always Drive intox 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 passenger coach driver: No Firearms in home: No Do you feel safe at home: Yes Do you feel safe in your relationship?: Yes Victim of physical abuse: No Victim of emotional abuse: No Victim of sexual abuse: No Would you like helpful sources: No Exam Narrative Exam Narrative: Gen: Non-toxic, comfortable and interactive Neuro: Alert and oriented x3 Psych: Good mood and affect. Good insight and understanding into condition. Chest: Non-labored breathing, no wheezing, no visible shortness of breath. Heart: Regular Results Last Vital Signs Temp 97.5 F L 02/28/25 07:23 Pulse 60 02/28/25 07:23 Resp 16 02/28/25 07:23 BP 181/73 H 02/28/25 07:23 Pulse Ox 99 02/28/25 07:23
--- NOTE | 2025-02-28 08:08 | W.PM.ENDDOP ---
Date of service: 02/28/25 Time of Service: 08:08 Endoscopy Report PROCEDURE DESCRIPTION: PROCEDURES PERFORMED: 1. EGD with biopsies PREOPERATIVE DIAGNOSIS: Stomach polyposis POSTOPERATIVE DIAGNOSIS: Bile reflux, small type I sliding hiatal hernia SURGEON: Radha Cm MD INDICATION FOR PROCEDURE: 79-year-old woman had gastric polyposis in setting of chronic PPI therapy on EGD almost a year ago. This is a surveillance after removing her from PPI to ensure it is regressing. FINDINGS: D2/D3 = normal D1/bulb = normal - no ulcers or inflammation Pylorus = normal Antrum = normal appearance -but incidental bile pooling consistent with bile reflux diagnosis. No ulcers, cold forceps biopsies were taken to rule out H. pylori routinely. Body = normal appearance. No polyps. There is bile pooling/streaking consistent with bile reflux diagnosis. Fundus = normal, I did not appreciate any remaining polyps anywhere. Cardia = normal Hiatus = Hill grade 2 hiatal defect with a very small type I sliding hiatal hernia (~1 cm) Distal esophagus = no inflammation, no esophagitis, no Bolden's, no stricture. Mid esophagus = normal Proximal esophagus/hypopharynx/vocal cords = normal SURVEILLANCE-INTERVAL/FOLLOW-UP: Follow-up with PCP. I do not think surveillance endoscopy is needed. I do wonder if her reflux symptoms are actually bile reflux rather than GERD. Specimens: Yes EBL: Minimal COMPLICATIONS: None Procedure in detail: The patient gave written consent and was in agreement with the indications, the potential risks as well as the benefits of the procedure. The patient was taken to the endoscopy suite and laid on their left side. Anesthesia was given which was tolerated well. We performed a timeout and we are in agreement I started the procedure. A well-lubricated endoscope was gently and carefully advanced down the esophagus, into the stomach the scope was and through the pylorus into the duodenum. The scope was then slowly withdrawn with the above-noted findings/interventions. The patient tolerated the procedure well and was taken back to day surgery in stable condition.
--- NOTE | 2025-02-28 08:08 | W.PM.DSUDISC ---
Date of service: 02/28/25 Discharge Plan Disposition Patient Disposition: Home Condition: Good Discharge Details Attending Provider: Codey Cm Primary Care Provider: Joycelyn Will Home Meds and New Rx's Prescriptions: No Action cholecalciferol (vitamin D3) 1,000 unit capsule 1,000 unit PO DAILY Estring 2 mg (7.5 mcg /24 hour) ring 1 vag ring VG Q3MOS Qty: 1 4RF famotidine [Pepcid] 20 mg tablet 20 mg PO DAILY atenolol 25 mg tablet 25 mg PO DAILY Qty: 90 3RF rosuvastatin [Crestor] 5 mg tablet 5 mg PO DAILY Qty: 90 12RF multivitamin 1 EACH capsule 1 ea PO DAILY acetaminophen 500 mg tablet 1,000 mg PO Q8H PRN (Reason: pain) Qty: 90 3RF aspirin 81 mg Capsule 81 mg PO DAILY Discharge Instructions Additional Instructions: FINDINGS: No more polyps as predicted. This is really good news. Some bile (which is from your intestines) was seen in your stomach which means that the bile is refluxing up into your stomach. This is called bile reflux and this may actually be the underlying reason for your acid reflux symptoms. This condition is poorly?understood and there is not a well-established management strategy for it. You can discuss further with your PCP. Stand Alone Forms: Anesthesia Discharge Inst., DSU Post EGD Instructions, Yanna Jon (DSU) Activity:: Activity as Tolerated Diet:: As Tolerated Discharge Orders Discharge Orders: Discharge Order (Routine); Ordered 02/28/25 Ordered By: Codey Cm DS: Diagnosis Discharge Diagnosis (1) Gastric polyposis: Status: Acute
--- NOTE | 2025-02-28 08:25 | STOM_PTH ---
PATIENT: Vicky Goel LOC: [facility] U#:[id number] AGE/SX: 79/F ROOM: RE02/28/[address]: Codey Cm : 1945 BED: DIS: 02/28/2025 SPEC #: [id number] RECD: 02/28/25 12:42 STATUS: [facility] #: [id number] BOBBY: 02/28/25 08:[address]: Codey Cm DEPT: Surgical Specimen RECD BY: Sherie Sanchez ENTERED: 02/28/25 12:45 SP TYPE: STOMACH OTHR DR: Joycelyn Will MD, DC Tissues: 1 - STOMACH BIOPSY Procedures: GROSS AND MICRO LEVEL 4 Comments: [id number]
[2025-02-28 08:43] VITALS: BP 109/55; PULSE 56; RESP 16; TEMP 36.1; O2SAT 98
[2025-02-28 09:20] VITALS: BP 154/71; PULSE 51; RESP 17; TEMP 36.1; O2SAT 99
--- NOTE | 2025-02-28 10:16 | W.ANESPOSTOP ---
Postoperative Evaluation Date, Time and Location Date Performed: 02/28/25 Time Performed: 09:35 Patient Location: Day Surgery Unit Vital Signs Most Recent Imported Vital Signs: Most Recent Vital Signs Temp Pulse Resp BP Pulse Ox 36.1 C L 51 L 17 154/71 H 99 02/28/25 09:20 02/28/25 09:20 02/28/25 09:20 02/28/25 09:20 02/28/25 09:20 Pain Score Most Recent Pain Score: Most Recent Pain Score Pain Level 0 02/28/25 09:20 Assessment Mental Status: Awake (Alert & Oriented to Patient Baseline) Airway and Respiratory Function: Patent airway with normal (patient baseline) respiratory exam Cardiovascular Function: Hemodynamically Stable Hydration Status: Adequately Hydrated Nausea & Vomiting: No Nausea or Vomiting Pain: Pt. Denies Any Pain Peripheral Nerve Block: Patient did not receive a nerve block
== END 2025-02-28 09:30 | disposition home or self-care (01) ==
LOC: SUR 06:55
PROVIDERS: PCP Family Medicine; Visit Provider Student in an Organized Health Care Education/Training Program
PROC: 0DJ68ZZ Inspection of Stomach, Via Natural or Artificial Opening Endoscopic (ICD-10-PCS; CPT 43235; principal; 2025-02-28 08:15)
DX: K31.7 Polyp of stomach and duodenum (principal); K44.9 Diaphragmatic hernia without obstruction or gangrene; K21.9 Gastro-esophageal reflux disease without esophagitis; K31.89 Other diseases of stomach and duodenum
CPT/HCPCS: 43239; 88305; J2003; J2704

== ENCOUNTER 2025-07-11 11:26 | Outpatient (CLI) | payer BC, SELFPAY ==
[2025-07-11 14:50] LABS: ALT 22 U/L (14-59); AST 16 U/L (15-37); Albumin 3.7 g/dL (3.4-5.0); Alkaline Phosphatase 58 U/L (46-116); Anion Gap 9.7 mmol/L (3-11); BUN 17 mg/dL (7-18); Bilirubin, Total 0.3 mg/dL (0.2-1.0); CO2 26.3 mmol/L (21.0-32.0); Calcium 9.5 mg/dL (8.5-10.1); Calculated LDL 51 mg/dL (<100); Chloride 106 mmol/L (98-107); Cholesterol 148 mg/dL (<200); Estimated GFR 64.63 (mL/min/1.73m2); Glucose 105 mg/dL (74-106); HDL Cholesterol 69 mg/dL (>or=50); Potassium 3.9 mmol/L (3.5-5.1); Sodium 142 mmol/L (136-145); TSH (W/Ref FT4) 1.77 uIU/mL (0.36-3.74); Total Protein 7.3 g/dL (6.4-8.2); Triglyceride 144 mg/dL (<150); Vitamin B12 496 pg/mL (193-986); Vitamin D 25 Total 65 ng/mL (30-100)
[2025-07-12 19:23] LABS: CA 125 5 U/mL (<30)
== END 2025-07-11 11:27 | disposition home or self-care (01) ==
LOC: LOS 11:26
PROVIDERS: PCP Family Medicine; Referring Provider Family Medicine; Visit Provider Family Medicine
DX: R79.89 Other specified abnormal findings of blood chemistry (principal); I10 Essential (primary) hypertension; E03.9 Hypothyroidism, unspecified; M81.0 Age-related osteoporosis without current pathological fracture; R63.4 Abnormal weight loss
CPT/HCPCS: 36415; 80053; 80061; 82306; 86304; 82607; 83970; 84100; 84443

== ENCOUNTER 2025-07-16 11:22 | Outpatient (REF) | payer BC, SELFPAY ==
[2025-07-18 08:36] LABS: Calcium Urine 8.8 mg/dL (See Note); Timed Urine Volume 1500 mL
[2025-07-18 15:27] LABS: Creatinine,Urine 47.96 mg/dL
[2025-07-18 15:41] LABS: Creatinine,24hr Ur 0.72 g/24hr (0.60-1.80); Total Volume 1500 ml
== END 2025-07-16 11:23 | disposition home or self-care (01) ==
LOC: LBN 11:22
PROVIDERS: PCP Family Medicine; Visit Provider Family Medicine
DX: M81.0 Age-related osteoporosis without current pathological fracture (principal)
CPT/HCPCS: 81050; 82340; 82570

== ENCOUNTER 2025-07-20 02:11 | Outpatient (CLI) | payer BC, SELFPAY ==
--- NOTE | 2025-07-20 10:40 | DI.RAD_ITS ---
Exam(s) XR KNEE RT 3V AP,LAT,BRUCE EXAM: XR KNEE RT 3V AP,LAT,BRUCE CLINICAL HISTORY: r knee pain,m17.11,oa rt knee,. TECHNIQUE: 2D digital imaging was performed. Three views. COMPARISON: CR XR KNEE RT 3V AP,LAT,BRUCE from 01/12/2023 FINDINGS: BONES: No acute fracture is present. No bony destructive lesion is seen. JOINTS: The knee is normally aligned. A small joint effusion is seen. The joint spaces are maintained. There is minimal periarticular spurring. SOFT TISSUE: Normal. IMPRESSION: Small joint effusion. Minimal degenerative changes. DATA REPOSITORY: RADIATION DOSE DELIVERED:
== END 2025-07-20 02:31 ==
LOC: DI 02:12
PROVIDERS: PCP Family Medicine; Visit Provider Family Medicine
DX: M17.11 Unilateral primary osteoarthritis, right knee (principal)
CPT/HCPCS: 73562

== ENCOUNTER 2025-07-31 02:20 | Outpatient (CLI) | payer BC, SELFPAY ==
--- NOTE | 2025-07-31 06:30 | DI.NM_ITS ---
APPROVED REPORT Exam: Pharmacologic Patient Location: Out-Patient Room/Bed: Stress Nurse: Luke Mosher RN Ordering Provider:ALYSA ANDREWS, Contact Number: [phone] BMI: 24.08 Baseline Rhythm: Sinus Rhythm. Comment: Resting ST-T abnormalities. Indications: Atypical Chest Pain; Prior to Anticipated Surgery; Hypertension. Medical History Medical History: Vertigo; Anxiety; HLD; HTN; Balance Problem; Ataxia; Acute Low Back Pain due to Spinal Disorder; SRINIVAS; Peripheral Edema; Esophagitis; Herpes Zoster; GERD; Elevated ESR; Supraventricular Reflux Disease. Cardiac Medications: Aspirin; Estradiol; Pepcid; Metoprolol Succinate; Myrbetriq; Crestor; Miradegron. Allergies: Lipitor; Penicillins. Cardiac Risk Factors: Family Hx; HLD; HTN. Previous Cardiac Procedures: None. Pretest Chest Pain Characteristics: None. Exercise History: Sedentary. Physical Disabilities: Right Knee Pain; pt. states she is going to be evaluated by an orthopedic surgeon soon. Lung Sounds: Clear bilaterally throughout, anterior and posterior. Heart Sounds: S1 and S2 auscultated. Stress Test Details Test: Pharmacologic stress testing performed using 0.4 mg of regadenoson per 5 mL given IV over 10 seconds. Reason for pharmacologic stress test: physical limitation. Nuclear Acquisition: Rest Tc-99m/Stress Tc-99m 1 day Rest Isotope: Tc-99m Sestamibi. Dose: 9.7 Date: 07/31/2025 Injection Time: 0910 Stress Isotope: Tc-99m Sestamibi. Dose: 32.0 Date: 07/31/2025 Injection Time: 1051 HR Resting HR Supine: 67 bpm Max Heart Rate (APMHR): 140 bpm Target HR (85% APMHR): 119 bpm Max HR Achieved: 90 bpm % of APMHR: 64 Recovery HR: 82 bpm BP Resting BP Supine: 180/70 mmHg Max BP: 182/80 mmHg Recovery BP: 166/82 mmHg ECG Resting ECG: Sinus Rhythm. Ectopy: None. Comment: Resting St-T abnormalities. Stress ECG: Sinus Rhythm. ST Change: Nondiagnostic low heart rate, Nondiagnostic resting ST abnormalities. Arrhythmia: None. Comment: Resting ST-T abnormalities. Recovery ECG: Sinus Rhythm. Recovery ST Change: Nondiagnostic low heart rate, Nondiagnostic resting ST abnormalities. Recovery Arrhythmia: None. Comment: Resting ST-T abnormalities. Clinical Stress Symptoms: Pt. c/o 2-3/10, dull, aching, left shoulder pain immediately post lexiscan injection. Angina Score: None Rate Pressure Product: [id number] Stress ECG Conclusion 1. Resting electrocardiogram was normal 2. Patient underwent testing using pharmacologic stress with regadenoson 3. Peak heart rate achieved was 64% of maximal predicted for age 4. The electrocardiographic portion of the test was nondiagnostic 5. See MPI report Stress Test Summary STAGE HR BP SpO2 Symptoms NOTES Supine 67 180/70 99 1 min post Lexiscan injection 76 182/80 98 Pt. c/o 2-3/10, dull, aching, left shoulder pain immediately post lexiscan injection. 3 min post Lexiscan injection 81 170/70 98 Pt. denies any left shoulder pain. 6 min post Lexiscan injection 82 166/82 98 Pt. denies any left shoulder pain. Pt. performed a nuclear medicine MPI stress test using the laying lexiscan protocol per order. Pt. c/o 2-3/10, dull, aching, left shoulder pain immediately post lexiscan injection. Pt. stated that all left shoulder pain had resolved prior to the pt. leaving the Stress Lab. Pt. was conversing pleasantly with nursing staff upon leaving the Stress Lab. Pt. left ambulatory in no apparent distress. MPI Conclusion Myocardial perfusion is normal. There is no ischemia or evidence of prior infarction Ejection fraction is 51% with normal wall motion
[2025-07-31] MEDS: Regadenoson 0.4 MG/5 ML SYR IVP (10:50)
== END 2025-07-31 02:40 ==
PROVIDERS: PCP Family Medicine; Visit Provider Internal Medicine Cardiovascular Disease
DX: R07.9 Chest pain, unspecified (principal); I10 Essential (primary) hypertension
CPT/HCPCS: 78452; 93017; J2785

== ENCOUNTER 2025-08-17 11:47 | Outpatient (CLI) | payer BC, SELFPAY ==
[2025-08-17 15:46] LABS: Abs Immature Grans 0.01 10^3/uL (0.0-0.06); HCT 36.4 % (36.0-46.0); HGB 11.7 g/dL (11.2-15.7); Immature Grans % 0.2 %; MCH 30.4 pg (27.0-33.0); MCHC 32.1 % (32.0-36.0); MCV 95 fL (80-95); MPV 10.2 fL (8.0-11.0); Platelet Count 249 10^3/uL (130-400); RBC 3.85 10^6/uL (3.93-5.22); RDW 12.1 % (11.7-14.6); RDW-SD 42.0 fL; WBC 5.22 10^3/uL (4.4-10.8)
[2025-08-17 16:03] LABS: ALT 15 U/L (14-59); AST 17 U/L (15-37); Albumin 3.7 g/dL (3.4-5.0); Alkaline Phosphatase 69 U/L (46-116); Anion Gap 9.8 mmol/L (3-11); BUN 17 mg/dL (7-18); Bilirubin, Total 0.3 mg/dL (0.2-1.0); CO2 28.2 mmol/L (21.0-32.0); Calcium 9.1 mg/dL (8.5-10.1); Chloride 103 mmol/L (98-107); Estimated GFR 87.37 (mL/min/1.73m2); Glucose 108 mg/dL (74-106); Potassium 3.8 mmol/L (3.5-5.1); Sodium 141 mmol/L (136-145); Total Protein 6.7 g/dL (6.4-8.2)
[2025-08-22 10:03] LABS: Albumin 60.7 % (55.8-66.1); Albumin g/dL 4.1 g/dL (3.6-5.2); Alpha 1 g/dL 0.30 g/dL (0.15-0.40); Alpha 2 g/dL 0.80 g/dL (0.50-1.00); Beta g/dL 0.70 g/dL (0.60-1.20); Gamma g/dL 0.80 g/dL (0.60-1.60); Total Protein 6.8 g/dL (6.3-8.2)
== END 2025-08-17 11:48 | disposition home or self-care (01) ==
PROVIDERS: PCP Family Medicine; Visit Provider Family Medicine
DX: R63.4 Abnormal weight loss (principal); I10 Essential (primary) hypertension
CPT/HCPCS: 36415; 80053; 84165; 85025; 86320

== ENCOUNTER 2025-08-18 03:18 | Outpatient (CLI) | payer BC, SELFPAY ==
--- NOTE | 2025-08-18 14:26 | DI.RAD_ITS ---
Exam(s) XR LUMBAR SPINE COMPLETE EXAM: XR LUMBAR SPINE COMPLETE CLINICAL HISTORY: LOW BACK PAIN,M54.5,M53.9,DORSOPATHY. TECHNIQUE: 2D digital imaging was performed of the lumbar spine. Five images were obtained. AP, lateral, right oblique, left oblique and L5-S1 spot views were obtained. COMPARISON: CR XR LUMBAR SPINE COMPLETE from 10/22/2020 CR XR DEXA BONE DENSITY W/WO AARTI from 10/03/2024 FINDINGS: BONES: No fracture or destructive lesion. There are endplate osteophytes at multiple levels of the lumbar spine, particularly from L1-2 through L3-L4. There are degenerative changes of the facets at L5-S1. DISKS: There is moderate disc space narrowing at L2-L3. ALIGNMENT: There is again seen a mild levoscoliosis. No spondylolysis or spondylolisthesis. SOFT TISSUE: Atherosclerotic calcification is present. There are surgical clips in the right upper quadrant of the abdomen. IMPRESSION: Degenerative changes in the lumbar spine particularly at the L2-L3 level. DATA REPOSITORY: RADIATION DOSE DELIVERED:
== END 2025-08-18 03:38 ==
LOC: DI 03:19
PROVIDERS: PCP Family Medicine; Visit Provider Family Medicine
DX: M53.9 Dorsopathy, unspecified; M51.360 Other intervertebral disc degeneration, lumbar region with discogenic back pain only
CPT/HCPCS: 72110

== ENCOUNTER → 2025-08-25 03:40 | Outpatient (CLI) | payer BC, SELFPAY ==
--- NOTE | 2025-08-25 07:30 | DI.CT_ITS ---
Exam(s) CT CHEST/ABD/PEL W EXAM: CT CHEST/ABD/PEL W CLINICAL HISTORY: 10% abnl wt loss in 1 year TECHNIQUE: Imaging Protocol: Axial computed tomography images with coronal and sagittal reformatted images were created and reviewed. Lung Computer Aided Detection (CAD) was utilized. CONTRAST MATERIAL: Intravenous: Omnipaque 350 contrast volume:75 mL Oral: Yes COMPARISON: CT CT CHEST WO from 01/14/[address] ABDOMEN PELVIS W from 02/27/[address] THORAX CTA from 02/27/[address] THORAX ABD/PEL CTA from 08/01/2024 CT,NM,TMT NM MPI REST STRESS GRP from 07/31/2025 FINDINGS: CHEST: Tracheobronchial tree: Patent where visualized. No evidence of bronchiectasis. Pulmonary parenchyma: No consolidation or dominant measurable mass. No architectural distortion. Visualized thyroid gland: Unremarkable. Mediastinum and Sue: No dominant adenopathy or fluid collection. The esophagus is unremarkable. There is a calcified lymph node in the mediastinum. This can be seen with prior granulomatous disease. Pleura: No effusion or pneumothorax. Heart: The heart is not dilated. No coronary artery calcifications are seen. No pericardial effusion. Pulmonary arteries: Due to the timing of the bolus, there is suboptimal peripheral opacification of the pulmonary arteries. No large central pulmonary embolism is present. Aorta: Thoracic aorta non-dilated. Atherosclerotic calcification is present. Lymph nodes: Within normal limits. Soft tissues: Unremarkable. Bones:Within normal limits for the patient's age. ABDOMEN: Liver: Normal density. No measurable mass. Portal, Superior Mesenteric, and Splenic Veins: Unremarkable. Gallbladder and Biliary Tract: Status post cholecystectomy. There has been no change in the size of the common bile duct. Pancreas: Normal density, no abnormal calcifications or inflammatory process. Spleen: Normal. Adrenals: No masses seen. Kidneys: Normal size, contour and axis. No radiodense stones or obstructive uropathy. No masses seen. Abdominal Aorta: Abdominal portion non-dilated. Atherosclerotic calcification is present. Bowel: No obstruction or bowel wall thickening. Appendix is unremarkable. There is diverticulosis seen in the colon but no evidence of acute diverticulitis. Peritoneal Cavity: No ascites, collection or mesenteric inflammatory response. No free air. Lymph Nodes: Within normal limits. Bones: Within normal limits for the patient's age. The patient has a right total hip arthroplasty. Soft Tissues: Unremarkable. PELVIS: Bladder: Symmetric distention, no gross wall thickening. Reproductive Organs: Unremarkable as visualized. Lymph Nodes: Within normal limits. Bones: Within normal limits. IMPRESSION: 1. There is no acute abdominal or pelvic process. 2. There is no acute pulmonary process. 3. No evidence of a mass or adenopathy in the chest, abdomen or pelvis. RADIATION DOSE DELIVERED: 299.55mGy.cm Total DLP DATA REPOSITORY: All CT scans at this facility are submitted to the National Radiology Data Registry (NRDR) Dose Index Registry (DIR) with the [employer] ([employer]). RADIATION OPTIMIZATION: All CT scans at this facility use at least one of these dose optimization techniques: automated exposure control; mA and/or kV adjustment per patient size (includes targeted exams where dose is matched to clinical indication); or iterative reconstruction.
[2025-08-25] MEDS: Barium Sulfate 2% W/V-Creamy Vanilla Smoothie 450 ML BTL PO (12:10)
[2025-08-25] MEDS: Barium Sulfate 2% W/V-Berry Smoothie 450 ML BTL PO (12:11)
[2025-08-25] MEDS: Normal Saline - Diluent 50 ML VIAL IJ (13:51)
[2025-08-25] MEDS: Normal Saline Flush 10 ML SYR IVP (13:52)
[2025-08-25] MEDS: Omnipaque 350 MG/ML 100 ML BTL IJ (13:54)
== END ==
LOC: DI 03:40
PROVIDERS: PCP Family Medicine; Visit Provider Family Medicine
DX: R63.4 Abnormal weight loss (principal)
CPT/HCPCS: 74177; 71260; J3490